=== PATIENT | male | born 1965 | race Caucasian/White ===

== ENCOUNTER 2018-06-02 05:18 | Emergency (ER) | payer OTHER, MEDICAID, SELFPAY ==
--- NOTE | 2018-06-02 05:22 | DI.RAD.S_ITS ---
PROCEDURE: XR ANKLE LT MIN 3V INDICATIONS: ankle pain after injury TECHNIQUE: 3 views of the ankle were acquired. COMPARISON: None. FINDINGS: Bones: Old fracture with internal fixation involving the medial malleolus. A surgical wire is fractured and migrated although the chronicity is uncertain. No definitive fractures or dislocations. Ankle mortise is normally aligned. No suspicious bony lesions. There is moderate secondary osteoarthritic changes at the tibiotalar joint. Soft tissues: No tibiotalar joint effusion. Achilles tendon appears normal. Soft tissue swelling. IMPRESSION: 1. No definitive acute fractures. If clinical symptoms persist or clinical suspicion for pathology is high, advanced imaging such as CT or MRI is suggested for further evaluation. 2. Old internally fixed medial malleolar fracture. There is fracture of a surgical wire which is migrated, uncertain chronicity. 3. Secondary osteoarthritis of the tibiotalar joint. Dictated by: Cherelle Madison M.D. on 06/02/2018 at 8:58 Approved by: Cherelle Madison M.D. on 06/02/2018 at 9:02
[2018-06-02 05:27] VITALS: BP 126/88; PULSE 105; RESP 18; TEMP 36.6; O2SAT 99; BMI 23.1
--- NOTE | 2018-06-02 05:39 | ED_ITS ---
HPI - Extremity Injury (Lower) General Chief Complaint: Extremity Injury, Lower Stated Complaint: Left ankle injury Time Seen by Provider: 06/02/18 05:22 Source: patient Mode of arrival: ambulatory Limitations: no limitations History of Present Illness HPI Narrative: 53-year-old male presents with a chief complaint of left ankle pain after hyperflexing his ankle while walking a long distance earlier today. He has pain on bilateral malleoli and does have a history of injuring this ankle with prior surgeries. He denies any numbness, tingling or weakness. He denies any foot or knee pain. MD complaint: ankle injury Onset (ago): hour(s) Type of Injury: hyperflexion Place: street/outdoors Severity: moderate Severity scale (1-10): 5 Relieving factors: rest Exacerbating factors: weight bearing and movement Context: walking Associated symptoms: snap/pop sensation, swelling and ambulatory Other symptoms: none Related Data Allergies Allergy/AdvReac Type Severity Reaction Status Date / Time No Known Drug Allergies Allergy Verified 06/02/18 05:27 Review of Systems Review of Systems All systems reviewed & are unremarkable except as noted in HPI and below Constitutional Denies chills, Denies fever(s), Denies lethargy and Denies weakness Eyes Denies change in vision, Denies eye discharge, Denies irritation and Denies loss of vision ENT Ears, Nose, Mouth, and Throat: Denies change in voice, Denies neck pain and Denies sore throat Cardiovascular Denies chest pain, Denies irregular heart rhythm, Denies lightheadedness, Denies palpitations, Denies dyspnea, Denies dyspnea on exertion and Denies orthopnea Respiratory Denies cough, Denies dyspnea, Denies dyspnea on exertion and Denies wheezing Gastrointestinal Gastrointestinal: Denies abdominal pain, Denies change in bowel habits, Denies diarrhea, Denies nausea and Denies vomiting Genitourinary Denies hematuria, Denies flank pain, Denies urinary incontinence and Denies urinary urgency Musculoskeletal Reports joint swelling, Reports limited range of motion and Denies neck pain Integumentary/Breasts Denies pruritus, Denies erythema, Denies rash and Denies wounds Neurologic Denies confusion, Denies loss of vision and Denies weakness Psychiatric Denies anxiety, Denies confusion, Denies depression, Denies homicidal ideation and Denies suicidal ideation Endocrine Denies palpitations Hematologic/Lymphatic Denies easy bruising Allergic/Immunologic Denies wheezing [facility], [facility] Social History Smoking Status: Current every day smoker Exam Narrative Exam Narrative: GEN: AOx3 and in mild distress EYES: Pupils are equal, round, and reactive to light and accommodation. Extraoccular muscles are intact bilaterally. There is no subconjunctival hemorrhage or exudate. CHEST: Lungs are clear to auscultation bilaterally and free of wheezes, rales, or rhonchi. Heart rate is regular rhythm, there are no murmurs, clicks, rubs, or gallops. There is no chest wall tenderness. ABD: Abdomen is soft and nontender. There is no guarding or rebound. Bowel sounds are normal in all 4 quadrants. There is no mass or organomegaly. EXT: Patient has full but painful range of motion of left ankle with minimal swelling over bilateral malleoli. SKIN: Warm, pink, and dry. No erythema or rash Initial Vital Signs Initial Vital Signs: Vital Signs Temperature 97.8 F 06/02/18 05:27 Pulse Rate 105 H 06/02/18 05:27 Respiratory Rate 18 06/02/18 05:27 Blood Pressure 126/88 H 06/02/18 05:27 Pulse Oximetry 99 06/02/18 05:27 Course Orders Ordered: ED Orders 06/02/18 05:22 XR ankle LT min 3V Stat Vital Signs - 8 hr 06/02/18 05:27 Temperature 97.8 F Pulse Rate 105 H Respiratory Rate 18 Blood Pressure 126/88 H Pulse Oximetry 99 MDM - Extremity Injury (Lower) Differential Diagnosis Likely ankle sprain and strain Medical Records Attestation: I reviewed the patient's medical records. Imaging Data Ankle XRAY: Attestation: I personally reviewed and interpreted this imaging study as follows: My impression: NAP Discharge Plan Departure Patient Disposition: Home Clinical Impression: Ankle sprain and strain Instructions: DI for Ankle Sprain Activity Restrictions/Additional Instructions: *You have been diagnosed with [ left ankle sprain ] *What to do: *Take medications as directed: Motrin and/or Tylenol for pain and swelling *Follow up with your primary care provider in 2-3 days, call for an appointment. Let them know you were seen in the Emergency Department and that we ask that you be seen in follow up *Return to ER if you should have any new, worsening or concerning symptoms , such as [increasing pain, numbness or tingling Radiographic study has been interpreted by an emergency physician. The official diagnosis by radiology will be performed within the next 24 hours and should there be any change in outcome we will notify you of how to proceed.
== END 2018-06-02 05:50 | disposition home or self-care (01) ==
PROVIDERS: Emergency Provider Emergency Medicine
DX: S93.402A Sprain of unspecified ligament of left ankle, initial encounter (principal); Y93.01 Activity, walking, marching and hiking
CPT/HCPCS: 73610; 99282; 99283

== ENCOUNTER 2018-12-30 12:34 | Emergency (ER) | payer OTHER, MEDICAID, SELFPAY ==
[2018-12-30 13:05] VITALS: PULSE 92; RESP 22; TEMP 37.8; O2SAT 93
[2018-12-30] MEDS: ACETAMINOPHEN 325 MG TABLET 650 MG PO (15:56)
[2018-12-30 16:21] VITALS: BP 123/78; PULSE 90; RESP 22; TEMP 39.2; O2SAT 93
--- NOTE | 2018-12-30 17:13 | ED_ITS ---
HPI - URI/Sore Throat <HAKAN Rivera - Last Filed: 12/30/18 22:40> General Chief Complaint: Upper Respiratory Symptoms Stated Complaint: FLU BUG Time Seen by Provider: 12/30/18 16:26 Source: patient Mode of arrival: ambulatory Limitations: no limitations History of Present Illness HPI Narrative: 53-year-old healthy male that is everyday smoker here for complaint of having cough nasal congestion generalized body aches and diarrhea for the past 2-3 days. He states the fever has started over the past day and half. He has been using Tylenol for his symptoms. He is tolerating p.o. intake well. No nausea or vomiting. He denies being around any contacts with similar symptoms. No stressors relievers of his symptoms. No other concerns or complaints at this timeframe. MD Complaint: fever and cough Related Data Home Medications Medication Instructions Recorded Confirmed aripiprazole 10 mg PO DAILY 12/30/18 12/30/18 guanfacine 1 mg PO BID 12/30/18 12/30/18 mirtazapine 7.5 mg PO DAILY 12/30/18 12/30/18 prazosin 1 mg PO DAILY 12/30/18 Allergies Allergy/AdvReac Type Severity Reaction Status Date / Time No Known Drug Allergies Allergy Verified 06/02/18 05:27 Review of Systems <HAKAN Rivera Last Filed: 12/30/18 22:40> Constitutional Reports chills, Reports fever(s) and Reports malaise Eyes Denies change in vision, Denies eye discharge, Denies irritation and Denies loss of vision ENT Ears, Nose, Mouth, and Throat: Denies change in voice, Denies neck pain and Denies sore throat Comments: Nasal congestion Cardiovascular Denies chest pain, Denies irregular heart rhythm, Denies lightheadedness, Denies palpitations and Denies orthopnea Respiratory Reports cough Gastrointestinal Gastrointestinal: Reports diarrhea Genitourinary Denies hematuria, Denies flank pain, Denies urinary incontinence and Denies u rinary urgency Musculoskeletal Denies neck pain Integumentary/Breasts Denies pruritus, Denies erythema, Denies rash and Denies wounds Neurologic Denies loss of vision Endocrine Denies palpitations PFS <HAKAN Rivera - Last Filed: 12/30/18 22:40> Social History Smoking Status: Current every day smoker Social History Smoking Status: Current every day smoker Exam <HAKAN Rivera - Last Filed: 12/30/18 22:40> Initial Vital Signs Initial Vital Signs: Vital Signs Temperature 100.1 F H 12/30/18 13:05 Pulse Rate 92 H 12/30/18 13:05 Respiratory Rate 22 12/30/18 13:05 Pulse Oximetry 93 12/30/18 13:05 Const General: cooperative and well developed Nutritional Appearance: well nourished Orientation: alert, awake, oriented x3 and not confused HENMT Mouth: oral mucosae normal and moist mucous membranes Throat: posterior oropharynx normal Eyes Conjunctivae: conjunctivae normal Sclera: sclerae normal Pupils: PERRL EOM: EOM intact bilaterally Resp Effort & Inspection: normal respiratory effort, able to speak in complete sentences, no respiratory distress and no use of accessory muscles Auscultation: clear to auscultation bilaterally, no rales, no rhonchi and no wheezes Cardio Rate: regular rate Rhythm: regular rhythm Heart Sounds: no click, no gallops, no murmurs and no rubs Pulses: normal peripheral pulses Skin General: no rashes or lesions noted, No jaundice and No petechiae Neuro General: alert, oriented x3, gait normal and no focal motor deficits Speech: speech normal <Cassandra Becker DO - Last Filed: 12/31/18 11:10> Initial Vital Signs Initial Vital Signs: Vital Signs Temperature 100.1 F H 12/30/18 13:05 Pulse Rate 92 H 12/30/18 13:05 Respiratory Rate 22 12/30/18 13:05 Pulse Oximetry 93 12/30/18 13:05 Course <HAKAN Rivera - Last Filed: 12/30/18 22:40> Orders Ordered: Discontinued Medications Acetaminophen (Tylenol) 650 mg PO NOW ONE Stop: 12/30/18 15:52 Last Admin: 12/30/18 15:56 Dose: 650 mg Ibuprofen (Advil) 800 mg PO NOW ONE Stop: 12/30/18 17:14 Last Admin: 12/30/18 17:31 Dose: 800 mg Vital Signs - 8 hr 12/30/18 16:21 12/30/18 17:31 12/30/18 17:35 Temperature 102.6 F H 100.6 F H Pulse Rate 90 87 Respiratory Rate 22 23 Blood Pressure 118/77 Blood Pressure [Right Arm] 123/78 Pulse Oximetry 93 93 12/30/18 17:39 Temperature 100.4 F H Pulse Rate Respiratory Rate Blood Pressure Blood Pressure [Right Arm] Pulse Oximetry <Cassandra Becker DO - Last Filed: 12/31/18 11:10> Orders Ordered: Discontinued Medications Acetaminophen (Tylenol) 650 mg PO NOW ONE Stop: 12/30/18 15:52 Last Admin: 12/30/18 15:56 Dose: 650 mg Ibuprofen (Advil) 800 mg PO NOW ONE Stop: 12/30/18 17:14 Last Admin: 12/30/18 17:31 Dose: 800 mg Vital Signs - 8 hr 12/30/18 16:21 12/30/18 17:31 12/30/18 17:35 Temperature 102.6 F H 100.6 F H Pulse Rate 90 87 Respiratory Rate 22 23 Blood Pressure 118/77 Blood Pressure [Right Arm] 123/78 Pulse Oximetry 93 93 12/30/18 17:39 Temperature 100.4 F H Pulse Rate Respiratory Rate Blood Pressure Blood Pressure [Right Arm] Pulse Oximetry MDM - URI/Sore Throat <HAKAN Rivera - Last Filed: 12/30/18 22:40> Lab Data Lab Results 12/30/18 Range/Units 16:25 Influenza A & B (PCR) Positive, type a A (Negative) MDM Narrative Medical decision making narrative: Influenza swab was obtained was positive for influenza A. [id number] Tylenol or Motrin as needed for any discomfort. Plenty of fluids and rest. Follow up with primary care provider. Return emergency room for any worsening symptoms. Saline irrigation and hot showers to help with any nasal congestion. <Cassandra Becker DO - Last Filed: 12/31/18 11:10> Lab Data Lab Results 12/30/18 Range/Units 16:25 Influenza A & B (PCR) Positive, type a A (Negative) Discharge Plan Departure Patient Disposition: Home Clinical Impression: Influenza Discharge Date/Time: 12/30/18 17:38 Interventions: ED Discharge Assessment Last Done: 12/30/18 17:35 Instructions: DI for Influenza -- Adult Activity Restrictions/Additional Instructions: Influenza swab was obtained was positive for influenza A. [id number] Tylenol or Motrin as needed for any discomfort. Plenty of fluids and rest. Follow up with primary care provider. Return emergency room for any worsening symptoms. Saline irrigation and hot showers to help with any nasal congestion. Prescriptions: No Action prazosin 1 mg capsule 1 mg PO DAILY RF: 0 guanfacine 1 mg tablet 1 mg PO BID RF: 0 mirtazapine 15 mg tablet 7.5 mg PO DAILY RF: 0 aripiprazole 10 mg tablet 10 mg PO DAILY RF: 0 Referrals: [facility] [Provider Group] <Cassandra Becker DO - Last Filed: 12/31/18 11:10> Cosign ED Attending Cosignature Attestation: I was immediately available in the department for consultation. Documentation has been reviewed. I agree with assessment and plan.
[2018-12-30 17:31] VITALS: TEMP 38.1
[2018-12-30] MEDS: IBUPROFEN 400 MG TABLET 800 MG PO (17:31)
[2018-12-30 17:35] VITALS: BP 118/77; PULSE 87; RESP 23; O2SAT 93
[2018-12-30 17:39] VITALS: TEMP 38
== END 2018-12-30 17:38 | disposition home or self-care (01) ==
PROVIDERS: Emergency Medicine; Emergency Provider Nurse Practitioner Family
DX: J10.1 Influenza due to other identified influenza virus with other respiratory manifestations (principal)
CPT/HCPCS: 87400; 99282

== ENCOUNTER 2019-01-03 07:00 | Emergency (ER) | payer OTHER, MEDICAID, SELFPAY ==
[2019-01-03 07:09] VITALS: BP 118/78; PULSE 98; RESP 10; TEMP 37.5; O2SAT 98; BMI 22.5
--- NOTE | 2019-01-03 08:22 | ED.URI ---
HPI - URI/Sore Throat General Chief Complaint: Upper Respiratory Symptoms Stated Complaint: Ear Pain Time Seen by Provider: 01/03/19 08:09 Source: patient, EMS, RN notes reviewed and old records reviewed Mode of arrival: EMS Limitations: no limitations History of Present Illness HPI Narrative: This is a 53-year-old male comes to the emergency department complaint of fevers, cough, chest pain with cough, patient states he feels achy all over. He was diagnosed with flu on the 20 . He states the symptoms started about the 29 of December. Patient states he also has been having some left ear pain he feels like it is swollen there and hard hear. Patient states he has been having diarrhea multiple times during the day. He denies any nausea or vomiting. patient states that he is taking all his regular medications. He takes air prep was all for his mental health. As well as the other medications for sleep. Patient states he also has a hernia on the left which she states has been bothering him more since he has been coughing but he is able to easily reduce it. States it has been there for about 15 years but has been slowly growing larger. Related Data Home Medications Medication Instructions Recorded Confirmed aripiprazole 10 mg PO DAILY 12/30/18 12/30/18 guanfacine 1 mg PO BID 12/30/18 12/30/18 mirtazapine 7.5 mg PO DAILY 12/30/18 12/30/18 prazosin 1 mg PO DAILY 12/30/18 Previous Rx's Medication Instructions Recorded levofloxacin [Levaquin] 750 mg PO DAILY #7 tab 01/03/19 ofloxacin 5 drop EAR-LEFT BID 10 Days #1 vial 01/03/19 Allergies Allergy/AdvReac Type Severity Reaction Status Date / Time No Known Drug Allergies Allergy Verified 06/02/18 05:27 Review of Systems Review of Systems ROS Unobtainable: All systems reviewed & are unremarkable except as noted in HPI and below Constitutional Reports body ache(s), Reports chills, Reports fever(s), Denies lethargy, Denies poor appetite and Denies weakness ENT Ears, Nose, Mouth, and Throat: Denies ear discharge, Reports otalgia ( left side) and Reports nasal discharge ( mild) Cardiovascular Reports chest pain ( With cough), Denies chest pain at rest, Denies chest pain with activity, Denies diaphoresis, Denies leg edema, Denies radiating jaw, neck or arm pain, Denies dyspnea and Denies dyspnea on exertion Respiratory Reports chest congestion, Reports cough, Denies excessive phlegm production, Denies pain on inspiration, Reports pain with cough, Denies dyspnea, Denies dyspnea on exertion and Denies wheezing Gastrointestinal Gastrointestinal: Denies abdominal pain, Denies melena, Denies hematochezia, Denies change in bowel habits, Reports diarrhea, Denies nausea, Denies vomiting and Reports other ( left inguinal hernia) Genitourinary Denies hematuria, Denies dysuria, Denies flank pain, Denies testicular pain and Denies urinary urgency Integumentary/Breasts Denies rash Neurologic Denies weakness Allergic/Immunologic Denies wheezing PFSH Social History Smoking Status: Current every day smoker Social History Smoking Status: Current every day smoker Exam Narrative Exam Narrative: GEN: well nourished, well appearing male, alert and oriented x 3, patient appears to be in mild distress. HEENT: Atraumatic, pupils are equal round reactive to light, extraocular movements are intact, nares are clear, Right TM is clear with no fluid left TM is clear there is no fluid but the left canal is erythematous and swollen, I am able to visualize the TM but the canal is about its normal diameter, there is no swelling of the pinna or outer ear. Throat is clear without any exudates, erythema, tonsillar enlargement or uvular deviation HEART: Regular rate and rhythm without murmur, clicks, rubs. LUNGS:Lung breath sounds equal bilaterally, no wheezes, rales, mild crackles at bases, chest moves symmetrically, no tachypnea or accessory muscle use. ABD:bowel sounds normal, soft, non-tender, no guarding, rebound, rigidity, no masses noted, no hepatosplenomegaly, patient has a left inguinal hernia that is easily reducible but immediately presents again. :No CVA tenderness MSCL: Non-tender, no edema bilateral lower extremities, no muscle atrophy, muscles strength 5/5 upper and lower extremities, full range of motion, normal gait NEURO:CN 2-12 intact, sensation normal PSYCH: normal mood, affect. Initial Vital Signs Initial Vital Signs: Vital Signs Temperature 99.5 F 01/03/19 07:09 Pulse Rate 98 H 01/03/19 07:09 Respiratory Rate 10 L 01/03/19 07:09 Blood Pressure 118/78 01/03/19 07:09 Pulse Oximetry 98 01/03/19 07:09 Course Orders Ordered: Discontinued Medications Sodium Chloride (Normal Saline 0.9%) 1,000 mls @ 1,000 mls/hr IV BOLUS ONE Stop: 01/03/19 09:20 Last Infusion: 01/03/19 09:32 Dose: 0 mls/hr Admin: 01/03/19 08:36 Dose: 1,000 mls/hr Ketorolac Tromethamine (Toradol) 15 mg IV NOW ONE Stop: 01/03/19 08:22 Last Admin: 01/03/19 08:36 Dose: 15 mg Vital Signs - 8 hr 01/03/19 07:09 Temperature 99.5 F Pulse Rate 98 H Respiratory Rate 10 L Blood Pressure 118/78 Pulse Oximetry 98 MDM - URI/Sore Throat Lab Data Attestation: I reviewed the patient's lab results. Result diagrams: 01/03/19 08:30 01/03/19 08:30 Lab Results 01/03/19 01/03/19 Range/Units 08:30 08:30 WBC 10.5 (4.5-11.0) X10^3/uL RBC 3.88 L (4.5-5.9) X10^6/uL Hgb 11.6 L (13.5-17.5) g/dL Hct 34.7 L (41-53) % MCV 89.5 (80-100) fL MCH 29.8 (26-34) PG MCHC 33.3 (30-36) % RDW 14.5 (11.6-14.8) % Plt Count 239 (150-400) X10^3/uL Neut % (Auto) 80.6 H (50-75) % Lymph % (Auto) 11.3 L (25-40) % Carbon % (Auto) 7.8 (3-14) % Eos % (Auto) 0.0 L (2-4) % Baso % (Auto) 0.3 (0-2) % Neut # (Auto) 8500 H (1272-2378) /uL Lymph # (Auto) 1200 (5378-0049) /uL Carbon # (Auto) 800 (0-900) /uL Eos # (Auto) 0 (0-450) /uL Baso # (Auto) 0 (0-100) /uL Sodium 136 L (137-145) mmol/L Potassium 3.8 (3.4-5.1) mmol/L Chloride 103 (98-107) mmol/L Carbon Dioxide 26 (22-32) mmol/L BUN 15 (9-20) mg/dL Creatinine 0.60 L (0.66-1.25) mg/dL Estimated GFR > 60.0 (>60) mL/min BUN/Creatinine Ratio 25.0 H (6-22) Glucose 133 H (70-100) mg/dL Calcium 8.6 (8.4-10.2) mg/dL Total Creatine Kinase 166 (55-170) U/L CK-MB (CK-2) 0.23 (<2.37) ng/mL CK-MB (CK-2) Rel Index 0.1 L (1.5-5.0) % Troponin I < 0.012 (0.01-0.034) ng/mL Imaging Data Chest x-ray: Radiologist's impression: [place] [address] XRay Report Signed Patient: Ranjan Conklin#: [id number] : 1965Acct:[id number] Age/Sex: 53 / MDate of Service: 01/03/19 Loc: ED Accession Number: [id number] Procedure: XR chest 1V Ordering Provider: Mireya Benito D.O. PROCEDURE: XR CHEST 1V INDICATIONS: flu symptoms, cough, fevers, chest pain TECHNIQUE: One view of the chest was acquired. COMPARISON: None. FINDINGS: Surgical changes and devices: None. Lungs and pleura: There are a few patchy bilateral airspace opacities with indistinct margins. No pleural effusions or pneumothorax. Mediastinum: Mediastinal contours appear normal. Heart size is normal. Bones and chest wall: No suspicious bony lesions. Overlying soft tissues appear unremarkable. IMPRESSION: 1. Patchy bilateral airspace opacities likely representing pneumonia given clinical history. Dictated by: Roverto Yan M.D. on 01/03/2019 at 9:05 Approved by: Roverto Yan M.D. on 01/03/2019 at 9:06 [facility] Narrative Medical decision making narrative: Patient is feeling better after Toradol and IV fluids. Chest x-ray shows some possible pneumonia like changes. Patient was recently diagnosed with influenza on the 29 of December. Discussed he could be developing pneumonia started antibiotics. He does have an otitis externa on exam and was started with ear drops. Patient is a referral to surgery for his inguinal hernia which is easily reducible but then recurs. Patient is comfortable with this plan and no signs and symptoms to watch for. Discharge Plan Departure Patient Disposition: Home Clinical Impression: Influenza, Otitis externa, Pneumonia Discharge Date/Time: 01/03/19 09:34 Interventions: ED Discharge Assessment Last Done: 01/03/19 09:33 Instructions: DI for Otitis Externa Activity Restrictions/Additional Instructions: Follow up with your primary care provider in the next 7-10 days if your symptoms have not completely resolved. Also for recheck of your ear infection. I recommend calling to set up follow up with general surgery to discuss possibly having your hernia repaired. Use antibiotic ear drops, use 5 drops into the left ear twice daily times 10 days. Take oral antibiotics until gone. Continue home medications as prescribed. You may use Tylenol and/or ibuprofen as needed for pain as well as fevers greater than 100.4 F he should expect influenza to last about 10 days from onset, if your continuing to have fevers, having worsening swelling or pain of her ear, bloody or purulent discharge from the, new or worsening chest, shortness of breath, persistent, black or bloody stools, passing out or other new or concerning symptoms return to the ER. Prescriptions: New ofloxacin 0.3 % drops 5 drop EAR-LEFT BID 10 Days Qty: 1 RF: 0 levofloxacin [Levaquin] 750 mg tablet 750 mg PO DAILY Qty: 7 RF: 0 No Action prazosin 1 mg capsule 1 mg PO DAILY RF: 0 guanfacine 1 mg tablet 1 mg PO BID RF: 0 mirtazapine 15 mg tablet 7.5 mg PO DAILY RF: 0 aripiprazole 10 mg tablet 10 mg PO DAILY RF: 0 Referrals: Ramses Pruitt MD [Physician] -
--- NOTE | 2019-01-03 08:26 | ED_ITS ---
HPI - URI/Sore Throat General Chief Complaint: Upper Respiratory Symptoms Stated Complaint: Ear Pain Time Seen by Provider: 01/03/19 08:09 Source: patient, EMS, RN notes reviewed and old records reviewed Mode of arrival: EMS Limitations: no limitations History of Present Illness HPI Narrative: This is a 53-year-old male comes to the emergency department complaint of fevers, cough, chest pain with cough, patient states he feels achy all over. He was diagnosed with flu on the . He states the symptoms sta rted about the 29 of December. Patient states he also has been having some left ear pain he feels like it is swollen there and hard hear. Patient states he has been having diarrhea multiple times during the day. He denies any nausea or vomiting. patient states that he is taking all his regular medications. He takes air prep was all for his mental health. As well as the other medications for sleep. Patient states he also has a hernia on the left which she states has been bothering him more since he has been coughing but he is able to easily reduce it. States it has been there for about 15 years but has been slowly growing larger. Related Data Home Medications Medication Instructions Recorded Confirmed aripiprazole 10 mg PO DAILY 12/30/18 12/30/18 guanfacine 1 mg PO BID 12/30/18 12/30/18 mirtazapine 7.5 mg PO DAILY 12/30/18 12/30/18 prazosin 1 mg PO DAILY 12/30/18 Previous Rx's Medication Instructions Recorded levofloxacin [Levaquin] 750 mg PO DAILY #7 tab 01/03/19 ofloxacin 5 drop EAR-LEFT BID 10 Days #1 vial 01/03/19 Allergies Allergy/AdvReac Type Severity Reaction Status Date / Time No Known Drug Allergies Allergy Verified 06/02/18 05:27 Review of Systems Review of Systems ROS Unobtainable: All systems reviewed & are unremarkable except as noted in HPI and below Constitutional Reports body ache(s), Reports chills, Reports fever(s), Denies lethargy, Denies poor appetite and Denies weakness ENT Ears, Nose, Mouth, and Throat: Denies ear discharge, Reports otalgia ( left side) and Reports nasal discharge ( mild) Cardiovascular Reports chest pain ( With cough), Denies chest pain at rest, Denies chest pain with activity, Denies diaphoresis, Denies leg edema, Denies radiating jaw, neck or arm pain, Denies dyspnea and Denies dyspnea on exertion Respiratory Reports chest congestion, Reports cough, Denies excessive phlegm production, Denies pain on inspiration, Reports pain with cough, Denies dyspnea, Denies dyspnea on exertion and Denies wheezing Gastrointestinal Gastrointestinal: Denies abdominal pain, Denies melena, Denies hematochezia, Denies change in bowel habits, Reports diarrhea, Denies nausea, Denies vomiting and Reports other ( left inguinal hernia) Genitourinary Denies hematuria, Denies dysuria, Denies flank pain, Denies testicular pain and Denies urinary urgency Integumentary/Breasts Denies rash Neurologic Denies weakness Allergic/Immunologic Denies wheezing PFSH Social History Smoking Status: Current every day smoker Social History Smoking Status: Current every day smoker Exam Narrative Exam Narrative: GEN: well nourished, well appearing male, alert and oriented x 3, patient appears to be in mild distress. HEENT: Atraumatic, pupils are equal round reactive to light, extraocular movements are intact, nares are clear, Right TM is clear with no fluid left TM is clear there is no fluid but the left canal is erythematous and swollen, I am able to visualize the TM but the canal is about its normal diameter, there is no swelling of the pinna or outer ear. Throat is clear without any exudates, erythema, tonsillar enlargement or uvular deviation HEART: Regular rate and rhythm without murmur, clicks, rubs. LUNGS:Lung breath sounds equal bilaterally, no wheezes, rales, mild crackles at bases, chest moves symmetrically, no tachypnea or accessory muscle use. ABD:bowel sounds normal, soft, non-tender, no guarding, rebound, rigidity, no masses noted, no hepatosplenomegaly, patient has a left inguinal hernia that is easily reducible but immediately presents again. :No CVA tenderness MSCL: Non-tender, no edema bilateral lower extremities, no muscle atrophy, muscles strength 5/5 upper and lower extremities, full range of motion, normal gait NEURO:CN 2-12 intact, sensation normal PSYCH: normal mood, affect. Initial Vital Signs Initial Vital Signs: Vital Signs Temperature 99.5 F 01/03/19 07:09 Pulse Rate 98 H 01/03/19 07:09 Respiratory Rate 10 L 01/03/19 07:09 Blood Pressure 118/78 01/03/19 07:09 Pulse Oximetry 98 01/03/19 07:09 Course Orders Ordered: Discontinued Medications Sodium Chloride (Normal Saline 0.9%) 1,000 mls @ 1,000 mls/hr IV BOLUS ONE Stop: 01/03/19 09:20 Last Infusion: 01/03/19 09:32 Dose: 0 mls/hr Admin: 01/03/19 08:36 Dose: 1,000 mls/hr Ketorolac Tromethamine (Toradol) 15 mg IV NOW ONE Stop: 01/03/19 08:22 Last Admin: 01/03/19 08:36 Dose: 15 mg Vital Signs - 8 hr 01/03/19 07:09 Temperature 99.5 F Pulse Rate 98 H Respiratory Rate 10 L Blood Pressure 118/78 Pulse Oximetry 98 MDM - URI/Sore Throat Lab Data Attestation: I reviewed the patient's lab results. Result diagrams: 01/03/19 08:30 01/03/19 08:30 Lab Results 01/03/19 01/03/19 Range/Units 08:30 08:30 WBC 10.5 (4.5-11.0) X10^3/uL RBC 3.88 L (4.5-5.9) X10^6/uL Hgb 11.6 L (13.5-17.5) g/dL Hct 34.7 L (41-53) % MCV 89.5 (80-100) fL MCH 29.8 (26-34) PG MCHC 33.3 (30-36) % RDW 14.5 (11.6-14.8) % Plt Count 239 (150-400) X10^3/uL Neut % (Auto) 80.6 H (50-75) % Lymph % (Auto) 11.3 L (25-40) % [place] % (Auto) 7.8 (3-14) % Eos % (Auto) 0.0 L (2-4) % Baso % (Auto) 0.3 (0-2) % Neut # (Auto) 8500 H (5492-5283) /uL Lymph # (Auto) 1200 (7642-8640) /uL [place] # (Auto) 800 (0-900) /uL Eos # (Auto) 0 (0-450) /uL Baso # (Auto) 0 (0-100) /uL Sodium 136 L (137-145) mmol/L Potassium 3.8 (3.4-5.1) mmol/L Chloride 103 (98-107) mmol/L Carbon Dioxide 26 (22-32) mmol/L BUN 15 (9-20) mg/dL Creatinine 0.60 L (0.66-1.25) mg/dL Estimated GFR > 60.0 (>60) mL/min BUN/Creatinine Ratio 25.0 H (6-22) Glucose 133 H (70-100) mg/dL Calcium 8.6 (8.4-10.2) mg/dL Total Creatine Kinase 166 (55-170) U/L CK-MB (CK-2) 0.23 (<2.37) ng/mL CK-MB (CK-2) Rel Index 0.1 L (1.5-5.0) % Troponin I < 0.012 (0.01-0.034) ng/mL Imaging Data Chest x-ray: Radiologist's impression: [address] [address] XRay Report Signed Patient: Ranjan Conklin#: [id number] : 1965Acct:[id number] Age/Sex: 53 / MDate of Service: 01/03/19 Loc: ED Accession Number: [id number] Procedure: XR chest 1V Ordering Provider: Mireya Benito D.O. PROCEDURE: XR CHEST 1V INDICATIONS: flu symptoms, cough, fevers, chest pain TECHNIQUE: One view of the chest was acquired. COMPARISON: None. FINDINGS: Surgical changes and devices: None. Lungs and pleura: There are a few patchy bilateral airspace opacities with indistinct margins. No pleural effusions or pneumothorax. Mediastinum: Mediastinal contours appear normal. Heart size is normal. Bones and chest wall: No suspicious bony lesions. Overlying soft tissues appear unremarkable. IMPRESSION: 1. Patchy bilateral airspace opacities likely representing pneumonia given clinical history. Dictated by: Roverto Yan M.D. on 01/03/2019 at 9:05 Approved by: Roverto Yan M.D. on 01/03/2019 at 9:06 [facility] Narrative Medical decision making narrative: Patient is feeling better after Toradol and IV fluids. Chest x-ray shows some possible pneumonia like changes. Patient was recently diagnosed with influenza on the 29 of December. Discussed he could be developing pneumonia started antibiotics. He does have an otitis externa on exam and was started with ear drops. Patient is a referral to surgery for his inguinal hernia which is easily reducible but then recurs. Patient is comfortable with this plan and no signs and symptoms to watch for. Discharge Plan Departure Patient Disposition: Home Clinical Impression: Influenza, Otitis externa, Pneumonia Discharge Date/Time: 01/03/19 09:34 Interventions: ED Discharge Assessment Last Done: 01/03/19 09:33 Instructions: DI for Otitis Externa Activity Restrictions/Additional Instructions: Follow up with your primary care provider in the next 7-10 days if your symptoms have not completely resolved. Also for recheck of your ear infection. I recommend calling to set up follow up with general surgery to discuss possibly having your hernia repaired. Use antibiotic ear drops, use 5 drops into the left ear twice daily times 10 days. Take oral antibiotics until gone. Continue home medications as prescribed. You may use Tylenol and/or ibuprofen as needed for pain as well as fevers greater than 100.4 F he should expect influenza to last about 10 days from onset, if your continuing to have fevers, having worsening swelling or pain of her ear, bloody or purulent discharge from the, new or worsening chest, shortness of breath, persistent, black or bloody stools, passing out or other new or concerning symptoms return to the ER. Prescriptions: New ofloxacin 0.3 % drops 5 drop EAR-LEFT BID 10 Days Qty: 1 RF: 0 levofloxacin [Levaquin] 750 mg tablet 750 mg PO DAILY Qty: 7 RF: 0 No Action prazosin 1 mg capsule 1 mg PO DAILY RF: 0 guanfacine 1 mg tablet 1 mg PO BID RF: 0 mirtazapine 15 mg tablet 7.5 mg PO DAILY RF: 0 aripiprazole 10 mg tablet 10 mg PO DAILY RF: 0 Referrals: Ramses Pruitt MD [Physician] -
[2019-01-03] MEDS: KETOROLAC 60 MG/2 ML VIAL 15 MG IV (08:36)
[2019-01-03] MEDS: SODIUM CHLORIDE 0.9% 1,000 ML 1000 ML IV (08:36)
[2019-01-03 08:39] LABS: Add Manual Diff / Slide Review NO; Basophils Absolute Auto 0 /uL (0-100); Basophils Percent Auto 0.3 % (0-2); Eosinophils Absolute Auto 0 /uL (0-450); Hematocrit 34.7 % (41-53); Hemoglobin 11.6 g/dL (13.5-17.5); Lymphocytes Absolute Auto 1200 /uL (1100-4500); Lymphocytes Percent Auto 11.3 % (25-40); Mean Corpuscular HGB Conc 33.3 % (30-36); Mean Corpuscular Hemoglobin 29.8 PG (26-34); Mean Corpuscular Volume 89.5 fL (80-100); Monocytes Absolute Auto 800 /uL (0-900); Monocytes Percent Auto 7.8 % (3-14); Neutrophils Absolute Auto 8500 /uL (1500-7000); Neutrophils Percent Auto 80.6 % (50-75); Platelet Count 239 X10^3/uL (150-400); Red Blood Cell Count 3.88 X10^6/uL (4.5-5.9); Red Cell Distribution Width 14.5 % (11.6-14.8); White Blood Cell Count 10.5 X10^3/uL (4.5-11.0)
[2019-01-03 08:53] LABS: Blood Urea Nitrogen 15 mg/dL (9-20); Calcium 8.6 mg/dL (8.4-10.2); Carbon Dioxide 26 mmol/L (22-32); Chloride 103 mmol/L (98-107); Creatine Kinase 166 U/L (55-170); Estimated Glomerular Filt Rate > 60.0 mL/min (>60); Glucose 133 mg/dL (70-100); HEMOLYSIS < 15 (0-50); Potassium 3.8 mmol/L (3.4-5.1); Sodium 136 mmol/L (137-145)
[2019-01-03 09:04] LABS: Troponin I < 0.012 ng/mL (0.01-0.034)
[2019-01-03 09:08] LABS: CKMB % Relative Index 0.1 % (1.5-5.0); Creatine Kinase MB 0.23 ng/mL (<2.37)
== END 2019-01-03 09:34 | disposition home or self-care (01) ==
PROVIDERS: Emergency Provider Emergency Medicine
DX: J11.1 Influenza due to unidentified influenza virus with other respiratory manifestations (principal); H60.90 Unspecified otitis externa, unspecified ear
CPT/HCPCS: 36591; 71045; 80048; 82550; 82553; 84484; 85025; 96361; 96374; 99283; 99284; J1885

== ENCOUNTER 2019-01-07 10:15 | Emergency (ER) | payer OTHER, MEDICAID, SELFPAY ==
[2019-01-07 10:20] VITALS: BP 133/80; PULSE 90; RESP 14; TEMP 36.8; O2SAT 98
--- NOTE | 2019-01-07 11:04 | ED.EAR ---
HPI - Ear Problem General Chief complaint: Ear Stated complaint: LEFT EAR PAIN Time Seen by Provider: 01/07/19 10:28 Source: patient Mode of arrival: ambulatory Limitations: no limitations History of Present Illness HPI Narrative: The patient is a 53-year-old male who presents with left ear pain. He was seen and evaluated here on 01/03/2019 he was positive for influenza on December 29 diagnosed with pneumonia on the he also was diagnosed with left otitis externa he was placed on drops and given oral Levaquin 7 days. He is still taking the Levaquin. MD Complaint: ear pain and decreased hearing Related Data Home Medications Medication Instructions Recorded Confirmed aripiprazole 10 mg PO DAILY 12/30/18 12/30/18 guanfacine 1 mg PO BID 12/30/18 12/30/18 mirtazapine 7.5 mg PO DAILY 12/30/18 12/30/18 prazosin 1 mg PO DAILY 12/30/18 Previous Rx's Medication Instructions Recorded levofloxacin [Levaquin] 750 mg PO DAILY #7 tab 01/03/19 ofloxacin 5 drop EAR-LEFT BID 10 Days #1 vial 01/03/19 amoxicillin 500 mg PO BID 7 Days #14 cap 01/07/19 Allergies Allergy/AdvReac Type Severity Reaction Status Date / Time No Known Drug Allergies Allergy Verified 06/02/18 05:27 Review of Systems Review of Systems ROS Unobtainable: All systems reviewed & are unremarkable except as noted in HPI and below Constitutional Denies chills, Denies fever(s), Denies lethargy and Denies weakness Eyes Denies change in vision, Denies eye discharge, Denies irritation and Denies loss of vision ENT Ears, Nose, Mouth, and Throat: Reports as per HPI Cardiovascular Denies chest pain, Denies irregular heart rhythm, Denies lightheadedness, Denies palpitations and Denies orthopnea Respiratory Reports as per HPI Gastrointestinal Gastrointestinal: Denies abdominal pain, Denies change in bowel habits, Denies diarrhea, Denies nausea and Denies vomiting Genitourinary Denies hematuria, Denies flank pain, Denies urinary incontinence and Denies urinary urgency Musculoskeletal Denies back pain, Denies muscle weakness, Denies numbness and Denies tingling Integumentary/Breasts Denies pruritus, Denies erythema, Denies rash and Denies wounds Neurologic Denies confusion, Denies loss of vision, Denies numbness, Denies tingling and Denies weakness Psychiatric Denies anxiety, Denies confusion, Denies depression, Denies homicidal ideation and Denies suicidal ideation Endocrine Denies palpitations [facility] Medical History 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 HEENT: Head atraumatic,EOMI, pupils reactive, face symmetric, moist mucous membranes EARS: Right ear is within normal limits, left ear canal is erythematous tympanic membrane is visualized there is 1 spot of possible blood in the canal there is no gross discharge mastoid is nontender able to move that external part of the ear without any difficulty. CARDIOVASCULAR: Regular rate and rhythm without murmurs, rubs or gallops. RESPIRATORY: Breath sounds equal bilaterally, no wheezes rales or rhonchi. ABDOMEN: Soft, nontender. Normoactive bowel sounds all 4 quadrants. No guarding or rebound. EXTREMITIES: Normal range of motion, no clubbing or edema. Neurovascularly intact NEUROLOGICAL: Alert and oriented x4.Normal gait and speech. SKIN: Warm, dry, no laceration, no petechiae, no rashes or lesions. Course Vital Signs - 8 hr 01/07/19 10:20 01/07/19 11:39 Temperature 98.2 F Pulse Rate 90 86 Respiratory Rate 14 18 Blood Pressure 133/80 121/83 Pulse Oximetry 98 96 Medical Decision Making MDM Narrative Medical decision making narrative: Patient is convinced that the drops are not getting into was here however he does have any gross discharge from his ears. It is still erythematous, patient is still taking Levaquin for pneumonia it should cover strep however may not be as effective in the ears. Recommend he start amoxicillin office initially ear drops.. Discharge Plan Departure Patient Disposition: Home Clinical Impression: Otitis externa Qualifiers: Otitis externa type: unspecified type Chronicity: acute Laterality: left Qualified Code(s): H60.502 - Unspecified acute noninfective otitis externa, left ear Discharge Date/Time: 01/07/19 11:40 Interventions: ED Discharge Assessment Last Done: 01/07/19 11:39 Activity Restrictions/Additional Instructions: *You have been diagnosed with otitis media *What to do: Continue with drops, think about ear wick ask the pharmacy it may help with drops *Continue to take medications as directed Levaquin 750 mg for 5 days total instead of 7 days amoxicillin 500 mg 3 times a day for 7 days for ear *Follow up with your primary care provider in 2-3 days *Return to ER if you should have [or] any new, worsening or concerning symptoms Prescriptions: New amoxicillin 500 mg capsule 500 mg PO BID 7 Days Qty: 14 RF: 0 No Action ofloxacin 0.3 % drops 5 drop EAR-LEFT BID 10 Days Qty: 1 RF: 0 levofloxacin [Levaquin] 750 mg tablet 750 mg PO DAILY Qty: 7 RF: 0 prazosin 1 mg capsule 1 mg PO DAILY RF: 0 guanfacine 1 mg tablet 1 mg PO BID RF: 0 mirtazapine 15 mg tablet 7.5 mg PO DAILY RF: 0 aripiprazole 10 mg tablet 10 mg PO DAILY RF: 0 Referrals: [facility] [Provider Group]
[2019-01-07 11:39] VITALS: BP 121/83; PULSE 86; RESP 18; O2SAT 96
== END 2019-01-07 11:40 | disposition home or self-care (01) ==
PROVIDERS: Emergency Provider Emergency Medicine
DX: H60.502 Unspecified acute noninfective otitis externa, left ear (principal)
CPT/HCPCS: 99282; 99283

== ENCOUNTER 2019-04-27 09:05 | Day surgery (SDC) | payer OTHER, MEDICAID, SELFPAY ==
[2019-04-26 12:21] VITALS: BMI 22.2
[2019-04-27] VITALS (12 sets, daily range): BP systolic 95–123; BP diastolic 64–88; PULSE 65–77; RESP 9–17; TEMP 36.6–37.2; O2SAT 93–99; BMI 22.2
[2019-04-27] MEDS: LACTATED RINGERS 1,000 ML 100 ML IV (09:30)
--- NOTE | 2019-04-27 13:11 | PM.PREOP ---
Pre-operative Note Interval Note History & Physical reviewed/Exam performed by Physician: Yes Changes to H&P: No
[2019-04-27] MEDS: CEFAZOLIN 2 GM/100 ML FROZ.PIGGY IV (13:28)
--- NOTE | 2019-04-27 13:51 | SUR.OPER ---
Supine on padded OR bed, head on pillow, arms secured on padded arm boards at <90 degrees abduction, legs uncrossed, safety belt at thigh, tape over blanket over lower legs.
[2019-04-27] MEDS: BUPIVACAINE 0.5% (PF) VIAL 30 ML INJ (13:59)
--- NOTE | 2019-04-27 15:11 | PM.OP.1 ---
Operative Date/Time/Diagnoses Date of procedure: 04/27/19 Time of procedure: 15:11 Pre-op diagnosis: Left inguinal hernia Post-op diagnosis: same (Left inguinal hernia. Incarcerated in the office but reducible once the patient was asleep.) Procedure & Clinicians Procedure: Repair with onlay of mesh (Ever) Same procedure as scheduled: Yes Indications: Symptomatic left inguinal hernia Surgeon: Xavier Bro Click Yes if Unassisted: Yes Anesthesia Type: General Operative Notes Findings: Jose defect in the floor. Had the appearance of an indirect hernia. Closure Type: primary Specimen(s): none sent Prosthetic devices, grafts, tissues, transplants, or devices: Mesh Estimated Blood Loss (mL): 15 Procedure in detail: The patient was placed supine on the operating room table and underwent general LMA anesthesia. He was prepped and draped in the usual fashion. A transverse incision was made overlying the internal ring and carried down to the level of the external oblique. The external oblique was opened parallel with its fibers through the external ring. The cord structures were elevated. The cremaster was opened proximally and search made for an indirect sac. None was found. The floor was examined and was found to be essentially obliterated with a huge defect through the floor. This was from surrounding structures including the cord. It was opened and the preperitoneal fat reduced. The redundant portion was removed and a pursestring of 2 0 silk was used to close the defect along with a silk tie and running layers of 2 0 silk. The floor was still quite attenuated so I chose to suture transversalis medially to ileopubic tract and ileo inguinal ligament. I used 0 0 Tycron to do this. A small relaxing incision was made in the posterior lamella the anterior rectus sheath.. A patch was placed across the floor and tacked at the pubic tubercle, the posterior lamella of the anterior rectus sheath, the ilioinguinal ligament, and superior lateral to the cord. The opening was modified as necessary to prevent tight constriction of the cord. Sutures of 0 Tycron were used to secure the mesh. The external oblique was closed with a running 3 0 Polysorb. The subcu was closed with interrupted 3 0 Polysorb. The skin was closed with a running 4 0 Polysorb subcuticular stitch and Steri-Strips. Dressing was applied, the patient was awakened, and the patient was taken to the recovery area in good condition. Testicle was pulled down after closure. It wrote a little high preop in continue to do so postop. Complications: none Condition: stable Disposition: PACU Plan for aftercare: Follow-up the office
[2019-04-27] MEDS: fentaNYL 100 MCG/2 ML INJ 50 MCG IV ×2 (15:31→15:37)
[2019-04-27] MEDS: HYDROMORPHONE 2 MG INJ 0.5 MG IV ×2 (15:45→15:56)
[2019-04-27] MEDS: OXYCODONE/ACETAMINOPHEN 5/325 TABLET 1 TAB PO ×2 (15:50→16:11)
--- NOTE | 2019-04-27 16:05 | SUR.PHASEI ---
bedside report given to JACEY Mansfield at this time. Pt in stable condition, VSS. pt sitting up and talking to RN. Transferred care of pt to JACEY Chamberlain at this time.
--- NOTE | 2019-04-27 16:53 | SUR.PHASEII ---
friend brought in after returned from pharmacy, d/c instructions discussed both voiced an understanding. pt left when ready and left in stable condition.
== END 2019-04-27 16:55 | disposition home or self-care (01) ==
PROVIDERS: Visit Provider Specialist
PROC: (CPT 49505; principal; 2019-04-27 12:45)
DX: K40.90 Unilateral inguinal hernia, without obstruction or gangrene, not specified as recurrent (principal)
CPT/HCPCS: 49505; C1781; J0690; J1100; J1170; J2405; J2704; J3010

== ENCOUNTER 2020-10-08 09:28 | Observation (INO) | payer OTHER, MEDICAID, SELFPAY ==
[2020-10-08] VITALS (22 sets, daily range): BP systolic 107–133; BP diastolic 62–87; PULSE 67–92; RESP 12–18; TEMP 36.3–37.2; O2SAT 95–100; BMI 23.1
--- NOTE | 2020-10-08 11:06 | ED_ITS ---
HPI - Skin/Abscess/Foreign Bdy <Herberth DumontGERARDO montezP - Last Filed: 10/08/20 16:50> General Chief complaint: Skin/Abscess/Foreign Body Stated complaint: Cyst inside left knee Time Seen by Provider: 10/08/20 10:36 Source: patient Mode of arrival: Ambulatory Limitations: no limitations History of Present Illness HPI narrative: This is a 55 year male, smoker, who has past medical history sig nificant for substance abuse by smoking meth and ankle surgery presents to ED with chief complain of left knee skin infection and a lump. Patient reports currently is not using methamphetamine for last couple of years. Patient noticed a small pimple like lesions was on left medial knee about a week ago and scratched it since it was itchy. This became very swollen, red, warmth and painful. He noticed copious amount drainage from affected site 2 days ago by using hot compresses. Patient reports chills but no fever. Patient denies nausea, vomiting, altered sensation. He is ambulatory but this increases pain in left groin. Patient reports pain as 5 to 6/10. Patient denies chest pain, dyspnea, dizziness. Patient is homeless. Has a history of IV drug use 20 years ago for 6 month using cocaine. Related Data Previous Rx's Medication Instructions Recorded ibuprofen 600 mg PO QID PRN #20 tab 04/27/19 Allergies Allergy/AdvReac Type Severity Reaction Status Date / Time No Known Drug Allergies Allergy Verified 10/08/20 09:56 Review of Systems <Herberth DumontGERARDO montezP - Last Filed: 10/08/20 16:50> Review of Systems Narrative: General: Denies fever, (+) chills, fatigue, malaise, sweats. HEENT: Denies sinus pain, ear pain, sore throat, difficulty swallowing, di zziness. Respiratory: Denies dyspnea, cough, wheezing, hemoptysis, sputum. Cardiovascular: Denies chest pain, palpitations, orthopnea, edema. Gastrointestinal: Denies nausea, vomiting, abdominal pain, diarrhea, constipation, melena. : Denies dysuria, frequency, incontinence, hematuria, urinary retention. Musculoskeletal: See HPI Skin: See HPI Neurologic: Denies weakness, headache, numbness, change in speech, confusion, seizures, incoordination. Psychiatric: No concerning psychosocial issues. 12-point review of systems is negative except for those stated above. 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 Surgical History History of ankle surgery Social History marital status: unmarried,single household members: friend(s) occupational status: employed Smoking Status: Current every day smoker alcohol intake: former substance use type: does not use and former substance user Smoking Status: Current every day smoker alcohol intake frequency: holidays/special occasions only Substance Use Type: does not use and former substance user Exam <Herberth BeltreHAKAN Medel - Last Filed: 10/08/20 16:50> Narrative Exam Narrative: GEN: Alert, oriented x 3, well appearing and nourished, and in no acute distress. Head: Normal cephalic, atraumatic. No scalp or temporal tenderness, palpable mass or rash. EYES: Pupils are equal, round, and reactive to light and accommodation. Extraocular muscles are intact bilaterally. There is no subconjunctival hemorrhage, exudate and sclera non-icteric. ENT: Hearing grossly intact. Nose without bleeding, purulent discharge or deviation. Mucous membrane moist, no mucosal lesion. Throat without erythema, tonsillar hypertrophy or exudate. Uvula in midline, airway patent. Neck: Trachea in midline. No JVD, non-tender without lymphadenopathy. No masses or thyroid megaly. Supple, non-tender and no meningeal signs. CARDIAC: Normal regular rate and rhythm without murmurs, gallops, or rubs. No chest wall tenderness. No peripheral edema, cyanosis or pallor. Capillary refill is less than 2 seconds. RESPIRATORY: Lungs are clear to auscultate bilaterally. No cough, wheezes, rales, or rhonchi. No stridor, respiratory distress, increase work of breathing, or accessary muscle used. ABD: Abdomen soft, nontender and non-distended. No guarding or rebound tenderness to palpate. Bowel sounds are normal in all 4 quadrants. There is no palpable masses or organomegaly. EXT: Intact sensation and pedal pulses bilaterally. Left inguinal lymphadenopathy. SKIN: Ulcerated lesion measuring 1.5 cm with white/purulent discharge and discoloration which is surrounded with erythematous, edematous, warmth skin measuring 9 x 8 cm and marine steward erythematous and warmth extending up to mid thigh which is traced by skin pen. Warm, dry, normal color for patient. BACK: Nontender without deformity or crepitance. No flank tenderness. NEUROLOGICAL: Alert and oriented to place, time and person. Sensation and motor function intact bilaterally. No facial droops, dysphasia. PSYCHIATRIC: Good judgement and reason, without hallucinations, abnormal affect or abnormal behaviors during the examination. Patient is not suicidal. Initial Vital Signs Initial Vital Signs: Vital Signs Temperature 98.4 F 10/08/20 09:56 Pulse Rate 92 H 10/08/20 09:56 Respiratory Rate 14 10/08/20 09:56 Blood Pressure 120/80 10/08/20 09:56 Pulse Oximetry 99 10/08/20 09:56 <Cassandra Becker DO - Last Filed: 10/08/20 18:51> Initial Vital Signs Initial Vital Signs: Vital Signs Temperature 98.4 F 10/08/20 09:56 Pulse Rate 92 H 10/08/20 09:56 Respiratory Rate 14 10/08/20 09:56 Blood Pressure 120/80 10/08/20 09:56 Pulse Oximetry 99 10/08/20 09:56 Scores <HAKAN Segura - Last Filed: 10/08/20 16:50> GCS [place] coma scale eye opening: Spontaneous [place] coma scale verbal response: Orientated [place] coma scale motor response: Obey commands Ju[place] coma scale total score: 15 qSOFA Altered Mental Status (GCS <15): No Respiratory rate greater than/equal to 22: No Systolic blood pressure less than or equal to 100: No qSOFA Total: 0 0-1 Not High Risk 1-3 High risk Course <HAKAN Segura - Last Filed: 10/08/20 16:50> Orders Ordered: ED Orders 10/08/20 11:06 XR knee LT 3V Stat 10/08/20 11:50 Complete Blood Count AUTO DIFF Stat Comprehensive Metabolic Panel Stat Lactate (Lactic Acid) Stat Procalcitonin Stat 10/08/20 12:30 Wound Culture and Gram Stain Stat 10/08/20 13:22 Blood Culture Stat 10/08/20 14:16 COVID19 Stat 10/08/20 14:40 CT LE LT w con Stat Acetaminophen (Acetaminophen 325 Mg Tablet) 650 mg PO Q6HR PRN PRN Reason: Fever/Mild Pain (1-3) Enoxaparin Sodium (Enoxaparin 40 Mg/0.4 Ml Syringe) 40 mg SUBCUT DAILY SAMEERA Cefepime HCl 2 gm/ Sodium (Chloride) 100 mls @ 200 mls/hr IV Q12H SAMEERA Last Admin: 10/08/20 18:30 Dose: 200 mls/hr Documented by: JUVE Vancomycin HCl (Vancomycin) 1,250 mg in 250 mls @ 250 mls/hr IV Q8H SAMEERA Sodium Chloride (Normal Saline 0.9%) 250 mls @ 21 mls/hr IV Q24H PRN PRN Reason: Flush Last Admin: 10/08/20 18:31 Dose: 21 mls/hr Documented by: JUVE Influenza Virus Vaccine (Influenza Vaccine 0.5 Ml Syringe) 0.5 ml IM .ONCE ONE Stop: 10/09/20 09:01 Ondansetron HCl (Ondansetron 4 Mg/2 Ml Inj) 4 mg IV Q8HR PRN PRN Reason: Nausea And Vomiting Sodium Chloride (Sodium Chloride 0.9% Flush) 10 ml IV BID SAMEERA Sodium Chloride (Sodium Chloride 0.9% Flush) 10 ml IV PRN PRN PRN Reason: Flush Last Admin: 10/08/20 18:30 Dose: 10 ml Documented by: JUVE Vancomycin HCl (Vancomycin Trough) 1 request MISC NOW ONE Stop: 10/09/20 11:31 Discontinued Medications Bupivacaine HCl/Epinephrine Bitart (Bupivacaine 0.25% W/ Epi (Pf) 10 Ml Vial) 20 ml INJ NOW ONE Stop: 10/08/20 16:13 Last Admin: 10/08/20 16:13 Dose: 5 ml Documented by: ESTEPHANIE Diphtheria/Tetanus/Acell Pertussis (Tet,Diph,Pertuss(Acell),Vac/Pf 0.5 Ml Syringe) 0.5 ml IM .ONCE ONE Stop: 10/08/20 11:47 Last Admin: 10/08/20 11:57 Dose: 0.5 ml Documented by: BTONER Fentanyl (Fentanyl 100 Mcg/2 Ml Inj) 0 mcg IV Q5M PRN PRN Reason: Pain, Moderate (4-6) Hydromorphone HCl (Hydromorphone 2 Mg Inj) 0 mg IV Q5M PRN PRN Reason: Pain, Severe (7-10) Vancomycin HCl/Dextrose (Vancomycin) 1,500 mg in 300 mls @ 200 mls/hr IV NOW ONE Stop: 10/08/20 12:47 Last Infusion: 10/08/20 13:52 Dose: 0 mls/hr Documented by: Admin: 10/08/20 11:56 Dose: 200 mls/hr Documented by: BTONER Sodium Chloride (Normal Saline 0.9%) 1,000 mls @ 125 mls/hr IV CONT SAMEERA Last Infusion: 10/08/20 15:22 Dose: 0 mls/hr Documented by: Admin: 10/08/20 11:57 Dose: 125 mls/hr Documented by: BTONER Lactated Ringer's (Lactated Ringers) 1,000 mls @ 42 mls/hr IV NOW ONE Stop: 10/09/20 15:24 Last Infusion: 10/08/20 16:59 Dose: 0 mls/hr Documented by: CTR.[email or web address] Admin: 10/08/20 15:36 Dose: 42 mls/hr Documented by: LANDEN Ondansetron HCl (Ondansetron 4 Mg/2 Ml Inj) 4 mg IV NOW PRN PRN Reason: Nausea And Vomiting Oxycodone/Acetaminophen (Oxycodone/Acetaminophen 5/325 Tablet) 1 tab PO PACUNOW PRN PRN Reason: Mild or Moderate Pain Last Admin: 10/08/20 16:56 Dose: 1 tab Documented by: [email or web address] Vancomycin HCl (Vancomycin Per Pharmacy) 1 request [facility] [place] NOW ONE Stop: 10/08/20 18:06 Reevaluation(s) Reevaluation #1: With shared decision making, patient agrees to be hospitalized and received treatments for cellulitis and possible debridement on left leg Time: 13:55 Consultations Consultation #1: Dr. Zaragoza consulted for admission. Dr. Allan will come down to the ER to assess patient. Time: 13:38 Consultation #2: Dr. Allan assessed patient at bedside in ED and recommend general surgery/orthopedist consult for possible debridement of the wound. He kindly accepted the patient's care but after the GS evaluation. Time: 13:47 Consultation #3: Dr. Figueroa consulted for ulcerative wound and cellulitis possible debridement. Dr. Gacria recommended Covid test and she will come into ED for an evaluation. Time: 13:55 Additional Consultation(s): [id number]-Dr. Figueroa assessed the patient at bedside. She recommended CT of lower extremity with contrast before taking the pateint to OR. NPO at this time. Vital Signs Vital signs: Vital Signs - 8 hr 10/08/20 11:35 10/08/20 14:53 10/08/20 14:54 Pulse Rate 87 70 70 Respiratory Rate Blood Pressure 116/71 Pulse Oximetry 98 97 97 10/08/20 14:56 10/08/20 15:00 Pulse Rate 67 Respiratory Rate 16 Blood Pressure 122/72 Pulse Oximetry 97 <Cassandra Becker DO - Last Filed: 10/08/20 18:51> Orders Ordered: ED Orders 10/08/20 11:06 XR knee LT 3V Stat 10/08/20 11:50 Complete Blood Count AUTO DIFF Stat Comprehensive Metabolic Panel Stat Lactate (Lactic Acid) Stat Procalcitonin Stat 10/08/20 12:30 Wound Culture and Gram Stain Stat 10/08/20 13:22 Blood Culture Stat 10/08/20 14:16 COVID19 Stat 10/08/20 14:40 CT LE LT w con Stat Acetaminophen (Acetaminophen 325 Mg Tablet) 650 mg PO Q6HR PRN PRN Reason: Fever/Mild Pain (1-3) Enoxaparin Sodium (Enoxaparin 40 Mg/0.4 Ml Syringe) 40 mg SUBCUT DAILY SAMEERA Cefepime HCl 2 gm/ Sodium (Chloride) 100 mls @ 200 mls/hr IV Q12H SAMEERA Last Admin: 10/08/20 18:30 Dose: 200 mls/hr Documented by: JUVE Vancomycin HCl (Vancomycin) 1,250 mg in 250 mls @ 250 mls/hr IV Q8H SAMEERA Sodium Chloride (Normal Saline 0.9%) 250 mls @ 21 mls/hr IV Q24H PRN PRN Reason: Flush Last Admin: 10/08/20 18:31 Dose: 21 mls/hr Documented by: JUVE Influenza Virus Vaccine (Influenza Vaccine 0.5 Ml Syringe) 0.5 ml IM .ONCE ONE Stop: 10/09/20 09:01 Ondansetron HCl (Ondansetron 4 Mg/2 Ml Inj) 4 mg IV Q8HR PRN PRN Reason: Nausea And Vomiting Sodium Chloride (Sodium Chloride 0.9% Flush) 10 ml IV BID SAMEERA Sodium Chloride (Sodium Chloride 0.9% Flush) 10 ml IV PRN PRN PRN Reason: Flush Last Admin: 10/08/20 18:30 Dose: 10 ml Documented by: JUVE Vancomycin HCl (Vancomycin Trough) 1 request MISC NOW ONE Stop: 10/09/20 11:31 Discontinued Medications Bupivacaine HCl/Epinephrine Bitart (Bupivacaine 0.25% W/ Epi (Pf) 10 Ml Vial) 20 ml INJ NOW ONE Stop: 10/08/20 16:13 Last Admin: 10/08/20 16:13 Dose: 5 ml Documented by: ESTEPHANIE Diphtheria/Tetanus/Acell Pertussis (Tet,Diph,Pertuss(Acell),Vac/Pf 0.5 Ml Syring e) 0.5 ml IM .ONCE ONE Stop: 10/08/20 11:47 Last Admin: 10/08/20 11:57 Dose: 0.5 ml Documented by: TYSONONESanket Fentanyl (Fentanyl 100 Mcg/2 Ml Inj) 0 mcg IV Q5M PRN PRN Reason: Pain, Moderate (4-6) Hydromorphone HCl (Hydromorphone 2 Mg Inj) 0 mg IV Q5M PRN PRN Reason: Pain, Severe (7-10) Vancomycin HCl/Dextrose (Vancomycin) 1,500 mg in 300 mls @ 200 mls/hr IV NOW ONE Stop: 10/08/20 12:47 Last Infusion: 10/08/20 13:52 Dose: 0 mls/hr Documented by: Admin: 10/08/20 11:56 Dose: 200 mls/hr Documented by: BTONER Sodium Chloride (Normal Saline 0.9%) 1,000 mls @ 125 mls/hr IV CONT SAMEERA Last Infusion: 10/08/20 15:22 Dose: 0 mls/hr Documented by: Admin: 10/08/20 11:57 Dose: 125 mls/hr Documented by: BTONER Lactated Ringer's (Lactated Ringers) 1,000 mls @ 42 mls/hr IV NOW ONE Stop: 10/09/20 15:24 Last Infusion: 10/08/20 16:59 Dose: 0 mls/hr Documented by: Admin: 10/08/20 15:36 Dose: 42 mls/hr Documented by: LANDEN Ondansetron HCl (Ondansetron 4 Mg/2 Ml Inj) 4 mg IV NOW PRN PRN Reason: Nausea And Vomiting Oxycodone/Acetaminophen (Oxycodone/Acetaminophen 5/325 Tablet) 1 tab PO PACUNOW PRN PRN Reason: Mild or Moderate Pain Last Admin: 10/08/20 16:56 Dose: 1 tab Documented by: CTRALONZO Vancomycin HCl (Vancomycin Per Pharmacy) 1 request MISC NOW ONE Stop: 10/08/20 18:06 Vital Signs Vital signs: Vital Signs - 8 hr 10/08/20 11:35 10/08/20 14:53 10/08/20 14:54 Pulse Rate 87 70 70 Respiratory Rate Blood Pressure 116/71 Pulse Oximetry 98 97 97 10/08/20 14:56 10/08/20 15:00 Pulse Rate 67 Respiratory Rate 16 Blood Pressure 122/72 Pulse Oximetry 97 MDM - Skin/Abscess/Foreign Bdy <HAKAN Segura - Last Filed: 10/08/20 16:50> Differential Diagnosis Differential diagnosis: Likely abscess of skin or subcutaneous tissue, cellulitis and other (Sepsis, necrotizing fasciitis) Medical Records Attestation: I reviewed the patient's medical records. Lab Data Attestation: I reviewed the patient's lab results. Result diagrams: 10/08/20 11:50 10/08/20 11:50 Labs: Lab Results 10/08/20 10/08/20 10/08/20 Range/Units 11:50 11:50 11:50 WBC 7.3 (4.5-11.0) X10^3/uL RBC 4.22 L (4.5-5.9) X10^6/uL Hgb 12.3 L (13.5-17.5) g/dL Hct 38.0 L (41-53) % MCV 90.1 (80-100) fL MCH 29.2 (26-34) PG MCHC 32.4 (30-36) % RDW 12.9 (11.6-14.8) % Plt Count 387 (150-400) X10^3/uL Neut % (Auto) 56.3 (50-75) % Lymph % (Auto) 25.8 (25-40) % Finney % (Auto) 13.5 (3-14) % Eos % (Auto) 3.8 (2-4) % Baso % (Auto) 0.6 (0-2) % Neut # (Auto) 4100 (7657-2770) /uL Lymph # (Auto) 1900 (4714-8864) /uL Finney # (Auto) 1000 H (0-900) /uL Eos # (Auto) 300 (0-450) /uL Baso # (Auto) 0 (0-100) /uL Sodium 139 (137-145) mmol/L Potassium 4.3 (3.4-5.1) mmol/L Chloride 105 (98-107) mmol/L Carbon Dioxide 30 (22-32) mmol/L BUN 28 H (9-20) mg/dL Creatinine 0.75 (0.66-1.25) mg/dL Estimated GFR > 60.0 (>60) mL/min BUN/Creatinine Ratio 37.3 H (6-22) Glucose 101 H (70-100) mg/dL Lactate (0.7-2.1) mmol/L Calcium 9.1 (8.4-10.2) mg/dL Total Bilirubin 0.2 (0.2-1.3) mg/dL AST 56 (17-59) IU/L ALT 73 H (<50) IU/L Alkaline Phosphatase 100 (38-126) U/L Total Protein 7.3 (6.3-8.2) g/dL Albumin 3.6 (3.5-5.0) g/dL Globulin 3.7 (1.7-4.1) g/dL Albumin/Globulin Ratio 1.0 (1.0-2.8) Procalcitonin < 0.05 (<0.5) ng/mL COVID-19 PCR (Negative) 10/08/20 10/08/20 Range/Units 11:50 14:16 WBC (4.5-11.0) X10^3/uL RBC (4.5-5.9) X10^6/uL Hgb (13.5-17.5) g/dL Hct (41-53) % MCV (80-100) fL MCH (26-34) PG MCHC (30-36) % RDW (11.6-14.8) % Plt Count (150-400) X10^3/uL Neut % (Auto) (50-75) % Lymph % (Auto) (25-40) % Finney % (Auto) (3-14) % Eos % (Auto) (2-4) % Baso % (Auto) (0-2) % Neut # (Auto) (7625-9872) /uL Lymph # (Auto) (3162-9920) /uL Finney # (Auto) (0-900) /uL Eos # (Auto) (0-450) /uL Baso # (Auto) (0-100) /uL Sodium (137-145) mmol/L Potassium (3.4-5.1) mmol/L Chloride (98-107) mmol/L Carbon Dioxide (22-32) mmol/L BUN (9-20) mg/dL Creatinine (0.66-1.25) mg/dL Estimated GFR (>60) mL/min BUN/Creatinine Ratio (6-22) Glucose (70-100) mg/dL Lactate 0.7 (0.7-2.1) mmol/L Calcium (8.4-10.2) mg/dL Total Bilirubin (0.2-1.3) mg/dL AST (17-59) IU/L ALT (<50) IU/L Alkaline Phosphatase (38-126) U/L Total Protein (6.3-8.2) g/dL Albumin (3.5-5.0) g/dL Globulin (1.7-4.1) g/dL Albumin/Globulin Ratio (1.0-2.8) Procalcitonin (<0.5) ng/mL COVID-19 PCR Negative (Negative) Imaging Data XR-Knee LT: Radiologist's Impression: [address] [id number] ReportSigned Patient: Kaleb ConklinMR#: [id number]: 1965Acct:[id number]/Sex: 55 / MDate of Service: 10/08/20Loc: EDAccession Number: [id number] Procedure: XR knee LT 3V Ordering Provider: Herberth ChanP PROCEDURE: XR KNEE LT 3V INDICATIONS: medial knee infection TECHNIQUE: 3 views of the knee were acquired. COMPARISON: None. FINDINGS: Bones: No fractures or dislocations. No suspicious bony lesions. Scattered degenerative subchondral sclerosis and spurring. Soft tissues: No joint effusion. Scattered vascular calcifications. Mild narrowing of the medial joint space. Medial soft tissue swelling. IMPRESSION: Mild degenerative changes. No focal osseous destruction to suggest advanced osteomyelitis. Medial soft tissue swelling. No joint effusion. Dictated by: Mitesh Beckett M.D. on 10/08/2020 at 11:41 Approved by: Mitesh Beckett M.D. on 10/08/2020 at 11:44 CT-LT LE: Radiologist's Impression: [address] [id number] Scan ReportSigned Patient: Kaleb ConklinMR#: [id number]: 1965Acct:[id number]/Sex: 55 / MDate of Service: 10/08/20Loc: [id number] Number: [id number] Procedure: CT LE LT w con Ordering Provider: Hebrerth Chan [facility] PROCEDURE: CT LE LT W CON INDICATIONS: medial L knee infection in soft tissue, plan for debriement TECHNIQUE: After the administration of intravenous contrast, 3 mm axial sections acquired of the left knee and ankle, with coronal and sagittal reformats. COMPARISON: None. FINDINGS: Image quality: Excellent. Bones: No fracture. No focal osseous destruction is seen. Soft tissues: No soft tissue gas identified. No knee joint effusion is seen. There is severe medial and partial circumferential skin thickening, underlying cellulitis and inflammatory stranding and possibly superficial fascial fluid. No definite rim enhancing loculated appearing abscess is identified however there is suboptimal contrast opacification. Scattered vascular calcifications and postsurgical changes in the ankle. The vessels appear grossly patent IMPRESSION: Severe medial knee and right lower extremity cellulitis. Dictated by: Mitesh Beckett M.D. on 10/08/2020 at 15:34 Approved by: Mitesh Beckett M.D. on 10/08/2020 at 15:40 [facility] Narrative Medical decision making narrative: This is a 55 year male who presents to ED with cellulitis with ulcerative lesion in left medial knee which started from small pimple like lesion about a week ago. Patient reports has been draining for last 2 days with purulent discharge. Patient has chills but no fever. Patient is afebrile in ED and nontoxic appearing. Labs are assuring despite the appearance of soft tissue/cellulitis infection. Physical exam appreciated ulcerated 1.5 cm lesion with nonviable appearing tissue surrounded by cellulitis measuring 9 x 8 cm and with additionally warmth and edema extending to mid thigh with left inguinal lymph node adenopathy. No leukocytosis. Normal lactate and procalcitonin. Slightly elevated BUN of 28 and BUN creatinine ratio of 37.3 indicating mild dehydration. Patient was hydrated gently with IV fluid. Patient was treated with vancomycin 1.5 g after wound and blood culture which are pending. Concerns for osteomyelitis, x-ray of knee obtained which indicates no obvious signs for osteomyelitis and no bony lesion. Patient was consulted with Dr. Allan and Dr. Garcia for admission. Dr. Allan [facility] Dr. Garcia/general surgery consult for wound debridement. COVID test is negative. Additional left low extremity CT with contrast obtained with Dr. Garcia is recommendation to rule out joint involvement. CT results with severe medial knee and lower extremity cellulitis without soft tissue gas identified. No knee joint effusion seen. Patient taken to OR for debridement before taken to inpatient room for resuming IV antibiotic medication therapy. <Cassandra Becker, DO - Last Filed: 10/08/20 18:51> Lab Data Labs: Lab Results 10/08/20 10/08/20 10/08/20 Range/Units 11:50 11:50 11:50 WBC 7.3 (4.5-11.0) X10^3/uL RBC 4.22 L (4.5-5.9) X10^6/uL Hgb 12.3 L (13.5-17.5) g/dL Hct 38.0 L (41-53) % MCV 90.1 (80-100) fL MCH 29.2 (26-34) PG MCHC 32.4 (30-36) % RDW 12.9 (11.6-14.8) % Plt Count 387 (150-400) X10^3/uL Neut % (Auto) 56.3 (50-75) % Lymph % (Auto) 25.8 (25-40) % Finney % (Auto) 13.5 (3-14) % Eos % (Auto) 3.8 (2-4) % Baso % (Auto) 0.6 (0-2) % Neut # (Auto) 4100 (2299-1519) /uL Lymph # (Auto) 1900 (7202-5655) /uL Finney # (Auto) 1000 H (0-900) /uL Eos # (Auto) 300 (0-450) /uL Baso # (Auto) 0 (0-100) /uL Sodium 139 (137-145) mmol/L Potassium 4.3 (3.4-5.1) mmol/L Chloride 105 (98-107) mmol/L Carbon Dioxide 30 (22-32) mmol/L BUN 28 H (9-20) mg/dL Creatinine 0.75 (0.66-1.25) mg/dL Estimated GFR > 60.0 (>60) mL/min BUN/Creatinine Ratio 37.3 H (6-22) Glucose 101 H (70-100) mg/dL Lactate (0.7-2.1) mmol/L Calcium 9.1 (8.4-10.2) mg/dL Total Bilirubin 0.2 (0.2-1.3) mg/dL AST 56 (17-59) IU/L ALT 73 H (<50) IU/L Alkaline Phosphatase 100 (38-126) U/L Total Protein 7.3 (6.3-8.2) g/dL Albumin 3.6 (3.5-5.0) g/dL Globulin 3.7 (1.7-4.1) g/dL Albumin/Globulin Ratio 1.0 (1.0-2.8) Procalcitonin < 0.05 (<0.5) ng/mL COVID-19 PCR (Negative) 10/08/20 10/08/20 Range/Units 11:50 14:16 WBC (4.5-11.0) X10^3/uL RBC (4.5-5.9) X10^6/uL Hgb (13.5-17.5) g/dL Hct (41-53) % MCV (80-100) fL MCH (26-34) PG MCHC (30-36) % RDW (11.6-14.8) % Plt Count (150-400) X10^3/uL Neut % (Auto) (50-75) % Lymph % (Auto) (25-40) % Finney % (Auto) (3-14) % Eos % (Auto) (2-4) % Baso % (Auto) (0-2) % Neut # (Auto) (3496-4854) /uL Lymph # (Auto) (6195-6829) /uL Finney # (Auto) (0-900) /uL Eos # (Auto) (0-450) /uL Baso # (Auto) (0-100) /uL Sodium (137-145) mmol/L Potassium (3.4-5.1) mmol/L Chloride (98-107) mmol/L Carbon Dioxide (22-32) mmol/L BUN (9-20) mg/dL Creatinine (0.66-1.25) mg/dL Estimated GFR (>60) mL/min BUN/Creatinine Ratio (6-22) Glucose (70-100) mg/dL Lactate 0.7 (0.7-2.1) mmol/L Calcium (8.4-10.2) mg/dL Total Bilirubin (0.2-1.3) mg/dL AST (17-59) IU/L ALT (<50) IU/L Alkaline Phosphatase (38-126) U/L Total Protein (6.3-8.2) g/dL Albumin (3.5-5.0) g/dL Globulin (1.7-4.1) g/dL Albumin/Globulin Ratio (1.0-2.8) Procalcitonin (<0.5) ng/mL COVID-19 PCR Negative (Negative) Discharge Plan Departure Patient Disposition: Admitted As Inpatient Clinical Impression: Soft tissue infection Admit Date/Time: 10/08/20 15:01 Admit Provider: Jhonny Zaragoza <Cassandra Becker, - Last Filed: 10/08/20 18:51> Cosign ED Attending Cosfosterature Attestation: I was immediately available in the department for consultation. Documentation has been reviewed. I agree with assessment and plan.
[2020-10-08] MEDS: VANCOMYCIN 1,500 MG/300 ML PIGGYBACK 200 MG IV (11:56)
[2020-10-08] MEDS: TET,DIPH,PERTUSS(ACELL),VAC/PF 0.5 ML SYRINGE IM (11:57)
[2020-10-08] MEDS: SODIUM CHLORIDE 0.9% 1,000 ML 125 ML IV (11:57)
[2020-10-08 12:27] LABS: Add Manual Diff / Slide Review NO; Basophils Absolute Auto 0 /uL (0-100); Basophils Percent Auto 0.6 % (0-2); Eosinophils Absolute Auto 300 /uL (0-450); Eosinophils Percent Auto 3.8 % (2-4); Hemoglobin 12.3 g/dL (13.5-17.5); Lymphocytes Absolute Auto 1900 /uL (1100-4500); Lymphocytes Percent Auto 25.8 % (25-40); Mean Corpuscular HGB Conc 32.4 % (30-36); Mean Corpuscular Hemoglobin 29.2 PG (26-34); Mean Corpuscular Volume 90.1 fL (80-100); Monocytes Absolute Auto 1000 /uL (0-900); Monocytes Percent Auto 13.5 % (3-14); Neutrophils Absolute Auto 4100 /uL (1500-7000); Neutrophils Percent Auto 56.3 % (50-75); Platelet Count 387 X10^3/uL (150-400); Red Blood Cell Count 4.22 X10^6/uL (4.5-5.9); Red Cell Distribution Width 12.9 % (11.6-14.8); White Blood Cell Count 7.3 X10^3/uL (4.5-11.0)
[2020-10-08 12:42] LABS: Lactate (Lactic Acid) 0.7 mmol/L (0.7-2.1)
[2020-10-08 12:43] LABS: Alanine Aminotransferase 73 IU/L (<50); Albumin 3.6 g/dL (3.5-5.0); Alkaline Phosphatase 100 U/L (38-126); Aspartate Aminotransferase 56 IU/L (17-59); BUN Creatinine Ratio 37.3 (6-22); Bilirubin Total 0.2 mg/dL (0.2-1.3); Blood Urea Nitrogen 28 mg/dL (9-20); Calcium 9.1 mg/dL (8.4-10.2); Carbon Dioxide 30 mmol/L (22-32); Chloride 105 mmol/L (98-107); Estimated Glomerular Filt Rate > 60.0 mL/min (>60); Globulin 3.7 g/dL (1.7-4.1); Glucose 101 mg/dL (70-100); HEMOLYSIS < 15 (0-50); Potassium 4.3 mmol/L (3.4-5.1); Sodium 139 mmol/L (137-145); Total Protein 7.3 g/dL (6.3-8.2)
--- NOTE | 2020-10-08 12:47 | PC.NURSE ---
the abscess is about 4x4 cm, but the measurement including surrounding tissue is about 7x7 cm of redness.
[2020-10-08 13:00] LABS: Procalcitonin < 0.05 ng/mL (<0.5)
[2020-10-08 14:30] LABS: COVID19 -Nasal RAPID Negative (Negative)
--- NOTE | 2020-10-08 14:35 | PM.CN ---
History of Present Illness Consult details Date Patient Seen: 10/08/20 Time Patient Seen: 14:35 Chief complaint: Cyst inside left knee Reason for consult: left leg abscess Narrative: This is a 55-year-old man who 1 week ago noticed a pimple sized lesion on his medial left leg, just below and medial to the knee. He says that he picked at it and it broke open, and drained purulent fluid. He says that it has progressed since then and it became very large. He noticed red streaks coming up his thigh, and some swelling and redness in his lower leg. He says his leg feels very stiff, and it was difficult to bend his knee. He felt some pain and swelling in his left groin. He is an active smoker, smokes half a pack a day for many years, and denies alcohol use or illicit drug use at this time. He used methamphetamine and cocaine in the remote past. He has had surgery on his left ankle, and has hardware in place there. He has had inguinal hernia repair in his left groin, has mesh in place there. ROS: Constitutional: Denies fevers/chills, denies sweating, denies headaches, denies malaise Eyes: Denies eye symptoms ENT: Denies upper respiratory or cold symptoms Cardiovascular: Denies chest pain, other cardiac symptoms Respiratory: Denies shortness of breath or cough Gastrointestinal: Denies abdominal pain, constipation, diarrhea Genitourinary: Denies dysuria Musculoskeletal: Left lower extremity as per HPI Integumentary/Breasts: Left lower extremity as per HPI Neurologic: Denies unsteady gait, behavioral changes, mental status changes, syncope Hematologic/Lymphatic: Denies excessive bleeding or easy bruising, reports left groin tenderness Allergic/Immunologic: Denies allergic or immunologic symptoms PE: GENERAL: Well groomed and cooperative. Appears stated age. Answers questions promptly and appropriately. Vital signs noted. HENT: Normocephalic, atraumatic. Hearing intact. EYES: Conjunctiva pink, sclera white, no periorbital swelling. CARDIOVASCULAR: Regular rate. Trace left lower extremity edema RESPIRATORY: Non-tachypneic, breathing comfortably on room air. GASTROINTESTINAL: Abdomen soft and non-distended GENITALURINARY: No flank tenderness. Left groin hernia repair is intact. MUSCULOSKELETAL: Equal tone and mass bilaterally. SKIN: Large 9 x 9 cm encrusted abscess on the medial left knee area, surrounded with diffuse erythema. Erythematous streaks on the thigh, consistent with lymphatic involvement, possible strep. Slight edema and gross erythema of the lower left leg. Mild tenderness throughout the whole leg Otherwise skin is warm, dry, soft, appropriate color for ethnicity. No other lesions, rashes, or wounds. Lymph nodes: [place] palpable lymph nodes in the left groin NEURO: Alert and Oriented X 3. No gross sensory deficits, or cognitive issues. PSYCH: Appropriate affect and mood. Meds Home Medications and Allergies Home Medications Medication Instructions Recorded Confirmed Type ibuprofen 600 mg PO QID PRN #20 tab 04/27/19 10/08/20 Rx Allergies Allergy/AdvReac Type Severity Reaction Status Date / Time No Known Drug Allergies Allergy Verified 10/08/20 09:56 Exam Vital Signs (past 8 hours): - 10/08/20 09:56 10/08/20 11:35 Temperature 98.4 F Pulse Rate 92 H 87 Respiratory Rate 14 Blood Pressure 120/80 Pulse Oximetry 99 98 Oxygen Delivery Method Room Air Objective Imaging CT scan leg: My impression: Looks like superficial soft tissue edema Radiologist's impression: Official read pending, in person discussion confirms soft tissue infection without bony or joint involved Labs Result Diagrams: 10/08/20 11:50 10/08/20 11:50 Labs: Laboratory Results - last 24 hr 10/08/20 10/08/20 10/08/20 11:50 11:50 11:50 WBC 7.3 RBC 4.22 L Hgb 12.3 L Hct 38.0 L MCV 90.1 MCH 29.2 MCHC 32.4 RDW 12.9 Plt Count 387 Neut % (Auto) 56.3 Lymph % (Auto) 25.8 [place] % (Auto) 13.5 Eos % (Auto) 3.8 Baso % (Auto) 0.6 Neut # (Auto) 4100 Lymph # (Auto) 1900 [place] # (Auto) 1000 H Eos # (Auto) 300 Baso # (Auto) 0 Sodium 139 Potassium 4.3 Chloride 105 Carbon Dioxide 30 BUN 28 H Creatinine 0.75 Estimated GFR > 60.0 BUN/Creatinine Ratio 37.3 H Glucose 101 H Lactate Calcium 9.1 Total Bilirubin 0.2 AST 56 ALT 73 H Alkaline Phosphatase 100 Total Protein 7.3 Albumin 3.6 Globulin 3.7 Albumin/Globulin Ratio 1.0 Procalcitonin < 0.05 COVID-19 PCR 10/08/20 10/08/20 11:50 14:16 WBC RBC Hgb Hct MCV MCH MCHC RDW Plt Count Neut % (Auto) Lymph % (Auto) [place] % (Auto) Eos % (Auto) Baso % (Auto) Neut # (Auto) Lymph # (Auto) [place] # (Auto) Eos # (Auto) Baso # (Auto) Sodium Potassium Chloride Carbon Dioxide BUN Creatinine Estimated GFR BUN/Creatinine Ratio Glucose Lactate 0.7 Calcium Total Bilirubin AST ALT Alkaline Phosphatase Total Protein Albumin Globulin Albumin/Globulin Ratio Procalcitonin COVID-19 PCR Negative Assessment & Plan Assessment and plan (1) Soft tissue infection: Status: Acute (2) Leg abscess: Problem details: This is a 55-year-old man with a large abscess involving the soft tissue of the medial left leg around the knee. Given that he has difficulty moving the leg and bending the knee, I would like to rule out bone or joint involvement by getting a CT scan before we take him to the OR. Risks and benefits of debridement of this abscess were discussed including risk of bleeding, infection, damage to nearby structures, need for additional procedures, scarring, poor healing, dysfunction of the extremity, need for prolonged hospitalization, need for orthopedic surgery involvement. The patient desires to proceed to the OR to debride his abscess. Plan: Agree with admit to hospitalist for management of cellulitis NPO, IV fluids, IV antibiotic COVID test Stat left lower extremity CT with IV contrast Pending CT results, proceed to OR for debridement of left leg abscess Status: Acute (3) Cigarette smoker: Status: Acute
--- NOTE | 2020-10-08 14:40 | DI.CT.S_ITS ---
PROCEDURE: CT LE LT W CON INDICATIONS: medial L knee infection in soft tissue, plan for debriement TECHNIQUE: After the administration of intravenous contrast, 3 mm axial sections acquired of the left knee and ankle, with coronal and sagittal reformats. COMPARISON: None. FINDINGS: Image quality: Excellent. Bones: No fracture. No focal osseous destruction is seen. Soft tissues: No soft tissue gas identified. No knee joint effusion is seen. There is severe medial and partial circumferential skin thickening, underlying cellulitis and inflammatory stranding and possibly superficial fascial fluid. No definite rim enhancing loculated appearing abscess is identified however there is suboptimal contrast opacification. Scattered vascular calcifications and postsurgical changes in the ankle. The vessels appear grossly patent IMPRESSION: Severe medial knee and right lower extremity cellulitis. Dictated by: Mitesh Beckett M.D. on 10/08/2020 at 15:34 Approved by: Mitesh Beckett M.D. on 10/08/2020 at 15:40
[2020-10-08] MEDS: LACTATED RINGERS 1,000 ML 42 ML IV (15:36)
--- NOTE | 2020-10-08 16:07 | SUR.OPER ---
Supine on padded OR bed, head on pillow, arms secured on padded arm boards at <90 degrees abduction, legs uncrossed, safety belt at thigh, tape over blanket over lower right leg, left leg controlled by surgeon.
[2020-10-08] MEDS: BUPIVACAINE 0.25% W/ EPI (PF) 10 ML VIAL 20 ML INJ (16:13)
--- NOTE | 2020-10-08 16:31 | PM.OP.1 ---
Operative Date/Time/Diagnoses Date of procedure: 10/08/20 Time of procedure: 16:31 Pre-op diagnosis: left leg abscess Post-op diagnosis: other (left knee abscess involving all layers of soft tissue; not penetrating joint capsule) Procedure & Clinicians Procedure: left knee abscess debridement Same procedure as scheduled: Yes Indications: Left knee abscess x 1 week with cellulitis and leg edema Surgeon: Gina Figueroa Anesthesia Type: General Operative Notes Findings: 9cm x 9cm abscess with 9cm x 9cm cavity under the skin and 2cm x 2cm opening in the skin; fascia of joint capsule intact Specimen(s): other (deep culture of wound) Estimated Blood Loss (mL): 5 Procedure in detail: The patient was brought into the OR, placed supine on the OR table, and appropriate preoperative antibiotics were given. Sequential compression devices were placed on the right leg and turned on. General anesthesia was induced and the patient was intubated with an LMA by the anesthesiologist. The left leg was prepped and draped in sterile fashion for I and D of the knee. A surgical time out was conducted. Wound culture swabs were introduced into the wound and deep cultures were taken. With my index finger I probed the wound. It was about 9cm x 9cm beneath the skin opening which was about 2cm. I used suction to suck out copious purulent fluid from the wound. I then opened the skin longitudinally using a 15 blade for an additional cm proximal and distal. I was then able to get a 4x4 into the wound and roughly debride the sloughing purulent tissue which lined the wound cavity. At the base of the wound was fascia. Once debrided, the entire wound capsule was bleeding. I sharply excised skin from the edges of the wound opening for 3cm in each direction. The skin opening was then 3cm x 3cm and the wound cavity was 9cm x 9cm. Cautery was used to control the skin bleeding. I irrigated the entire wound with saline, and then packed the wound cavity with 1 inch iodoform strip gauze. Local anesthetic was given in the skin and soft tissue. I then washed off the betadine paint, and covered the packed wound with 4x4's and ABD's and then secured them in place with kerlix wrap and tape to hold the kerlix in place. The patient was awakened from anesthesia and extubated. He tolerated the procedure well. Needle, sponge and instrument counts were correct x 2. The patient was transferred to PACU in stable condition. Complications: none Post-operative Condition: stable Disposition: PACU Plan for aftercare: Advance diet as tolerated, daily wound care with removal and replacement of packing, ambulation as tolerated, antibiotics per hospitalist.
--- NOTE | 2020-10-08 16:43 | SUR.PHASEI ---
Report to La[facility] MARI
[2020-10-08] MEDS: OXYCODONE/ACETAMINOPHEN 5/325 TABLET 1 TAB PO (16:56)
--- NOTE | 2020-10-08 17:43 | P.HP_ITS ---
History of Present Illness History of Present Illness Date Patient Seen: 10/08/20 Time Patient Seen: 17:43 Chief complaint: Cyst inside left knee Narrative: Kaleb Conklin is a 55 year old male with PMH of multisubstance (meth, cocaine, etoh) abuse now in remission who presented with one week of a worsening infection over his medial left knee. She states it started as a pimple sized lesion but he kept draining it and scratching at the lesion and it broke open with purulent drainage. He was in intermediate for a few days when this all started and was released approximately 4 days ago. Two days ago this progressed to red streaks up his thigh and swelling in his lower leg. He has mild pain and stiffness near his left knee. He reports his swelling is better now than a few days ago, when he also noted some chills but no fever. He denies any abdominal pain, testicular pain, nausea, vomiting, diarrhea. In the emergency room, his vital signs were unremarkable, initial laboratory evaluation did not show any leukocytosis, and chemistries were fairly unremarkable. There is a mild elevation in his ALT at 73. He had a negative procalcitonin. COVID-19 testing was negative. X-ray of his left knee showed soft tissue swelling but no erosion into bone or the joint and no knee effusion. I asked that surgery be consulted and he was taken to the operating room for drainage after CT scan did not show involvement of his joint. He was admitted to the medicine service with surgery, Dr. Figueroa, consulting. 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 Surgical History History of ankle surgery Family & Social History Social History: household members friend(s) Safety & Behavioral: Feels Safe in Current Yes Environment Been Physically Hurt or No Threatened By a Person Tobacco & Substance use: Smoking Status Current every day smoker alcohol intake former alcohol intake frequency holiday/special occasion Substance Use Type does not use,former substance user Meds Home Medications and Allergies Home Medications Medication Instructions Recorded Confirmed Type ibuprofen 600 mg PO QID PRN #20 tab 04/27/19 10/08/20 Rx Allergies Allergy/AdvReac Type Severity Reaction Status Date / Time No Known Drug Allergies Allergy Verified 10/08/20 09:56 Review of Systems Review of Systems Narrative: All other systems reviewed with the patient and are negative unless otherwise stated. Exam Vital Signs (past 8 hours): - 10/08/20 09:56 10/08/20 11:35 10/08/20 14:53 Temperature 98.4 F Pulse Rate 92 H 87 70 Respiratory Rate 14 Blood Pressure 120/80 Pulse Oximetry 99 98 97 10/08/20 14:54 10/08/20 14:56 10/08/20 15:00 Temperature Pulse Rate 70 67 Respiratory Rate 16 Blood Pressure 116/71 122/72 Pulse Oximetry 97 97 10/08/20 15:26 10/08/20 16:26 10/08/20 16:31 Temperature 98.9 F 98.0 F Pulse Rate 74 78 77 Respiratory Rate 14 12 12 Blood Pressure 124/84 110/67 107/71 Pulse Oximetry 96 96 96 10/08/20 16:36 10/08/20 16:41 10/08/20 16:46 Temperature Pulse Rate 72 71 71 Respiratory Rate 12 12 14 Blood Pressure 116/73 128/85 127/79 Pulse Oximetry 97 98 98 10/08/20 16:51 10/08/20 16:56 Temperature 97.9 F Pulse Rate 85 81 Respiratory Rate 16 18 Blood Pressure 118/77 125/87 Pulse Oximetry 98 98 Oxygen Delivery Method Room Air Oxygen Flow Rate 0 Narrative Exam Narrative: GENERAL APPEARANCE: Well developed, well nourished, in no acute distress. SKIN: Inspection of the skin left lower extremity showing mild erythema extending from mid thigh to mid calf, more medially with a large circumferential purulent lesion with probable central abscess over the left medial knee. Area of erythema is demarcated. HEENT: Normocephalic atraumatic, extraocular muscles are intact, oropharynx is clear and mucous membranes are moist, neck is supple without adenopathy NECK: Supple and symmetric. There was no thyroid enlargement, and no tenderness, or masses were felt. CHEST: Normal AP diameter and normal contour without any kyphoscoliosis. LUNGS: Auscultation of the lungs revealed no wheezes, rhonchi, or rales. CARDIOVASCULAR: There was a regular rate and rhythm without any murmurs, gallops, rubs. Peripheral pulses were 2+ and symmetric. ABDOMEN: Soft and nontender with normal bowel sounds. No ascites was noted. MUSCULOSKELETAL: There was no tenderness or effusions noted, however limited range of motion at left knee due to infection. Muscle strength and tone were normal. EXTREMITIES: No cyanosis, clubbing or edema. Swelling as noted above. NEUROLOGIC: Alert and oriented x 3. Normal affect. Strength is +5/5 in the Upper Extremities and Lower Extremities Bilaterally. Sensation to touch was normal. Objective Labs Result Diagrams: 10/08/20 11:50 10/08/20 11:50 Labs: Laboratory Results - last 24 hr 10/08/20 10/08/20 10/08/20 11:50 11:50 11:50 WBC 7.3 RBC 4.22 L Hgb 12.3 L Hct 38.0 L MCV 90.1 MCH 29.2 MCHC 32.4 RDW 12.9 Plt Count 387 Neut % (Auto) 56.3 Lymph % (Auto) 25.8 [place] % (Auto) 13.5 Eos % (Auto) 3.8 Baso % (Auto) 0.6 Neut # (Auto) 4100 Lymph # (Auto) 1900 [place] # (Auto) 1000 H Eos # (Auto) 300 Baso # (Auto) 0 Sodium 139 Potassium 4.3 Chloride 105 Carbon Dioxide 30 BUN 28 H Creatinine 0.75 Estimated GFR > 60.0 BUN/Creatinine Ratio 37.3 H Glucose 101 H Lactate Calcium 9.1 Total Bilirubin 0.2 AST 56 ALT 73 H Alkaline Phosphatase 100 Total Protein 7.3 Albumin 3.6 Globulin 3.7 Albumin/Globulin Ratio 1.0 Procalcitonin < 0.05 COVID-19 PCR 10/08/20 10/08/20 11:50 14:16 WBC RBC Hgb Hct MCV MCH MCHC RDW Plt Count Neut % (Auto) Lymph % (Auto) [place] % (Auto) Eos % (Auto) Baso % (Auto) Neut # (Auto) Lymph # (Auto) [place] # (Auto) Eos # (Auto) Baso # (Auto) Sodium Potassium Chloride Carbon Dioxide BUN Creatinine Estimated GFR BUN/Creatinine Ratio Glucose Lactate 0.7 Calcium Total Bilirubin AST ALT Alkaline Phosphatase Total Protein Albumin Globulin Albumin/Globulin Ratio Procalcitonin COVID-19 PCR Negative Assessment & Plan Assessment & Plan narrative: Kaleb Conklin is a 55 year old male with PMH of multisubstance (meth, cocaine, etoh) abuse now in remission who presented with one week of a worsening infection over his medial left knee, admitted to medicine for a skin and soft tissue infection, drained in the OR by Dr. Figueroa directly from the ER. 1. Skin and soft tissue infection of the medial left knee area, acute, present on admission - started as a small pimple and grew in size with continued scrathching per patient. Started while in intermediate. Given this, have started on cefepime and vancomycin per pharmacy pending cutures to broaden coverage for pseudomonas although this is less likely given appearance. - underwent incision and drainage with surgery, Dr. Figueroa on 10/08/20. - continue cefepime 2g q12 hours, and vancomycin per pharmacy - follow up operative cultures and blood cutlures. - XR showed soft tissue swelling, no effusions or evidence of bone involvement. CT did not show evidence of joint involvement, only extensive cellulitis. - area of cellulitis was demarcated in ER, continue to follow. - wound care orders placed by surgery. 2. history of polysubstance use and active tobacco use. - patient denies recent drug use, only smokes cigarettes. He refuses nicotine patch at this time. Dispo: Admitted as inpatient Code: Full, surrogate decision maker is the patient's brother DVT: Lovenox daily COVID-19 COVID-19 status: Negative
[2020-10-08] MEDS: CEFEPIME 2 GM in SODIUM CHLORIDE 0.9% 100 ML 200 ML IV (18:30)
[2020-10-08] MEDS: SODIUM CHLORIDE 0.9% FLUSH 10 ML IV ×2 (18:30→21:21)
[2020-10-08] MEDS: SODIUM CHLORIDE 0.9% 250 ML 21 ML IV (18:31)
[2020-10-08] MEDS: VANCOMYCIN 1,250 MG/250 ML PIGGYBACK 250 MG IV (21:21)
--- NOTE | 2020-10-08 21:52 | PC.NURSE ---
admit/evening Shift Note- Patient arrived to room via stretcher from PACU at 1715. Patient alert and oriented and able to make needs known to staff. Admission questions done, medications reviewed, physical assessment, and skin check completed. Patient oriented to bed and bed controls, room, lights, phone, ,menu, bathroom, and call malave/tv remote. left knee wrapped with gauze c/d/i. No complaints of N/V. No complaints of pain or discomfort at this time. Safety measures in place. patient agrees to call for assistance. call malave and phone within reach. will [id number] to monitor.
[2020-10-08] MEDS: ACETAMINOPHEN 325 MG TABLET 650 MG PO (23:33)
[2020-10-09] VITALS (11 sets, daily range): BP systolic 112–139; BP diastolic 67–82; PULSE 67–77; RESP 16–18; TEMP 36.2–36.9; O2SAT 93–98
[2020-10-09] MEDS: VANCOMYCIN 1,250 MG/250 ML PIGGYBACK 250 MG IV ×3 (04:22→20:04)
[2020-10-09 05:22] LABS: Add Manual Diff / Slide Review NO; Basophils Absolute Auto 100 /uL (0-100); Basophils Percent Auto 1.1 % (0-2); Eosinophils Absolute Auto 300 /uL (0-450); Hematocrit 36.9 % (41-53); Hemoglobin 11.7 g/dL (13.5-17.5); Lymphocytes Absolute Auto 2100 /uL (1100-4500); Lymphocytes Percent Auto 30.1 % (25-40); Mean Corpuscular HGB Conc 31.7 % (30-36); Mean Corpuscular Hemoglobin 28.6 PG (26-34); Mean Corpuscular Volume 90.3 fL (80-100); Monocytes Absolute Auto 1100 /uL (0-900); Monocytes Percent Auto 14.7 % (3-14); Neutrophils Absolute Auto 3600 /uL (1500-7000); Neutrophils Percent Auto 50.1 % (50-75); Platelet Count 373 X10^3/uL (150-400); Red Blood Cell Count 4.09 X10^6/uL (4.5-5.9); Red Cell Distribution Width 12.9 % (11.6-14.8); White Blood Cell Count 7.1 X10^3/uL (4.5-11.0)
[2020-10-09] MEDS: ACETAMINOPHEN 325 MG TABLET 650 MG PO ×2 (05:25→12:01)
[2020-10-09 05:35] LABS: Blood Urea Nitrogen 20 mg/dL (9-20); Calcium 8.8 mg/dL (8.4-10.2); Carbon Dioxide 33 mmol/L (22-32); Chloride 104 mmol/L (98-107); Estimated Glomerular Filt Rate > 60.0 mL/min (>60); Glucose 95 mg/dL (70-100); HEMOLYSIS < 15 (0-50); Magnesium 2.1 mg/dL (1.6-2.3); Potassium 4.6 mmol/L (3.4-5.1); Sodium 137 mmol/L (137-145)
[2020-10-09 05:41] LABS: Hemoglobin A1C% w Est Avg Glu 5.8 % (4.0-6.0)
[2020-10-09] MEDS: CEFEPIME 2 GM in SODIUM CHLORIDE 0.9% 100 ML IV ×2 (06:06→18:18)
[2020-10-09 10:19] LABS: Procalcitonin < 0.05 ng/mL (<0.5)
--- NOTE | 2020-10-09 11:41 | PC.NURSE ---
pt alert/oriented and does c/o tenderness rather than outright pain to medial left knee wound- pt showered after outerwrap removed from wound- then this RN removed wet 4x4's and packing. Pt was shaking visibly during dressing change there's no way I can do it - redressed/packed per MD orders.- and erythema well within previously marked margins. Pt able to ambulate about in room and has good appetite
[2020-10-09] MEDS: INFLUENZA VACCINE 0.5 ML SYRINGE IM (11:59)
[2020-10-09] MEDS: ENOXAPARIN 40 MG/0.4 ML SYRINGE SUBCUT (11:59)
[2020-10-09] MEDS: SODIUM CHLORIDE 0.9% FLUSH 10 ML IV ×2 (12:04→20:04)
[2020-10-09] MEDS: VANCOMYCIN TROUGH 1 REQUEST MISC (12:35)
--- NOTE | 2020-10-09 14:34 | P.PN_ITS ---
Subjective Subjective Date Patient Seen: 10/09/20 Time Patient Seen: 15:31 Interval history: No acute events overnight. Pt had large wound I and D yesterday and is on IV antibiotics awaiting culture results. Dressing change was done by nurse today. Per the nurse, patient refused to participate. Exam Vital Signs (past 8 hours): - 10/09/20 09:30 10/09/20 10:00 10/09/20 13:00 Temperature 97.1 F L 97.8 F Pulse Rate 77 75 Respiratory Rate 16 16 Blood Pressure 112/74 119/67 Pulse Oximetry 96 95 97 Oxygen Delivery Method Room Air Oxygen Flow Rate 0 Narrative Exam Narrative: GENERAL: Alert, oriented, comfortable. Appears stated age. Answers questions promptly and appropriately. Vital signs noted. HENT: Normocephalic, atraumatic. Hearing intact. EYES: Conjunctiva pink, sclera white, no periorbital swelling. CARDIOVASCULAR: Regular rate. RESPIRATORY: Non-tachypneic, breathing comfortably on room air. Left leg: Decreased erythema, decreased edema, dressing clean dry and intact Objective Labs Result Diagrams: 10/09/20 05:03 10/09/20 05:03 Labs: Laboratory Results - last 24 hr 10/09/20 10/09/20 10/09/20 05:03 05:03 05:03 WBC 7.1 RBC 4.09 L Hgb 11.7 L Hct 36.9 L MCV 90.3 MCH 28.6 MCHC 31.7 RDW 12.9 Plt Count 373 Neut % (Auto) 50.1 Lymph % (Auto) 30.1 [place] % (Auto) 14.7 H Eos % (Auto) 4.0 Baso % (Auto) 1.1 Neut # (Auto) 3600 Lymph # (Auto) 2100 [place] # (Auto) 1100 H Eos # (Auto) 300 Baso # (Auto) 100 Sodium 137 Potassium 4.6 Chloride 104 Carbon Dioxide 33 H BUN 20 Creatinine 0.69 Estimated GFR > 60.0 BUN/Creatinine Ratio 29.0 H Glucose 95 Hemoglobin A1c 5.8 Calcium 8.8 Magnesium 2.1 Procalcitonin Vancomycin Trough 10/09/20 10/09/20 05:03 12:15 WBC RBC Hgb Hct MCV MCH MCHC RDW Plt Count Neut % (Auto) Lymph % (Auto) [place] % (Auto) Eos % (Auto) Baso % (Auto) Neut # (Auto) Lymph # (Auto) [place] # (Auto) Eos # (Auto) Baso # (Auto) Sodium Potassium Chloride Carbon Dioxide BUN Creatinine Estimated GFR BUN/Creatinine Ratio Glucose Hemoglobin A1c Calcium Magnesium Procalcitonin < 0.05 Vancomycin Trough 10.0 PFSH Medical History History of cocaine abuse 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 Given that he has difficulty moving the leg and bending the knee, I would like to rule out bone or joint involvement by getting a CT scan before we take him to the OR. Risks and benefits of debridement of this abscess were discussed including risk of bleeding, infection, damage to nearby structures, need for additional procedures, scarring, poor healing, dysfunction of the extremity, need for prolonged hospitalization, need for orthopedic surgery involvement. The patient desires to proceed to the OR to debride his abscess. Plan: Agree with admit to hospitalist for management of cellulitis NPO, IV fluids, IV antibiotic COVID test Stat left lower extremity CT with IV contrast Pending CT results, proceed to OR for debridement of left leg abscess Status: Acute (3) Cigarette smoker: Status: Acute Assessment & Plan narrative: 55-year-old man postop day 1 from I and D of large left lower extremity wound. The care coordinators her working on weight for the patient to have outpatient wound care, however the patient has unstable living situation, and it is a holiday weekend. We have increased his packing changes to twice daily so that he can learn to change the packing himself. Plan: Ambulate as tolerated Okay for DVT prophylaxis IV antibiotics per hospitalist Wound as per orders Dispo pending outpatient wound care can be done daily, or at the very least, every other day COVID-19 COVID-19 status: Negative Result date/Date tested (Pos, Neg/Pending): 10/08/20 Time Spent With Patient Time with patient: 15-24 minutes Quality VTE Deep Vein Thrombosis/Pulmonary Embolism Present on Admission: No
[2020-10-09 16:20] LABS: HIV 1 & 2 Ab/Ag 4th Gen Combo NEGATIVE (NEGATIVE)
--- NOTE | 2020-10-09 16:28 | P.PN_ITS ---
Subjective Subjective Date Patient Seen: 10/09/20 Interval history: Kaleb Conklin is a 55-year-old male with a past medical history significant for previous polysubstance (meth, cocaine, alcohol) abuse now in remission who presented to the ED with one week of a worsening infection over his left lower extremity. The patient is resting in bed comfortably. His only complaint is mild discomfort at left lower extremity surgical site. He reports he does not believe he will be able to manage/perform packing changes as hole is quiet large. He has no other complaints and denies headache, cough, shortness of breath, chest pain, abdominal pain, nausea, vomiting, fever, chills, dysuria, diarrhea or constipation. He is voiding and eliminating without difficulty. He is up ambulating without assistance. Exam Vital Signs (past 8 hours): - 10/09/20 09:30 10/09/20 10:00 10/09/20 13:00 Temperature 97.1 F L 97.8 F Pulse Rate 77 75 Respiratory Rate 16 16 Blood Pressure 112/74 119/67 Pulse Oximetry 96 95 97 10/09/20 15:20 Temperature 97.4 F L Pulse Rate 72 Respiratory Rate 16 Blood Pressure 127/74 Pulse Oximetry 97 Oxygen Delivery Method Room Air Oxygen Flow Rate 0 Narrative Exam Narrative: General:Middle aged male in no acute distress, well-developed, well-nourished, appropriately interactive HEENT: Normocephalic, atraumatic. External ears without defect. Pupils equal, round, and reactive to light. Anicteric sclerae, moist conjunctivae, and no lid lag. Oropharynx free of erythema and cobble stoning with moist mucosa. Poor dentition. Neck: Supple with full range of motion. No lymphadenopathy or thyromegaly. Cardiovascular: Regular rate and rhythm without murmurs, rubs, or gallops appreciated. Pulmonary: Clear to auscultation bilaterally without crackles, wheezes, or rhonchi. Normal respiratory effort with no use of accessory muscles. Abdomen: Soft, bowel tones present. nontender, nondistended. No hepatosplenomegaly or masses appreciated. Extremities: No clubbing, cyanosis, or edema. Left lower extremity with dressing in place C/D/I without surrounding erythema or edema. Skin: Normal temperature, turgor, and texture; no rash, ulcers, or subcutaneous nodules appreciated. Neurological: Cranial nerves grossly intact. Psychiatric: Normal mood and affect. Alert and oriented to person, place, and time. Objective Labs Result Diagrams: 10/09/20 05:03 10/10/20 05:04 Labs: Laboratory Results - last 24 hr 10/09/20 10/09/20 10/09/20 05:03 05:03 05:03 WBC 7.1 RBC 4.09 L Hgb 11.7 L Hct 36.9 L MCV 90.3 MCH 28.6 MCHC 31.7 RDW 12.9 Plt Count 373 Neut % (Auto) 50.1 Lymph % (Auto) 30.1 [place] % (Auto) 14.7 H Eos % (Auto) 4.0 Baso % (Auto) 1.1 Neut # (Auto) 3600 Lymph # (Auto) 2100 [place] # (Auto) 1100 H Eos # (Auto) 300 Baso # (Auto) 100 Sodium 137 Potassium 4.6 Chloride 104 Carbon Dioxide 33 H BUN 20 Creatinine 0.69 Estimated GFR > 60.0 BUN/Creatinine Ratio 29.0 H Glucose 95 Hemoglobin A1c Calcium 8.8 Magnesium 2.1 Procalcitonin Vancomycin Trough HIV 1&2 Ab/P24 Ag 4thGn Negative 10/09/20 10/09/20 10/09/20 05:03 05:03 12:15 WBC RBC Hgb Hct MCV MCH MCHC RDW Plt Count Neut % (Auto) Lymph % (Auto) [place] % (Auto) Eos % (Auto) Baso % (Auto) Neut # (Auto) Lymph # (Auto) [place] # (Auto) Eos # (Auto) Baso # (Auto) Sodium Potassium Chloride Carbon Dioxide BUN Creatinine Estimated GFR BUN/Creatinine Ratio Glucose Hemoglobin A1c 5.8 Calcium Magnesium Procalcitonin < 0.05 Vancomycin Trough 10.0 HIV 1&2 Ab/P24 Ag 4thGn [facility] Medical History History of cocaine abuse 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 1. Acute abscess of left lower extremity, status post I&D, present on admission. Improving. -Patient reports it started as a small pimple and grew in size with continued scrathching per patient. Patient reports it started while in [place] and given history started and continued patient on cefepime 2 g every 12 hours and vancomycin with dosing per pharmacy pending cutures to broaden coverage for pseudomonas although this is less likely given appearance. -X-ray left knee demonstrated medial knee soft tissue swelling with no effusions or evidence of bone involvement. -CT left lower extremity with contrast did not show evidence of joint involvement and only extensive cellulitis. -Consulted general surgery, Dr. Figueroa who performed incision and drainage on 10/08/20. -Blood cultures have no growth to date. Wound cultures preliminarily growing staphylococcus. -HIV negative. -Continue wound care orders placed by surgery. 2. Tobacco dependence, chronic, present on admission. Stable. -Patient smokes 1 ppd. -Counseled the patient extensively on smoking cessation and risks of delayed wound healing, continued infection among other significant risks. Patient is not sure he will be able to or wants to quit. -Patient refused nicotine patch. 3. History of polysubstance use in remission. -Patient denies recent drug use and reports he only smokes cigarettes. Code: Full, surrogate decision maker is the patient's brother DVT: Lovenox Disposition: Patient will likely discharge home tomorrow pending wound cultures and arrangements for wound care. Quality VTE Deep Vein Thrombosis/Pulmonary Embolism Present on Admission: No
--- NOTE | 2020-10-09 16:42 | CM.DANOTE ---
DCP/Assessment: Reviewed chart. Patient is a 55yr male admitted to [facility] with left knee abscess. Patient currently without PCP. Primary payor is 1)[employer] 2)Medicaid. Attending surgeon is Dr. Figueroa. Spoke with Dr. Cantrell and Dr. Figueroa re: d/c planning. Per surgeon patient will need daily or every other day dressing changes to his left knee. Per nursing staff and providers patient has difficulty getting through dressing change today? Patient reports to staff that he is unable to be self taught? Met with patient explained role. Patient reports that he is currently homeless but has hotel room at [facility]. Patient hopes to return there upon d/c. Patient reports that he has no desire to go to SNF for daily dressing changes. Patient also reports that he is not comfortable learning to do on his own. MEDICAL GENETICIST provided patient with outpatient options (which are minimal). Patient agreeable to follow up at [facility] wound care clinic for dressing changes. MEDICAL GENETICIST placed call to [facility], spoke with Rasheed. General clinical faxed for review. Per Rasheed, they can put patient on schedule for Wednesday10-15-20 at 8:30AM. Notified Dr. Cantrell of above and also Dr. Figueroa notified. Alternative arrangements for dressing changes will need to be determined. MEDICAL GENETICIST hopeful that patient will get more comfortable with teaching, once dressing changes done more regularly. First change took place today. Updated CM job analysis manager Azalia Norwood of above issues related to discharge. P: Patient requesting to return to [facility] when medically stable. First outpatient wound care appointment made for next week. CM team to coordinate additional planning with patient and provider. Doubtful that patient will need to remain hospitalized for dressing changes. Patient made aware but will need to be provided with appointment information prior to d/c. HEENA Gonzalez Discharge Planning/Care Management CM Discharge Assessment Start: 10/09/20 16:35 Freq: Status: Active Protocol: Document 10/09/20 16:35 KJS (Rec: 10/09/20 16:42 KJS [id number]) Discharge Planning Assessment Assigned [employer] HEENA Gonzalez Contact Information Suresh Conklin (brother) [phone] Advance Directives? No History Provided By Patient,Medical Record Prior Living Arrangements Homeless Household Members friend(s) Type of transporation used prior to Relies on Others admit Independent with ADL's Yes Is patient alert and oriented? Yes Caregiver for Another No Barriers to Discharge Yes Comment [facility] [phone] on 10-15-2020 at 8:30AM. Per provider, patient will need every other day dressing changes. Sooniest he can be seen at [facility] wound care center is the date above. Transportation Arrangement Medicaid Referrals Initiated Other Review Status In Process Next Review Type Continued Stay Review
--- NOTE | 2020-10-09 17:10 | PC.NURSE ---
Per Dr Figueroa, educated patient that he would need to participate with dressing changes to be able to do them outside of the hospital before his wound care appointment. Patient adamantly refuses stating won't happen in a gloria age regarding being able to do it himself. Notified Dr Figueroa that patient is unwilling and she wants nursing to do dressing changes BID until he discharges.
[2020-10-10 01:00] VITALS: O2SAT 93
[2020-10-10] MEDS: VANCOMYCIN 1,250 MG/250 ML PIGGYBACK 250 MG IV (04:17)
[2020-10-10 04:29] VITALS: BP 136/74; PULSE 78; RESP 16; TEMP 36.3; O2SAT 95
[2020-10-10 05:00] VITALS: O2SAT 95
[2020-10-10 05:30] LABS: Alanine Aminotransferase 56 IU/L (<50); Albumin 3.5 g/dL (3.5-5.0); Albumin Globulin Ratio 0.9 (1.0-2.8); Alkaline Phosphatase 87 U/L (38-126); Aspartate Aminotransferase 36 IU/L (17-59); BUN Creatinine Ratio 27.9 (6-22); Bilirubin Total 0.1 mg/dL (0.2-1.3); Blood Urea Nitrogen 19 mg/dL (9-20); Calcium 9.1 mg/dL (8.4-10.2); Carbon Dioxide 31 mmol/L (22-32); Chloride 101 mmol/L (98-107); Estimated Glomerular Filt Rate > 60.0 mL/min (>60); Globulin 3.7 g/dL (1.7-4.1); Glucose 101 mg/dL (70-100); HEMOLYSIS < 15 (0-50); Potassium 4.3 mmol/L (3.4-5.1); Sodium 136 mmol/L (137-145); Total Protein 7.2 g/dL (6.3-8.2)
[2020-10-10] MEDS: CEFEPIME 2 GM in SODIUM CHLORIDE 0.9% 100 ML 200 ML IV (05:39)
--- NOTE | 2020-10-10 05:48 | PC.NURSE ---
Pt states that he is becoming, really restless. I'm tired of people poking and prodding me and I want to get out of here. Pt told MAISHA Sanchez that he wanted to leave, she told him he wasn't being kept here against his will. He then told her that he was thinking about, just leaving.
[2020-10-10 08:00] VITALS: BP 129/76; PULSE 76; RESP 18; TEMP 36.6; O2SAT 96; O2SAT 98
[2020-10-10] MEDS: IBUPROFEN 600 MG TABLET PO (10:26)
[2020-10-10] MEDS: SODIUM CHLORIDE 0.9% FLUSH 10 ML IV (10:27)
--- NOTE | 2020-10-10 10:44 | PM.PN.1 ---
Subjective Subjective Date Patient Seen: 10/10/20 Time Patient Seen: 08:30 Interval history: No acute events overnight. Nurse attempted to teach wound care but pt was not able to participate. Pt denies significant pain. Able to ambulate. Exam Vital Signs (past 8 hours): - 10/10/20 04:29 10/10/20 05:00 10/10/20 08:00 Temperature 97.4 F L 97.9 F Pulse Rate 78 76 Respiratory Rate 16 18 Blood Pressure 136/74 129/76 Pulse Oximetry 95 95 96 Oxygen Delivery Method Room Air Oxygen Flow Rate 0 Narrative Exam Narrative: GENERAL: Alert, oriented, comfortable. Appears stated age. Answers questions promptly and appropriately. Vital signs noted. HENT: Normocephalic, atraumatic. Hearing intact. EYES: Conjunctiva pink, sclera white, no periorbital swelling. CARDIOVASCULAR: Regular rate. RESPIRATORY: Non-tachypneic, breathing comfortably on room air. Left leg: Decreased erythema, dressing with heme stain on the kerlix; no foul odor Objective Labs Result Diagrams: 10/09/20 05:03 10/10/20 05:04 Labs: Laboratory Results - last 24 hr 10/09/20 10/09/20 10/10/20 05:03 12:15 05:04 Sodium 136 L Potassium 4.3 Chloride 101 Carbon Dioxide 31 BUN 19 Creatinine 0.68 Estimated GFR > 60.0 BUN/Creatinine Ratio 27.9 H Glucose 101 H Calcium 9.1 Total Bilirubin 0.1 L AST 36 ALT 56 H Alkaline Phosphatase 87 Total Protein 7.2 Albumin 3.5 Globulin 3.7 Albumin/Globulin Ratio 0.9 L Vancomycin Trough 10.0 HIV 1&2 Ab/P24 Ag 4thGn Negative [facility] Medical History History of cocaine abuse 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 Given that he has difficulty moving the leg and bending the knee, I would like to rule out bone or joint involvement by getting a CT scan before we take him to the OR. Risks and benefits of debridement of this abscess were discussed including risk of bleeding, infection, damage to nearby structures, need for additional procedures, scarring, poor healing, dysfunction of the extremity, need for prolonged hospitalization, need for orthopedic surgery involvement. The patient desires to proceed to the OR to debride his abscess. Plan: Agree with admit to hospitalist for management of cellulitis NPO, IV fluids, IV antibiotic COVID test Stat left lower extremity CT with IV contrast Pending CT results, proceed to OR for debridement of left leg abscess Status: Acute (3) Cigarette smoker: Status: Acute Assessment & Plan narrative: 55-year-old man postop day 2 from I and D of large left lower extremity wound. Doing well. Needs outpatient wound care. Dispo pending that can be set up. Plan: Ambulate as tolerated Okay for DVT prophylaxis Antibiotic per hospitalist Wound care as per orders Dispo pending outpatient wound care can be done daily, or at the very least, every other day COVID-19 COVID-19 status: Negative Result date/Date tested (Pos, Neg/Pending): 10/08/20 Time Spent With Patient Time with patient: 15-24 minutes Quality VTE Deep Vein Thrombosis/Pulmonary Embolism Present on Admission: No
--- NOTE | 2020-10-10 11:02 | P.DS_ITS ---
History of Present Illness History of Present Illness Date Patient Seen: 10/08/20 Chief complaint: Cyst inside left knee Narrative: Written by Dr. Zaragoza: Kaleb Conklin is a 55 year old male with PMH of multisubstance (meth, cocaine, etoh) abuse now in remission who presented with one week of a worsening infection over his medial left knee. She states it started as a pimple sized lesion but he kept draining it and scratching at the lesion and it broke open with purulent drainage. He was in care home for a few days when this all started and was released approximately 4 days ago. Two days ago this progressed to red streaks up his thigh and swelling in his lower leg. He has mild pain and stiffness near his left knee. He reports his swelling is better now than a few days ago, when he also noted some chills but no fever. He denies any abdominal pain, testicular pain, nausea, vomiting, diarrhea. In the emergency room, his vital signs were unremarkable, initial laboratory evaluation did not show any leukocytosis, and chemistries were fairly unremarkable. There is a mild elevation in his ALT at 73. He had a negative procalcitonin. COVID-19 testing was negative. X-ray of his left knee showed soft tissue swelling but no erosion into bone or the joint and no knee effusion. I asked that surgery be consulted and he was taken to the operating room for drainage after CT scan did not show involvement of his joint. He was admitted to the medicine service with surgery, Dr. Figueroa, consulting. Discharge Providers Provider Date of admission: 10/08/20 15:01 Discharge Date: 10/10/20 Consults: 10/08/20 15:35 Consult to Respiratory Therapy Evaluate & Treat Comment: Physician Instructions: Evaluate and treat 10/08/20 15:48 Consult to CABLE INSTALLATION MANAGER - [employer] Routine Comment: homeless, prior substance abuse 10/09/20 13:31 Consult to Wound Care Routine Comment: left knee I&D Consulting Provider: [facility] Discharge provider: Macie Cantrell DO Summary Hospital Course Discharge Diagnosis: 1. Acute abscess of left lower extremity, status post I&D, present on admission. Resolving. 2. Tobacco dependence, chronic, present on admission. Stable. 3. History of polysubstance use in remission. Hospital Course: Kaleb Conklin is a 55-year-old male with a past medical history significant for previous polysubstance (meth, cocaine, alcohol) abuse now in remission who presented to the ED with one week of a worsening infection over his left lower extremity. 1. Acute abscess of left lower extremity, status post I&D, present on admission. Resolving. -Patient reports it started as a small pimple and grew in size with continued scrathching per patient. Patient reports it started while in care home and given history started and continued patient on cefepime 2 g every 12 hours and vancomycin with dosing per pharmacy pending cutures to broaden coverage for pseudomonas although this is less likely given appearance. Discharged on Keflex 500 mg four times daily 5 days to complete 7 days of antibiotic treatment and further antibiotic treatment to be determined by wound care physician. -X-ray left knee demonstrated medial knee soft tissue swelling with no effusions or evidence of bone involvement. -CT left lower extremity with contrast did not show evidence of joint involvement and only extensive cellulitis. -Consulted general surgery, Dr. Figueroa who performed incision and drainage on 10/08/20. -Blood cultures have no growth to date. Wound cultures grew MSSA. -HIV negative. -Continued wound care orders placed by surgery. Patient discharged with planned wound care packing changes in ED on 10/11 and 10/13 with wound care clinic follow-up on 10/15. 2. Tobacco dependence, chronic, present on admission. Stable. -Patient smokes 1 ppd. -Counseled the patient extensively on smoking cessation and risks of delayed wound healing, continued infection among other significant risks. Patient is not sure he will be able to or wants to quit. -Patient refused nicotine patch. 3. History of polysubstance use in remission. -Patient denies recent drug use and reports he only smokes cigarettes. Exam Vital Signs (past 8 hours): - 10/10/20 04:29 10/10/20 05:00 10/10/20 08:00 Temperature 97.4 F L 97.9 F Pulse Rate 78 76 Respiratory Rate 16 18 Blood Pressure 136/74 129/76 Pulse Oximetry 95 95 96 Oxygen Delivery Method Room Air Oxygen Flow Rate 0 Narrative Exam Narrative: General:Middle aged male in no acute distress, well-developed, well-nourished, a ppropriately interactive HEENT: Normocephalic, atraumatic. External ears without defect. Pupils equal, round, and reactive to light. Anicteric sclerae, moist conjunctivae, and no lid lag. Oropharynx free of erythema and cobble stoning with moist mucosa. Poor dentition. Neck: Supple with full range of motion. No lymphadenopathy or thyromegaly. Cardiovascular: Regular rate and rhythm without murmurs, rubs, or gallops appreciated. Pulmonary: Clear to auscultation bilaterally without crackles, wheezes, or rhonchi. Normal respiratory effort with no use of accessory muscles. Abdomen: Soft, bowel tones present. nontender, nondistended. No hepatosplenomegaly or masses appreciated. Extremities: No clubbing, cyanosis, or edema. Left lower extremity with dressing in place C/D/I without surrounding erythema or edema. Skin: Normal temperature, turgor, and texture; no rash, ulcers, or subcutaneous nodules appreciated. Neurological: Cranial nerves grossly intact. Psychiatric: Normal mood and affect. Alert and oriented to person, place, and time. 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 You had a an abscess of your leg that was surgically drained. You have been prescribed Keflex 500 mg 4 times daily for 5 additional days to finish treating the staph infection. You may take ibuprofen and Tylenol as directed on bottle and as needed for pain or discomfort. Please come to the ER before noon on Wednesday10/11/2020 and Wednesday10/13/2020 for packing change. You have been scheduled for wound care follow-up at [facility] on Wednesday10/15/2020. Recommend indefinite smoking cessation for overall health and well-being, as well, as to promote wound healing. Discharge orders & Medications Prescriptions: New acetaminophen 325 mg Tablet 650 mg PO Q6HR PRN (Reason: Fever/Mild Pain (1-3)) Qty: 30 RF: 0 cephalexin [Keflex] 500 mg capsule 500 mg PO QID Qty: 20 RF: 0 Continued ibuprofen 600 mg tablet 600 mg PO QID PRN (Reason: pain) Qty: 20 RF: 1 Follow up/Referrals: Shmuel Moore MD [Physician] - 10/15/20 8:30 am (Arrive 15 minutes early for check-in) Diet/Activity/Treatments Diet: Carb-consistent/Diabetic, Low-fat, Low-sodium and Low-cholesterol Activity: Activity as tolerated Visit Report/Discharge Packet Instructions: DI for Cellulitis -- Adult, How To Perform RICE (Rest, Ice, Compress, Elevate), Incision and Drainage of a Skin Abscess, Smoking Delays Healing, How to Quit Smoking, DI for Skin Abscess, Smoking Cessation Associated with Fewer Problems After Surgery Discharge Data Attending Provider: Jhonny Zaragoza VTE Deep Vein Thrombosis/Pulmonary Embolism Present on Admission: No
[2020-10-10 12:00] VITALS: BP 124/82; PULSE 69; RESP 17; TEMP 36.7; O2SAT 96
--- NOTE | 2020-10-10 13:03 | PC.NURSE ---
Provided d/c packet and educational materials to pt. Reviewed dx, wound care f/u appts, instructions regarding when to seek emergency medical tx, abx/rx, wound care instructions, smoking cessation. Pt verbalizes understanding. He states he plans to walk to bus and has some errands to run. Instructed him that rx's were sent electronically to [facility]. He verbalizes understanding. Pt dressed himself and was escorted to exit by PARAMEDIC INSTRUCTOR with all belongings in no distress.
--- NOTE | 2020-10-10 14:36 | CM.DPNOTE ---
DC Note Reviewed chart. Patient is medically ready for DC today. Working w/Dr Cantrell, CM Sup Fernanda Watts and JACEY Woody as they coordinated the following plan; Plan: DC home today, back to [facility], ED staff to assist patient w/wound care Wednesday and Wednesday until patient has his outpatient appt Wednesday (wound care clinic) at 0830. Patient states he will walk to bus. Rx available at [facility]. JOSEPH
== END 2020-10-10 13:06 | disposition home or self-care (01) | DRG 364 ==
LOC: ED 14:35 → AC 17:43
PROVIDERS: Internal Medicine; Surgery; Admitting Provider Internal Medicine; Emergency Provider Nurse Practitioner Family; Referring Provider Nurse Practitioner Family; Visit Provider Internal Medicine
PROC: (CPT 11042; principal; 2020-10-08 15:00)
DX: L02.416 Cutaneous abscess of left lower limb (principal); A49.01 Methicillin susceptible Staphylococcus aureus infection, unspecified site; F19.11 Other psychoactive substance abuse, in remission; F17.210 Nicotine dependence, cigarettes, uncomplicated; F10.21 Alcohol dependence, in remission; Z59.0 Homelessness; Z23 Encounter for immunization; Z20.828 Contact with and (suspected) exposure to other viral communicable diseases
CPT/HCPCS: 11042; 11403; 36415; 73562; 73701; 80048; 80053; 80202; 82962; 83036; 83605; 83735; 84145; 85025; 87040; 87070; 87075; 87077; 87147; 87186; 87205; 87389; 87635; 90471; 90656; 94760; 96361; 96365; 96366; 99221; 99284; G0378; 90715; J0692; J1650; J2250; J2405; J2704; J3010; Q2038

== ENCOUNTER 2020-10-11 09:22 | Emergency (ER) | payer OTHER, MEDICAID, SELFPAY ==
[2020-10-08 17:58] VITALS: BMI 23.1
[2020-10-11 09:30] VITALS: BP 135/84; PULSE 96; RESP 18; TEMP 36.7; O2SAT 97; BMI 23.1
--- NOTE | 2020-10-11 09:37 | ED.RECABL ---
HPI - Recheck/Abnormal Lab/Rx General Chief Complaint: Recheck/Abnormal Lab/Rx Stated Complaint: dressing change Time Seen by Provider: 10/11/20 09:25 Source: patient Mode of arrival: Ambulatory Limitations: no limitations History of Present Illness HPI narrative: 55-year-old smoker presents with chief complaint of needing dressing change on a wound on his left knee. He was seen and evaluated here few days ago, had incision and drainage and was admitted to the hospital. He was just discharged yesterday and has a scheduled dressing change for Wednesday and subsequent follow-up with wound care on Wednesday. He has had no increasing pain, redness or drainage. He has had no systemic findings such as fever or chills. Denies any nausea or vomiting. He is otherwise well and free of complaint MD complaint: wound re-check Initial visit (ago): day(s) Initial visit for: abscess Returns today for: wound recheck Symptoms since prior visit: no new symptoms Context: planned re-check Associated symptoms: none Related Data Previous Rx's Medication Instructions Recorded ibuprofen 600 mg PO QID PRN #20 tab 04/27/19 acetaminophen 650 mg PO Q6HR PRN #30 tab 10/10/20 cephalexin [Keflex] 500 mg PO QID #20 cap 10/10/20 Allergies Allergy/AdvReac Type Severity Reaction Status Date / Time No Known Drug Allergies Allergy Verified 10/11/20 09:30 Review of Systems Constitutional Constitutional: Denies chills, Denies fatigue, Denies fever(s), Denies frequent falls, Denies lethargy and Denies weakness Eyes Eyes: Denies change in vision, Denies eye discharge, Denies irritation and Denies loss of vision ENT Ears, Nose, Mouth, and Throat: Denies change in voice, Denies dizziness, Denies neck pain, Denies sore throat and Denies throat swelling Cardiovascular Cardiovascular: Denies chest pain, Denies irregular heart rhythm, Denies lightheadedness, Denies palpitations, Denies dyspnea, Denies dyspnea on exertion and Denies orthopnea Respiratory Respiratory: Denies cough, Denies dyspnea, Denies dyspnea on exertion and Denies wheezing Gastrointestinal Gastrointestinal: Denies abdominal pain, Denies change in bowel habits, Denies diarrhea, Denies nausea and Denies vomiting Musculoskeletal Musculoskeletal: Denies neck pain and Denies numbness Integumentary/Breasts Skin/Breast: Denies pruritus, Reports erythema, Denies rash, Reports skin pain, Reports skin swelling, Reports sores and Reports wounds Neurologic Neurologic: Denies behavioral changes, Denies confusion, Denies dizziness, Denies frequent falls, Denies loss of vision, Denies numbness and Denies weakness Psychiatric Psychiatric: Denies anxiety, Denies behavioral changes, Denies confusion, Denies depression, Denies homicidal ideation and Denies suicidal ideation Endocrine Endocrine: Denies fatigue, Denies flushing and Denies palpitations Hematologic/Lymphatic Hematologic/Lymphatic: Denies easy bruising Allergic/Immunologic Allergic/Immunologic: Denies urticaria, Denies throat swelling and Denies wheezing 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 Extraoccular muscles are intact bilaterally. There is no subconjunctival hemorrhage or exudate. CHEST: Lungs are clear to auscultation bilaterally and free of wheezes, rales, or rhonchi. Heart rate is regular rhythm, there are no murmurs, clicks, rubs, or gallops. There is no chest wall tenderness. ABD: Abdomen is soft and nontender. There is no guarding or rebound. Bowel sounds are normal in all 4 quadrants. There is no mass or organomegaly. EXT: Large open, appropriately healing wound left medial knee with minimal surrounding erythema. Packing removed and fresh dressing replaced. Full painless ROM of all extremities with no loss of sensation or strength. SKIN: Warm, pink, and dry. No erythema or rash Initial Vital Signs Initial Vital Signs: Vital Signs Temperature 98.1 F 10/11/20 09:30 Pulse Rate 96 H 10/11/20 09:30 Respiratory Rate 18 10/11/20 09:30 Blood Pressure 135/84 10/11/20 09:30 Pulse Oximetry 97 10/11/20 09:30 Course Vital Signs Vital signs: Vital Signs - 8 hr 10/11/20 09:30 Temperature 98.1 F Pulse Rate 96 H Respiratory Rate 18 Blood Pressure 135/84 Pulse Oximetry 97 Discharge Plan Departure Patient Disposition: Home Clinical Impression: Soft tissue infection, Leg abscess Instructions: DI for Skin Abscess Activity Restrictions/Additional Instructions: *You have been diagnosed with [abscess with cellulitis of left lower extremity, dressing change] *What to do: * continue to take medications as directed *Follow up as planned on Wednesday for dressing change *Return to ER if you should have any new, worsening or concerning symptoms, such as [ fever, chills, vomiting, or other bothersome symptoms] Prescriptions: No Action ibuprofen 600 mg tablet 600 mg PO QID PRN (Reason: pain) Qty: 20 RF: 1 acetaminophen 325 mg Tablet 650 mg PO Q6HR PRN (Reason: Fever/Mild Pain (1-3)) Qty: 30 RF: 0 cephalexin [Keflex] 500 mg capsule 500 mg PO QID Qty: 20 RF: 0 Referrals: Jhonny Zaragoza DO [Primary Care Provider] -
== END 2020-10-11 10:01 | disposition home or self-care (01) ==
PROVIDERS: Emergency Provider Emergency Medicine; Family Provider Internal Medicine; PCP Internal Medicine
DX: L03.116 Cellulitis of left lower limb (principal); L02.416 Cutaneous abscess of left lower limb
CPT/HCPCS: 99281

== ENCOUNTER 2020-10-13 08:21 | Emergency (ER) | payer OTHER, MEDICAID, SELFPAY ==
[2020-10-08 17:58] VITALS: BMI 23.1
[2020-10-13 08:28] VITALS: BP 143/82; PULSE 92; RESP 15; TEMP 36.7; O2SAT 99; BMI 23.1
--- NOTE | 2020-10-13 08:33 | ED_ITS ---
HPI - Recheck/Abnormal Lab/Rx General Chief Complaint: Recheck/Abnormal Lab/Rx Stated Complaint: dressing change of left knee Time Seen by Provider: 10/13/20 08:21 Source: patient Mode of arrival: Ambulatory Limitations: no limitations History of Present Illness HPI narrative: 55-year-old male daily smoker returns for a scheduled dressing change. He recently developed an abscess on his left medial knee with surro unding cellulitis that required incision and drainage as well as hospitalization. He has been doing well and progressing appropriately as an outpatient. He has a scheduled appointment with wound care on Wednesday. He denies any fever, chills nor nausea or vomiting. His pain is very tolerable he has no complaints otherwise. MD complaint: wound re-check Initial visit (ago): day(s) Initial visit for: cellulitis and abscess Returns today for: wound recheck Symptoms since prior visit: no new symptoms Context: planned re-check Associated symptoms: none Treatments prior to arrival: dressings Related Data Previous Rx's Medication Instructions Recorded ibuprofen 600 mg PO QID PRN #20 tab 04/27/19 acetaminophen 650 mg PO Q6HR PRN #30 tab 10/10/20 cephalexin [Keflex] 500 mg PO QID #20 cap 10/10/20 Allergies Allergy/AdvReac Type Severity Reaction Status Date / Time No Known Drug Allergies Allergy Verified 10/13/20 08:30 Review of Systems Constitutional Constitutional: Denies chills, Denies fatigue, Denies fever(s), Denies frequent falls, Denies lethargy and Denies weakness Eyes Eyes: Denies change in vision, Denies eye discharge, Denies irritation and Denies loss of vision ENT Ears, Nose, Mouth, and Throat: Denies change in voice, Denies dizziness, Denies neck pain, Denies sore throat and Denies throat swelling Cardiovascular Cardiovascular: Denies chest pain, Denies irregular heart rhythm, Denies lightheadedness, Denies palpitations, Denies dyspnea, Denies dyspnea on exertion and Denies orthopnea Respiratory Respiratory: Denies cough, Denies dyspnea, Denies dyspnea on exertion and Denies wheezing Gastrointestinal Gastrointestinal: Denies abdominal pain, Denies change in bowel habits, Denies diarrhea, Denies nausea and Denies vomiting Musculoskeletal Musculoskeletal: Denies neck pain and Denies numbness Integumentary/Breasts Skin/Breast: Denies pruritus, Denies erythema, Denies rash and Reports wounds Neurologic Neurologic: Denies behavioral changes, Denies confusion, Denies dizziness, Denies frequent falls, Denies loss of vision, Denies numbness and Denies weakness Psychiatric Psychiatric: Denies anxiety, Denies behavioral changes, Denies confusion, Denies depression, Denies homicidal ideation and Denies suicidal ideation Endocrine Endocrine: Denies fatigue, Denies flushing and Denies palpitations Hematologic/Lymphatic Hematologic/Lymphatic: Denies easy bruising Allergic/Immunologic Allergic/Immunologic: Denies urticaria, Denies throat swelling and Denies wheezing 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 Extraoccular muscles are intact bilaterally. There is no subconjunctival hemo rrhage or exudate. CHEST: Lungs are clear to auscultation bilaterally and free of wheezes, rales, or rhonchi. Heart rate is regular rhythm, there are no murmurs, clicks, rubs, or gallops. There is no chest wall tenderness. ABD: Abdomen is soft and nontender. There is no guarding or rebound. Bowel sounds are normal in all 4 quadrants. There is no mass or organomegaly. EXT: Full painless ROM of all extremities with no loss of sensation or strength. SKIN: Expected interval improvements on left knee abscess. Very minimal surrounding cellulitis. Small amount of yellowish drainage at the bed of wound. Minimal pain. Otherwise, Warm, pink, and dry. No erythema or rash Initial Vital Signs Initial Vital Signs: Vital Signs Temperature 98.0 F 10/13/20 08:28 Pulse Rate 92 H 10/13/20 08:28 Respiratory Rate 15 10/13/20 08:28 Blood Pressure 143/82 H 10/13/20 08:28 Pulse Oximetry 99 10/13/20 08:28 Course Course Course Narrative: Wound inspected and redressed by myself. It continues to improve. Patient instructed to leave this dressing in place until his planned follow-up in 2 days. He has been given return precautions and has had questions answered to his apparent satisfaction Vital Signs Vital signs: Vital Signs - 8 hr 10/13/20 08:28 Temperature 98.0 F Pulse Rate 92 H Respiratory Rate 15 Blood Pressure 143/82 H Pulse Oximetry 99 Discharge Plan Departure Patient Disposition: Home Clinical Impression: Leg abscess Instructions: DI for Skin Abscess Activity Restrictions/Additional Instructions: *You have been diagnosed with [scheduled dressing change for abscess and cellulitis] *What to do: * continue to take medications as directed *Follow up with wound care as planned *Return to ER if you should have any new, worsening or concerning symptoms, such as [ ] Prescriptions: No Action ibuprofen 600 mg tablet 600 mg PO QID PRN (Reason: pain) Qty: 20 RF: 1 acetaminophen 325 mg Tablet 650 mg PO Q6HR PRN (Reason: Fever/Mild Pain (1-3)) Qty: 30 RF: 0 cephalexin [Keflex] 500 mg capsule 500 mg PO QID Qty: 20 RF: 0
== END 2020-10-13 09:00 | disposition home or self-care (01) ==
PROVIDERS: Emergency Provider Emergency Medicine; Family Provider Internal Medicine
DX: Z48.00 Encounter for change or removal of nonsurgical wound dressing (principal); L02.416 Cutaneous abscess of left lower limb
CPT/HCPCS: 99281

== ENCOUNTER → 2020-10-15 09:37 | Outpatient (CLI) | payer OTHER, MEDICAID, SELFPAY ==
[2020-10-08 17:58] VITALS: BMI 23.1
== END ==
PROVIDERS: Family Provider Internal Medicine; Referring Provider Surgery; Visit Provider Family Medicine
DX: S81.002A Unspecified open wound, left knee, initial encounter (principal); L60.0 Ingrowing nail; L08.9 Local infection of the skin and subcutaneous tissue, unspecified; F17.210 Nicotine dependence, cigarettes, uncomplicated; Z65.8 Other specified problems related to psychosocial circumstances
CPT/HCPCS: 11042; 99204; 99214

== ENCOUNTER → 2020-10-22 09:08 | Outpatient (CLI) | payer OTHER, MEDICAID, SELFPAY ==
[2020-10-08 17:58] VITALS: BMI 23.1
== END ==
PROVIDERS: Family Provider Internal Medicine; Referring Provider Surgery; Visit Provider Family Medicine
DX: S81.002A Unspecified open wound, left knee, initial encounter (principal); Z65.8 Other specified problems related to psychosocial circumstances
CPT/HCPCS: 11042; 97605

== ENCOUNTER → 2020-10-25 14:35 | Outpatient (CLI) | payer OTHER, MEDICAID, SELFPAY ==
[2020-10-08 17:58] VITALS: BMI 23.1
== END ==
PROVIDERS: Family Provider Internal Medicine; PCP Surgery; Referring Provider Surgery; Visit Provider Family Medicine
DX: S81.002A Unspecified open wound, left knee, initial encounter (principal); R60.0 Localized edema
CPT/HCPCS: 97605

== ENCOUNTER → 2020-10-30 08:54 | Outpatient (CLI) | payer OTHER, MEDICAID, SELFPAY ==
[2020-10-08 17:58] VITALS: BMI 23.1
== END ==
PROVIDERS: Family Provider Internal Medicine; PCP Surgery; Referring Provider Surgery; Visit Provider Family Medicine
DX: S81.002A Unspecified open wound, left knee, initial encounter (principal); Z65.8 Other specified problems related to psychosocial circumstances
CPT/HCPCS: 11042; 97605

== ENCOUNTER → 2020-11-04 11:41 | Outpatient (CLI) | payer OTHER, MEDICAID, SELFPAY ==
[2020-10-08 17:58] VITALS: BMI 23.1
== END ==
PROVIDERS: Family Provider Internal Medicine; PCP Surgery; Referring Provider Surgery; Visit Provider Family Medicine
DX: S81.002A Unspecified open wound, left knee, initial encounter (principal); S81.802A Unspecified open wound, left lower leg, initial encounter; Z65.8 Other specified problems related to psychosocial circumstances; L24.5 Irritant contact dermatitis due to other chemical products
CPT/HCPCS: 11042; 99214

== ENCOUNTER 2021-02-02 08:40 | Emergency (ER) | payer OTHER, MEDICAID, SELFPAY ==
[2020-10-08 17:58] VITALS: BMI 23.1
[2021-02-02 08:45] VITALS: BP 127/88; PULSE 92; O2SAT 97
[2021-02-02 08:47] VITALS: BP 127/88; PULSE 91; RESP 15; TEMP 36.4; O2SAT 96; BMI 23.7
[2021-02-02] MEDS: BACITRACIN OINT 0.9 GM PCKT 1 APPLIC TOP (08:58)
--- NOTE | 2021-02-02 08:58 | ED.SKABFB ---
HPI - Skin/Abscess/Foreign Bdy General Chief complaint: Skin/Abscess/Foreign Body Stated complaint: fell against toilet tank,, gouged right arm Time Seen by Provider: 02/02/21 08:51 Source: patient Mode of arrival: Ambulatory Limitations: no limitations History of Present Illness HPI narrative: Patient is a 55-year-old male here for evaluation of injuries that he sustained to his right arm. He states that he was getting up off the toilet this morning and had cramps in his legs. He states that he started to fall because of the cramps and reached out to stop himself and landed on the tank of the toilet which he broke. He sustained a cut to his right forearm. He did not hit his head. The cramps have now resolved. He has no other injury from the event. He does not know when his last tetanus shot was. Related Data Previous Rx's Medication Instructions Recorded ibuprofen 600 mg PO QID PRN #20 tab 04/27/19 acetaminophen 650 mg PO Q6HR PRN #30 tab 10/10/20 cephalexin [Keflex] 500 mg PO QID #20 cap 10/10/20 Allergies Allergy/AdvReac Type Severity Reaction Status Date / Time No Known Drug Allergies Allergy Verified 02/02/21 08:50 Review of Systems Constitutional Constitutional: Denies fever(s) and Denies headache(s) ENT Ears, Nose, Mouth, and Throat: Denies headache(s) Cardiovascular Cardiovascular: Denies chest pain, Denies syncope, Denies rapid heart rate and Denies dyspnea Respiratory Respiratory: Denies cough and Denies dyspnea Gastrointestinal Gastrointestinal: Denies abdominal pain, Denies nausea and Denies vomiting Genitourinary Genitourinary: Denies dysuria Genitourinary: Denies dysuria Musculoskeletal Musculoskeletal: Denies arthralgias and Denies myalgias Comments: Leg cramps Integumentary/Breasts Comments: Cut to right forearm Neurologic Neurologic: Denies behavioral changes, Denies syncope and Denies headache(s) Psychiatric Psychiatric: Denies behavioral changes Hematologic/Lymphatic On Anticoagulants: No Allergic/Immunologic Allergic/Immunologic: Denies urticaria 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 Surgical History History of ankle surgery Social History marital status: unmarried,single household members: friend(s) occupational status: employed Smoking Status: Current every day smoker alcohol intake: former substance use type: does not use and former substance user Smoking Status: Current every day smoker alcohol intake frequency: holidays/special occasions only Substance Use Type: does not use and former substance user Exam Initial Vital Signs Initial Vital Signs: Vital Signs Temperature 97.5 F L 02/02/21 08:47 Pulse Rate 91 H 02/02/21 08:47 Respiratory Rate 15 02/02/21 08:47 Blood Pressure 127/88 02/02/21 08:47 Pulse Oximetry 96 02/02/21 08:47 Const General: cooperative and comfortable Limitations: mental status not altered HENMT Head: normal to inspection and normocephalic Resp Effort & Inspection: normal respiratory effort Cardio Pulses: radial pulses present on the right GI Inspection: non-distended Skin Other: Patient has a irregular skin tear on the dorsum of the right forearm on the proximal 1/3. No active bleeding. Neuro General: patient alert and patient awake Gait: normal gait Sensory Exam: no sensory deficits noted Extrem Other: Right shoulder right elbow right wrist unremarkable Psych Appearance: grossly normal and well kempt Procedures Laceration Repair Laceration 1: Site: upper extremity Side (If applicable): right Size (cm): 5 Description: irregular (Skin tear) Depth: simple, single layer Skin layer closed with: steri-strips Course Orders Ordered: Discontinued Medications Bacitracin (Bacitracin Oint 0.9 Gm Pckt) 1 applic TOP NOW ONE Stop: 02/02/21 08:52 Last Admin: 02/02/21 08:58 Dose: 1 applic Documented by: OANH Diphtheria/Tetanus/Acell Pertussis (Tet,Diph,Pertuss(Acell),Vac/Pf 0.5 Ml Syringe) 0.5 ml IM .ONCE ONE Stop: 02/02/21 08:52 Last Admin: 02/02/21 08:59 Dose: 0.5 ml Documented by: OANH Vital Signs Vital signs: Vital Signs - 8 hr 02/02/21 08:47 Temperature 97.5 F L Pulse Rate 91 H Respiratory Rate 15 Blood Pressure 127/88 Pulse Oximetry 96 MDM - Skin/Abscess/Foreign Bdy MDM Narrative Medical decision making narrative: Patient's tetanus was updated. The irregular edges of the skin tear of his right forearm was approximated specimen possible and held with Steri-Strips. There were no other injuries reported by the patient or found on the exam. This was a mechanical fall because of leg cramps. He did not hit his head. No further workup needed emergency department. He was given care instructions and return precautions. He expressed understanding agreement. Discharge Plan Departure Patient Disposition: Home Clinical Impression: Skin tear Instructions: DI for Laceration Repair-Skin Closure Strips Activity Restrictions/Additional Instructions: You can shower like normal. You can use soap and water like normal. Cover the area with a bandage in you can use topical antibiotic ointment. Return to the emergency department for any new or worsening symptoms Prescriptions: No Action ibuprofen 600 mg tablet 600 mg PO QID PRN (Reason: pain) Qty: 20 RF: 1 acetaminophen 325 mg Tablet 650 mg PO Q6HR PRN (Reason: Fever/Mild Pain (1-3)) Qty: 30 RF: 0 cephalexin [Keflex] 500 mg capsule 500 mg PO QID Qty: 20 RF: 0
[2021-02-02] MEDS: TET,DIPH,PERTUSS(ACELL),VAC/PF 0.5 ML SYRINGE IM (08:59)
[2021-02-02 09:37] VITALS: PULSE 85; O2SAT 98
[2021-02-02 09:38] VITALS: BP 126/83; PULSE 78; O2SAT 98
== END 2021-02-02 09:47 | disposition home or self-care (01) ==
PROVIDERS: Emergency Provider Emergency Medicine; Family Provider Internal Medicine
DX: S41.111A Laceration without foreign body of right upper arm, initial encounter (principal); W19.XXXA Unspecified fall, initial encounter; Z23 Encounter for immunization
CPT/HCPCS: 90471; 99283; 90715

== ENCOUNTER 2021-09-09 06:58 | Emergency (ER) | payer OTHER, MEDICAID, SELFPAY ==
[2020-10-08 17:58] VITALS: BMI 23.1
[2021-09-09 07:06] VITALS: BP 135/82; PULSE 99; RESP 18; TEMP 36.6; O2SAT 96; BMI 22.5
--- NOTE | 2021-09-09 07:29 | ED_ITS ---
HPI - Skin/Abscess/Foreign Bdy General Chief complaint: Skin/Abscess/Foreign Body Stated complaint: rt hand swollen/painful x3 days Time Seen by Provider: 09/09/21 07:12 Source: patient Mode of arrival: Ambulatory Limitations: no limitations History of Present Illness HPI narrative: Patient complains of pain and swelling to the right hand. The dorsal surface. Denies any injuries. Former IV drug use when he was in his 20s. No longer does IV drug use. History skin staph infections in the past. Denies any injuries to the hand. Patient is right handed. 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 Skin is intact but erythematous and edematous hand. No fever chills. Ongoing for the past 3 days. Related Data Previous Rx's Medication Instructions Recorded ibuprofen 600 mg tablet 600 mg PO QID PRN #20 tab 04/27/19 acetaminophen 325 mg tablet 650 mg PO Q6HR PRN #30 tab 10/10/20 cephalexin 500 mg capsule (Keflex) 500 mg PO QID #20 cap 10/10/20 cephalexin 500 mg capsule 500 mg PO QID #28 cap 09/09/21 ibuprofen 600 mg tablet 600 mg PO Q6H PRN #24 tab 09/09/21 Allergies Allergy/AdvReac Type Severity Reaction Status Date / Time No Known Drug Allergies Allergy Verified 02/02/21 08:50 Review of Systems Review of Systems Narrative: GENERAL: Denies chills, fatigue, malaise, fever, sweats. 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 EXTREMITIES: No gross deformities. Examination right hand. Elbow to the fingers exposed. There is dorsal surface erythema without induration or palpable abscess on the lateral 3rd of the right hand. Extends from the 5th metacarpal space to the 3rd metacarpal space. It does extend proximal to the wrist 4 cm. Nontender fingers. Nontender wrist. Able to flex extend wrist without any difficulty. 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 Light touch intact to fingers and thumb. Strong radial pulse. No necrotic tissue. No crepitus. No pain out of proportion to exam. Forearm is nontender. Elbow nontender. NEURO: AOx4. SKIN: Warm and dry PSYCH: Not anxious, is cooperative Initial Vital Signs Initial Vital Signs: Vital Signs Temperature 97.8 F 09/09/21 07:06 Pulse Rate 99 H 09/09/21 07:06 Respiratory Rate 18 09/09/21 07:06 Blood Pressure 135/82 09/09/21 07:06 Pulse Oximetry 96 09/09/21 07:06 Course Course Course Narrative: No new issues during course of stay Orders Ordered: ED Orders 09/09/21 07:30 XR hand RT min 3V Stat XR wrist RT min 3V Stat CMP [Comprehensive Metabolic Panel] Stat Complete Blood Count AUTO DIFF Stat Lactate (Lactic Acid) Stat Discontinued Medications Ceftriaxone Sodium 2,000 mg/ (Sodium Chloride) 100 mls @ 200 mls/hr IV NOW ONE Stop: 09/09/21 07:29 Last Infusion: 09/09/21 08:53 Dose: 0 mls/hr Documented by: Admin: 09/09/21 07:49 Dose: 200 mls/hr Documented by: ELLIOTT Reevaluation(s) Reevaluation #1: Reviewed results with patient. He denies any injury to his hand. Follow-up provided the patient for orthopedics. As well as primary care. Agrees with treatment plan discharge Vital Signs Vital signs: Vital Signs - 8 hr 09/09/21 08:50 09/09/21 08:51 09/09/21 09:00 Pulse Rate 81 82 77 Respiratory Rate Blood Pressure 116/79 Pulse Oximetry 96 97 96 09/09/21 09:26 Pulse Rate 83 Respiratory Rate 18 Blood Pressure 116/79 Pulse Oximetry 97 MDM - Skin/Abscess/Foreign Bdy Differential Diagnosis Differential diagnosis: Likely abscess of skin or subcutaneous tissue, urticaria, cellulitis, eczema and contact dermatitis Lab Data Result diagrams: 09/09/21 07:30 09/09/21 07:30 Labs: Lab Results 09/09/21 09/09/21 09/09/21 Range/Units 07:30 07:30 07:30 WBC 8.3 (4.5-11.0) X10^3/uL RBC 4.23 L (4.5-5.9) X10^6/uL Hgb 12.6 L (13.5-17.5) g/dL Hct 37.9 L (41-53) % MCV 89.6 (80-100) fL MCH 29.8 (26-34) PG MCHC 33.3 (30-36) % RDW 13.0 (11.6-14.8) % Plt Count 304 (150-400) X10^3/uL Neut % (Auto) 69.9 (50-75) % Lymph % (Auto) 15.8 L (25-40) % [place] % (Auto) 11.7 (3-14) % Eos % (Auto) 1.4 L (2-4) % Baso % (Auto) 1.2 (0-2) % Neut # (Auto) 5800 (6759-5460) /uL Lymph # (Auto) 1300 (9941-5468) /uL [place] # (Auto) 1000 H (0-900) /uL Eos # (Auto) 100 (0-450) /uL Baso # (Auto) 100 (0-100) /uL Sodium 140 (137-145) mmol/L Potassium 3.7 (3.4-5.1) mmol/L Chloride 102 (98-107) mmol/L Carbon Dioxide 30 (22-32) mmol/L BUN 29 H (9-20) mg/dL Creatinine 0.78 (0.66-1.25) mg/dL Estimated GFR > 60.0 (>60) mL/min BUN/Creatinine Ratio 37.2 H (6-22) Glucose 105 H (70-100) mg/dL Lactate 1.2 (0.7-2.1) mmol/L Calcium 9.0 (8.4-10.2) mg/dL Total Bilirubin 0.6 (0.2-1.3) mg/dL AST 26 (17-59) IU/L ALT 22 (<50) IU/L Alkaline Phosphatase 72 (38-126) U/L Total Protein 7.3 (6.3-8.2) g/dL Albumin 4.1 (3.5-5.0) g/dL Globulin 3.2 (1.7-4.1) g/dL Albumin/Globulin Ratio 1.3 (1.0-2.8) Imaging Data Extremity x-ray #1: Radiologist's Impression: [address] [address] XRay Report Signed Patient: Kaleb Conklin MR#: [id number] : 1965 Acct:[id number] Age/Sex: 56 / M Date of Service: 09/09/21 Loc: ED Accession Number: [id number] ?? Procedure: XR wrist RT min 3V Ordering Provider: Ger Leigh MD PROCEDURE:? XR WRIST RT MIN 3V ? INDICATIONS: Pain/swelling ? TECHNIQUE:? 3 views of the wrist were acquired.? ? COMPARISON:? None. ? FINDINGS:? ? Bones:? No fractures or dislocations.? No suspicious bony lesions.? Osteoarthritic degenerative changes.? Sclerosis and flattening of the lunate bone compatible with osteonecrosis. ? Scaphoid view:? Scaphoid is intact. ? Soft tissues:? No suspicious soft tissue calcifications.? ? IMPRESSION:? ? 1. No fracture. No acute osseous lesion. If symptoms and/or clinical suspicion for pathology persists, further assessment with repeat radiographs (7-10 days) or advanced imaging (e.g. CT, MRI or bone scan) should be considered. ? 2. Lunate osteonecrosis (Kienbock disease). ? ? Dictated by: Thelma Murray MD, PhD on 09/09/2021 at 8:15 ? ? Approved by: Thelma Murray MD, PhD on 09/09/2021 at 8:18 ? Extremity x-ray #2: Radiologist's Impression: [address] [address] XRay Report Signed Patient: Kaleb Conklin MR#: [id number] : 1965 Acct:[id number] Age/Sex: 56 / M Date of Service: 09/09/21 Loc: ED Accession Number: [id number] ?? Procedure: XR hand RT min 3V Ordering Provider: Ger Leihg MD PROCEDURE:? XR HAND RT MIN 3V ? INDICATIONS:? Pain/swelling ? TECHNIQUE:? 3 views of the hand(s) acquired.? ? COMPARISON:? None. ? FINDINGS:? ? Bones:? Small 1 x 2 millimeter bone fragment noted adjacent to the lateral margin of the base of the 5th proximal phalange which may represent small avulsion fracture.? Carpal bones are normally aligned.? No suspicious bony lesions.? ? Soft tissues:? No suspicious soft tissue calcifications.? ? ? IMPRESSION:? Possible small avulsion fracture involving the base of the 5th proximal phalange.? ? ? Dictated by: Thelma Murray MD, PhD on 09/09/2021 at 8:13 ? ? Approved by: Thelma Murray MD, PhD on 09/09/2021 at 8:15 ? MDM Narrative Medical decision making narrative: Appropriate for discharge home. Laboratory studies exam and imaging reassuring. Return precautions reviewed with patient. Referrals given for primary care and Orthopedics. Not toxic at discharge. Discharge Plan Departure Patient Disposition: Home Clinical Impression: Cellulitis Instructions: DI for Cellulitis -- Adult Activity Restrictions/Additional Instructions: Continue printed prescriptions provided to you. Call provided orthopedic office for re-evaluation of your hand. Call provided primary care referral phone num [email or web address] to establish family doctor. Call [phone]. Return if worse if any questions or concerns Prescriptions: New cephalexin 500 mg capsule 500 mg PO QID Qty: 28 0RF ibuprofen 600 mg tablet 600 mg PO Q6H PRN (Reason: fever or pain) Qty: 24 0RF No Action ibuprofen 600 mg tablet 600 mg PO QID PRN (Reason: pain) Qty: 20 1RF acetaminophen 325 mg Tablet 650 mg PO Q6HR PRN (Reason: Fever/Mild Pain (1-3)) Qty: 30 0RF cephalexin [Keflex] 500 mg capsule 500 mg PO QID Qty: 20 0RF Referrals: Jazlyn Gaines MD [Physician] - Stand Alone Forms: Work Release Note
--- NOTE | 2021-09-09 07:30 | DI.RAD.S_ITS ---
PROCEDURE: XR WRIST RT MIN 3V INDICATIONS: Pain/swelling TECHNIQUE: 3 views of the wrist were acquired. COMPARISON: None. FINDINGS: Bones: No fractures or dislocations. No suspicious bony lesions. Osteoarthritic degenerative changes. Sclerosis and flattening of the lunate bone compatible with osteonecrosis. Scaphoid view: Scaphoid is intact. Soft tissues: No suspicious soft tissue calcifications. IMPRESSION: 1. No fracture. No acute osseous lesion. If symptoms and/or clinical suspicion for pathology persists, further assessment with repeat radiographs (7-10 days) or advanced imaging (e.g. CT, MRI or bone scan) should be considered. 2. Lunate osteonecrosis (Kienbock disease). Dictated by: Thelma Murray MD, PhD on 09/09/2021 at 8:15 Approved by: Thelma Murray MD, PhD on 09/09/2021 at 8:18
--- NOTE | 2021-09-09 07:30 | DI.RAD.S_ITS ---
PROCEDURE: XR HAND RT MIN 3V INDICATIONS: Pain/swelling TECHNIQUE: 3 views of the hand(s) acquired. COMPARISON: None. FINDINGS: Bones: Small 1 x 2 millimeter bone fragment noted adjacent to the lateral margin of the base of the 5th proximal phalange which may represent small avulsion fracture. Carpal bones are normally aligned. No suspicious bony lesions. Soft tissues: No suspicious soft tissue calcifications. IMPRESSION: Possible small avulsion fracture involving the base of the 5th proximal phalange. Dictated by: Thelma Murray MD, PhD on 09/09/2021 at 8:13 Approved by: Thelma Murray MD, PhD on 09/09/2021 at 8:15
[2021-09-09 07:39] LABS: Add Manual Diff / Slide Review NO; Basophils Absolute Auto 100 /uL (0-100); Basophils Percent Auto 1.2 % (0-2); Eosinophils Absolute Auto 100 /uL (0-450); Eosinophils Percent Auto 1.4 % (2-4); Hematocrit 37.9 % (41-53); Hemoglobin 12.6 g/dL (13.5-17.5); Lymphocytes Absolute Auto 1300 /uL (1100-4500); Lymphocytes Percent Auto 15.8 % (25-40); Mean Corpuscular HGB Conc 33.3 % (30-36); Mean Corpuscular Hemoglobin 29.8 PG (26-34); Mean Corpuscular Volume 89.6 fL (80-100); Monocytes Absolute Auto 1000 /uL (0-900); Monocytes Percent Auto 11.7 % (3-14); Neutrophils Absolute Auto 5800 /uL (1500-7000); Neutrophils Percent Auto 69.9 % (50-75); Platelet Count 304 X10^3/uL (150-400); Red Blood Cell Count 4.23 X10^6/uL (4.5-5.9); White Blood Cell Count 8.3 X10^3/uL (4.5-11.0)
[2021-09-09 07:48] LABS: Alanine Aminotransferase 22 IU/L (<50); Albumin 4.1 g/dL (3.5-5.0); Albumin Globulin Ratio 1.3 (1.0-2.8); Alkaline Phosphatase 72 U/L (38-126); Aspartate Aminotransferase 26 IU/L (17-59); BUN Creatinine Ratio 37.2 (6-22); Bilirubin Total 0.6 mg/dL (0.2-1.3); Blood Urea Nitrogen 29 mg/dL (9-20); Carbon Dioxide 30 mmol/L (22-32); Chloride 102 mmol/L (98-107); Estimated Glomerular Filt Rate > 60.0 mL/min (>60); Globulin 3.2 g/dL (1.7-4.1); Glucose 105 mg/dL (70-100); HEMOLYSIS < 15 (0-50); Potassium 3.7 mmol/L (3.4-5.1); Sodium 140 mmol/L (137-145); Total Protein 7.3 g/dL (6.3-8.2)
[2021-09-09 07:49] LABS: Lactate (Lactic Acid) 1.2 mmol/L (0.7-2.1)
[2021-09-09] MEDS: cefTRIAXone 2,000 MG in SODIUM CHLORIDE 0.9% 100 ML 200 ML IV (07:49)
[2021-09-09 08:50] VITALS: PULSE 81; O2SAT 96
[2021-09-09 08:51] VITALS: BP 116/79; PULSE 82; O2SAT 97
[2021-09-09 09:00] VITALS: PULSE 77; O2SAT 96
[2021-09-09 09:26] VITALS: BP 116/79; PULSE 83; RESP 18; O2SAT 97
== END 2021-09-09 09:26 | disposition home or self-care (01) ==
PROVIDERS: Emergency Provider Emergency Medicine; Family Provider Internal Medicine
DX: L03.113 Cellulitis of right upper limb (principal)
CPT/HCPCS: 36415; 73110; 73130; 80053; 83605; 85025; 96365; 99284; J0696

== ENCOUNTER 2023-03-09 16:24 | Emergency (ER) | payer OTHER, MEDICAID, SELFPAY ==
[2020-10-08 17:58] VITALS: BMI 23.1
[2023-03-09 16:33] VITALS: BP 118/71; PULSE 85; RESP 16; TEMP 36.7; O2SAT 98; BMI 23.7
--- NOTE | 2023-03-09 16:36 | DI.RAD.S_ITS ---
PROCEDURE: XR FOOT LT MIN 3V INDICATIONS: foot pain TECHNIQUE: Three views of the foot were acquired. COMPARISON: None. FINDINGS: Bones: Partially imaged medial malleolar fixation hardware. No acute fractures. Normal bone alignment. Tiny plantar and dorsal calcaneal spurs and minor dorsal spurring along the hindfoot. Soft tissues: No tibiotalar joint effusion. Achilles tendon appears normal. IMPRESSION: Intact left foot. Dictated by: Hue Hutson M.D. on 03/09/2023 at 16:14 Approved by: Hue Hutson M.D. on 03/09/2023 at 16:15
--- NOTE | 2023-03-09 18:36 | ED_ITS ---
HPI - Extremity Injury (Lower) <Marietta Chacon PA-C - Last Filed: 03/09/23 18:39> General Chief Complaint: Extremity Injury, Lower Stated Complaint: left ankle injury Time Seen by Provider: 03/09/23 17:09 Source: patient Mode of arrival: Wheelchair History of Present Illness HPI Narrative: 57-year-old male presents to the ED status post a foot injury sustained just prior to arrival. Patient states that he misstepped on a clump of grass, causing intense left foot pain. Patient denies that he rolled his ankle. Patient states that he is unable to bear weight and walk on that foot. Patient denies numbness, tingling, weakness. Related Data Previous Rx's Medication Instructions Recorded ibuprofen 600 mg tablet 600 mg PO QID PRN pain #20 tabs 04/27/19 acetaminophen 325 mg tablet 650 mg PO Q6HR PRN Fever/Mild Pain 10/10/20 (1-3) #30 tabs cephalexin 500 mg capsule (Keflex) 500 mg PO QID #20 caps 10/10/20 cephalexin 500 mg capsule 500 mg PO QID #28 caps 09/09/21 ibuprofen 600 mg tablet 600 mg PO Q6H PRN fever or pain 09/09/21 #24 tabs ibuprofen 800 mg tablet 800 mg PO TID PRN pain 30 days #90 03/09/23 tabs Allergies Allergy/AdvReac Type Severity Reaction Status Date / Time No Known Drug Allergies Allergy Verified 03/09/23 16:33 Review of Systems <Marietta Chacon PA-C - Last Filed: 03/09/23 18:39> Review of Systems ROS Unobtainable: All systems reviewed & are unremarkable except as noted in HPI and below Constitutional Constitutional: Denies chills, Denies fatigue, Denies fever(s), Denies frequent falls, Denies lethargy and Denies weakness Eyes Eyes: Denies change in vision, Denies eye discharge, Denies irritation and Denies loss of vision ENT Ears, Nose, Mouth, and Throat: Denies change in voice, Denies dizziness, Denies neck pain, Denies sore throat and Denies throat swelling Cardiovascular Cardiovascular: Denies chest pain, Denies irregular heart rhythm, Denies lightheadedness, Denies palpitations, Denies dyspnea, Denies dyspnea on exertion and Denies orthopnea Respiratory Respiratory: Denies cough, Denies dyspnea, Denies dyspnea on exertion and Denies wheezing Gastrointestinal Gastrointestinal: Denies abdominal pain, Denies change in bowel habits, Denies diarrhea, Denies nausea and Denies vomiting Genitourinary Genitourinary: Denies hematuria, Denies flank pain, Denies urinary incontinence and Denies urinary urgency Musculoskeletal Musculoskeletal: Denies back pain, Denies muscle weakness, Denies neck pain, Denies numbness and Denies tingling Comments: Left foot pain Integumentary/Breasts Skin/Breast: Denies pruritus, Denies erythema, Denies rash and Denies wounds Neurologic Neurologic: Denies behavioral changes, Denies confusion, Denies dizziness, Denies frequent falls, Denies loss of vision, Denies numbness, Denies tingling and Denies weakness Psychiatric Psychiatric: Denies anxiety, Denies behavioral changes, Denies confusion, Denies depression, Denies homicidal ideation and Denies suicidal ideation Endocrine Endocrine: Denies fatigue, Denies flushing and Denies palpitations Hematologic/Lymphatic Hematologic/Lymphatic: Denies easy bruising Allergic/Immunologic Allergic/Immunologic: Denies urticaria, Denies throat swelling and Denies wheezing Patient History <Marietta Chacon PA-C - Last Filed: 03/09/23 18:39> Medical History History of cocaine abuse 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 Surgical History History of ankle surgery Social History marital status: unmarried,single household members: friend(s) occupational status: employed Smoking Status: Current every day smoker alcohol intake: former substance use type: does not use and former substance user Smoking Status: Current every day smoker alcohol intake frequency: holidays/special occasions only Substance Use Type: does not use and former substance user Exam <Marietta Chacon PA-C - Last Filed: 03/09/23 18:39> Narrative Exam Narrative: Const General:?cooperative, healthy appearing and comfortable [facility] Head:?normal to inspection Ears:?hearing grossly normal bilaterally Nose:?external nose normal Face and sinus:?normal facial exam and sinuses nontender Mouth:?oral mucosae normal Throat:?posterior oropharynx normal Eyes General:?appearance normal, both eyes and all related structures Neck Neck:?normal visual inspection and no lymphadenopathy noted Resp Effort & Inspection:?normal respiratory effort Auscultation:?clear to auscultation bilaterally Cardio Rate:?regular rate Rhythm:?regular rhythm Musculoskeletal No tenderness to palpation of left foot or ankle. No swelling, no erythema, no bruising, no deformities. Cap refill less than 2 seconds. Strength and sensation intact, full range of motion. Neuro General:?patient alert, patient awake and patient oriented x3 Initial Vital Signs Initial Vital Signs: Vital Signs Temperature 98.1 F 03/09/23 16:33 Pulse Rate 85 03/09/23 16:33 Respiratory Rate 16 03/09/23 16:33 Blood Pressure 118/71 03/09/23 16:33 Pulse Oximetry 98 03/09/23 16:33 Oxygen Delivery Method Room Air 03/09/23 16:33 <Ger Leigh MD - Last Filed: 03/15/23 14:40> Initial Vital Signs Initial Vital Signs: Vital Signs Temperature 98.1 F 03/09/23 16:33 Pulse Rate 85 03/09/23 16:33 Respiratory Rate 16 03/09/23 16:33 Blood Pressure 118/71 03/09/23 16:33 Pulse Oximetry 98 03/09/23 16:33 Oxygen Delivery Method Room Air 03/09/23 16:33 Course <Marietta Chacon PA-C - Last Filed: 03/09/23 18:39> Orders Ordered: ED Orders 03/09/23 16:36 XR foot LT min 3V Stat Vital Signs Vital signs: Vital Signs - 8 hr 03/09/23 16:33 Temperature 98.1 F Pulse Rate 85 Respiratory Rate 16 Blood Pressure 118/71 Pulse Oximetry 98 Oxygen Delivery Method Room Air <Ger Leigh MD - Last Filed: 03/15/23 14:40> Orders Ordered: ED Orders 03/09/23 16:36 XR foot LT min 3V Stat Vital Signs Vital signs: Vital Signs - 8 hr 03/09/23 16:33 Temperature 98.1 F Pulse Rate 85 Respiratory Rate 16 Blood Pressure 118/71 Pulse Oximetry 98 Oxygen Delivery Method Room Air MDM - Extremity Injury (Lower) <Marietta Chacon PA-C - Last Filed: 03/09/23 18:39> MDM Narrative Medical decision making narrative: 57-year-old male presents to the ED status post a foot injury sustained just prior to arrival. Concern for fracture/dislocation versus musculoskeletal sprain/strain. Obtained foot x-ray without acute findings. Patient's symptoms likely due to a musculoskeletal strain/strain. Prescribed ibuprofen 800 mg twice daily. Provided crutches. Recommend follow-up with PCP as soon as possible. ED return precautions discussed with patient. Patient verbalized understanding. Medical records reviewed: Yes Discharge Plan Departure Patient Disposition: Home Clinical Impression: Foot pain Instructions: DI for Foot Pain Activity Restrictions/Additional Instructions: You were evaluated in the ED today for foot pain. Your x-ray did not show any fractures or dislocations. Your symptoms are likely due to a musculoskeletal sprain/strain. You are being provided crutches to use until you are able to put her foot down and walk. You may take ibuprofen for which you are being given a prescription. Please take the ibuprofen with food. Please follow-up with your primary care doctor for further evaluation. Return to the ED if you experience any numbness, tingling, weakness. Prescriptions: New ibuprofen 800 mg tablet 800 mg PO TID PRN (Reason: pain) 30 Days Qty: 90 0RF Rx Instructions: Take with food No Action ibuprofen 600 mg tablet 600 mg PO QID PRN (Reason: pain) Qty: 20 1RF acetaminophen 325 mg Tablet 650 mg PO Q6HR PRN (Reason: Fever/Mild Pain (1-3)) Qty: 30 0RF cephalexin [Keflex] 500 mg capsule 500 mg PO QID Qty: 20 0RF cephalexin 500 mg capsule 500 mg PO QID Qty: 28 0RF ibuprofen 600 mg tablet 600 mg PO Q6H PRN (Reason: fever or pain) Qty: 24 0RF Stand Alone Forms: Patient Portal/API <Ger Leigh MD - Last Filed: 03/15/23 14:40> Cosign ED Attending Cosignature Attestation: I was immediately available in the department for consultation. ?This documentation has been reviewed and I agree with assessment and plan. Supervised by Ger Leigh MD
== END 2023-03-09 17:45 | disposition home or self-care (01) ==
PROVIDERS: Emergency Provider Student in an Organized Health Care Education/Training Program; Family Provider Internal Medicine
DX: M79.672 Pain in left foot (principal)
CPT/HCPCS: 73630; 99282

== ENCOUNTER 2024-02-24 15:02 | Inpatient (IN) | payer OTHER, MEDICAID, SELFPAY ==
[2020-10-08 17:58] VITALS: BMI 23.1
[2024-02-24] VITALS (10 sets, daily range): BP systolic 93–117; BP diastolic 61–78; PULSE 62–82; RESP 15–24; TEMP 36.1–36.6; O2SAT 94–100; BMI 23.7
--- NOTE | 2024-02-24 15:22 | DI.RAD.S_ITS ---
PROCEDURE: XR HIP W PEL IF DONE LT 2V INDICATIONS: fall with pain TECHNIQUE: AP pelvis with lateral view(s) of the left hip(s). COMPARISON: None. FINDINGS: Bones: There is a mildly displaced left intertrochanteric, comminuted fracture with impaction. No dislocation at the glenohumeral joint space. Right hip demonstrates minimal arthritic change. Soft tissues: The visualized bowel gas pattern is normal. No suspicious soft tissue calcifications. IMPRESSION: Mildly displaced left intertrochanteric fracture. Dictated by: Liyah Solitario M.D. on 02/24/2024 at 16:29 Approved by: Liyah Solitario M.D. on 02/24/2024 at 16:29
[2024-02-24] MEDS: MORPHINE 2 MG/ML INJ IV (15:53)
[2024-02-24] MEDS: SODIUM CHLORIDE 0.9% 1,000 ML 1000 ML IV (15:53)
[2024-02-24 15:54] LABS: Add Manual Diff / Slide Review NO; Basophils Absolute Auto 0 /uL (0-100); Basophils Percent Auto 0.8 % (0-2); Eosinophils Absolute Auto 100 /uL (0-450); Eosinophils Percent Auto 1.5 % (2-4); Hematocrit 34.4 % (41-53); Hemoglobin 11.4 g/dL (13.5-17.5); Lymphocytes Absolute Auto 1600 /uL (1100-4500); Lymphocytes Percent Auto 28.5 % (25-40); Mean Corpuscular HGB Conc 33.3 % (30-36); Mean Corpuscular Hemoglobin 29.4 PG (26-34); Mean Corpuscular Volume 88.5 fL (80-100); Monocytes Absolute Auto 600 /uL (0-900); Monocytes Percent Auto 10.1 % (3-14); Neutrophils Absolute Auto 3200 /uL (1500-7000); Neutrophils Percent Auto 59.1 % (50-75); Platelet Count 292 X10^3/uL (150-400); Red Blood Cell Count 3.88 X10^6/uL (4.5-5.9); Red Cell Distribution Width 13.4 % (11.6-14.8); White Blood Cell Count 5.5 X10^3/uL (4.5-11.0)
--- NOTE | 2024-02-24 15:56 | PC.NURSE ---
patient offered urinal or kwok cath. He chose urinal
--- NOTE | 2024-02-24 16:02 | ED.FALL ---
HPI - Fall General Chief Complaint: Fall Stated Complaint: GLF, L Hip pain Time Seen by Provider: 02/24/24 15:31 Source: EMS Mode of arrival: EMS History of Present Illness HPI Narrative: Patient is a 58-year-old male history of polysubstance abuse but in recovery presenting today with ground level fall and left hip pain. 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 He is pain that radiates into his pelvis. Denies any head injury or neck pain. No chest pain or shortness of breath. He is noted to be slightly hypotensive he reports that his blood pressure is generally low, however previous records report pressure is about 120/80. He was given fentanyl and ketamine for pain. Related Data Previous Rx's Medication Instructions Recorded ibuprofen 600 mg tablet 600 mg PO QID PRN pain #20 tabs 04/27/19 acetaminophen 325 mg tablet 650 mg (2 x 325 mg) PO Q6HR PRN 10/10/20 Fever/Mild Pain (1-3) #30 tabs cephalexin 500 mg capsule (Keflex) 500 mg PO QID #20 caps 10/10/20 cephalexin 500 mg capsule 500 mg PO QID #28 caps 09/09/21 ibuprofen 600 mg tablet 600 mg PO Q6H PRN fever or pain 09/09/21 #24 tabs Allergies Allergy/AdvReac Type Severity Reaction Status Date / Time No Known Drug Allergies Allergy Verified 03/09/23 16:33 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 Surgical History History of ankle surgery Social History marital status: unmarried,single household members: friend(s) occupational status: employed Smoking Status: Current every day smoker alcohol intake: former substance use type: does not use and former substance user Smoking Status: Current every day smoker alcohol intake frequency: holidays/special occasions only Substance Use Type: does not use and former substance user Exam Initial Vital Signs Initial Vital Signs: Vital Signs Temperature 97.3 F L 02/24/24 15:08 Pulse Rate 80 02/24/24 15:08 Respiratory Rate 16 02/24/24 15:08 Blood Pressure 115/78 02/24/24 15:08 Pulse Oximetry 94 02/24/24 15:08 Oxygen Delivery Method Room Air 02/24/24 15:08 GENERAL: Alert 58-year-old male appears uncomfortable and in no acute distress. HEENT: Head atraumatic,EOMI, pupils reactive, face symmetric, moist mucous membranes CARDIOVASCULAR: Regular rate and rhythm without murmurs, rubs or gallops. RESPIRATORY: Breath sounds equal bilaterally, no wheezes rales or rhonchi. EXTREMITIES: Normal range of motion, no clubbing or edema. Neurovascularly intact Left hip pain legs are of equal length distal pedal pulse intact NEUROLOGICAL: Alert and oriented x4. SKIN: Warm, dry, no laceration, no petechiae, no rashes or lesions. Course Orders Ordered: ED Orders 02/24/24 15:22 XR hip w pel if done LT 2V Stat 02/24/24 15:45 CBC Auto Diff [Complete Blood Count AUTO DIFF] Stat CMP [Comprehensive Metabolic Panel] Stat 02/24/24 16:36 Urine Drug Screen, Rapid Stat Acetaminophen (Acetaminophen 325 Mg Tablet) 650 mg PO Q6H PRN PRN Reason: Fever/Mild Pain (1-3) Last Admin: 02/24/24 18:13 Dose: 650 mg Documented By: BT Cyclobenzaprine HCl (Cyclobenzaprine 10 Mg Tablet) 10 mg PO Q8HR PRN PRN Reason: Spasms Last Admin: 02/24/24 18:12 Dose: 10 mg Documented By: BT Heparin Sodium (Porcine) (Heparin 5,000 Unit/Ml Vial) 5,000 unit SUBCUT BID SAMEERA Hydromorphone HCl (Hydromorphone 0.5 Mg Inj) 0.5 mg IV Q2H PRN PRN Reason: Pain, Severe (7-10) Last Admin: 02/24/24 17:50 Dose: 0.5 mg Documented By: BT Dextrose/Sodium Chloride (Dextrose 5%-0.9% Ns) 1,000 mls @ 100 mls/hr IV CONT SAMEERA Last Admin: 02/24/24 17:52 Dose: 100 mls/hr Documented By: BT Lorazepam (Lorazepam 2 Mg/Ml Inj) 1 mg IV Q4HR PRN PRN Reason: Anxiety or spasm Naloxone HCl (Naloxone 0.4 Mg/Ml Vial) 0.2 mg IV Q2MIN PRN PRN Reason: Opiate Reversal Oxycodone HCl (Oxycodone Ir 5 Mg Tablet) 5 mg PO Q3H PRN PRN Reason: Pain, Moderate (4-6) Last Admin: 02/24/24 18:12 Dose: 5 mg Documented By: TYSON Sennosides (Sennosides 8.6 Mg Tablet) 17.2 mg PO BEDTIME SAMEERA Discontinued Medications Sodium Chloride (Normal Saline 0.9%) 1,000 mls @ 1,000 mls/hr IV BOLUS ONE Stop: 02/24/24 16:52 Last Infusion: 02/24/24 17:22 Dose: Infused Documented By: Admin: 02/24/24 15:53 Dose: 1,000 mls/hr Documented By: KURTIS Morphine Sulfate (Morphine 2 Mg/Ml Inj) 2 mg IV NOW ONE Stop: 02/24/24 15:32 Last Admin: 02/24/24 15:53 Dose: 2 mg Documented By: KURTIS Vital Signs Vital signs: Vital Signs - 8 hr 02/24/24 15:08 02/24/24 15:11 02/24/24 15:30 Temperature 97.3 F L Pulse Rate 80 82 74 Respiratory Rate 16 15 17 Blood Pressure 115/78 Pulse Oximetry 94 94 97 Oxygen Delivery Method Room Air 02/24/24 15:36 02/24/24 15:36 02/24/24 15:58 Temperature Pulse Rate 81 75 Respiratory Rate 24 18 Blood Pressure 93/61 Pulse Oximetry 97 98 Oxygen Delivery Method 02/24/24 15:58 02/24/24 16:00 02/24/24 16:00 Temperature Pulse Rate 78 Respiratory Rate 16 Blood Pressure 104/63 105/65 Pulse Oximetry 97 Oxygen Delivery Method 02/24/24 16:30 02/24/24 16:30 Temperature Pulse Rate 72 Respiratory Rate 16 Blood Pressure 113/77 Pulse Oximetry 100 Oxygen Delivery Method MDM - Fall Lab Data 02/24/24 15:45 02/24/24 15:45 Labs: Lab Results 02/24/24 Range/Units 15:45 WBC 5.5 (4.5-11.0) X10^3/uL RBC 3.88 L (4.5-5.9) X10^6/uL Hgb 11.4 L (13.5-17.5) g/dL Hct 34.4 L (41-53) % MCV 88.5 (80-100) fL MCH 29.4 (26-34) PG MCHC 33.3 (30-36) % RDW 13.4 (11.6-14.8) % Plt Count 292 (150-400) X10^3/uL Neut % (Auto) 59.1 (50-75) % Lymph % (Auto) 28.5 (25-40) % [place] % (Auto) 10.1 (3-14) % Eos % (Auto) 1.5 L (2-4) % Baso % (Auto) 0.8 (0-2) % Neut # (Auto) 3200 (5903-3632) /uL Lymph # (Auto) 1600 (0463-7258) /uL [place] # (Auto) 600 (0-900) /uL Eos # (Auto) 100 (0-450) /uL Baso # (Auto) 0 (0-100) /uL Sodium 138 (137-145) mmol/L Potassium 3.5 (3.4-5.1) mmol/L Chloride 107 (98-107) mmol/L Carbon Dioxide 26 (22-32) mmol/L BUN 30 H (9-20) mg/dL Creatinine 0.71 (0.66-1.25) mg/dL Estimated GFR > 60 (>60) mL/min BUN/Creatinine Ratio 42.3 H (6-22) Glucose 103 H (70-100) mg/dL Calcium 8.1 L (8.4-10.2) mg/dL Total Bilirubin 0.4 (0.2-1.3) mg/dL AST 28 (17-59) IU/L ALT 22 (<50) IU/L Alkaline Phosphatase 74 (38-126) U/L Total Protein 6.2 L (6.3-8.2) g/dL Albumin 3.5 (3.5-5.0) g/dL Globulin 2.7 (1.7-4.1) g/dL Albumin/Globulin Ratio 1.3 (1.0-2.8) Imaging Data Extremity x-ray #1: Radiologist's Impression: PROCEDURE: XR HIP W PEL IF DONE LT 2V INDICATIONS: fall with pain TECHNIQUE: AP pelvis with lateral view(s) of the left hip(s). COMPARISON: None. FINDINGS: Bones: There is a mildly displaced left intertrochanteric, comminuted fracture with impaction. No dislocation at the glenohumeral joint space. Right hip demonstrates minimal arthritic change. Soft tissues: The visualized bowel gas pattern is normal. No suspicious soft tissue calcifications. IMPRESSION: Mildly displaced left intertrochanteric fracture. Dictated by: Liyah Solitario M.D. on 02/24/2024 at 16:29 MDM Narrative Medical decision making narrative: Patient 58-year-old male with remote history of polysubstance abuse presenting today after ground level bulb. He is reporting some severe left hip pain that radiates into his groin. No head injury. X-ray does confirm an left intertrochanteric fracture. Blood work has been reviewed any clinical significant abnormalities Blood pressure is noted to be slightly low he received fentanyl and ketamine in the field for pain. Is responding to 2 L of IV fluids. He also received morphine 2 mg IV for pain. Dr. Villanueva updated patient's symptoms test results. Patient had 2 cheeseburgers a couple of hours ago patient will likely go to or tomorrow Dr. Pabon accepts patient Discharge Plan Departure Patient Disposition: Admitted As Inpatient Clinical Impression: Closed left hip fracture Admit Date/Time: 02/24/24 16:42 Admit Provider: Mansoor Pabon
[2024-02-24 16:27] LABS: Alanine Aminotransferase 22 IU/L (<50); Albumin 3.5 g/dL (3.5-5.0); Albumin Globulin Ratio 1.3 (1.0-2.8); Alkaline Phosphatase 74 U/L (38-126); Aspartate Aminotransferase 28 IU/L (17-59); BUN Creatinine Ratio 42.3 (6-22); Bilirubin Total 0.4 mg/dL (0.2-1.3); Blood Urea Nitrogen 30 mg/dL (9-20); Calcium 8.1 mg/dL (8.4-10.2); Carbon Dioxide 26 mmol/L (22-32); Chloride 107 mmol/L (98-107); Estimated Glomerular Filt Rate > 60 mL/min (>60); Globulin 2.7 g/dL (1.7-4.1); Glucose 103 mg/dL (70-100); HEMOLYSIS 15 (0-50); Potassium 3.5 mmol/L (3.4-5.1); Sodium 138 mmol/L (137-145); Total Protein 6.2 g/dL (6.3-8.2)
--- NOTE | 2024-02-24 17:27 | P.HP_ITS ---
History of Present Illness History of Present Illness Date Patient Seen: 02/24/24 Time Patient Seen: 17:00 Chief complaint: GLF, L Hip pain Narrative: The patient was a 58-year-old male with a history of polysubstance abuse. He is currently not using alcohol and is still using methamphetamines. He previously used cocaine but is not using this currently. Today he was in the parking lot and tripped while trying to get back to his truck and essentially broke his left hip. He is unable to weight bear had to call for help. He denies any other injuries. Specifically no trauma to the head and he denies any neck or extremity pain other than the left hip. He denies a known history of osteoporosis. He denies any cardiac disease. He has been using methamphetamines for many years. In the emergency department a left intertrochanteric hip fracture was identified in the patient was treated for pain and orthopedics was consulted. He did eat at 2:30 a.m. today and therefore will be NPO overnight for operative repair tomorrow. 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 Surgical History History of ankle surgery Social History marital status: unmarried,single household members: friend(s) occupational status: employed Smoking Status: Current every day smoker alcohol intake: former substance use type: does not use and former substance user Meds Home Medications and Allergies Home Medications Medication Instructions Recorded Confirmed Type ibuprofen 600 mg tablet 600 mg PO QID PRN pain #20 tabs 04/27/19 10/08/20 Rx acetaminophen 325 mg tablet 650 mg (2 x 325 mg) PO Q6HR PRN 10/10/20 Rx Fever/Mild Pain (1-3) #30 tabs cephalexin 500 mg capsule (Keflex) 500 mg PO QID #20 caps 10/10/20 Rx cephalexin 500 mg capsule 500 mg PO QID #28 caps 09/09/21 Rx ibuprofen 600 mg tablet 600 mg PO Q6H PRN fever or pain 09/09/21 Rx #24 tabs Allergies Allergy/AdvReac Type Severity Reaction Status Date / Time No Known Drug Allergies Allergy Verified 03/09/23 16:33 Review of Systems Review of Systems Narrative: All else reviewed and otherwise unremarkable except as noted in the history and physical. Exam Vital Signs (past 8 hours): - 02/24/24 15:08 02/24/24 15:11 02/24/24 15:30 Temperature 97.3 F L Pulse Rate 80 82 74 Respiratory Rate 16 15 17 Blood Pressure 115/78 Pulse Oximetry 94 94 97 Oxygen Delivery Method Room Air Oxygen Delivery Method Room Air Narrative Exam Narrative: NAD, alert and oriented, fluent speech, calm. Normocephalic skull, EOMI, anicteric sclera, symmetric pupils. Oropharynx unremarkable, no droop. Neck supple, midline trachea, no adenopathy. Lungs clear, normal rate and effort. Heart regular, no murmur gallop or rub. Abdomen is soft, non distended and non tender. Extremities are free of edema. Skin is free of rash or lesions. Joints are not swollen or deformed. Judgment appears to be normal. He does have pain and grimaces with any movement of the left lower extremity. He is good pedal pulses. Objective Labs 02/24/24 15:45 02/24/24 15:45 Labs: Laboratory Results - last 24 hr 02/24/24 15:45 WBC 5.5 RBC 3.88 L Hgb 11.4 L Hct 34.4 L MCV 88.5 MCH 29.4 MCHC 33.3 RDW 13.4 Plt Count 292 Neut % (Auto) 59.1 Lymph % (Auto) 28.5 [place] % (Auto) 10.1 Eos % (Auto) 1.5 L Baso % (Auto) 0.8 Neut # (Auto) 3200 Lymph # (Auto) 1600 [place]irt # (Auto) 600 Eos # (Auto) 100 Baso # (Auto) 0 Sodium 138 Potassium 3.5 Chloride 107 Carbon Dioxide 26 BUN 30 H Creatinine 0.71 Estimated GFR > 60 BUN/Creatinine Ratio 42.3 H Glucose 103 H Calcium 8.1 L Total Bilirubin 0.4 AST 28 ALT 22 Alkaline Phosphatase 74 Total Protein 6.2 L Albumin 3.5 Globulin 2.7 Albumin/Globulin Ratio 1.3 Assessment & Plan Assessment & Plan narrative: 1. Left hip fracture, present on admission and active. 2. Methamphetamine abuse, present on admission and active. Plan: -pain management tonight with oral and IV analgesia. NPO at midnight for operative repair tomorrow. Orthopedics is involved, Dr. Villanueva. He is full resuscitation, confirmed. No proxy decision maker. He will require 2 midnights of medical care, he was admitted to inpatient status. Time Spent With Patient Time with patient: 30 to 49 minutes with 50% spent counseling/coordinating care Quality MIPS - Admit I confirm the patient?s Advance Care Plan is present, Code status is documented, Surrogate decision maker is in patient?s record [If Yes, STOP here]: Yes [facility] - Meds 'Current medications' to include all prescriptions, [id number] products, herbals, cannabis/cannabidiol products, and vitamin/mineral/dietary (nutritional) supplements. I have utilized all available resources to obtain, update, or review the patient?s current medications. [If Yes, STOP here]: Yes
--- NOTE | 2024-02-24 17:43 | PC.NURSE ---
Pt reports that he is sitting comfortably in bed. Describes pain as 4/10 throbbing pain after having 2mg of morphin and fentanyl and ketamine in the field. Pt is a&ox4.
[2024-02-24] MEDS: HYDROMORPHONE 0.5 MG INJ IV ×2 (17:50→22:30)
[2024-02-24] MEDS: DEXTROSE 5%-0.9% NS 1,000 ML 100 ML IV (17:52)
[2024-02-24] MEDS: OXYCODONE IR 5 MG TABLET PO (18:12)
[2024-02-24] MEDS: CYCLOBENZAPRINE 10 MG TABLET PO (18:12)
[2024-02-24] MEDS: ACETAMINOPHEN 325 MG TABLET 650 MG PO (18:13)
[2024-02-24] MEDS: SENNOSIDES 8.6 MG TABLET 17.2 MG PO (20:34)
[2024-02-24] MEDS: HEPARIN 5,000 UNIT/ML VIAL 5000 UNIT SUBCUT (20:34)
[2024-02-24] MEDS: LIDOCAINE 2% (GLYDO) 6 ML GEL TOP (22:56)
[2024-02-24 23:10] LABS: Ur Creatinine Normal (Normal); Ur Specific Gravity Normal (Normal); Urine Amphetamines Positive (Negative); Urine Cocaine Negative (Negative); Urine Opiates Positive (Negative); Urine THC Negative (Negative); Urine pH Normal (Normal)
[2024-02-24 23:12] LABS: Urine Barbiturates Negative (Negative); Urine Benzodiazepines Negative (Negative); Urine Methamphetamines Positive (Negative); Urine Phencyclidine Negative (Negative)
[2024-02-24 23:13] LABS: Urine Oxycodone Positive (Negative)
[2024-02-24 23:14] LABS: Urine MDMA Negative (Negative); Urine Tricyclic Antidepressant Negative (Negative)
[2024-02-24 23:15] LABS: Urine Methadone Negative (Negative)
[2024-02-25] VITALS (14 sets, daily range): BP systolic 105–137; BP diastolic 69–94; PULSE 71–114; RESP 12–20; TEMP 36–37; O2SAT 93–100; BMI 23.7
--- NOTE | 2024-02-25 | DI.RAD.S_ITS ---
PROCEDURE: XR HIP W PEL IF DONE LT 2V INDICATIONS: INTRA NAILING TECHNIQUE: Left hip intraoperative images x4. COMPARISON: [facility], CR, XR HIP W PEL IF DONE LT 2V, 02/24/2024, 15:42. FINDINGS: Right intramedullary edna with screw fixation. The hardware projects in the expected location. Decreased conspicuity of the intertrochanteric fracture. IMPRESSION: Intraoperative guidance provided. Dictated by: Darrell Dunaway M.D. on 02/25/2024 at 20:51 Approved by: Darrell Dunaway M.D. on 02/25/2024 at 20:52
[2024-02-25] MEDS: DEXTROSE 5%-0.9% NS 1,000 ML 100 ML IV ×3 (03:54→21:18)
[2024-02-25] MEDS: HYDROMORPHONE 0.5 MG INJ IV ×2 (04:18→13:51)
[2024-02-25 06:41] LABS: Add Manual Diff / Slide Review NO; Basophils Absolute Auto 0 /uL (0-100); Basophils Percent Auto 0.5 % (0-2); Eosinophils Absolute Auto 100 /uL (0-450); Eosinophils Percent Auto 0.9 % (2-4); Hematocrit 33.3 % (41-53); Lymphocytes Absolute Auto 1300 /uL (1100-4500); Lymphocytes Percent Auto 16.6 % (25-40); Mean Corpuscular HGB Conc 33.1 % (30-36); Mean Corpuscular Hemoglobin 29.3 PG (26-34); Mean Corpuscular Volume 88.6 fL (80-100); Monocytes Absolute Auto 1000 /uL (0-900); Monocytes Percent Auto 12.6 % (3-14); Neutrophils Absolute Auto 5400 /uL (1500-7000); Neutrophils Percent Auto 69.4 % (50-75); Platelet Count 286 X10^3/uL (150-400); Red Blood Cell Count 3.76 X10^6/uL (4.5-5.9); Red Cell Distribution Width 13.4 % (11.6-14.8); White Blood Cell Count 7.8 X10^3/uL (4.5-11.0)
[2024-02-25] MEDS: HEPARIN 5,000 UNIT/ML VIAL 5000 UNIT SUBCUT ×2 (08:07→21:14)
[2024-02-25] MEDS: CYCLOBENZAPRINE 10 MG TABLET PO (08:07)
[2024-02-25] MEDS: OXYCODONE IR 5 MG TABLET PO (08:07)
[2024-02-25] MEDS: ACETAMINOPHEN 325 MG TABLET 650 MG PO (08:07)
--- NOTE | 2024-02-25 09:12 | CM.DANOTE ---
Initial DCP Assessment Visit Reviewed EMR and team rounds for pt's medical status and initial anticipated d/c needs. Went to meet with pt at bedside, however he was found to be sleeping. Pt resides independently at baseline in his own apartment with a friend. He will likely be discharged with a plan for OP PT, this WIG DRESSER will meet with him tomorrow to determine what his preferences are for OP resource needs, as well as who will be available to transport him back home once he's medically cleared. Payor: [employer] Attending: Dr. Gaines/Hospitalist, no PCP indicated Pt is a 58 year-old M who presented to the ED last evening following a GLF he incurred in a parking lot earlier in the day. He had fallen on his L-hip, and was unable to bear weight, required assistance to get up and get to the hospital by friends. He was started on IV fluids and pain meds in the ED, CT imaging showed a mild L-hip fracture. Ortho was consulted and a plan was made to admit pt NPO with a plan for surgery today. WIG DRESSER will continue to follow and assist with evolving recommendations from PT/OT evaluations postoperatively. Discharge Planning/Care Management CM Discharge Assessment Start: 02/25/24 09:09 Freq: Status: Active Protocol: Document 02/25/24 09:09 DPL (Rec: 02/25/24 09:12 DPL [id number]) Discharge Planning Assessment Assigned Drilling Fluids Specialist HEENA Vance Advance Directives? No History Provided By Medical Record Expected Length of Stay 2 Has Patient been admitted in last 30 No days? Prior Living Arrangements Apartment/Condo Household Members friend(s) Type of transporation used prior to Drives own vehicle admit Independent with ADL's Yes Is patient alert and oriented? Yes Comment N/A Caregiver for Another No Comment N/A Patient/Family Preference OP PT Therapy Barriers to Discharge No Discharge Plan Home Referrals Initiated None needed,Other Review Status In Process Please Provide Date Initial DC 02/25/24 Assessment Was Performed
[2024-02-25 12:57] LABS: BUN Creatinine Ratio 41.4 (6-22); Blood Urea Nitrogen 24 mg/dL (9-20); Calcium 8.1 mg/dL (8.4-10.2); Carbon Dioxide 26 mmol/L (22-32); Chloride 107 mmol/L (98-107); Estimated Glomerular Filt Rate > 60 mL/min (>60); Glucose 99 mg/dL (70-100); HEMOLYSIS < 15 (0-50); Potassium 3.5 mmol/L (3.4-5.1); Sodium 137 mmol/L (137-145)
--- NOTE | 2024-02-25 15:14 | P.PN_ITS ---
Subjective Subjective Interval history: 58 M admitted with a left hip fracture, awaiting operative repair planned for today. Exam Vital Signs (past 8 hours): - 02/25/24 08:19 Temperature 97.5 F L Pulse Rate 80 Blood Pressure 114/79 Pulse Oximetry 96 Oxygen Flow Rate 0 Oxygen Delivery Method Room Air Oxygen Flow Rate 0 Narrative Exam Narrative: NAD Extremities are free of edema. Objective Labs 02/25/24 05:20 02/25/24 05:20 Labs: Laboratory Results - last 24 hr 02/24/24 02/24/24 02/25/24 15:45 22:45 05:20 WBC 5.5 7.8 RBC 3.88 L 3.76 L Hgb 11.4 L 11.0 L Hct 34.4 L 33.3 L MCV 88.5 88.6 MCH 29.4 29.3 MCHC 33.3 33.1 RDW 13.4 13.4 Plt Count 292 286 Neut % (Auto) 59.1 69.4 Lymph % (Auto) 28.5 16.6 L Dale % (Auto) 10.1 12.6 Eos % (Auto) 1.5 L 0.9 L Baso % (Auto) 0.8 0.5 Neut # (Auto) 3200 5400 Lymph # (Auto) 1600 1300 [place] # (Auto) 600 1000 H Eos # (Auto) 100 100 Baso # (Auto) 0 0 Sodium 138 137 Potassium 3.5 3.5 Chloride 107 107 Carbon Dioxide 26 26 BUN 30 H 24 H Creatinine 0.71 0.58 L Estimated GFR > 60 > 60 BUN/Creatinine Ratio 42.3 H 41.4 H Glucose 103 H 99 Calcium 8.1 L 8.1 L Total Bilirubin 0.4 AST 28 ALT 22 Alkaline Phosphatase 74 Total Protein 6.2 L Albumin 3.5 Globulin 2.7 Albumin/Globulin Ratio 1.3 U Opiates 300ng/mL cut Positive H Ur Oxycodone Screen Positive H Urine Methadone Screen Negative Ur Barbiturates Screen Negative U Tricyclic Antidepress Negative Ur Phencyclidine Scrn Negative Ur Amphetamines Screen Positive H U Methamphetamines Scrn Positive H Ur MDMA Scrn (Ecstasy) Negative U Benzodiazepines Scrn Negative Urine Cocaine Screen Negative U Marijuana (THC) Screen Negative Urine pH Normal Urine Specific [place] Normal Ur Creatinine Normal PFSH Medical History History of cocaine abuse 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 Left hip fracture, present on admission and active. 2. Methamphetamine abuse, present on admission and active. Plan: -pain management tonight with oral and IV analgesia. OR planned for today. PT/OT afterward. He is full resuscitation, confirmed. No proxy decision selected after discussion. He will require 2 midnights of medical care, he was admitted to inpatient status. Time Spent With Patient Time with patient: 30 to 49 minutes with 50% spent counseling/coordinating care
[2024-02-25] MEDS: LACTATED RINGERS 1,000 ML 42 ML IV (17:22)
[2024-02-25] MEDS: CEFAZOLIN 2 GM/100 ML PREMIX 100 ML IV (18:42)
--- NOTE | 2024-02-25 18:59 | P.HP_ITS ---
History of Present Illness History of Present Illness Date Patient Seen: 02/25/24 Date of Onset of Symptoms: 02/24/24 Chief complaint: GLF, L Hip pain Narrative: Patient seen in preoperative holding area in preparation for surgery today. He says that he ?tripped over my own feet? and sustained this injury. He has an intertrochanteric left femur fracture. He came on while my partner was on-call who requested that I take care of him this evening following the conclusion of my elective cases. The patient reports pain in his left hip. It is worsened by any movement and partially alleviated by rest. It has been present since the time of injury. It does not radiate. His past medical history is most significant for polysubstance abuse with recent methamphetamine use. 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 Surgical History History of ankle surgery Social History marital status: unmarried,single household members: friend(s) occupational status: employed Smoking Status: Current every day smoker alcohol intake: former substance use type: does not use and former substance user Meds Home Medications and Allergies Home Medications Medication Instructions Recorded Confirmed Type Adults Multivitamin 02/25/24 02/25/24 History Allergies Allergy/AdvReac Type Severity Reaction Status Date / Time No Known Drug Allergies Allergy Verified 03/09/23 16:33 Review of Systems Review of Systems ROS: Yes All systems reviewed with the patient and are negative except as otherwise documented Exam Vital Signs (past 8 hours): - 02/25/24 17:14 Temperature 98.1 F Pulse Rate 88 Respiratory Rate 16 Blood Pressure 122/71 Pulse Oximetry 96 Oxygen Delivery Method Room Air Oxygen Delivery Method Room Air Oxygen Flow Rate 0 Narrative Exam Narrative: Left lower extremity examination: Swelling present in the thigh. Sensory motor function intact distally in the foot. Palpable DP pulse. Palpable PT pulse. Range of motion examination deferred given known injury Const General: cooperative Orientation: alert and awake [facility] Head: normal to inspection Ears: hearing grossly normal bilaterally Eyes General: appearance normal, both eyes and all related structures Neck Neck: normal visual inspection Resp Effort & Inspection: normal respiratory effort and able to speak in complete sentences Cardio Pulses: other (peripheral pulses present) Skin Lesions: no lesions Rashes: no rashes Neuro General: patient alert, patient awake and moves all extremities Psych Appearance: grossly normal Objective Imaging Left hip x-ray: My impression: Minimally displaced intertrochanteric left femur fracture Labs 02/25/24 05:20 02/25/24 05:20 Labs: Laboratory Results - last 24 hr 02/24/24 02/25/24 22:45 05:20 WBC 7.8 RBC 3.76 L Hgb 11.0 L Hct 33.3 L MCV 88.6 MCH 29.3 MCHC 33.1 RDW 13.4 Plt Count 286 Neut % (Auto) 69.4 Lymph % (Auto) 16.6 L [place] % (Auto) 12.6 Eos % (Auto) 0.9 L Baso % (Auto) 0.5 Neut # (Auto) 5400 Lymph # (Auto) 1300 [place] # (Auto) 1000 H Eos # (Auto) 100 Baso # (Auto) 0 Sodium 137 Potassium 3.5 Chloride 107 Carbon Dioxide 26 BUN 24 H Creatinine 0.58 L Estimated GFR > 60 BUN/Creatinine Ratio 41.4 H Glucose 99 Calcium 8.1 L U Opiates 300ng/mL cut Positive H Ur Oxycodone Screen Positive H Urine Methadone Screen Negative Ur Barbiturates Screen Negative U Tricyclic Antidepress Negative Ur Phencyclidine Scrn Negative Ur Amphetamines Screen Positive H U Methamphetamines Scrn Positive H Ur MDMA Scrn (Ecstasy) Negative U Benzodiazepines Scrn Negative Urine Cocaine Screen Negative U Marijuana (THC) Screen Negative Urine pH Normal Urine Specific [place] Normal Ur Creatinine Normal Assessment & Plan Assessment and plan (1) Closed left hip fracture: Status: Acute Plan Plan to proceed with intramedullary nailing of the left hip today. Informed consent was signed. Operative site has been marked. Discussed risks and benefits of surgery with the patient at length. Specific risks which I addressed with him included damage to surrounding structures, need for blood transfusion, need for additional surgery, malunion, nonunion. We will plan for him to be weight-bearing as tolerated postoperatively. We will proceed with surgery today. Anesthesia has evaluated him and deemed him appropriate to proceed with the procedure. Anesthesia is aware of his recent methamphetamine use and feels that it is appropriate to proceed with surgery today.
--- NOTE | 2024-02-25 19:16 | SUR.OPER ---
Supine on padded [place] table with bilateral legs secured in padded positioning boots and suspended in positioning spars, operative leg in traction per surgeon. Head on one pillow. Arm on non-operative side secured on padded armboard <90 degrees abduction. Arm on operative side padded and resting across chest then secured with tape over sheet. Padded perineal post in place per surgeon. CONFIRMED BY DR. HERRERA
[2024-02-25] MEDS: BUPIVACAINE 0.25% (PF) 30 ML, EPINEPHrine 0.15 MG INJ (19:25)
--- NOTE | 2024-02-25 20:02 | P.OP_ITS ---
Operative Date/Time/Diagnoses Date of procedure: 02/25/24 Pre-op diagnosis: Intertrochanteric left femur fracture Post-op diagnosis: same Procedure & Clinicians Procedure: Intramedullary nailing of left intertrochanteric femur fracture Same procedure as scheduled: Yes Surgeon: Roberto Sosa Click Yes if Unassisted: Yes Anesthesia Type: General and Local Operative Notes Estimated Blood Loss (mL): 250 Procedure in detail: Left Hip Intramedullary Nailing for Intertrochanteric Femur Fracture Implants: * [employer] 10 mm x 20 cm InterTAN nail * 100 mm proximal lag screw * 95 mm proximal compression screw * 37.5 mm distal interlocking screw Procedure in detail: This patient presented to the hospital for hip pain and was found to have an intertrochanteric femur fracture on radiographic evaluation in the emergency department. The on-call orthopedic surgeon asked if I could take care of the patient's procedure following my elective cases today.. ?The patient was admitted to the medicine service here at [facility] and received a preoperative evaluation to ensure that no optimization measures would be necessary to minimize the patient's risk for complications around surgery prior to proceeding with intramedullary nailing. ?After assessment from the paperboard boxes estimator as well as anesthesia the patient was deemed optimized for surgery. He has a history of polysubstance abuse most notably methamphetamine and anesthesia felt it was appropriate to proceed with the procedure. ?Risks and benefits were discussed. ?All questions were answered. ?Informed consent was obtained. ?The operative site was marked. ?The patient was taken to the operating room and transferred onto a Alta table. ?All bony prominences were padded. ?A time-out procedure was performed verifying the correct patient identity, operative site, medical comorbidities, ASA score, and medication allergies. ?Injury radiographs displaying the injured hip were displayed in the room. ?Ancef and tranexamic ac id were administered. Prior to incision fluoroscopy was utilized to manipulate the fracture into an appropriate reduction. ?This involved traction and 0 degrees of internal rotation. ?Once satisfied with the radiographic appearance of the fracture on an AP hip radiograph as well as a lateral hip radiograph the patient was prepped and draped in the usual sterile fashion. ?I mapped out the start points fluoroscopically with the guidewire. ?I obtained a start point at the tip of the greater trochanter on the AP view aiming towards the lesser trochanter and centered in the greater trochanter aiming down the femoral shaft on the lateral view. ?The guidewire was inserted and an opening Reamer was utilized to gain access to the canal. ?The InterTAN nail was introduced and passed down to an appropriate depth where the interlocking screws would aim towards the center of the femur on an AP view. ?On a lateral fluoroscopic view the rotation of the C- arm was adjusted until the nail was centered in the femoral head. ?The jig was then rotated so that it would line with the nail and the femoral head in order to set the rotation of the nail. ?A guidewire was passed and evaluated to ensure appropriate center center position on both the AP and lateral fluoroscopic images to minimize tip apex distance. ?Once satisfied with the guidewire position I used the drills for the lag and compression screws for the InterTAN nail and measured the length of those. ?The compression screw utilized was 5 mm shorter than the lag screw. ?These were both inserted and correct positioning was verified fluoroscopically. ?The distal interlocking screw was inserted through the jig. ?The threaded capsular was removed proximally and final fluoroscopic images were obtained evaluating fracture reduction and implant positioning on AP and lateral views throughout the entire construct. ?I was satisfied with these radiographs. The wound was copiously irrigated. ?Local anesthesia was infiltrated throughout the wound. ?The wound was closed and a soft dressing was applied. ?The patient was transferred off of the Alta table and brought to the PACU. Postoperative plan: * Weightbearing as tolerated * Aspirin 81 mg twice per day for DVT prophylaxis * Recommend multimodal pain regimen * Physical therapy to evaluate patient mobility, home set up, and availability of assistance at home to determine appropriateness for discharge home versus subacute rehab * Follow up in 2 weeks at [facility]
[2024-02-25] MEDS: SENNOSIDES 8.6 MG TABLET 17.2 MG PO (21:14)
[2024-02-26] VITALS (9 sets, daily range): BP systolic 96–117; BP diastolic 62–77; PULSE 93–107; RESP 16–20; TEMP 36.1–36.9; O2SAT 90–97
[2024-02-26] MEDS: CEFAZOLIN VIAL 1 GM in SODIUM CHLORIDE 0.9% 100 ML IV ×2 (02:35→11:01)
[2024-02-26] MEDS: HYDROMORPHONE 0.5 MG INJ IV ×2 (04:30→09:28)
[2024-02-26] MEDS: OXYCODONE IR 5 MG TABLET PO ×4 (04:30→22:46)
[2024-02-26 06:04] LABS: Add Manual Diff / Slide Review NO; Basophils Absolute Auto 0 /uL (0-100); Basophils Percent Auto 0.1 % (0-2); Eosinophils Absolute Auto 0 /uL (0-450); Hematocrit 28.8 % (41-53); Hemoglobin 9.7 g/dL (13.5-17.5); Lymphocytes Absolute Auto 700 /uL (1100-4500); Lymphocytes Percent Auto 6.2 % (25-40); Mean Corpuscular HGB Conc 33.6 % (30-36); Mean Corpuscular Hemoglobin 29.5 PG (26-34); Mean Corpuscular Volume 87.9 fL (80-100); Monocytes Absolute Auto 1500 /uL (0-900); Monocytes Percent Auto 13.7 % (3-14); Neutrophils Absolute Auto 8500 /uL (1500-7000); Platelet Count 242 X10^3/uL (150-400); Red Blood Cell Count 3.28 X10^6/uL (4.5-5.9); Red Cell Distribution Width 13.4 % (11.6-14.8); White Blood Cell Count 10.6 X10^3/uL (4.5-11.0)
[2024-02-26 06:29] LABS: BUN Creatinine Ratio 28.2 (6-22); Blood Urea Nitrogen 20 mg/dL (9-20); Calcium 7.5 mg/dL (8.4-10.2); Carbon Dioxide 27 mmol/L (22-32); Chloride 104 mmol/L (98-107); Estimated Glomerular Filt Rate > 60 mL/min (>60); Glucose 154 mg/dL (70-100); HEMOLYSIS < 15 (0-50); Sodium 135 mmol/L (137-145)
--- NOTE | 2024-02-26 09:15 | PT.IIE ---
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 pt stated that he lives at a motel: 1 step curb to enter Home Environment Standard Height Toilet,Walk in Shower Home Equipment Hand Held Shower M2 PT-IP Current Condition Start: 02/26/24 13:14 Freq: NEEDED Status: Active Protocol: Document 02/26/24 09:15 AB (Rec: 02/26/24 13:29 AB [id number]) Physical Therapy Current Condition Current Condition Evaluation Date 02/26/24 Treatment Diagnosis L hip fx s/p IM nailing; difficulty in walking Onset Date 02/24/24 M3 PT-IP Subjective Start: 02/26/24 13:14 Freq: NEEDED Status: Active Protocol: Document 02/26/24 09:15 AB (Rec: 02/26/24 13:29 AB [id number]) Subjective Physical Therapy Visit Type Type Initial Evaluation Visit Start Time 09:15 Visit Stop Time 10:06 Number of HI LO DRIVER Visits 0 Physical Therapy Visit Comments Patient Comments agreeable to do PT Therapy Pain Assessment Pain When Pain Assessed At Rest Pain Present Pain Present Pain Reported Location Left Hip Intensity 6 Scale Used Numeric (0 - 10) Pain Behaviors Facial Grimacing,Guarding, Holding Area,Wincing Pain Management Techniques Apply Cold,Distraction, Elevation,Modification of Treatment,Re-positioning, Timing of Activity with Medications M4 PT-IP Mobility and Gait Start: 02/26/24 13:14 Freq: NEEDED Status: Active Protocol: Document 02/26/24 09:15 AB (Rec: 02/26/24 13:29 AB [id number]) PT-Bed Mobility Assessment Supine to Sit Supine to Sit Maximum Assistance,1 Person Assistance,2 Person Assistance ,Head of Bed Elevated,Bedrails PT-Transfer Assessment Sit to and From Stand Sit to and from Stand Maximum Assistance,2 Person Assistance,Use of Upper Extremities Equipment Transfer Assistive Device Gait Belt,Front Wheeled Walker Orthotic/Prosthetic Devices or Brace: No Comments Mobility Comments pt supine in bed and agreeable to do PT. c/o increase L hip pain. obtained PLOF and home set up from pt. BP in supine: 109/62. post-op folder provided to pt. pt completed supine to sit max A x 1-2 and max cues with HOB elevated and use of rail. c/ o increase hip pain. BP in sittin/60. pt required max A x 2 to scoot to EOB. pt sat for a few more minutes on EOB. BP checked: 100/67. pt completed sit to stand max A x 2 and max cues x 2 attempts to stand. pt with c/o lightheadedness and assisted to sit back on EOB. BP checked: 69/44. assisted pt back to bed. max A x 2 and max cues. nurse in room to assist . positioned pt in bed. BP : 73/49. positioned pt in slight trendelenburg position. BP rechecked: 120/76. repositioned pt in bed. call light and table placed within reach. Gait Assessment Comments Gait Comments unable at this time PT-Balance Assessment Sitting Balance and Reactions Static Sitting Balance Ability Fair Dynamic Sitting Balance Ability Fair Standing Balance and Reactions Static Standing Balance Ability Poor Dynamic Standing Balance Ability Poor Device Used FWW M5 PT-IP Objective Assessments Start: 02/26/24 13:14 Freq: NEEDED Status: Active Protocol: Document 02/26/24 09:15 AB (Rec: 02/26/24 13:29 AB [id number]) Orientation Orientation/Cognition Level of Alertness Alert Orientation Name,Place,Situation Safety Awareness Decreased Safety Awareness Gross Range of Motion Lower Extremity ROM Assessment Within Functional Limits Impairments increase L hip guarding with movement Strength Lower Extremity Strength Assessment Left Impaired Hip 2+/5 Knee 3+/5 Sensation Assessment Sensation Gross Sensation WNL Muscle Tone Muscle Tone WNL Yes M6 PT-IP Treatment Start: 02/26/24 13:14 Freq: NEEDED Status: Active Protocol: Document 02/26/24 09:15 AB (Rec: 02/26/24 13:29 AB [id number]) Physical Therapy Treatment Exercises Exercises Heel Slides Education Education Provided Precautions,Weight Bearing Status,Post-Op Packet,Safety M7 PT-IP Assessment and Plan Start: 02/26/24 13:14 Freq: NEEDED Status: Active Protocol: Document 02/26/24 09:15 AB (Rec: 02/26/24 13:29 AB [id number]) PT Summary Assessment and Plan Potential Rehabilitation Potential Fair Status of Condition at Evaluation Unstable Summary Impairments Pain,ROM,Strength,Balance, Coordination,Sensation,Tone, Cognition,Bed Mobility, Transfers,Gait,Activity Tolerance Assessment Summary pt is a 58 y/o M who had a fall and sustain a L intertrochanteric hip fx. pt underwent L hip IM nailling . pt is WBAT on LLE. pt requiring max A x 1 to max A x 2 for bed mobility and max A x 2 for sit to stand. pt unable to tolerate much activity with decrease in BP after standing to 69/44. pt will require 24/7 assist needing 2 person max A and will benefit from SNF rehab. will continue to assess progress. Goals Bed Mobility Goal Minimal Assistance Transfer Goal Minimal Assistance,Front Wheeled Walker Gait Goal Minimal Assistance,Front Wheel Walker Gait Distance 25 Other Goals improve bed mobility, transfers, ambulation using FWW ~ 150 ft mod I up/down 1 step using FWW mod I Days to Meet Goals 5 Frequency of Treatment Frequency Of Treatment Twice a Day Treatment Plan Physical Therapy Treatment Plan Bed Mobility Training,Transfer Training,Gait Training, Therapeutic Exercise,Balance Retraining,Post Op Education, Discharge Planning,Hot or Cold Pack,Neuromuscular Re-ed, Coordination Retraining,Manual Therapy Weight Bearing Status Weight Bearing Status Weight Bear as Tolerated Allowed Weight Bearing Amount (enter % LLE WBAT or #) (%) Recommendations To Nursing Amount of Assist Needed Mechanical Lift Discharge Recommendations PT Discharge Recommendations SNF Rehab Transportation Needs at Discharge Wheelchair/Cabulance,Stretcher /Ambulance
--- NOTE | 2024-02-26 10:18 | P.PN_ITS ---
Subjective Subjective Interval history: Kaleb is a 58 year old male who is POD#1 s/p Intramedullary nailing of left intertrochanteric femur fracture by Dr. Sosa. Patient reports he fell crossing a parking lot to get to his truck on 02/24/24, he was seen in the ED where radiographs were taken demonstrating a left intertrochanteric femur fracture. He has a history of polysubstance abuse with recent methamphetamine use. He reports his pain is mild to moderate but tolerable. He was seen by PT this morning but was unable to fully stand out of bed at that time. PT plans to return to the patient this afternoon and try mobilization again. MAR states patient refused ASA dose last night, patient denies recollection of this. He is on Heparin from hospitalist as well. Lives alone but does state he lives in a single-level home with only 1 step up to the front door. Denies fever, chills, chest pain, shortness breath, nausea, vomiting. Exam Vital Signs (past 8 hours): - 02/26/24 03:00 02/26/24 08:00 Temperature 98.0 F 97 F L Pulse Rate 103 H 104 H Respiratory Rate 20 18 Blood Pressure 107/77 115/74 Pulse Oximetry 95 95 Oxygen Flow Rate 3 1.5 Fraction of Inspired Oxygen 28 SaO2/FiO2 Ratio 332 Oxygen Delivery Method Nasal Cannula Oxygen Flow Rate 1.5 Narrative Exam Narrative: Lying in bed comfortably during our interview today, patient is very lethargic when I spoke with him this morning. His eyes drift from open to closed throughout our conversation. Resp Effort & Inspection: normal respiratory effort and able to speak in complete sentences Cardio Other: Brisk capillary refill Extrem Other: Two left hip/leg surgical dressings intact, distal dressing is saturated with blood, proximal dressing is clean and dry without drainage. Gross sensation intact throughout the LLE. Calves soft and non-tender bilaterally. SCDs on and functioning. Ice packs in place on the left hip. Objective Labs 02/26/24 05:21 02/26/24 05:21 Labs: Laboratory Results - last 24 hr 02/25/24 02/26/24 05:20 05:21 WBC 10.6 RBC 3.28 L Hgb 9.7 L Hct 28.8 L MCV 87.9 MCH 29.5 MCHC 33.6 RDW 13.4 Plt Count 242 Neut % (Auto) 80.0 H Lymph % (Auto) 6.2 L [place] % (Auto) 13.7 Eos % (Auto) 0.0 L Baso % (Auto) 0.1 Neut # (Auto) 8500 H Lymph # (Auto) 700 L [place] # (Auto) 1500 H Eos # (Auto) 0 Baso # (Auto) 0 Sodium 137 135 L Potassium 3.5 4.0 Chloride 107 104 Carbon Dioxide 26 27 BUN 24 H 20 Creatinine 0.58 L 0.71 Estimated GFR > 60 > 60 BUN/Creatinine Ratio 41.4 H 28.2 H Glucose 99 154 H Calcium 8.1 L 7.5 L PFSH Medical History History of cocaine abuse 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 Surgical History History of ankle surgery Social History marital status: unmarried,single household members: friend(s) occupational status: employed Smoking Status: Current every day smoker alcohol intake: former substance use type: does not use and former substance user Assessment & Plan Post-op Postoperative Procedures: Procedures Operation Date: 02/25/24 19:45 Actual Procedure Side Surgeon p Intramedullary Nailing Femur Left Roberto Sosa MD Postoperative day: 1 Postoperative plan narrative: 1) Plan to work with PT again later today, will re-asses his mobility at that time and likely d/c to home vs SNF pending his mobility status tomorrow. Weight bearing as tolerated. 2) Plan to d/c IV Dilaudid and transition to 10mg PO Oxycodone for 7-10 pain and 5mg for 4-6 pain due to patients significant lethargy. 3) Will continue heparin for now but transition to ASA 81mg BID for DVT prophylaxis for 4 weeks upon discharge. 4) We will keep the surgical dressings intact for now. Plan to change distal dressing with sterile dressing prior to discharge. Then dressings are to remain in place for 2 weeks. 5) Follow up at [facility] in 2 weeks for wound check and dressing change.
[2024-02-26] MEDS: polyethylene glycoL 3350 17 GM POWD.PACK PO (11:01)
[2024-02-26] MEDS: HEPARIN 5,000 UNIT/ML VIAL 5000 UNIT SUBCUT ×2 (11:02→20:10)
[2024-02-26] MEDS: DOCUSATE 100 MG CAPSULE PO ×2 (11:02→20:10)
[2024-02-26] MEDS: ASPIRIN EC 81 MG TABLET PO ×2 (11:02→20:09)
[2024-02-26] MEDS: ACETAMINOPHEN 325 MG TABLET 650 MG PO (11:13)
--- NOTE | 2024-02-26 14:12 | PM.PN.1 ---
Subjective Subjective Interval history: 58 M admitted with a left hip fracture and is POD #1 today from orthopedic repair. He felt dizzy this morning when attempting to get up and was orthostatic with low BP at that time. Improved this afternoon with dizziness but has not gotten up. He feels a bit bloated as well, no vomiting. Last bowel movement was approx 3-4 days ago. Exam Vital Signs (past 8 hours): - 02/26/24 08:00 02/26/24 11:50 Temperature 97 F L 97.8 F Pulse Rate 104 H 93 H Respiratory Rate 18 16 Blood Pressure 115/74 113/72 Pulse Oximetry 95 97 Oxygen Flow Rate 1.5 0 Fraction of Inspired Oxygen 28 SaO2/FiO2 Ratio 332 Oxygen Delivery Method Nasal Cannula Oxygen Flow Rate 0 Narrative Exam Narrative: NAD RRR no m/r/g pulm CTA B/l Abd: S NT mild distension Extremities are free of edema. 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 Left hip fracture, present on admission and active. 2. Methamphetamine abuse, present on admission and active. 3. constipation 4. orthostatic hypotension 5. acute blood loss anemia from surgical procedure. Plan: -pain management, PT/OT to continue -orthostasis likely due to blood loss, anesthesia, pain medications. no indication for transfusion -work on constipation with laxitives ordered and as needed bisacodyl suppository. He is full resuscitation, confirmed. No proxy decision selected after discussion. He will require 2 midnights of medical care, he was admitted to inpatient status. Dispo: pending therapy evaluations to determine if need for home or SNF. Time Spent With Patient Time with patient: 30 to 49 minutes with 50% spent counseling/coordinating care
--- NOTE | 2024-02-26 14:24 | PT.IPTN ---
Current Diagnoses Fracture of unspecified part of neck of left femur, initial encounter for closed fracture (02/24/24) Displaced intertrochanteric fracture of left femur, initial encounter for closed fracture (02/24/24) Surgery Performed Operation Date: 02/25/24 19:45 Actual Procedures p Intramedullary Nailing Femur(Left) - Roberto Sosa MD Physical Therapy Treatment Note M2 PT-IP Current Condition Start: 02/26/24 13:14 Freq: NEEDED Status: Active Protocol: Document 02/26/24 09:15 AB (Rec: 02/26/24 13:29 AB [id number]) Physical Therapy Current Condition Current Condition Evaluation Date 02/26/24 Treatment Diagnosis L hip fx s/p IM nailing; difficulty in walking Onset Date 02/24/24 M3 PT-IP Subjective Start: 02/26/24 13:14 Freq: NEEDED Status: Active Protocol: Document 02/26/24 14:39 TS (Rec: 02/26/24 14:46 TS [id number]) Subjective Physical Therapy Visit Type Type Treatment Note Visit Start Time 14:24 Visit Stop Time 14:39 Number of DIRT SHOVELER Visits 1 Physical Therapy Visit Comments Patient Comments Pt found asleep, alert when awakened, is agreeable to PT. M4 PT-IP Mobility and Gait Start: 02/26/24 13:14 Freq: NEEDED Status: Active Protocol: Document 02/26/24 14:39 TS (Rec: 02/26/24 14:46 TS [id number]) PT-Bed Mobility Assessment Supine to Sit Supine to Sit Minimal Assistance,1 Person Assistance Sit to Supine Sit to Supine Moderate Assistance,1 Person Assistance Scooting Scooting to Edge of Bed Contact Guard Assistance Scooting Up and Down in Bed Standby Assistance PT-Transfer Assessment Comments Mobility Comments Bp in supine 113/75. Supine to sit ModA for LLE assist and uprighting trunk. Pt sat EOB for ~10secs, became lightheaded and requested back to bed. Sit to supine ModA for LE's into bed. BP in supine 124/74. Pt was left in bed, alarm on, all needs met, RN ntoified. Gait Assessment Comments Gait Comments unable at this time PT-Balance Assessment Sitting Balance and Reactions Static Sitting Balance Ability Fair Dynamic Sitting Balance Ability Fair M5 PT-IP Objective Assessments Start: 05/18/24 13:14 Freq: NEEDED Status: Active Protocol: Document 02/26/24 09:15 AB (Rec: 02/26/24 13:29 AB [id number]) Orientation Orientation/Cognition Level of Alertness Alert Orientation Name,Place,Situation Safety Awareness Decreased Safety Awareness Gross Range of Motion Lower Extremity ROM Assessment Within Functional Limits Impairments increase L hip guarding with movement Strength Lower Extremity Strength Assessment Left Impaired Hip 2+/5 Knee 3+/5 Sensation Assessment Sensation Gross Sensation WNL Muscle Tone Muscle Tone WNL Yes M6 PT-IP Treatment Start: 02/26/24 13:14 Freq: NEEDED Status: Active Protocol: Document 02/26/24 14:39 TS (Rec: 02/26/24 14:46 TS [id number]) Physical Therapy Treatment Education Education Provided Precautions,Weight Bearing Status,Post-Op Packet,Safety M7 PT-IP Assessment and Plan Start: 02/26/24 13:14 Freq: NEEDED Status: Active Protocol: Document 02/26/24 14:39 TS (Rec: 02/26/24 14:46 TS [id number]) PT Summary Assessment and Plan Potential Rehabilitation Potential Fair Summary Impairments Pain,ROM,Strength,Balance, Coordination,Sensation,Tone, Cognition,Bed Mobility, Transfers,Gait,Activity Tolerance Progress Towards Goals Slow Progress due to Pain,Slow Progress due to Medical Issues Assessment Summary Kaleb is making slow progress with his mobility. He is Sathya for supine to sit, requires some assistance with LLE. He quickly becomes lightheaded in sitting, pt sat upright for ~10secs and required back to bed. PT at this time will continue to recommend SNF. Pt is agreeable to SNF if he needs to. Goals Bed Mobility Goal Minimal Assistance Transfer Goal Minimal Assistance,Front Wheeled Walker Gait Goal Minimal Assistance,Front Wheel Walker Gait Distance 25 Other Goals improve bed mobility, transfers, ambulation using FWW ~ 150 ft mod I up/down 1 step using FWW mod I Days to Meet Goals 5 Frequency of Treatment Frequency Of Treatment Twice a Day Treatment Plan Physical Therapy Treatment Plan Bed Mobility Training,Transfer Training,Gait Training, Therapeutic Exercise,Balance Retraining,Post Op Education, Discharge Planning,Hot or Cold Pack,Neuromuscular Re-ed, Coordination Retraining,Manual Therapy Weight Bearing Status Weight Bearing Status Weight Bear as Tolerated Allowed Weight Bearing Amount (enter % LLE WBAT or #) (%) Recommendations To Nursing Amount of Assist Needed 2 Person Assist Discharge Recommendations PT Discharge Recommendations SNF Rehab Transportation Needs at Discharge Wheelchair/Cabulance,Stretcher /Ambulance
[2024-02-26] MEDS: BISACODYL 5 MG TABLET PO (16:02)
[2024-02-26] MEDS: BISACODYL 10 MG SUPP PR (17:51)
[2024-02-26] MEDS: FLEETS ENEMA 1 EACH PR (19:53)
[2024-02-26] MEDS: SENNOSIDES 8.6 MG TABLET 17.2 MG PO (20:10)
[2024-02-26] MEDS: LORazepam 2 MG/ML INJ 1 MG IV (22:46)
[2024-02-26] MEDS: KETOROLAC 30 MG/ML VIAL 15 MG IV (23:32)
[2024-02-27 04:40] VITALS: BP 98/61; PULSE 86; RESP 16; TEMP 36.6; O2SAT 96
--- NOTE | 2024-02-27 04:40 | PC.NURSE ---
at 0440, vital signs were taken, this nurse tried to check on pt and see if he had a bm since he had an enema tonight. pt stated I just want to sleep. pt bed tilted to the left slightly and bed alarm in place.
[2024-02-27 08:00] VITALS: BP 101/65; PULSE 84; RESP 16; TEMP 37.1; O2SAT 96
--- NOTE | 2024-02-27 09:53 | PM.PN.1 ---
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 Patient complains of constipation and feeling bloated. On exam, his abdomen is soft and non-tender. His BLE is well perfused and neurovascularly intact. He has bruising in his left thigh consistent with post op status. His dressing is intact and clean and dry. Will continue medical management and facilitate him having BM. PT today for mobility training. Will plan for discharge after PT/OT clearance and medically optimized. Per last PT note, patient is likely going to need rehab placement due to slow progression with mobility. Will re-assess after PT/OT today and discharge per their recommendation. Continue WBAT to LLE.
[2024-02-27] MEDS: DOCUSATE 100 MG CAPSULE PO ×2 (10:44→21:14)
[2024-02-27] MEDS: polyethylene glycoL 3350 17 GM POWD.PACK PO (10:44)
[2024-02-27] MEDS: BISACODYL 10 MG SUPP PR (10:44)
[2024-02-27] MEDS: OXYCODONE IR 5 MG TABLET PO (10:44)
[2024-02-27] MEDS: ASPIRIN EC 81 MG TABLET PO ×2 (10:44→21:13)
[2024-02-27] MEDS: HEPARIN 5,000 UNIT/ML VIAL 5000 UNIT SUBCUT (10:44)
[2024-02-27] MEDS: ACETAMINOPHEN 325 MG TABLET 650 MG PO ×2 (10:45→23:25)
--- NOTE | 2024-02-27 10:47 | CM.DPC ---
Addendum entered by HEENA Graham 02/27/24 15:15: ADD: SW met bedside with pt and updated him that PT will attempt to work with him again soon and pt states he is too bloated and SW informed him that ambulation can help and also insurance will need to see that he can participate to auth SNF and pt acknowledges understanding. Pt confirms he is not established with PCP which could be a barrier to HH unless [facility] program through [facility] if they accept his insurance. BF Addendum entered by HEENA Graham 02/27/24 14:04: ADD: Per Leila at [facility], their facility is currently full but she can review for [facility]. ABIGAIL secure emailed pt's referral to Leila to review. BF Addendum entered by HEENA Graham 02/27/24 12:38: ADD: SW left msgs for following SNFs to determine if they might accept [employer] insurance for SNF: [facility]- msg via email [facility]- msg via email [facility]- voicemail [facility]- voicemail [facility]- not contracted, not accepting right now unless contracted facilities deny they might review to determine if they might submit for one time auth but unlikely. Pt unable to work with PT this morning due to abdominal pain and will attempt again this afternoon. BF Original Note: DCP SNF vs HH Per MD, pt still quite orthostatic and hopeful once pt's vitals normal then he will be able to work more with PT/OT. Per PT, yesterday due to pt's bp issues recommendation was SNF. ABIGAIL met bedside with pt and explained role and he confirms he lives at [facility] alone but does have some local friends. ABIGAIL explained the barriers to SNF with his [employer] insurance and hopeful pt can progress with PT/OT [facility]. Pt confirms no local family support as most of his family is . SW will need to confirm if pt established with PCP in case pt can d/c with HH and then will need to confirm which HH agencies are contracted with [employer]. Plan: SW to follow closely in the AM with calling SNFs to confirm they are not contracted/willing to accept [employer]. SW to follow closely for pt progress with PT/OT once bp issues resolved. HEENA Graham
--- NOTE | 2024-02-27 11:08 | DI.RAD.S_ITS ---
PROCEDURE: XR ABDOMEN 1V INDICATIONS: abdominal distension TECHNIQUE: One view of the abdomen acquired. COMPARISON: None. FINDINGS: Surgical changes and devices: None. Bowel: Air-filled loops of small and large bowel with air seen extending to the rectum. Soft tissues: No suspicious abdominal calcifications. Visualized solid organ contours appear normal in size. Bones: No suspicious bony lesions. IMPRESSION: Dilated air-filled loops of small and large bowel with air extending to the rectum. Cannot exclude partial obstruction. Dictated by: Ger Diggs M.D. on 02/27/2024 at 10:32 Approved by: Ger Diggs M.D. on 02/27/2024 at 10:36
--- NOTE | 2024-02-27 11:35 | DI.CT.S_ITS ---
PROCEDURE: CT ABDOMEN PELVIS W CON INDICATIONS: marked colonic distension on radiograph TECHNIQUE: After the administration of intravenous contrast, axial sections acquired from the lung bases to the pubic symphysis. Coronal and sagittal reformats were performed. For radiation dose reduction, the following was used: automated exposure control, adjustment of mA and/or kV according to patient size. COMPARISON: None. FINDINGS: Image quality: Diagnostic. Lower Chest: No significant findings. ABDOMEN: Liver: No solid mass. Gallbladder: No radiopaque gallstones or wall thickening. Biliary ducts: No biliary dilation. Pancreas: No ductal dilation. Spleen: Size is within normal limits. Adrenal Glands: No adrenal nodules. Kidneys and Ureters: No hydronephrosis. No solid mass. No complex renal cystic lesion which requires follow up. Stomach and Bowel: Extensive air throughout the visualized bowel with a few loops of small bowel containing air-fluid levels and liquid stool within the ascending colon. Air is seen to the level of the rectal vault without mass identified. No transition point. Peritoneum: No abnormal intraperitoneal fluid. No free air. Ventral Wall: No significant ventral hernia. Abdominal Nodes: No retroperitoneal or mesenteric adenopathy by size criteria. Vessels: Aorta and inferior vena cava are normal in size. PELVIS: Pelvic Organs: Unremarkable. Bladder: No bladder wall thickening, accounting for underdistention. Pelvic Nodes: No enlarged lymph nodes. Miscellaneous: Small left fat containing inguinal hernia.. Bones: No aggressive osseous abnormality. Spondylolisthesis of S1 on S2 with bilateral pars defects. Postsurgical changes of left total hip prosthesis with persistent soft tissue emphysema. Within the left gluteal muscles there is some active extravasation of contrast and blood products with adjacent 6 x 11 centimeter fluid collection along the surgical tract. The extravasated blood products measures 1.4 centimeters in diameter. Area of active extravasation is best seen on coronal image 44 IMPRESSION: 1. Diffuse dilation of small and large bowel with air-fluid levels to level of the rectum. Correlate with physical exam for rectal stenosis. 2. Transitional lumbosacral anatomy may be a source of pain. 3. Postsurgical changes of left hip prosthesis with 6 centimeter superficial hematoma with small foci of extravasation within the right gluteal muscles Dictated by: Ger Diggs M.D. on 02/27/2024 at 11:55 Approved by: Ger Diggs M.D. on 02/27/2024 at 12:09
--- NOTE | 2024-02-27 11:38 | PT-IP ANOTE ---
Pt reports having severe abdominal pain due to constipation this morning. He reports feeling too full to even sit up. Will continue to follow for Physical Therapy treatment as he can tolerate it
--- NOTE | 2024-02-27 12:37 | PM.PN.1 ---
Subjective Subjective Interval history: 58 M admitted with a left hip fracture s/p orthopedic repair. He has had worsening lower abdominal pain since yesterday. XR showed marked colon and small bowel distension. CT ordered for further evaluation which showed dilated colon and small bowel, no obstruction or volvulus. Rectal exam with no impacted stool, very little stool in the vault. Enema yesterday. Will attempt enema, relistor, and discuss with surgery. Exam Vital Signs (past 8 hours): - 02/27/24 04:40 02/27/24 08:00 02/27/24 09:45 Temperature 97.8 F 98.8 F Pulse Rate 86 84 Respiratory Rate 16 16 Blood Pressure 98/61 101/65 Pulse Oximetry 96 96 Oxygen Delivery Method Room Air Oxygen Flow Rate 0 Fraction of Inspired Oxygen 28 SaO2/FiO2 Ratio 332 Oxygen Delivery Method Room Air Oxygen Flow Rate 0 Narrative Exam Narrative: NAD RRR no m/r/g pulm CTA B/l Abd: S b/l lower quadrant tenderness, stable mild distension from yesterday. 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 Left hip fracture, present on admission and active. 2. Methamphetamine abuse, present on admission and active. 3. dilated large and small bowel. 4. orthostatic hypotension 5. acute blood loss anemia from surgical procedure and post operative hematoma. Plan: -pain management, PT/OT to continue -orthostasis likely due to blood loss, anesthesia, pain medications. no indication for transfusion. -XR today with dilated small and large bowel. CT no obstruction or volvulus, incidental left hip hematoma from surgical procedure. -no additional management, transfuse for Hg <7 for left hip hematoma. -continue enema for constipation, attempt relistor to see if resumption of bowel function possibly opiate related. Discussed with surgery, if continues to be refractory can consider neostigmine as well. He is full resuscitation, confirmed. No proxy decision selected after discussion. He will require 2 midnights of medical care, he was admitted to inpatient status. Dispo: pending therapy evaluations to determine if need for home or SNF. Time Spent With Patient Time with patient: 30 to 49 minutes with 50% spent counseling/coordinating care
[2024-02-27 13:45] LABS: Add Manual Diff / Slide Review NO; Basophils Absolute Auto 100 /uL (0-100); Basophils Percent Auto 0.6 % (0-2); Eosinophils Absolute Auto 200 /uL (0-450); Eosinophils Percent Auto 1.6 % (2-4); Hematocrit 22.8 % (41-53); Hemoglobin 7.6 g/dL (13.5-17.5); Lymphocytes Absolute Auto 1400 /uL (1100-4500); Lymphocytes Percent Auto 13.8 % (25-40); Mean Corpuscular HGB Conc 33.4 % (30-36); Mean Corpuscular Hemoglobin 29.4 PG (26-34); Monocytes Absolute Auto 1200 /uL (0-900); Monocytes Percent Auto 11.9 % (3-14); Neutrophils Absolute Auto 7300 /uL (1500-7000); Neutrophils Percent Auto 72.1 % (50-75); Platelet Count 220 X10^3/uL (150-400); Red Blood Cell Count 2.58 X10^6/uL (4.5-5.9); Red Cell Distribution Width 13.5 % (11.6-14.8); White Blood Cell Count 10.2 X10^3/uL (4.5-11.0)
[2024-02-27 13:55] LABS: BUN Creatinine Ratio 38.9 (6-22); Blood Urea Nitrogen 28 mg/dL (9-20); Carbon Dioxide 28 mmol/L (22-32); Chloride 102 mmol/L (98-107); Estimated Glomerular Filt Rate > 60 mL/min (>60); Glucose 106 mg/dL (70-100); HEMOLYSIS < 15 (0-50); Magnesium 2.1 mg/dL (1.6-2.3); Potassium 3.9 mmol/L (3.4-5.1); Sodium 133 mmol/L (137-145)
[2024-02-27 14:00] VITALS: BP 135/86; PULSE 100; RESP 16; TEMP 37.1; O2SAT 98
[2024-02-27] MEDS: LORazepam 2 MG/ML INJ 1 MG IV ×2 (14:34→21:12)
[2024-02-27] MEDS: METHYLNALTREXONE 12 MG/0.6 ML VIAL 8 MG SUBCUT (14:39)
[2024-02-27] MEDS: FLEETS ENEMA 1 EACH PR (15:20)
--- NOTE | 2024-02-27 15:22 | PT.IPTN ---
Current Diagnoses Fracture of unspecified part of neck of left femur, initial encounter for closed fracture (02/24/24) Displaced intertrochanteric fracture of left femur, initial encounter for closed fracture (02/24/24) Surgery Performed Operation Date: 02/25/24 19:45 Actual Procedures p Intramedullary Nailing Femur(Left) - Roberto Sosa MD Physical Therapy Treatment Note M2 PT-IP Current Condition Start: 02/26/24 13:14 Freq: NEEDED Status: Active Protocol: Document 02/26/24 09:15 AB (Rec: 02/26/24 13:29 AB [id number]) Physical Therapy Current Condition Current Condition Evaluation Date 02/26/24 Treatment Diagnosis L hip fx s/p IM nailing; difficulty in walking Onset Date 02/24/24 M3 PT-IP Subjective Start: 02/26/24 13:14 Freq: NEEDED Status: Active Protocol: Document 02/27/24 15:23 DLM (Rec: 02/27/24 15:37 DLM [id number]) Subjective Physical Therapy Visit Type Type Treatment Note Visit Start Time 14:50 Visit Stop Time 15:23 Notes 33 minutes 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 He wants to get up. Patient Goals get better and go be able to work Therapy Pain Assessment Pain When Pain Assessed At Rest Pain Present Pain Present Pain Reported Location abdomen Intensity 7 Scale Used Numeric (0 - 10) Description Aching,Cramping,Pressure Pain Behaviors Holding Area,Restlessness, Wincing Pain Management Techniques Re-positioning Left Hip Intensity 6 Scale Used Numeric (0 - 10) Description Aching,Tender,With Movement Pain Behaviors Facial Grimacing,Guarding, Wincing Pain Management Techniques Apply Cold,Modification of Treatment,Re-positioning, Timing of Activity with Medications M4 PT-IP Mobility and Gait Start: 02/26/24 13:14 Freq: NEEDED Status: Active Protocol: Document 02/27/24 15:23 DLM (Rec: 02/27/24 15:37 DL [id number]) PT-Bed Mobility Assessment Supine to Sit Supine to Sit Minimal Assistance Sit to Supine Sit to Supine Minimal Assistance,Moderate Assistance Scooting Scooting to Edge of Bed Standby Assistance Scooting Up and Down in Bed Independent PT-Transfer Assessment Sit to and From Stand Sit to and from Stand Minimal Assistance,1 Person Assistance,Use of Upper Extremities Equipment Transfer Assistive Device Gait Belt,Front Wheeled Walker Transfers Transfer Destination Chair Transfer Technique Stand Step Pivot Transfer Ability Level of Assist Minimal Assistance,Use of Upper Extremities Comments Mobility Comments Pt wanting to get up today. He transferred up to recliner. No light-headedness. He got short of breath. Vital signs noted O2 sats greater than 90% but HR is elevated 116-123 bpm. Elevated HR continued even while sitting in recliner . Pt decided to return to bed. This treatment coordinated with his nurse for pt safety. Gait Assessment Gait Gait Assistance Required: Minimum Assistance,1 Person Assist Distance (Feet) 2 Able to Maintain Weight Bearing Status Yes During Gait Assistive Devices Assistive Device Gait Belt,Front Wheeled Walker Gait Deviations General Gait Pattern Antalgic,Decreased Stride Length,Flexed Trunk,Step-to Gait Factors Limiting Gait Function Factors Limiting Gait Function Decreased Activity Tolerance, Decreased Strength,Limited Range of Motion,Pain,Poor Balance Comments Gait Comments pt able to take a few steps with FWW, he reports pain with weight bearing on left LE, educated pt to use UE support on FWW to manage his pain PT-Balance Assessment Sitting Balance and Reactions Static Sitting Balance Ability Good Dynamic Sitting Balance Ability Good Standing Balance and Reactions Static Standing Balance Ability Fair Dynamic Standing Balance Ability Fair Device Used fWW M5 PT-IP Objective Assessments Start: 02/26/24 13:14 Freq: NEEDED Status: Active Protocol: Document 02/26/24 09:15 AB (Rec: 02/26/24 13:29 AB [id number]) Orientation Orientation/Cognition Level of Alertness Alert Orientation Name,Place,Situation Safety Awareness Decreased Safety Awareness Gross Range of Motion Lower Extremity ROM Assessment Within Functional Limits Impairments increase L hip guarding with movement Strength Lower Extremity Strength Assessment Left Impaired Hip 2+/5 Knee 3+/5 Sensation Assessment Sensation Gross Sensation WNL Muscle Tone Muscle Tone WNL Yes M6 PT-IP Treatment Start: 02/26/24 13:14 Freq: NEEDED Status: Active Protocol: Document 02/27/24 15:23 DLM (Rec: 02/27/24 15:37 DLM [id number]) Physical Therapy Treatment Exercises Exercises Ankle Pumps,Gluteal Sets,Quad Sets,Heel Slides,Supine Hip Abduction,Short Arc Quads Education Education Provided Precautions,Weight Bearing Status,Safety Other Treatments Other Treatment Performed he needs physical assistance to complete his exercises M7 PT-IP Assessment and Plan Start: 02/26/24 13:14 Freq: NEEDED Status: Active Protocol: Document 02/27/24 15:23 DLM (Rec: 02/27/24 15:37 DLM [id number]) PT Summary Assessment and Plan Summary Impairments Pain,ROM,Strength,Balance, Coordination,Sensation,Tone, Cognition,Bed Mobility, Transfers,Gait,Activity Tolerance Progress Towards Goals Slow Progress due to Medical Issues,Slow Progress due to Activity Tolerance Assessment Summary Suman is alert and resting in bed. He intermittently mumbles making it difficult to understand what he is saying sometimes. He is impulsive and needs safety cues to slow down to decrease his fall risks. He was able to get up to the recliner this visit without light-headedness. His heart rate is elevated with activity today up to 123 bpm. He got short of breath getting up to the chair which resolved with a sitting rest break. Pt returned to bed per his request this visit. Ice place on incisional area for pain management after his exercises. Pt is not safe to return to his motel room alone at this time. Continue to recommend SNF rehab at discharge. Goals Bed Mobility Goal Minimal Assistance Transfer Goal Minimal Assistance,Front Wheeled Walker Gait Goal Minimal Assistance,Front Wheel Walker Gait Distance 25 Other Goals improve bed mobility, transfers, ambulation using FWW ~ 150 ft mod I up/down 1 step using FWW mod I Days to Meet Goals 5 Frequency of Treatment Frequency Of Treatment Twice a Day Treatment Plan Physical Therapy Treatment Plan Bed Mobility Training,Transfer Training,Gait Training, Therapeutic Exercise,Balance Retraining,Post Op Education, Discharge Planning,Hot or Cold Pack,Neuromuscular Re-ed Precautions Other Precautions hip ORIF, monitor for orthostatic hypotension, monitor HR with activity, constipation problems post-op Weight Bearing Status Weight Bearing Status Weight Bear as Tolerated Allowed Weight Bearing Amount (enter % left LE with DME or #) (%) Recommendations To Nursing Amount of Assist Needed 1 Person Assist Discharge Recommendations PT Discharge Recommendations SNF Rehab Transportation Needs at Discharge Private Vehicle,Wheelchair/ Cabulance
[2024-02-27 17:00] VITALS: BP 121/78; PULSE 102; RESP 16; TEMP 37.3; O2SAT 99
[2024-02-27] MEDS: MAGNESIUM CITRATE 300 ML SOLUTION 150 ML PO ×2 (18:08→21:13)
[2024-02-27 19:33] VITALS: BP 112/73; PULSE 104; RESP 18; TEMP 36.9; O2SAT 95
[2024-02-27] MEDS: SENNOSIDES 8.6 MG TABLET 17.2 MG PO (21:13)
[2024-02-27] MEDS: OXYCODONE IR 10 MG TABLET PO (23:24)
[2024-02-27 23:30] VITALS: BP 120/77; PULSE 98; RESP 17; TEMP 37.1; O2SAT 93
[2024-02-28] MEDS: LORazepam 2 MG/ML INJ 1 MG IV ×3 (00:09→03:53)
[2024-02-28] MEDS: HALOPERIDOL 5 MG/ML VIAL 2 MG IV (01:46)
[2024-02-28] MEDS: diphenhydrAMINE 50 MG/ML VIAL IV (02:06)
[2024-02-28 03:52] VITALS: BP 131/80; PULSE 94; RESP 19; TEMP 36.6; O2SAT 94
[2024-02-28] MEDS: CYCLOBENZAPRINE 10 MG TABLET PO ×2 (03:53→16:21)
[2024-02-28] MEDS: SODIUM CHLORIDE 0.9% FLUSH 10 ML IV ×3 (03:53→20:38)
--- NOTE | 2024-02-28 03:53 | PC.NURSE ---
Pt was alert and oriented at the beginning of the shift. Conversing with this nurse. Pt received all his night medications along with 1 mg of ativan IVP. Pt terrie't had a BM since he has been here in the hospital. Pt had some mucous like stool on 02/27/24 after enema given. Pt has had mulitple medications to help him have a BM, abdomen is firm, BT are hypoactive, denies flatus. Pt at times c/o anxiety, yelling out let me outside, I need to get some sun, I hurt, I hurt give me something for pain. pt has gotten po pain medications. Tonight he was started on haldol IVP. pt had a dose of ativan IVP WITH Benadryl at the same time. Which help pt sleep for about 2 hours or so. Pt has a new order for restoril to help him have a BM but at the moment the medication isn't available. Pt still has kwok catheter in due to his anxiety, his low H/H and not ambulating frequently our out of bed. Pt will have lab work this am to continue to monitor his blood count. pt care transfer to JACEY Horvath at 0345 this am.
[2024-02-28 06:01] LABS: Add Manual Diff / Slide Review NO; Basophils Absolute Auto 0 /uL (0-100); Basophils Percent Auto 0.5 % (0-2); Eosinophils Absolute Auto 200 /uL (0-450); Eosinophils Percent Auto 1.9 % (2-4); Hematocrit 23.4 % (41-53); Hemoglobin 7.9 g/dL (13.5-17.5); Lymphocytes Absolute Auto 1800 /uL (1100-4500); Lymphocytes Percent Auto 20.3 % (25-40); Mean Corpuscular HGB Conc 33.9 % (30-36); Mean Corpuscular Hemoglobin 29.6 PG (26-34); Mean Corpuscular Volume 87.3 fL (80-100); Monocytes Absolute Auto 1200 /uL (0-900); Monocytes Percent Auto 13.1 % (3-14); Neutrophils Absolute Auto 5800 /uL (1500-7000); Neutrophils Percent Auto 64.2 % (50-75); Platelet Count 257 X10^3/uL (150-400); Red Blood Cell Count 2.68 X10^6/uL (4.5-5.9); Red Cell Distribution Width 13.4 % (11.6-14.8)
[2024-02-28 06:34] LABS: BUN Creatinine Ratio 35.6 (6-22); Blood Urea Nitrogen 26 mg/dL (9-20); Carbon Dioxide 32 mmol/L (22-32); Chloride 97 mmol/L (98-107); Estimated Glomerular Filt Rate > 60 mL/min (>60); Glucose 118 mg/dL (70-100); HEMOLYSIS < 15 (0-50); Magnesium 2.5 mg/dL (1.6-2.3); Potassium 3.7 mmol/L (3.4-5.1); Sodium 134 mmol/L (137-145)
[2024-02-28 07:00] VITALS: RESP 19
--- NOTE | 2024-02-28 07:44 | P.PN_ITS ---
Subjective Subjective Interval history: Patient agitated overnight so received multiple doses of ativan. He is groggy but able to communicate this morning. Still hasn't had a BM. Lactulose ordered. Exam Vital Signs (past 8 hours): - 02/28/24 03:52 Temperature 97.9 F Pulse Rate 94 H Respiratory Rate 19 Blood Pressure 131/80 Pulse Oximetry 94 Oxygen Flow Rate 0 Fraction of Inspired Oxygen 28 SaO2/FiO2 Ratio 332 Oxygen Delivery Method Room Air Oxygen Flow Rate 0 Narrative Exam Narrative: NAD RRR no m/r/g pulm CTA B/l Abd: S b/l lower quadrant tenderness, stable mild distension. Ext: no edema Objective Labs 02/28/24 05:43 02/28/24 05:43 Labs: Laboratory Results - last 24 hr 02/27/24 02/28/24 13:35 05:43 WBC 10.2 9.0 RBC 2.58 L 2.68 L Hgb 7.6 L 7.9 L Hct 22.8 L 23.4 L MCV 88.0 87.3 MCH 29.4 29.6 MCHC 33.4 33.9 RDW 13.5 13.4 Plt Count 220 257 Neut % (Auto) 72.1 64.2 Lymph % (Auto) 13.[address] [place] % (Auto) 11.9 13.1 Eos % (Auto) 1.6 L 1.9 L Baso % (Auto) 0.6 0.5 Neut # (Auto) 7300 H 5800 Lymph # (Auto) 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 Left hip fracture, present on admission and active. 2. Methamphetamine abuse, present on admission and active. 3. dilated large and small bowel. 4. orthostatic hypotension 5. acute blood loss anemia from surgical procedure and post operative hematoma. 6. Agitation, will use haldol PRN and avoid ativan if possible Plan: -pain management, PT/OT, qshift orthostatics -orthostasis likely due to blood loss, anesthesia, pain medications. no indication for transfusion. -abd XR with dilated small and large bowel. CT no obstruction or volvulus, incidental left hip hematoma from surgical procedure. -no additional management, transfuse for Hg <7 for left hip hematoma and monitor while on BID aspirin for DVT proph -continue enema for constipation, gave relistor to see if resumption of bowel function possibly opiate related. Discussed with surgery, if continues to be refractory can consider neostigmine as well. -trial lactulose He is full resuscitation, confirmed. No proxy decision selected after discussion. 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 2 days to improve constipation and work with theparies. Time Spent With Patient Time with patient: 30 to 49 minutes with 50% spent counseling/coordinating care
--- NOTE | 2024-02-28 09:08 | OT.IP.EVAL ---
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 Surgical History (Last Reviewed 02/24/24 @ 17:28 by Mansoor Pabon MD) History of ankle surgery Occupational Therapy Inpatient Evaluation/Re-Eval M1 PT/OT-IP Prior Functional Status Start: 02/26/24 13:14 Freq: NEEDED Status: Active Protocol: Document 02/28/24 10:17 CGR (Rec: 02/28/24 10:31 CGR [id number]) Medical Review Prior Functional Status Medical History Reviewed Yes Communication able to make needs known; unclear speech Mobility and Gait pt stated that he was independent with all mobilities and ambulation without AD Social History Household Members none Living Arrangements Other Number of Floors (Floors) One Floor Number of Stairs To Enter/Railing? pt stated that he lives at a motel: 1 step curb to enter Home Environment Standard Height Toilet,Walk in Shower Home Equipment Hand Held Shower M2 OT-IP Current Condition Start: 02/28/24 10:17 Freq: Status: Active Protocol: Document 02/28/24 10:17 CGR (Rec: 02/28/24 10:31 CGR [id number]) Occupational Therapy Current Condition Current Condition Evaluation Date 02/28/24 Treatment Diagnosis GLF, L hip fx s/p IM nailing now with small bowel distention Diagnosis Onset Date 02/24/24 Weight Bearing Status Weight Bearing Status Weight Bear as Tolerated M3 OT- IP Subjective and Pain Start: 02/28/24 10:17 Freq: Status: Active Protocol: Document 02/28/24 10:17 CGR (Rec: 02/28/24 10:31 CGR [id number]) OT- Subjective Occupational Therapy Visit Type Type Initial Evaluation Visit Start Time 08:44 Visit Stop Time 09:08 Notes Pt is sleeping soundly when OT entered. Per nursing, pt recieved 5mg of ativan throughout the night and appears to still be under the influence. OT Pain Assessment Pain When Pain Assessed During Mobility Pain Present Pain Present Pain Reported Location abdomen Scale Used did not rate Pain Behaviors Facial Grimacing,Moaning Management Techniques Modification of Treatment,Re- positioning Left Hip Scale Used did not rate Pain Behaviors Facial Grimacing,Guarding, Moaning Management Techniques Modification of Treatment,Re- positioning M4 OT- IP ADL's Start: 02/28/24 10:17 Freq: Status: Active Protocol: Document 02/28/24 10:17 CGR (Rec: 02/28/24 10:31 CGR [id number]) OT [id number] Comments OT Self-Feeding Comments not meal time OT ADL-Grooming General Evaluation Grooming Ability Standby Assistance Areas Needing Assistance Face Washing Comments OT Grooming Comments with set up in the chair OT ADL-Oral Care General Eval Oral Care Ability Moderate Assistance Areas of Assistance Managing Dentures Comments Oral Care Comments Pt needed help getting his dentures out of the container but then was able to place them in his mouth. Only top dentures seen in todays session. OT ADL-Dressing General Eval Upper Body Dressing Ability Moderate Assistance Lower Body Dressing Ability Total Assistance Areas Needing Assistance Socks Comments OT Dressing Comments Pt was without gown when OT entered. Pt was participatory in getting gown back on but with assist. OT ADL-Toileting General Evaluation Toileting Ability Total Assistance Comments OT Toileting Comments Pt with kwok OT ADL-Bathing Comments OT Bathing Comments not performed M5 OT- IP IADL's Start: 02/28/24 10:17 Freq: Status: Active Protocol: Document 02/28/24 10:17 CGR (Rec: 02/28/24 10:31 CGR [id number]) OT-Instrumental Activities of Daily Living Deficits IADL Deficits Identified Deficits Home Safety Awareness Awareness of Need for Assistance at Home Decreased Awareness Ability to Problem Solve Emergency Unable to Problem Solve Situations Medication Management Medication Management Comments concerns regarding pt's ability to perform safely at this time Money Management Money Management Comments concerns regarding pt's ability to perform safely at this time Meal Preparation Meal Preparation Comments concerns regarding pt's ability to perform safely at this time Commercial Lending Vice President Commercial Lending Vice President Comments concerns regarding pt's ability to perform safely at this time Driving Driving Comments concerns regarding pt's ability to perform safely at this time M6 OT- IP Functional Cognition Start: 02/28/24 10:17 Freq: Status: Active Protocol: Document 02/28/24 10:17 CGR (Rec: 02/28/24 10:31 CGR [id number]) Cognitive Factors Limiting Selfcare Function Cognitive Ability Level of Alertness Confusional State Patient Orientation Name,Place Attention Span Ability Unable to Focus,Unable to Sustain Attention Cognitive Comments Cognitive Assessment Comments Pt was difficulty to understand with slurred speech and had difficulty following simple commands, however, pt was calm and appropriate throughout session. OT- Vision and Hearing OT- Hearing Assessment OT- Hearing Assessment WFL OT- Vision Assessment Vision Assessment Comments pt was unable to particpate in vision screening. M7 OT- IP Mobility and Balance Start: 02/28/24 10:17 Freq: Status: Active Protocol: Document 02/28/24 10:17 CGR (Rec: 02/28/24 10:31 CGR [id number]) OT- Bed Mobility Assessment Supine to Sit Supine to Sit Assist Moderate Assistance Scooting Scooting to Edge of Bed Contact Guard Assistance OT-Transfer Assessment Sit to and From Stand Sit to and from Stand Moderate Assistance Transfers Transfer Ability Moderate Assistance Technique Transfer Destination Bed,Chair Transfer Technique Stand Step Pivot Devices Transfer Assistive Devices Gait Belt,Front Wheeled Walker Comments Mobility Comments Pt stood from bed and took side steps at bedside then sat for a rest break before standing again to transfer to the chair. Pt states he feels weak. OT- Gait Assessment Comments Gait Ability Comments did not perform OT- Balance Assessment Sitting Balance and Reactions Static Sitting Balance Ability Fair Dynamic Sitting Balance Ability Fair M8 OT- IP Objective Assessments Start: 02/28/24 10:17 Freq: Status: Active Protocol: Document 02/28/24 10:17 CGR (Rec: 02/28/24 10:31 CGR [id number]) OT Gross Range of Motion Upper Extremity Range of Motion Assessment Within Functional Limits OT Strength Upper Extremity Strength Assessment Within Functional Limits Comments Strength Comments grossly 5-/5 OT- Coordination Assessment Upper Extremity Finger to Nose Test Bilateral UE Impaired Finger Tapping Test Bilateral UE Impaired Comments Coordination Comments pt not able to perform simple coordination tasks on this date. OT-Muscle Tone Assessment Muscle Tone WNL Yes OT Sensation Assessment Edema Edema Present Edema Comments L hip area M9 OT- IP Assessment and Plan Start: 02/28/24 10:17 Freq: Status: Active Protocol: Document 02/28/24 10:17 CGR (Rec: 02/28/24 10:31 CGR [id number]) OT Summary Assessment and Plan Potential Rehabilitation Potential Good Analytic Complexity at Evaluation High Summary OT Impairments Pain,Balance,Coordination, Functional Cognition, Functional Mobility,Self- Feeding,Grooming,Dressing, Toileting,Bathing,Toilet Transfers,Shower Transfers, Activity Tolerance Progress Towards Goals Progressing Toward Goals Assessment Summary Pt presents as a high complexity evaluation s/p admit for fall with L hip fx. Pt now with small bowel distention. Per nursing, pt was heavily medicated overnight. Pt appears heavily medicated in todays session likely impacting the results of this assessment, however, pt was pleasant and agreeable to all activities. Recommend SNF at this time given pt's ability to care for himself and mobilize. Goals Self-Feeding Goal Independent Grooming Goal Independent Dressing Goal Independent Toileting Goal Independent Bathing Goal Independent Toilet Transfer Goal Independent Shower Transfer Goal Independent Days to Meet Goals 15 Frequency of Treatment Frequency Of Treatment Once a Day Treatment Plan OT Treatment Plan ADL Training,Functional Cognition Training,Functional Mobility,Patient/Family Education,Discharge Planning Other Treatment Recommendations and Next ADLs seated vs standing, Treatment Focus coordination assessment when less medicated Discharge Recommendations OT Discharge Recommendations SNF Rehab Transportation Needs at Discharge Wheelchair/Cabulance
[2024-02-28] MEDS: LACTULOSE 20 GM/30 ML SOLUTION PO (09:52)
[2024-02-28] MEDS: ASPIRIN EC 81 MG TABLET PO ×2 (09:52→20:37)
[2024-02-28] MEDS: polyethylene glycoL 3350 17 GM POWD.PACK PO (09:53)
[2024-02-28] MEDS: OXYCODONE IR 5 MG TABLET PO ×2 (09:54→16:21)
--- NOTE | 2024-02-28 10:56 | PT.IPTN ---
Current Diagnoses Fracture of unspecified part of neck of left femur, initial encounter for closed fracture (02/24/24) Displaced intertrochanteric fracture of left femur, initial encounter for closed fracture (02/24/24) Surgery Performed Operation Date: 02/25/24 19:45 Actual Procedures p Intramedullary Nailing Femur(Left) - Roberto Sosa MD Physical Therapy Treatment Note M2 PT-IP Current Condition Start: 02/26/24 13:14 Freq: NEEDED Status: Active Protocol: Document 02/26/24 09:15 AB (Rec: 02/26/24 13:29 AB [id number]) Physical Therapy Current Condition Current Condition Evaluation Date 02/26/24 Treatment Diagnosis L hip fx s/p IM nailing; difficulty in walking Onset Date 02/24/24 M3 PT-IP Subjective Start: 02/26/24 13:14 Freq: NEEDED Status: Active Protocol: Document 02/28/24 11:24 ZF (Rec: 02/28/24 11:34 ZF [id number]) Subjective Physical Therapy Visit Type Type Treatment Note Visit Start Time 10:56 Visit Stop Time 11:06 Notes 10 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 Pt mumbling unintelligibly. Did clearly state at one point, My stomach feels like it's going to explode. Therapy Pain Assessment Pain When Pain Assessed At Rest Pain Present Pain Present Pain Reported Location abdomen Scale Used did not rate Description Aching,Burning,Pressure, Throbbing Pain Behaviors Facial Grimacing,Holding Area, Moaning,Restlessness,Wincing Pain Management Techniques Modification of Treatment,Re- positioning M4 PT-IP Mobility and Gait Start: 02/26/24 13:14 Freq: NEEDED Status: Active Protocol: Document 02/28/24 11:24 ZF (Rec: 02/28/24 11:34 ZF [id number]) PT-Bed Mobility Assessment Supine to Sit Supine to Sit Minimal Assistance,Moderate Assistance,1 Person Assistance Sit to Supine Sit to Supine Minimal Assistance,Moderate Assistance,1 Person Assistance Scooting Scooting to Edge of Bed Minimal Assistance Scooting Up and Down in Bed Minimal Assistance PT-Transfer Assessment Comments Mobility Comments Pt writhing in bed. Moaning and mumbling mostly unintelligbly about pain, holding stomach, at one point states, I feel like my stomach is going to explode. Pt sits EOB, with Sathya/ModA. Tolerates less than a min of sitting, before states that he wants to lie back down. Pt requires ModA for sitting EOB> supine, and scooting in bed. Reported pt's high level of pain and inability to participate with therapy to nursing, who is aware. M5 PT-IP Objective Assessments Start: 02/26/24 13:14 Freq: NEEDED Status: Active Protocol: Document 02/26/24 09:15 AB (Rec: 02/26/24 13:29 AB [id number]) Orientation Orientation/Cognition Level of Alertness Alert Orientation Name,Place,Situation Safety Awareness Decreased Safety Awareness Gross Range of Motion Lower Extremity ROM Assessment Within Functional Limits Impairments increase L hip guarding with movement Strength Lower Extremity Strength Assessment Left Impaired Hip 2+/5 Knee 3+/5 Sensation Assessment Sensation Gross Sensation WNL Muscle Tone Muscle Tone WNL Yes M6 PT-IP Treatment Start: 02/26/24 13:14 Freq: NEEDED Status: Active Protocol: Document 02/27/24 15:23 DLM (Rec: 02/27/24 15:37 DLM [id number]) Physical Therapy Treatment Exercises Exercises Ankle Pumps,Gluteal Sets,Quad Sets,Heel Slides,Supine Hip Abduction,Short Arc Quads Education Education Provided Precautions,Weight Bearing Status,Safety Other Treatments Other Treatment Performed he needs physical assistance to complete his exercises M7 PT-IP Assessment and Plan Start: 02/26/24 13:14 Freq: NEEDED Status: Active Protocol: Document 02/28/24 11:24 DENNY (Rec: 02/28/24 11:34 ZF [id number]) PT Summary Assessment and Plan Summary Impairments Pain,ROM,Strength,Balance, Coordination,Sensation,Tone, Cognition,Bed Mobility, Transfers,Gait,Activity Tolerance Progress Towards Goals Slow Progress due to Medical Issues,Slow Progress due to Activity Tolerance Assessment Summary Pt is distracted by significant abdominal pain today. Sits EOB briefly with Min/ModA, but needs to lie back down due to pain. Pt left w/call light on, pillow under L LE, bed alarm turned on. Goals Bed Mobility Goal Minimal Assistance Transfer Goal Minimal Assistance,Front Wheeled Walker Gait Goal Minimal Assistance,Front Wheel Walker Gait Distance 25 Other Goals improve bed mobility, transfers, ambulation using FWW ~ 150 ft mod I up/down 1 step using FWW mod I Days to Meet Goals 5 Frequency of Treatment Frequency Of Treatment Twice a Day Treatment Plan Physical Therapy Treatment Plan Bed Mobility Training,Transfer Training,Gait Training, Therapeutic Exercise,Balance Retraining,Post Op Education, Discharge Planning,Hot or Cold Pack,Neuromuscular Re-ed Precautions Other Precautions hip ORIF, monitor for orthostatic hypotension, monitor HR with activity, constipation problems post-op Weight Bearing Status Weight Bearing Status Weight Bear as Tolerated Recommendations To Nursing Amount of Assist Needed 1 Person Assist Discharge Recommendations PT Discharge Recommendations SNF Rehab Transportation Needs at Discharge Private Vehicle,Wheelchair/ Cabulance
[2024-02-28 12:00] VITALS: BP 122/74; PULSE 95; RESP 20; TEMP 36.4; O2SAT 95
--- NOTE | 2024-02-28 13:25 | PT-IP ANOTE ---
Pt declines therapy in PT, he is resting comfortably and asks to be left alone.
--- NOTE | 2024-02-28 14:43 | CM.DPC ---
DCP Cont: Per MD, pt continues to have abd pain from constipation even after multiple bowel regimens and to work more with PT/OT today. Pt had multiple doses of Ativan overnight and somewhat groggy today. Per PT/OT, pt made some progress today and sat in bedside chair and took a couple steps. Currently still recommending SNF as not safe to d/c to [facility] at this time. SW attempted the following discharge plans: [facility]- unlikely, but since denied at other SNFs they will review to determine if they would be willing to attempt one time [facility] auth. [facility]- full [facility]- declines [facility]- not contracted [facility]- no [facility]- has a few open beds and willing to review. Faxed referral to [phone] [facility]- has open bed and will review but if their census is high then they will only accept internal referrals. Faxed referral to [phone]. [facility]- cannot accept [facility] and also due to pt having no PCP [facility]-at capacity for [facility] and also due to pt having no PCP [facility]- no due to no PCP established. Plan: SW to follow closely for above [facility] and [facility] to review to determine if any can accept. Otherwise pt will need to progress with PT/OT for discharge back to [facility] with outpt services. Martina Graham
[2024-02-28 16:00] VITALS: RESP 20; TEMP 36.9; O2SAT 99
[2024-02-28 16:56] VITALS: BP 121/81; BP 86/58; PULSE 101; PULSE 116
[2024-02-28 17:18] LABS: Hemoglobin 7.7 g/dL (13.5-17.5)
--- NOTE | 2024-02-28 18:43 | PM.PNPO.1 ---
Subjective Subjective Interval history: Kaleb is a 58 year old male who is POD#3 s/p Intramedullary nailing of left intertrochanteric femur fracture by Dr. Sosa. Patient reports he fell crossing a parking lot to get to his truck on 02/24/24, he was seen in the ED where radiographs were taken demonstrating a left intertrochanteric femur fracture. He has a history of polysubstance abuse with recent methamphetamine use. This evening he reports he is miserable and that his left hip is very sore. He declined PT 1x today and states that his other PT session was not successful because he was in pain. He has had episodes of orthostatic hypotension, suspect d/t acute blood loss s/p orthopedic surgery. Most recent H&H was 7.9 and 23.4. He is on Aspirin for DVT prophylaxis. He has a urinary catheter in place. Lives alone but does state he lives in a single-level home with only 1 step up to the front door. Denies fever, chills, chest pain, shortness breath, nausea, vomiting. He complains of decreased appetite. Exam Vital Signs (past 8 hours): - 02/28/24 12:00 02/28/24 16:00 02/28/24 16:56 Temperature 97.5 F L 98.5 F Pulse Rate 95 H Pulse Rate [Orthostatic Lying] 101 H Pulse Rate [Orthostatic Sitting] 116 H Respiratory Rate 20 20 Blood Pressure 122/74 Blood Pressure [Orthostatic Lying] 121/81 Blood Pressure [Orthostatic Sitting] 86/58 L Pulse Oximetry 95 99 Oxygen Flow Rate 0 0 Fraction of Inspired Oxygen 28 SaO2/FiO2 Ratio 332 Oxygen Delivery Method Room Air Oxygen Flow Rate 0 Narrative Exam Narrative: Lying in bed during our interview today, no acute distress. Patient is very lethargic when I spoke with him this evening. His eyes drift from open to closed throughout our conversation. Not all words are understandable/audible. Resp Effort & Inspection: normal respiratory effort Cardio Other: Brisk capillary refill Extrem Other: Two left hip/leg surgical dressings intact, clean and dry without drainage. Gross sensation intact throughout the LLE. Calves soft and non-tender bilaterally. SCDs on and functioning. Ice packs in place on the left hip. 5/5 strength with DF, PF, EHL bialterally. Objective Labs 02/28/24 17:10 02/28/24 05:43 Labs: Laboratory Results - last 24 hr 02/28/24 02/28/24 05:43 17:10 WBC 9.0 RBC 2.68 L Hgb 7.9 L 7.7 L Hct 23.4 L MCV 87.3 MCH 29.6 MCHC 33.9 RDW 13.4 Plt Count 257 Neut % (Auto) 64.2 Lymph % (Auto) 20.3 L [place] % (Auto) 13.1 Eos % (Auto) 1.9 L Baso % (Auto) 0.5 Neut # (Auto) 5800 Lymph # (Auto) 1800 [place] # (Auto) 1200 H Eos # (Auto) 200 Baso # (Auto) 0 Sodium 134 L Potassium 3.7 Chloride 97 L Carbon Dioxide 32 BUN 26 H Creatinine 0.73 Estimated GFR > 60 BUN/Creatinine Ratio 35.6 H Glucose 118 H Calcium 8.0 L Magnesium 2.5 H PFSH Medical History History of cocaine abuse 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 May need d/c to SNF due to lack of support at home and poor mobilization post-operatively. 2) continue multimodal pain management with ice to the hip for additional pain control. 3) Continue ASA 81mg BID for DVT prophylaxis for 4 weeks. 4) Keep dressing intact, clean and dry until 2 week post-op appointment. No soaking the incision site in pools or tubs. No topical ointments or creams to the incision site. 5) Follow up at [facility] in 2 weeks for wound check and dressing change.
[2024-02-28 20:15] VITALS: BP 106/75; PULSE 110; RESP 18; TEMP 37.2; O2SAT 92
[2024-02-28] MEDS: SENNOSIDES 8.6 MG TABLET 17.2 MG PO (20:37)
[2024-02-28] MEDS: OXYCODONE IR 10 MG TABLET PO (22:19)
[2024-02-29] VITALS (13 sets, daily range): BP systolic 93–128; BP diastolic 57–83; PULSE 79–105; RESP 14–18; TEMP 36.2–36.9; O2SAT 94–97
--- NOTE | 2024-02-29 | DI.CT.S_ITS ---
PROCEDURE: CT HIP LEFT WITHOUT CON INDICATIONS: Pain TECHNIQUE: Noncontrast 3 mm axial sections acquired through the bony pelvis. Additional 3 mm axial sections acquired through the symptomatic hip joint, with coronal and sagittal reformats. COMPARISON: [facility], CR, XR HIP W PEL IF DONE LT 2V, 02/24/2024, 15:42. [facility], CR, XR HIP W PEL IF DONE LT 2V, 02/25/2024, 19:03. FINDINGS: Image quality: Excellent. Bones: Patient is status post internal fixation of left femoral shaft with intramedullary edna and surgical screws in place. Comminuted intertrochanteric fracture of proximal femur is again seen. No gross hardware loosening or failure is noted. No new fracture or dislocation is seen. Bilateral hip joint osteoarthritic changes are noted. No evidence of avascular necrosis of femoral head. Soft tissues: There is asymmetrically enlarged left gluteus medius muscle with suggestion of large intramuscular hematoma and surrounding edema measures up to 4.3 x 4.4 x 6.8 cm in size series 7, image 36. There is also a large hematoma in soft tissue over lateral aspect of pelvis over D gluteus medius muscle and measures up to 6.8 x 4.4 cm in AP and transverse dimensions series 7, image 26. Intramuscular hematoma and pockets of air is seen in lateral upper thigh muscles best seen on series 7 images 82 through 90. Haro catheter is seen in a partially distended urinary bladder. Fluid distended bowel loops throughout visualized portion of lower abdomen and pelvis is seen concerning for ileus. No gross peritoneal free air. IMPRESSION: 1. Patient is status post ORIF of left proximal femur with surgical hardware in place. No new fracture or dislocation. No gross hardware loosening or failure. 2. Large intramuscular hematoma in lateral gluteus medius muscle and in lateral thigh soft tissue as described above likely represent postsurgical changes. 3. Additional intramuscular hematoma and pockets of air within lateral upper thigh muscles at the level of surgical hardware likely represent postsurgical changes. 4. No peritoneal free fluid or free air. Air distended bowel loops with multiple air-fluid levels concerning for ileus suggest clinical correlation. Dictated by: Alf Villanueva M.D. on 02/29/2024 at 15:55 Approved by: Alf Villanueva M.D. on 02/29/2024 at 16:06
[2024-02-29] MEDS: BISACODYL 10 MG SUPP PR (01:14)
--- NOTE | 2024-02-29 08:29 | P.PN_ITS ---
Subjective Subjective Date Patient Seen: 02/29/24 Time Patient Seen: 08:29 Interval history: Patient is found lying in bed. States that he has little pain. Denies any numbness or tingling down his lower extremities. Denies any shortness of breath. Exam Vital Signs (past 8 hours): - 02/29/24 00:45 02/29/24 00:50 02/29/24 04:25 Temperature 98.3 F 98.2 F Pulse Rate 97 H 96 H Pulse Rate [Orthostatic Lying] 82 Pulse Rate [Orthostatic Sitting] 105 H Respiratory Rate 18 18 Blood Pressure 119/74 105/65 Blood Pressure [Orthostatic Lying] 119/74 Blood Pressure [Orthostatic Sitting] 128/83 Pulse Oximetry 94 94 Oxygen Flow Rate 0 0 Fraction of Inspired Oxygen 28 SaO2/FiO2 Ratio 332 Oxygen Delivery Method Room Air Oxygen Flow Rate 0 Narrative Exam Narrative: SCDs found off the patient. They were reapplied to the calves bilaterally after examination. Patient mumbles throughout his examination but responds to questions. Notable ecchymosis bordering the incision site over the greater trochanter. Mild tenderness to palpation. Pain elected with limited internal and external rotation of the hip. Blood is seeping through the dressing. Objective Labs 02/29/24 08:17 02/29/24 08:17 Labs: Laboratory Results - last 24 hr 02/28/24 17:10 Hgb 7.7 L PFSH Medical History History of cocaine abuse 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 Assessment & Plan Post-op Postoperative Procedures: Procedures Operation Date: 02/25/24 19:45 Actual Procedure Side Surgeon p Intramedullary Nailing Femur Left Roberto Sosa MD Postoperative day: 4 Postoperative status: anemia Postoperative plan narrative: Hgb is 7.7 this morning compared to 7.9 yesterday and after 1 unit of blood. With the Hgb not correcting and the notable amount of ecchymosis over the wound site, ordering a CT of the left hip. Weight bearing as tolerated, continue to work with PT to improve strength and mobility. May need d/c to SNF due to lack of support at home and poor mobilization post-operatively. Continue multimodal pain management with ice to the hip for additional pain control. SCDs on calves bilaterally while patient is in bed. Continue ASA 81mg BID for DVT prophylaxis for 6 weeks. Change dressing today. Keep dressing intact, clean and dry until 2 week post-op appointment. No soaking the incision site in pools or tubs. No topical ointments or creams to the incision site. Follow up at [facility] in 2 weeks for wound check and dressing change.
[2024-02-29 08:34] LABS: Add Manual Diff / Slide Review NO; Basophils Absolute Auto 100 /uL (0-100); Basophils Percent Auto 0.6 % (0-2); Eosinophils Absolute Auto 300 /uL (0-450); Eosinophils Percent Auto 3.1 % (2-4); Lymphocytes Absolute Auto 1000 /uL (1100-4500); Lymphocytes Percent Auto 12.4 % (25-40); Mean Corpuscular HGB Conc 33.9 % (30-36); Mean Corpuscular Volume 88.7 fL (80-100); Monocytes Absolute Auto 1200 /uL (0-900); Monocytes Percent Auto 14.4 % (3-14); Neutrophils Absolute Auto 5800 /uL (1500-7000); Neutrophils Percent Auto 69.5 % (50-75); Platelet Count 253 X10^3/uL (150-400); Red Blood Cell Count 2.06 X10^6/uL (4.5-5.9); Red Cell Distribution Width 13.3 % (11.6-14.8); White Blood Cell Count 8.3 X10^3/uL (4.5-11.0)
[2024-02-29 08:40] LABS: Hematocrit 18.2 % (41-53); Hemoglobin 6.2 g/dL (13.5-17.5)
[2024-02-29 08:44] LABS: BUN Creatinine Ratio 35.3 (6-22); Blood Urea Nitrogen 24 mg/dL (9-20); Calcium 7.5 mg/dL (8.4-10.2); Carbon Dioxide 30 mmol/L (22-32); Chloride 101 mmol/L (98-107); Estimated Glomerular Filt Rate > 60 mL/min (>60); Glucose 106 mg/dL (70-100); HEMOLYSIS < 15 (0-50); Sodium 132 mmol/L (137-145)
[2024-02-29] MEDS: LACTULOSE 20 GM/30 ML SOLUTION PO (08:58)
[2024-02-29] MEDS: SODIUM CHLORIDE 0.9% FLUSH 10 ML IV ×2 (08:58→20:21)
[2024-02-29] MEDS: polyethylene glycoL 3350 17 GM POWD.PACK PO (08:58)
[2024-02-29 09:28] LABS: INR 1.1 (0.9-1.3); Prothrombin Time 12.7 SECONDS (9.4-12.5)
--- NOTE | 2024-02-29 11:24 | DIET.CONS2 ---
Dietary Inpatient Consultation Note Admission Date: 02/24/2024 16:42 58 y M presented after ground level fall. Surgery performed 02/24 for left femur fracture. Nutrition screened for LOS day 5. Chart reviewed. Pt's diet was advanced to general for lunch today. No nutrition intervention needed at this time, but will monitor po intakes and f/u if intakes are inadequate. Diet: 02/29/24 Lunch General (Regular) Diet Diet Modifications: Food Texture: Level 7 - Regular Liquid Consistency: Level 0 - Thin Nutrition Percent Meal Consumed 0% 02/28/24 18:41 Percent Meal Consumed 0% 02/28/24 17:00 Percent Meal Consumed pt ref lunch 02/27/24 12:00 Electronically Signed by: Tamika Post 02/29/24 11:24 Clinical Dietitian [address] [id number]
--- NOTE | 2024-02-29 11:47 | OT.IPNOTE ---
Pt having low HH and receiving blood, hold from OT.
--- NOTE | 2024-02-29 12:47 | CM.DPC ---
DCP Cont. Reviewed EMR and team rounds for status updates. Pt required 2-more units of blood today, will likely be ready for d/c by tomorrow or the next day. Derrek declines his referral, AMANUEL is reviewing and has submitted an auth. Monitoring for response.
--- NOTE | 2024-02-29 13:34 | P.PN_ITS ---
Subjective Subjective Interval history: Hgb dropped to 6.2 overnight from 7.7. Presumed due to hematoma in L hip. Ortho ordering CT of left hip. 2 units PRBC ordered and aspirin held. Patient still hasn't had a BM, but says he feels better today and abd pain is gone. He wants to have a regular diet. Exam Vital Signs (past 8 hours): - 02/29/24 08:00 02/29/24 10:07 02/29/24 10:26 Temperature 98.0 F 98.2 F 97.9 F Pulse Rate 80 83 79 Respiratory Rate 16 14 14 Blood Pressure 99/62 110/70 100/59 L Pulse Oximetry 96 Oxygen Flow Rate 0 02/29/24 11:47 02/29/24 12:41 02/29/24 12:57 Temperature 97.8 F 98.4 F 98.2 F Pulse Rate 95 H 81 86 Respiratory Rate 16 14 14 Blood Pressure 120/70 93/57 L 96/62 Pulse Oximetry 97 Oxygen Flow Rate 0 02/29/24 13:16 Temperature 98.0 F Pulse Rate 84 Respiratory Rate 14 Blood Pressure 101/60 Pulse Oximetry Oxygen Flow Rate Fraction of Inspired Oxygen 28 SaO2/FiO2 Ratio 332 Oxygen Delivery Method Room Air Oxygen Flow Rate 0 Narrative Exam Narrative: NAD RRR no m/r/g pulm CTA B/l Abd: S b/l lower quadrant tenderness, stable mild distension. Ext: no edema, L hip with swelling and bruising Objective Labs 02/29/24 08:17 02/29/24 08:17 Labs: Laboratory Results - last 24 hr 02/28/24 02/29/24 02/29/24 17:10 08:17 08:52 WBC 8.3 RBC 2.06 L Hgb 7.7 L 6.2 L* Hct 18.2 L* MCV 88.7 MCH 30.0 MCHC 33.9 RDW 13.3 Plt Count 253 Neut % (Auto) 69.5 Lymph % (Auto) 12.4 L [place] % (Auto) 14.4 H Eos % (Auto) 3.1 Baso % (Auto) 0.6 Neut # (Auto) 5800 Lymph # (Auto) 1000 L [place] # (Auto) 1200 H Eos # (Auto) 300 Baso # (Auto) 100 PT 12.7 H INR 1.1 Sodium 132 L Potassium 4.0 Chloride 101 Carbon Dioxide 30 BUN 24 H Creatinine 0.68 Estimated GFR > 60 BUN/Creatinine Ratio 35.3 H Glucose 106 H Calcium 7.5 L Blood Type AB Positive Antibody Screen Negative Crossmatch See Detail PFSH Medical History History of cocaine abuse 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 Left hip fracture, present on admission and active. 2. Methamphetamine abuse, present on admission and active. 3. dilated large and small bowel 4. orthostatic hypotension, improving 5. acute blood loss anemia from surgical procedure and post operative hematoma. 6. Agitation, will use haldol PRN and avoid ativan if possible Plan: -f/up CT left hip, 2 units PRBC ordered, aspirin held due to drop in Hgb, recheck Hgb at 1700 -pain management, PT/OT, qshift orthostatics -orthostasis likely due to blood loss anemia, anesthesia -abd XR with dilated small and large bowel. CT no obstruction or volvulus, incidental left hip hematoma from surgical procedure. -no additional management, transfuse for Hg <7 for left hip hematoma and monitor while on BID aspirin for DVT proph -continue enema for constipation, gave relistor to see if resumption of bowel function possibly opiate related. Discussed with surgery, if continues to be refractory can consider neostigmine as well. -trial lactulose, advance diet to regular He is full resuscitation, confirmed. No proxy decision selected after discussion. 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 2 days to stabilize Hgb and work with therapies. Time Spent With Patient Time with patient: 30 to 49 minutes with 50% spent counseling/coordinating care
--- NOTE | 2024-02-29 13:59 | PT-IP ANOTE ---
Pt is not appropriate for PT at this time. Pt is receiving blood transfusion and is currently in imaging. PT will check on pt tomorrow.
[2024-02-29] MEDS: ACETAMINOPHEN 325 MG TABLET 650 MG PO (14:14)
[2024-02-29] MEDS: OXYCODONE IR 5 MG TABLET PO (14:15)
[2024-02-29 17:58] LABS: Hemoglobin 7.8 g/dL (13.5-17.5)
[2024-02-29] MEDS: SENNOSIDES 8.6 MG TABLET 17.2 MG PO (20:20)
[2024-02-29] MEDS: TRAMADOL 50 MG TABLET PO (20:20)
[2024-03-01] VITALS (7 sets, daily range): BP systolic 94–138; BP diastolic 49–83; PULSE 65–106; RESP 16–17; TEMP 36.1–37.1; O2SAT 94–99
[2024-03-01] MEDS: CYCLOBENZAPRINE 10 MG TABLET PO ×2 (01:25→20:39)
[2024-03-01] MEDS: TRAMADOL 50 MG TABLET PO ×4 (03:07→21:03)
[2024-03-01 06:17] LABS: Add Manual Diff / Slide Review NO; Basophils Absolute Auto 0 /uL (0-100); Basophils Percent Auto 0.5 % (0-2); Eosinophils Absolute Auto 300 /uL (0-450); Eosinophils Percent Auto 3.2 % (2-4); Hemoglobin 7.7 g/dL (13.5-17.5); Lymphocytes Absolute Auto 1200 /uL (1100-4500); Lymphocytes Percent Auto 13.9 % (25-40); Mean Corpuscular HGB Conc 33.5 % (30-36); Mean Corpuscular Hemoglobin 29.3 PG (26-34); Mean Corpuscular Volume 87.4 fL (80-100); Monocytes Absolute Auto 1100 /uL (0-900); Monocytes Percent Auto 13.2 % (3-14); Neutrophils Absolute Auto 5800 /uL (1500-7000); Neutrophils Percent Auto 69.2 % (50-75); Platelet Count 289 X10^3/uL (150-400); Red Blood Cell Count 2.63 X10^6/uL (4.5-5.9); Red Cell Distribution Width 13.8 % (11.6-14.8); White Blood Cell Count 8.4 X10^3/uL (4.5-11.0)
[2024-03-01 06:25] LABS: BUN Creatinine Ratio 26.5 (6-22); Blood Urea Nitrogen 18 mg/dL (9-20); Calcium 7.8 mg/dL (8.4-10.2); Carbon Dioxide 29 mmol/L (22-32); Chloride 100 mmol/L (98-107); Estimated Glomerular Filt Rate > 60 mL/min (>60); Glucose 105 mg/dL (70-100); HEMOLYSIS < 15 (0-50); Potassium 4.1 mmol/L (3.4-5.1); Sodium 132 mmol/L (137-145)
--- NOTE | 2024-03-01 06:31 | PM.PNPO.1 ---
Subjective Subjective Date Patient Seen: 03/01/24 Time Patient Seen: 06:31 Interval history: Pt lying in bed, awake on my visit this morning, says he feels 'terrible' due to gas pain and bloating. Has not had a BM yet, but feels he will soon. Has been working w/ PT; per CM notes, it appears they are working on SNF placement. H/H responded appropriately to [address] Review of CT of the hip demonstrates expected hematoma formation. Exam Vital Signs (past 8 hours): - 03/01/24 00:00 03/01/24 04:55 Temperature 98.7 F Pulse Rate 92 H Pulse Rate [Orthostatic Lying] 102 H Pulse Rate [Orthostatic Sitting] 90 Pulse Rate [Orthostatic Standing] 106 H Respiratory Rate 17 Blood Pressure 110/70 Blood Pressure [Orthostatic Lying] 118/72 Blood Pressure [Orthostatic Sitting] 108/64 Blood Pressure [Orthostatic Standing] 109/62 Pulse Oximetry 94 Oxygen Flow Rate 0 Fraction of Inspired Oxygen 28 SaO2/FiO2 Ratio 332 Oxygen Delivery Method Room Air Oxygen Flow Rate 0 Narrative Exam Narrative: 5/5 strength in hip flexors, quadriceps, hamstrings, DF, PF, EHL on left. Sensation to light touch intact throughout LLE. Calf soft, compressible, nontender. Dressings have been changed since surgery and are currently CDI. Objective Labs 03/01/24 05:31 03/01/24 05:31 Labs: Laboratory Results - last 24 hr 02/29/24 02/29/24 02/29/24 08:17 08:52 17:43 WBC 8.3 RBC 2.06 L Hgb 6.2 L* 7.8 L Hct 18.2 L* MCV 88.7 MCH 30.0 MCHC 33.9 RDW 13.3 Plt Count 253 Neut % (Auto) 69.5 Lymph % (Auto) 12.4 L [place] % (Auto) 14.4 H Eos % (Auto) 3.1 Baso % (Auto) 0.6 Neut # (Auto) 5800 Lymph # (Auto) 1000 L [place] # (Auto) 1200 H Eos # (Auto) 300 Baso # (Auto) 100 PT 12.7 H INR 1.1 Sodium 132 L Potassium 4.0 Chloride 101 Carbon Dioxide 30 BUN 24 H Creatinine 0.68 Estimated GFR > 60 BUN/Creatinine Ratio 35.3 H Glucose 106 H Calcium 7.5 L Blood Type AB Positive Antibody Screen Negative Crossmatch See Detail 03/01/24 05:31 WBC 8.4 RBC 2.63 L Hgb 7.7 L Hct 23.0 L MCV 87.4 MCH 29.3 MCHC 33.5 RDW 13.8 Plt Count 289 Neut % (Auto) 69.2 Lymph % (Auto) 13.9 L [place] % (Auto) 13.2 Eos % (Auto) 3.2 Baso % (Auto) 0.5 Neut # (Auto) 5800 Lymph # (Auto) 1200 [place] # (Auto) 1100 H Eos # (Auto) 300 Baso # (Auto) 0 PT INR Sodium 132 L Potassium 4.1 Chloride 100 Carbon Dioxide 29 BUN 18 Creatinine 0.68 Estimated GFR > 60 BUN/Creatinine Ratio 26.5 H Glucose 105 H Calcium 7.8 L Blood Type Antibody Screen Crossmatch [facility] Medical History History of cocaine abuse 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 2) Continue work w/ PT, WBAT to LLE. F/u in ortho in 2 weeks for wound check, in 6 weeks w/ Dr Sosa for repeat imaging. 3) Disposition, pain management per hospitalist service. Postoperative Procedures: Procedures Operation Date: 02/25/24 19:45 Actual Procedure Side Surgeon p Intramedullary Nailing Femur Left Roberto Sosa MD Postoperative day: 5
[2024-03-01] MEDS: polyethylene glycoL 3350 17 GM POWD.PACK PO (08:44)
[2024-03-01] MEDS: SODIUM CHLORIDE 0.9% FLUSH 10 ML IV (08:44)
[2024-03-01] MEDS: LACTULOSE 20 GM/30 ML SOLUTION PO (08:44)
[2024-03-01] MEDS: ACETAMINOPHEN 325 MG TABLET 650 MG PO ×2 (08:45→14:22)
--- NOTE | 2024-03-01 10:01 | PT.IPTN ---
Current Diagnoses Fracture of unspecified part of neck of left femur, initial encounter for closed fracture (02/24/24) Displaced intertrochanteric fracture of left femur, initial encounter for closed fracture (02/24/24) Surgery Performed Operation Date: 02/25/24 19:45 Actual Procedures p Intramedullary Nailing Femur(Left) - Roberto Sosa MD Physical Therapy Treatment Note M2 PT-IP Current Condition Start: 02/26/24 13:14 Freq: NEEDED Status: Active Protocol: Document 02/26/24 09:15 AB (Rec: 02/26/24 13:29 AB [id number]) Physical Therapy Current Condition Current Condition Evaluation Date 02/26/24 Treatment Diagnosis L hip fx s/p IM nailing; difficulty in walking Onset Date 02/24/24 M3 PT-IP Subjective Start: 02/26/24 13:14 Freq: NEEDED Status: Active Protocol: Document 03/01/24 10:30 TS (Rec: 03/01/24 10:44 TS [id number]) Subjective Physical Therapy Visit Type Type Treatment Note Visit Start Time 10:01 Visit Stop Time 10:27 Notes Vitals: BP 138/81 sitting, 122 /64 & 98/49 standing, 129/78 sitting. Number of ORTHOTIST/PROSTHETIST Visits 2 Physical Therapy Visit Comments Patient Comments Pt found on commode, is agreeable to PT. Therapy Pain Assessment Pain When Pain Assessed During Mobility Pain Present Pain Present Pain Reported Location Left Hip Intensity 7 Scale Used Numeric (0 - 10) Description Aching Pain Behaviors Facial Grimacing Pain Management Techniques Apply Cold,Modification of Treatment,Re-positioning, Timing of Activity with Medications M4 PT-IP Mobility and Gait Start: 02/26/24 13:14 Freq: NEEDED Status: Active Protocol: Document 03/01/24 10:30 TS (Rec: 03/01/24 10:44 TS [id number]) PT-Transfer Assessment Sit to and From Stand Sit to and from Stand Contact Guard Assistance,1 Person Assistance,Use of Upper Extremities Equipment Transfer Assistive Device Gait Belt,Front Wheeled Walker Orthotic/Prosthetic Devices or Brace: No Comments Mobility Comments STS from commode CGA with cues for pushing form arms of commode, OT assisting pt with pericare. pt ambulated to chair, sat down for vitals check. BP in sitting 138/81. STS from chair CGA with BUE support pushing from arms of chair. BP in standing 122/64, pt reports a small amount of lightheadedness. He ambulated in room ~30'CGA/CGA, BP check again in standing 98/49, pt continues to report some lightheadedness. Pt was left with OT in room, all needs met . Gait Assessment Gait Gait Assistance Required: Standby Assistance,Contact Guard Assist Distance (Feet) 40 Able to Maintain Weight Bearing Status Yes During Gait Assistive Devices Assistive Device Gait Belt,Front Wheeled Walker Orthotic/Prosthetic Devices or Brace: No Gait Deviations General Gait Pattern Antalgic,Decreased Stride Length,Flexed Trunk,Step-to Gait Factors Limiting Gait Function Factors Limiting Gait Function Decreased Activity Tolerance, Decreased Strength,Limited Range of Motion,Pain,Poor Balance Comments Gait Comments See mobility comments PT-Balance Assessment Sitting Balance and Reactions Static Sitting Balance Ability Good Dynamic Sitting Balance Ability Good Standing Balance and Reactions Static Standing Balance Ability Fair Dynamic Standing Balance Ability Fair Device Used FWW M5 PT-IP Objective Assessments Start: 02/26/24 13:14 Freq: NEEDED Status: Active Protocol: Document 02/26/24 09:15 AB (Rec: 02/26/24 13:29 AB [id number]) Orientation Orientation/Cognition Level of Alertness Alert Orientation Name,Place,Situation Safety Awareness Decreased Safety Awareness Gross Range of Motion Lower Extremity ROM Assessment Within Functional Limits Impairments increase L hip guarding with movement Strength Lower Extremity Strength Assessment Left Impaired Hip 2+/5 Knee 3+/5 Sensation Assessment Sensation Gross Sensation WNL Muscle Tone Muscle Tone WNL Yes M6 PT-IP Treatment Start: 02/26/24 13:14 Freq: NEEDED Status: Active Protocol: Document 03/01/24 10:30 TS (Rec: 03/01/24 10:44 TS [id number]) Physical Therapy Treatment Education Education Provided Precautions,Weight Bearing Status,Safety M7 PT-IP Assessment and Plan Start: 02/26/24 13:14 Freq: NEEDED Status: Active Protocol: Document 03/01/24 10:30 TS (Rec: 03/01/24 10:44 TS [id number]) PT Summary Assessment and Plan Summary Impairments Pain,ROM,Strength,Balance, Coordination,Sensation,Tone, Cognition,Bed Mobility, Transfers,Gait,Activity Tolerance Progress Towards Goals Progressing Toward Goals Assessment Summary Suman is making some progress with his mobility this session . He is CGA for STS x2 with use of FWW. He requires cues for proper STS technique. He progressed his gait to ~40CGA/ SBA with FWW. His BP continues to drop, see vitals above. He reports a small amount of lightheadedness with mobility. PT will continue to recommend SNF for improving activity tolerance, strength and functional mobility. Goals Bed Mobility Goal Minimal Assistance Transfer Goal Minimal Assistance,Front Wheeled Walker Gait Goal Minimal Assistance,Front Wheel Walker Gait Distance 25 Other Goals improve bed mobility, transfers, ambulation using FWW ~ 150 ft mod I up/down 1 step using FWW mod I Days to Meet Goals 5 Frequency of Treatment Frequency Of Treatment Twice a Day Treatment Plan Physical Therapy Treatment Plan Bed Mobility Training,Transfer Training,Gait Training, Therapeutic Exercise,Balance Retraining,Post Op Education, Discharge Planning,Hot or Cold Pack,Neuromuscular Re-ed Weight Bearing Status Weight Bearing Status Weight Bear as Tolerated Recommendations To Nursing Amount of Assist Needed 1 Person Assist Discharge Recommendations PT Discharge Recommendations SNF Rehab Transportation Needs at Discharge Private Vehicle,Wheelchair/ Cabulance
--- NOTE | 2024-03-01 11:13 | OT.IP.TRT ---
Current Diagnoses Fracture of unspecified part of neck of left femur, initial encounter for closed fracture (02/24/24) Displaced intertrochanteric fracture of left femur, initial encounter for closed fracture (02/24/24) Surgery Performed Operation Date: 02/25/24 19:45 Actual Procedures p Intramedullary Nailing Femur(Left) - Roberto Sosa MD Occupational Therapy Treatment Note M2 OT-IP Current Condition Start: 02/28/24 10:17 Freq: Status: Active Protocol: Document 02/28/24 10:17 CGR (Rec: 02/28/24 10:31 CGR [id number]) Occupational Therapy Current Condition Current Condition Evaluation Date 02/28/24 Treatment Diagnosis GLF, L hip fx s/p IM nailing now with small bowel distention Diagnosis Onset Date 02/24/24 Weight Bearing Status Weight Bearing Status Weight Bear as Tolerated M3 OT- IP Subjective and Pain Start: 02/28/24 10:17 Freq: Status: Active Protocol: Document 03/01/24 11:01 [facility] (Rec: 03/01/24 11:13 [facility] [id number]) OT- Subjective Occupational Therapy Visit Type Type Treatment Note Visit Start Time 10:01 Visit Stop Time 10:40 Occupational Therapy Visit Comments Patient Comments Pt on the BSC when OT came to work with the pt. Patient/Caregiver Goals TO get better. OT Pain Assessment Pain When Pain Assessed During Mobility Pain Present Pain Present Pain Reported Location Left Hip Intensity 8 M4 OT- IP ADL's Start: 02/28/24 10:17 Freq: Status: Active Protocol: Document 03/01/24 11:01 [facility] (Rec: 03/01/24 11:13 [facility] [id number]) OT [id number] Comments OT Self-Feeding Comments not meal time OT ADL-Grooming General Evaluation Grooming Ability Standby Assistance Comments OT Grooming Comments Able to do while standing the sink with FWW. OT ADL-Oral Care General Eval Oral Care Ability Standby Assistance Comments Oral Care Comments Able to do while standng at the sink with FWW. OT ADL-Dressing General Eval Lower Body Dressing Ability Minimal Assistance,Maximum Assistance Areas Needing Assistance Underpants/Brief,Socks Comments OT Dressing Comments Able to practice use of sock aid and restaurant service manager so able to be more independent with LB dressing needs. Pt still having difficulty to raise his LLE up and needing assist. Suggested pt have someone go to [employer] to gather equipment needs for him. OT ADL-Toileting General Evaluation Toileting Ability Moderate Assistance Areas Needing Assistance Manage Clothing,Perform Perineal Hygiene Comments OT Toileting Comments Assist to get his brief over his feet and assist for completeness of hygiene. BSC will be beneficial to pt to obtain. OT ADL-Bathing Comments OT Bathing Comments not performed M6 OT- IP Functional Cognition Start: 02/28/24 10:17 Freq: Status: Active Protocol: Document 03/01/24 11:01 [facility] (Rec: 03/01/24 11:13 [facility] [id number]) Cognitive Factors Limiting Selfcare Function Cognitive Ability Level of Alertness Alert Patient Orientation Name,Place,Situation Attention Span Ability Capable of Focused Attention, Capable of Sustained Attention Ability to Follow Commands Able to Follow One Step Commands Cognitive Comments Cognitive Assessment Comments Pt able to follow commands for ADL and mobility needs. M7 OT- IP Mobility and Balance Start: 02/28/24 10:17 Freq: Status: Active Protocol: Document 03/01/24 11:01 [facility] (Rec: 03/01/24 11:13 [facility] [id number]) OT-Transfer Assessment Sit to and From Stand Sit to and from Stand Contact Guard Assistance, Minimal Assistance,Moderate Assistance Transfers Transfer Ability Contact Guard Assistance Technique Transfer Destination Bedside Commode,Chair Transfer Technique Stand Step Pivot Devices Transfer Assistive Devices Gait Belt,Front Wheeled Walker Comments Mobility Comments Pending of height of surfaces and pt needing CGA to MODA to stand. Once on his feet with the FWW is CGA. Pt will benefit from a tall FWW to use at home. OT- Balance Assessment Sitting Balance and Reactions Static Sitting Balance Ability Good Dynamic Sitting Balance Ability Good Standing Balance and Reactions Static Standing Balance Ability Fair Dynamic Standing Balance Ability Fair M8 OT- IP Objective Assessments Start: 02/28/24 10:17 Freq: Status: Active Protocol: Document 02/28/24 10:17 CGR (Rec: 02/28/24 10:31 [facility] [id number]) OT Gross Range of Motion Upper Extremity Range of Motion Assessment Within Functional Limits OT Strength Upper Extremity Strength Assessment Within Functional Limits Comments Strength Comments grossly 5-/5 OT- Coordination Assessment Upper Extremity Finger to Nose Test Bilateral UE Impaired Finger Tapping Test Bilateral UE Impaired Comments Coordination Comments pt not able to perform simple coordination tasks on this date. OT-Muscle Tone Assessment Muscle Tone WNL Yes OT Sensation Assessment Edema Edema Present Edema Comments L hip area M9 OT- IP Assessment and Plan Start: 02/28/24 10:17 Freq: Status: Active Protocol: Document 03/01/24 11:01 [facility] (Rec: 03/01/24 11:13 [facility] [id number]) OT Summary Assessment and Plan Potential Rehabilitation Potential Good Analytic Complexity at Evaluation High Summary OT Impairments Pain,Balance,Coordination, Functional Cognition, Functional Mobility,Self- Feeding,Grooming,Dressing, Toileting,Bathing,Toilet Transfers,Shower Transfers, Activity Tolerance Progress Towards Goals Progressing Toward Goals Assessment Summary Pt doing much better however still HH numbers running low 7 .7 and 23.0, even after blood transfusion. Pt complaining of being dizzy during transition and BP dropped. BP sitting 138/81, standing 122/64 and after walking in the room 98/ 49, and back in sitting 129/78 . Pt will greatly benefit from skilled rehab to improve his independence with mobility and ADL needs. Goals Self-Feeding Goal Independent Grooming Goal Independent Dressing Goal Independent Toileting Goal Independent Bathing Goal Independent Toilet Transfer Goal Independent Shower Transfer Goal Independent Days to Meet Goals 14 Frequency of Treatment Frequency Of Treatment Once a Day Treatment Plan OT Treatment Plan ADL Training,Functional Cognition Training,Functional Mobility,Patient/Family Education,Discharge Planning Other Treatment Recommendations and Next shower Treatment Focus Discharge Recommendations OT Discharge Recommendations SNF Rehab Home Equipment Needs BSC, LB dresing equipment, tall FWW Transportation Needs at Discharge Wheelchair/Cabulance
[2024-03-01] MEDS: SODIUM CHLORIDE 0.9% 1,000 ML 100 ML IV ×2 (11:52→21:47)
--- NOTE | 2024-03-01 12:36 | PT.IPTN ---
Current Diagnoses Fracture of unspecified part of neck of left femur, initial encounter for closed fracture (02/24/24) Displaced intertrochanteric fracture of left femur, initial encounter for closed fracture (02/24/24) Surgery Performed Operation Date: 02/25/24 19:45 Actual Procedures p Intramedullary Nailing Femur(Left) - Roberto Sosa MD Physical Therapy Treatment Note M2 PT-IP Current Condition Start: 02/26/24 13:14 Freq: NEEDED Status: Active Protocol: Document 02/26/24 09:15 AB (Rec: 02/26/24 13:29 AB [id number]) Physical Therapy Current Condition Current Condition Evaluation Date 02/26/24 Treatment Diagnosis L hip fx s/p IM nailing; difficulty in walking Onset Date 02/24/24 M3 PT-IP Subjective Start: 02/26/24 13:14 Freq: NEEDED Status: Active Protocol: Document 03/01/24 14:08 TS (Rec: 03/01/24 14:18 TS [id number]) Subjective Physical Therapy Visit Type Type Treatment Note Visit Start Time 12:36 Visit Stop Time 13:00 Number of CEMENT LOADER Visits 3 Physical Therapy Visit Comments Patient Comments Pt was found in chair, agreeable to PT. Therapy Pain Assessment Pain When Pain Assessed During Mobility Pain Present Pain Present Pain Reported M4 PT-IP Mobility and Gait Start: 02/26/24 13:14 Freq: NEEDED Status: Active Protocol: Document 03/01/24 14:08 TS (Rec: 03/01/24 14:18 TS [id number]) PT-Transfer Assessment Sit to and From Stand Sit to and from Stand Contact Guard Assistance,1 Person Assistance Equipment Transfer Assistive Device Gait Belt,Front Wheeled Walker Orthotic/Prosthetic Devices or Brace: No Comments Mobility Comments Pt recline din chair, BP 107/ 68. Pt sat up at edge of chair BP in sitting 116/72. STS from chair CGA with FWW, pt demonstrates good STS technique. BP standing 126/66, pt denied lightheadedness. Pt ambulated ~10'SBA with FWW with antalgic step to gait, pt reports higher pain this afternoon and requested back to chair. Pt performed quad sets, glute sets, heel slides and ankle pumps. PT was left in chair, all needs met. Gait Assessment Gait Gait Assistance Required: Standby Assistance,Contact Guard Assist Distance (Feet) 10 Able to Maintain Weight Bearing Status Yes During Gait Assistive Devices Assistive Device Gait Belt,Front Wheeled Walker Orthotic/Prosthetic Devices or Brace: No Gait Deviations General Gait Pattern Antalgic,Decreased Stride Length,Flexed Trunk,Step-to Gait Factors Limiting Gait Function Factors Limiting Gait Function Decreased Activity Tolerance, Decreased Strength,Limited Range of Motion,Pain,Poor Balance Comments Gait Comments See mobility comments PT-Balance Assessment Sitting Balance and Reactions Static Sitting Balance Ability Good Dynamic Sitting Balance Ability Good Standing Balance and Reactions Static Standing Balance Ability Fair Dynamic Standing Balance Ability Fair Device Used FWW M5 PT-IP Objective Assessments Start: 02/26/24 13:14 Freq: NEEDED Status: Active Protocol: Document 02/26/24 09:15 AB (Rec: 02/26/24 13:29 AB [id number]) Orientation Orientation/Cognition Level of Alertness Alert Orientation Name,Place,Situation Safety Awareness Decreased Safety Awareness Gross Range of Motion Lower Extremity ROM Assessment Within Functional Limits Impairments increase L hip guarding with movement Strength Lower Extremity Strength Assessment Left Impaired Hip 2+/5 Knee 3+/5 Sensation Assessment Sensation Gross Sensation WNL Muscle Tone Muscle Tone WNL Yes M6 PT-IP Treatment Start: 02/26/24 13:14 Freq: NEEDED Status: Active Protocol: Document 03/01/24 14:08 TS (Rec: 03/01/24 14:18 [id number]) Physical Therapy Treatment Exercises Exercises Ankle Pumps,Gluteal Sets,Quad Sets,Heel Slides Education Education Provided Precautions,Weight Bearing Status,Safety M7 PT-IP Assessment and Plan Start: 02/26/24 13:14 Freq: NEEDED Status: Active Protocol: Document 03/01/24 14:08 TS (Rec: 03/01/24 14:18 [id number]) PT Summary Assessment and Plan Potential Rehabilitation Potential Fair Summary Impairments Pain,ROM,Strength,Balance, Coordination,Sensation,Tone, Cognition,Bed Mobility, Transfers,Gait,Activity Tolerance Progress Towards Goals Slow Progress due to Pain Assessment Summary Pt is having more limited mobility this session due to pain. He is CGA for STS with FWW and demonstrates good STS technique. Pt ambulated a short distance in room this sesion due to increase in pain . Pt did deny any lightheadedness this session while mobilizing. PT continues to recommend SNF. Goals Bed Mobility Goal Minimal Assistance Transfer Goal Minimal Assistance,Front Wheeled Walker Gait Goal Minimal Assistance,Front Wheel Walker Gait Distance 25 Other Goals improve bed mobility, transfers, ambulation using FWW ~ 150 ft mod I up/down 1 step using FWW mod I Days to Meet Goals 5 Frequency of Treatment Frequency Of Treatment Twice a Day Treatment Plan Physical Therapy Treatment Plan Bed Mobility Training,Transfer Training,Gait Training, Therapeutic Exercise,Balance Retraining,Post Op Education, Discharge Planning,Hot or Cold Pack,Neuromuscular Re-ed Weight Bearing Status Weight Bearing Status Weight Bear as Tolerated Recommendations To Nursing Amount of Assist Needed 1 Person Assist Discharge Recommendations PT Discharge Recommendations SNF Rehab Transportation Needs at Discharge Private Vehicle,Wheelchair/ Cabulance
[2024-03-01 12:44] LABS: Hemoglobin 7.4 g/dL (13.5-17.5)
--- NOTE | 2024-03-01 13:00 | CM.DPC ---
DCP Cont. Reviewed EMR and team rounds for status updates. Pt has been declined by every SNF and swing bed, CM was unable to secure a rehab placement for him primarily due to his [employer] insurance. Discussed with Dr. Morgan, pt will be medically cleared by tomorrow, disposition will be back to his hotel. Will continue to monitor for any further needs prior to d/c.
--- NOTE | 2024-03-01 13:05 | PM.PN.1 ---
Subjective Subjective Interval history: Patient seen this afternoon. He has had persistent anemia postoperatively. A CT scan was obtained which shows a large hematoma in the area of the entry reamer for the intramedullary nail extending down the thigh. There are no signs of active arterial bleeding on that image. The reduction, nail insertion point and tip-apex distance are appropriate. His distal screw has good bicortical fixation. He has ecchymosis and swelling throughout that area with a dressing that remains clean and dry. Superficially he has significant ecchymosis extending up his ipsilateral flank to his paravertebral musculature. He has intact sensorimotor function distally in the thigh. Overall the CT findings are consistent with the instrumentation used during his surgery and the swelling in his thigh is consistent with venous bleeding into a closed compartment. The hematoma in his flank is certainly impressive but does not have significant associated swelling and may represent either tracking of his bleeding from his surgical site up fascial planes along the hip abductors into his flank, or trauma from his fall as he reports having hit that area on a rock during the fall which resulted in his fracture. Patient is otherwise doing well, reporting improving pain and ongoing progress with PT. Recommend he receive standard DVT prophylaxis and daily CBC with pRBC transfusion as needed for postoperative anemia. Exam Vital Signs (past 8 hours): - 03/01/24 08:00 03/01/24 11:00 03/01/24 12:00 Temperature 98.4 F 98.6 F Pulse Rate 90 91 H Pulse Rate [Orthostatic Lying] 65 Pulse Rate [Orthostatic Sitting] 68 Pulse Rate [Orthostatic Standing] 95 H Respiratory Rate 16 16 Blood Pressure 111/69 115/71 Blood Pressure [Orthostatic Lying] 129/78 Blood Pressure [Orthostatic Sitting] 138/81 Blood Pressure [Orthostatic Standing] 98/49 L Pulse Oximetry 98 99 Fraction of Inspired Oxygen 28 SaO2/FiO2 Ratio 332 Oxygen Delivery Method Room Air Oxygen Flow Rate 0 Objective Labs 03/01/24 12:35 03/01/24 05:31 Labs: Laboratory Results - last 24 hr 02/29/24 02/29/24 03/01/24 08:52 17:43 05:31 WBC 8.4 RBC 2.63 L Hgb 7.8 L 7.7 L Hct 23.0 L MCV 87.4 MCH 29.3 MCHC 33.5 RDW 13.8 Plt Count 289 Neut % (Auto) 69.2 Lymph % (Auto) 13.9 L [place] % (Auto) 13.2 Eos % (Auto) 3.2 Baso % (Auto) 0.5 Neut # (Auto) 5800 Lymph # (Auto) 1200 [place] # (Auto) 1100 H Eos # (Auto) 300 Baso # (Auto) 0 Sodium 132 L Potassium 4.1 Chloride 100 Carbon Dioxide 29 BUN 18 Creatinine 0.68 Estimated GFR > 60 BUN/Creatinine Ratio 26.5 H Glucose 105 H Calcium 7.8 L Crossmatch See Detail 03/01/24 12:35 WBC RBC Hgb 7.4 L Hct MCV MCH MCHC RDW Plt Count Neut % (Auto) Lymph % (Auto) [place] % (Auto) Eos % (Auto) Baso % (Auto) Neut # (Auto) Lymph # (Auto) [place] # (Auto) Eos # (Auto) Baso # (Auto) Sodium Potassium Chloride Carbon Dioxide BUN Creatinine Estimated GFR BUN/Creatinine Ratio Glucose Calcium Crossmatch [facility] Medical History History of cocaine abuse 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
--- NOTE | 2024-03-01 14:22 | PM.PN.1 ---
Subjective Subjective Interval history: Patient feeling better today. Still hasn't had BM but passing lots of gas. Orthostatic with PT today. Hgb 7.4 and previously 7.7. Exam Vital Signs (past 8 hours): - 03/01/24 08:00 03/01/24 11:00 03/01/24 12:00 Temperature 98.4 F 98.6 F Pulse Rate 90 91 H Pulse Rate [Orthostatic Lying] 65 Pulse Rate [Orthostatic Sitting] 68 Pulse Rate [Orthostatic Standing] 95 H Respiratory Rate 16 16 Blood Pressure 111/69 115/71 Blood Pressure [Orthostatic Lying] 129/78 Blood Pressure [Orthostatic Sitting] 138/81 Blood Pressure [Orthostatic Standing] 98/49 L Pulse Oximetry 98 99 Fraction of Inspired Oxygen 28 SaO2/FiO2 Ratio 332 Oxygen Delivery Method Room Air Oxygen Flow Rate 0 Narrative Exam Narrative: NAD RRR no m/r/g pulm CTA B/l Abd: S b/l lower quadrant tenderness, stable mild distension. Ext: no edema, L hip with swelling and dark bruising extending around to back and flank Objective Labs 03/01/24 12:35 03/01/24 05:31 Labs: Laboratory Results - last 24 hr 02/29/24 02/29/24 03/01/24 08:52 17:43 05:31 WBC 8.4 RBC 2.63 L Hgb 7.8 L 7.7 L Hct 23.0 L MCV 87.4 MCH 29.3 MCHC 33.5 RDW 13.8 Plt Count 289 Neut % (Auto) 69.2 Lymph % (Auto) 13.9 L [place] % (Auto) 13.2 Eos % (Auto) 3.2 Baso % (Auto) 0.5 Neut # (Auto) 5800 Lymph # (Auto) 1200 [place] # (Auto) 1100 H Eos # (Auto) 300 Baso # (Auto) 0 Sodium 132 L Potassium 4.1 Chloride 100 Carbon Dioxide 29 BUN 18 Creatinine 0.68 Estimated GFR > 60 BUN/Creatinine Ratio 26.5 H Glucose 105 H Calcium 7.8 L Crossmatch See Detail 03/01/24 12:35 WBC RBC Hgb 7.4 L Hct MCV MCH MCHC RDW Plt Count Neut % (Auto) Lymph % (Auto) [place] % (Auto) Eos % (Auto) Baso % (Auto) Neut # (Auto) Lymph # (Auto) [place] # (Auto) Eos # (Auto) Baso # (Auto) Sodium Potassium Chloride Carbon Dioxide BUN Creatinine Estimated GFR BUN/Creatinine Ratio Glucose Calcium Crossmatch [facility] Medical History History of cocaine abuse 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 Left hip fracture, present on admission and active. 2. Methamphetamine abuse, present on admission and active. 3. dilated large and small bowel from likely ileus 4. orthostatic hypotension 5. acute blood loss anemia from surgical procedure and post operative hematoma. 6. Agitation, resolved Plan: -ortho ok with restarting aspirin, says bruising is expected -start IVF for orthostatics, consider midodrine if still not improving -pain management, PT/OT, qshift orthostatics -orthostasis likely due to blood loss anemia, anesthesia -abd XR with dilated small and large bowel. CT no obstruction or volvulus, incidental left hip hematoma from surgical procedure. -transfuse for Hg <7 for left hip hematoma and monitor while on BID aspirin for DVT proph -continue enema for constipation, gave relistor to see if resumption of bowel function possibly opiate related. Discussed with surgery, if continues to be refractory can consider neostigmine as well. -trial lactulose, advanced diet to regular He is full resuscitation, confirmed. No proxy decision selected after discussion. Dispo: Likely back to [facility] once has BM and Hgb stabilizes. No SNF will accept and has no PCP for HH. Time Spent With Patient Time with patient: 30 to 49 minutes with 50% spent counseling/coordinating care
[2024-03-01] MEDS: ASPIRIN EC 81 MG TABLET PO (20:18)
[2024-03-01] MEDS: SENNOSIDES 8.6 MG TABLET 17.2 MG PO (20:18)
[2024-03-01] MEDS: diphenhydrAMINE 25 MG TABLET 50 MG PO (23:43)
[2024-03-02] VITALS (8 sets, daily range): BP systolic 82–129; BP diastolic 56–82; PULSE 83–100; RESP 16–20; TEMP 36.4–37.1; O2SAT 92–99
[2024-03-02] MEDS: OXYCODONE IR 5 MG TABLET PO ×4 (04:21→21:37)
[2024-03-02 05:13] LABS: Add Manual Diff / Slide Review NO; Basophils Absolute Auto 0 /uL (0-100); Basophils Percent Auto 0.6 % (0-2); Eosinophils Absolute Auto 200 /uL (0-450); Hematocrit 22.1 % (41-53); Hemoglobin 7.5 g/dL (13.5-17.5); Lymphocytes Absolute Auto 1100 /uL (1100-4500); Lymphocytes Percent Auto 13.9 % (25-40); Mean Corpuscular HGB Conc 34.2 % (30-36); Mean Corpuscular Hemoglobin 29.8 PG (26-34); Mean Corpuscular Volume 87.1 fL (80-100); Monocytes Absolute Auto 1100 /uL (0-900); Monocytes Percent Auto 13.8 % (3-14); Neutrophils Absolute Auto 5600 /uL (1500-7000); Neutrophils Percent Auto 68.7 % (50-75); Platelet Count 317 X10^3/uL (150-400); Red Blood Cell Count 2.54 X10^6/uL (4.5-5.9); Red Cell Distribution Width 13.9 % (11.6-14.8); White Blood Cell Count 8.1 X10^3/uL (4.5-11.0)
[2024-03-02 05:23] LABS: BUN Creatinine Ratio 20.6 (6-22); Blood Urea Nitrogen 14 mg/dL (9-20); Carbon Dioxide 28 mmol/L (22-32); Chloride 101 mmol/L (98-107); Estimated Glomerular Filt Rate > 60 mL/min (>60); Glucose 130 mg/dL (70-100); HEMOLYSIS < 15 (0-50); Potassium 4.5 mmol/L (3.4-5.1); Sodium 134 mmol/L (137-145)
[2024-03-02] MEDS: ASPIRIN EC 81 MG TABLET PO ×2 (08:25→21:37)
[2024-03-02] MEDS: ACETAMINOPHEN 325 MG TABLET 650 MG PO ×2 (08:26→14:28)
[2024-03-02] MEDS: polyethylene glycoL 3350 17 GM POWD.PACK PO (08:27)
[2024-03-02] MEDS: LACTULOSE 20 GM/30 ML SOLUTION PO (08:28)
[2024-03-02] MEDS: SODIUM CHLORIDE 0.9% FLUSH 10 ML IV ×2 (09:00→21:38)
--- NOTE | 2024-03-02 11:21 | PT.IPTN ---
Current Diagnoses Fracture of unspecified part of neck of left femur, initial encounter for closed fracture (02/24/24) Displaced intertrochanteric fracture of left femur, initial encounter for closed fracture (02/24/24) Surgery Performed Operation Date: 02/25/24 19:45 Actual Procedures p Intramedullary Nailing Femur(Left) - Roberto Sosa MD Physical Therapy Treatment Note M2 PT-IP Current Condition Start: 02/26/24 13:14 Freq: NEEDED Status: Active Protocol: Document 02/26/24 09:15 AB (Rec: 02/26/24 13:29 AB [id number]) Physical Therapy Current Condition Current Condition Evaluation Date 02/26/24 Treatment Diagnosis L hip fx s/p IM nailing; difficulty in walking Onset Date 02/24/24 M3 PT-IP Subjective Start: 02/26/24 13:14 Freq: NEEDED Status: Active Protocol: Document 03/02/24 11:51 TS (Rec: 03/02/24 12:06 TS [id number]) Subjective Physical Therapy Visit Type Type Treatment Note Visit Start Time 11:21 Visit Stop Time 11:47 Number of VINYL WELDER AND FABRICATOR Visits 4 Physical Therapy Visit Comments Patient Comments Pt is worried about his phone who he gave to a friend to make phone calls for him. He has not heard from her since. Pt is also concered about his breathalyzer in his truck being deactivated and is concerned about the swelling in his leg and not improving in his mobility. Therapy Pain Assessment Pain When Pain Assessed At Rest Pain Present Pain Present Pain Reported M4 PT-IP Mobility and Gait Start: 02/26/24 13:14 Freq: NEEDED Status: Active Protocol: Document 03/02/24 11:51 TS (Rec: 03/02/24 12:06 TS [id number]) PT-Transfer Assessment Sit to and From Stand Sit to and from Stand Standby Assistance Equipment Transfer Assistive Device Gait Belt,Front Wheeled Walker Orthotic/Prosthetic Devices or Brace: No Comments Mobility Comments Pt performed ankle pumps, quad sets, glute sets and heel slides prior to mobility. STS from chair SBA with FWW. Pt ambulated ~10'CGA with FWW, pt reports having too much pain and requested to sit back in chair. Therapist provided pt with customer service numbers for his breathalyzer and phone company, pt was appreciative. Pt was left in chair, all needs met. Gait Assessment Gait Gait Assistance Required: Contact Guard Assist Distance (Feet) 10 Able to Maintain Weight Bearing Status Yes During Gait Assistive Devices Assistive Device Gait Belt,Front Wheeled Walker Orthotic/Prosthetic Devices or Brace: No Gait Deviations General Gait Pattern Antalgic,Decreased Stride Length,Flexed Trunk,Step-to Gait Factors Limiting Gait Function Factors Limiting Gait Function Decreased Activity Tolerance, Decreased Strength,Limited Range of Motion,Pain,Poor Balance Comments Gait Comments See mobility comments PT-Balance Assessment Sitting Balance and Reactions Static Sitting Balance Ability Good Dynamic Sitting Balance Ability Good Standing Balance and Reactions Static Standing Balance Ability Fair Dynamic Standing Balance Ability Fair Device Used FWW M5 PT-IP Objective Assessments Start: 02/26/24 13:14 Freq: NEEDED Status: Active Protocol: Document 02/26/24 09:15 AB (Rec: 02/26/24 13:29 AB [id number]) Orientation Orientation/Cognition Level of Alertness Alert Orientation Name,Place,Situation Safety Awareness Decreased Safety Awareness Gross Range of Motion Lower Extremity ROM Assessment Within Functional Limits Impairments increase L hip guarding with movement Strength Lower Extremity Strength Assessment Left Impaired Hip 2+/5 Knee 3+/5 Sensation Assessment Sensation Gross Sensation WNL Muscle Tone Muscle Tone WNL Yes M6 PT-IP Treatment Start: 02/26/24 13:14 Freq: NEEDED Status: Active Protocol: Document 03/02/24 11:51 TS (Rec: 03/02/24 12:06 [id number]) Physical Therapy Treatment Exercises Exercises Ankle Pumps,Gluteal Sets,Quad Sets,Heel Slides Education Education Provided Precautions,Weight Bearing Status,Safety M7 PT-IP Assessment and Plan Start: 02/26/24 13:14 Freq: NEEDED Status: Active Protocol: Document 03/02/24 11:51 TS (Rec: 03/02/24 12:06 [id number]) PT Summary Assessment and Plan Potential Rehabilitation Potential Fair Summary Impairments Pain,ROM,Strength,Balance, Coordination,Sensation,Tone, Cognition,Bed Mobility, Transfers,Gait,Activity Tolerance Progress Towards Goals Slow Progress due to Pain Assessment Summary Suman is making slow progress with his mobility. He performed STS with FWW SBA, he demonstrated good carryover of STS technique. He continues to ambulate a short distance in room with FWW ~10'. Pt expresses more pain and swelling in his LLE. SW was notified of pt concerned a friend of his has his phone and is worried about what she maybe accessing. PT continues to recommend SNF. Goals Bed Mobility Goal Minimal Assistance Transfer Goal Minimal Assistance,Front Wheeled Walker Gait Goal Minimal Assistance,Front Wheel Walker Gait Distance 25 Other Goals improve bed mobility, transfers, ambulation using FWW ~ 150 ft mod I up/down 1 step using FWW mod I Days to Meet Goals 5 Frequency of Treatment Frequency Of Treatment Twice a Day Treatment Plan Physical Therapy Treatment Plan Bed Mobility Training,Transfer Training,Gait Training, Therapeutic Exercise,Balance Retraining,Post Op Education, Discharge Planning,Hot or Cold Pack,Neuromuscular Re-ed Weight Bearing Status Weight Bearing Status Weight Bear as Tolerated Recommendations To Nursing Amount of Assist Needed 1 Person Assist Discharge Recommendations PT Discharge Recommendations SNF Rehab Transportation Needs at Discharge Private Vehicle,Wheelchair/ Cabulance
--- NOTE | 2024-03-02 11:40 | CM.DPC ---
DCP Cont. Reviewed EMR and team rounds for status updates. Per Hospitalist, pt has several post-surgical complications, and will likely be inpt for several more days. BIOTECHNICIAN will continue to monitor and assist with any final d/c needs/recommendations.
--- NOTE | 2024-03-02 14:59 | OT.IP.TRT ---
Current Diagnoses Fracture of unspecified part of neck of left femur, initial encounter for closed fracture (02/24/24) Displaced intertrochanteric fracture of left femur, initial encounter for closed fracture (02/24/24) Surgery Performed Operation Date: 02/25/24 19:45 Actual Procedures p Intramedullary Nailing Femur(Left) - Roberto Sosa MD Occupational Therapy Treatment Note M2 OT-IP Current Condition Start: 02/28/24 10:17 Freq: Status: Active Protocol: Document 02/28/24 10:17 CGR (Rec: 02/28/24 10:31 CGR [id number]) Occupational Therapy Current Condition Current Condition Evaluation Date 02/28/24 Treatment Diagnosis GLF, L hip fx s/p IM nailing now with small bowel distention Diagnosis Onset Date 02/24/24 Weight Bearing Status Weight Bearing Status Weight Bear as Tolerated M3 OT- IP Subjective and Pain Start: 02/28/24 10:17 Freq: Status: Active Protocol: Document 03/02/24 14:15 [facility] (Rec: 03/02/24 15:15 [facility] [id number]) OT- Subjective Occupational Therapy Visit Type Type Treatment Note Visit Start Time 14:15 Visit Stop Time 14:59 Occupational Therapy Visit Comments Patient Comments Asked about options for pt after hospital stay and pt got offensive and states, You are kicking me out of the hospital and I am gotta latanya the hospital if I get an infection. Patient/Caregiver Goals To get better. OT Pain Assessment Pain When Pain Assessed During Mobility Pain Present Pain Present Pain Reported Location Left Hip Intensity 7 Scale Used Numeric (0 - 10) M4 OT- IP ADL's Start: 02/28/24 10:17 Freq: Status: Active Protocol: Document 03/01/24 11:01 [facility] (Rec: 03/01/24 11:13 [facility] [id number]) OT [id number] Comments OT Self-Feeding Comments not meal time OT ADL-Grooming General Evaluation Grooming Ability Standby Assistance Comments OT Grooming Comments Able to do while standing the sink with FWW. OT ADL-Oral Care General Eval Oral Care Ability Standby Assistance Comments Oral Care Comments Able to do while standng at the sink with FWW. OT ADL-Dressing General Eval Lower Body Dressing Ability Minimal Assistance,Maximum Assistance Areas Needing Assistance Underpants/Brief,Socks Comments OT Dressing Comments Able to practice use of sock aid and tailings man so able to be more independent with LB dressing needs. Pt still having difficulty to raise his LLE up and needing assist. Suggested pt have someone go to [facility] to gather equipment needs for him. OT ADL-Toileting General Evaluation Toileting Ability Moderate Assistance Areas Needing Assistance Manage Clothing,Perform Perineal Hygiene Comments OT Toileting Comments Assist to get his brief over his feet and assist for completeness of hygiene. BSC will be beneficial to pt to obtain. OT ADL-Bathing Comments OT Bathing Comments not performed M5 OT- IP IADL's Start: 02/28/24 10:17 Freq: Status: Active Protocol: Document 02/28/24 10:17 CGR (Rec: 02/28/24 10:31 CGR [id number]) OT-Instrumental Activities of Daily Living Deficits IADL Deficits Identified Deficits Home Safety Awareness Awareness of Need for Assistance at Home Decreased Awareness Ability to Problem Solve Emergency Unable to Problem Solve Situations Medication Management Medication Management Comments concerns regarding pt's ability to perform safely at this time Money Management Money Management Comments concerns regarding pt's ability to perform safely at this time Meal Preparation Meal Preparation Comments concerns regarding pt's ability to perform safely at this time Roll Panner Roll Panner Comments concerns regarding pt's ability to perform safely at this time Driving Driving Comments concerns regarding pt's ability to perform safely at this time M6 OT- IP Functional Cognition Start: 02/28/24 10:17 Freq: Status: Active Protocol: Document 03/02/24 14:15 [facility] (Rec: 03/02/24 15:15 [facility] [id number]) Cognitive Factors Limiting Selfcare Function Cognitive Ability Level of Alertness Alert Patient Orientation Name,Place,Situation Attention Span Ability Capable of Focused Attention, Unable to Sustain Attention Ability to Follow Commands Able to Follow One Step Commands Cognitive Comments Cognitive Assessment Comments Pt has difficulty to stay on track for conversations. Asked if he could call anyone to be able to assist him. Pt states he lend out his phone to [employer] but has not gotten his phone back to him yet. Pt states he stays at [facility], in exchange for maintenance services. Pt states Lynne the manager budget at [employer] would probably be able to assist him . However when asked if he could call Lynne to help pickers material handlers equipment needs for him, pt states , I do not think she would be able to pickers material handlers equipment for me at [facility]. Pt agreed to obtain a FWW and requested an order from case management for a FWW for the pt. Pt HH still running lower and pt states been feeling tired. Pt may benefit from a formal cognitive assessment. M7 OT- IP Mobility and Balance Start: 02/28/24 10:17 Freq: Status: Active Protocol: Document 03/02/24 14:15 [facility] (Rec: 03/02/24 15:15 [facility] [id number]) OT-Transfer Assessment Sit to and From Stand Sit to and from Stand Standby Assistance Comments Mobility Comments Pt able to come to stand with SBA with the FWW. OT- Balance Assessment Sitting Balance and Reactions Static Sitting Balance Ability Normal Dynamic Sitting Balance Ability Good Standing Balance and Reactions Static Standing Balance Ability Fair M8 OT- IP Objective Assessments Start: 02/28/24 10:17 Freq: Status: Active Protocol: Document 02/28/24 10:17 CGR (Rec: 02/28/24 10:31 CGR [id number]) OT Gross Range of Motion Upper Extremity Range of Motion Assessment Within Functional Limits OT Strength Upper Extremity Strength Assessment Within Functional Limits Comments Strength Comments grossly 5-/5 OT- Coordination Assessment Upper Extremity Finger to Nose Test Bilateral UE Impaired Finger Tapping Test Bilateral UE Impaired Comments Coordination Comments pt not able to perform simple coordination tasks on this date. OT-Muscle Tone Assessment Muscle Tone WNL Yes OT Sensation Assessment Edema Edema Present Edema Comments L hip area M9 OT- IP Assessment and Plan Start: 02/28/24 10:17 Freq: Status: Active Protocol: Document 03/02/24 14:15 [facility] (Rec: 03/02/24 15:15 [facility] [id number]) OT Summary Assessment and Plan Potential Rehabilitation Potential Good Analytic Complexity at Evaluation High Summary OT Impairments Pain,Balance,Coordination, Functional Cognition, Functional Mobility,Self- Feeding,Grooming,Dressing, Toileting,Bathing,Toilet Transfers,Shower Transfers, Activity Tolerance Progress Towards Goals Progressing Toward Goals Assessment Summary Encouraged pt to be proactive of his care and to look at getting equipment for when he has to go home as currently declined by SNF and swing beds at this time. Pt admits to giving his phone to a friend, Francy but has not received it back. Pt would benefit from SNF at this time but if having to go home will benefit from assist and home health. Goals Self-Feeding Goal Independent Grooming Goal Independent Dressing Goal Independent Toileting Goal Independent Bathing Goal Independent Toilet Transfer Goal Independent Shower Transfer Goal Independent Days to Meet Goals 13 Frequency of Treatment Frequency Of Treatment Once a Day Treatment Plan OT Treatment Plan ADL Training,Functional Cognition Training,Functional Mobility,Patient/Family Education,Discharge Planning Other Treatment Recommendations and Next shower Treatment Focus Discharge Recommendations OT Discharge Recommendations Home with 24/7 Assist Available,Home Health,SNF Rehab Home Equipment Needs BSC, LB dresing equipment, tall FWW Transportation Needs at Discharge Private Vehicle,Wheelchair/ Cabulance
--- NOTE | 2024-03-02 15:39 | PM.PNPO.1 ---
Subjective Subjective Interval history: Kaleb is a pleasant 58 year old male who is POD#6 s/p Intramedullary nailing of left intertrochanteric femur fracture by Dr. Sosa. This morning patient reports his hip pain is tolerable although he reports the pain/pressure in his low back is worse today than yesterday. Denies any sharp shooting pains radiating down either leg. Had BM this morning finally and his lower abdominal pain has improved some since then. Denies dizziness or feelings of lightheadedness while at rest but does report feeling dizzy any time he stands up including this morning to use the restroom. He has had persistent anemia post-operatively. Most recent H&H is 7.5 & 22.[address]. Hip CT was obtained 02/29/[address] Sosa which shows a large hematoma but is not suggestive of an arterial bleed. We will continue monitor. Lives alone but does state he lives in a single-level home with only 1 step up to the front door. Denies chest pain, SOB, nausea, vomiting. + light headed, + dizzy, + diaphoresis. VSS. Exam Vital Signs (past 8 hours): - 03/02/24 08:00 03/02/24 12:00 Temperature 97.6 F 98.2 F Pulse Rate 92 H 97 H Respiratory Rate 16 16 Blood Pressure 129/82 117/70 Pulse Oximetry 99 98 Fraction of Inspired Oxygen 28 SaO2/FiO2 Ratio 332 Oxygen Delivery Method Room Air Oxygen Flow Rate 0 Narrative Exam Narrative: Sitting up comfortably in bedside chair during the interview today. SCDs are on and functioning. Patient is diaphoretic, skin is warm moist. Dressings have been changed since surgery and new surgical dressings are intact without drainage. There is left hip moderate swelling and significant ecchymosis extending from the left hip around to left flank, mild-moderate left flank swelling. 5/5 strength with DF, PF, EHL bilaterally. Adequate AROM of bilateral knee flexion and extension. Gross sensation intact throughout bilateral lower extremities. Resp Effort & Inspection: normal respiratory effort and able to speak in complete sentences Cardio Rate: regular rate Other: Brisk capillary refill. Neuro General: patient alert, patient awake and patient oriented x3 Speech: speech normal Objective Labs 03/02/24 05:05 03/02/24 05:05 Labs: Laboratory Results - last 24 hr 03/02/24 05:05 WBC 8.1 RBC 2.54 L Hgb 7.5 L Hct 22.1 L MCV 87.1 MCH 29.8 MCHC 34.2 RDW 13.9 Plt Count 317 Neut % (Auto) 68.7 Lymph % (Auto) 13.9 L [place] % (Auto) 13.8 Eos % (Auto) 3.0 Baso % (Auto) 0.6 Neut # (Auto) 5600 Lymph # (Auto) 1100 [place] # (Auto) 1100 H Eos # (Auto) 200 Baso # (Auto) 0 Sodium 134 L Potassium 4.5 Chloride 101 Carbon Dioxide 28 BUN 14 Creatinine 0.68 Estimated GFR > 60 BUN/Creatinine Ratio 20.6 Glucose 130 H Calcium 8.0 L PFSH Medical History History of cocaine abuse 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 Continue IVF for orthostatic support. 2) Continue ASA 81mg BID for DVT prophylaxis. Continue multimodal pain control, ice to the hip for additional pain control. 3) Continue to work on mobility with PT as tolerated. 4) Continue daily CBC with pRBC transfusion as needed for postoperative anemia, symptomatic hypotension. 5) Keep dressing intact, clean and dry. Will likely discharge back to home once orthostatic hypotension and mobilization has stabilized. (insurance does not cover SNF) Call our office if any questions or concerns arise.
--- NOTE | 2024-03-02 15:50 | PT.IPTN ---
Current Diagnoses Fracture of unspecified part of neck of left femur, initial encounter for closed fracture (02/24/24) Displaced intertrochanteric fracture of left femur, initial encounter for closed fracture (02/24/24) Surgery Performed Operation Date: 02/25/24 19:45 Actual Procedures p Intramedullary Nailing Femur(Left) - Roberto Sosa MD Physical Therapy Treatment Note M2 PT-IP Current Condition Start: 02/26/24 13:14 Freq: NEEDED Status: Active Protocol: Document 02/26/24 09:15 AB (Rec: 02/26/24 13:29 AB [id number]) Physical Therapy Current Condition Current Condition Evaluation Date 02/26/24 Treatment Diagnosis L hip fx s/p IM nailing; difficulty in walking Onset Date 02/24/24 M3 PT-IP Subjective Start: 02/26/24 13:14 Freq: NEEDED Status: Active Protocol: Document 03/02/24 16:06 TS (Rec: 03/02/24 16:14 TS [id number]) Subjective Physical Therapy Visit Type Type Treatment Note Visit Start Time 15:50 Visit Stop Time 16:05 Number of NATUROPATHIC PHYSICIAN Visits 5 Physical Therapy Visit Comments Patient Comments Pt found resting in chair, needs to use toilet, is agreeable to PT. Therapy Pain Assessment Pain When Pain Assessed During Mobility Pain Present Pain Present Pain Reported M4 PT-IP Mobility and Gait Start: 02/26/24 13:14 Freq: NEEDED Status: Active Protocol: Document 03/02/24 16:06 TS (Rec: 03/02/24 16:14 TS [id number]) PT-Transfer Assessment Sit to and From Stand Sit to and from Stand Standby Assistance Equipment Transfer Assistive Device Gait Belt,Front Wheeled Walker Orthotic/Prosthetic Devices or Brace: No Comments Mobility Comments STS from chair SBA with BUE support. Pt ambulated in to restroom SBA with FWW ~15'. STS from toilet SBA with FWW. Pt ambulated back to chair. Pt performed ankle pumps, quad sets, glute sets and heel slidse x5. Nursing in room to check orthostatics. Pt was left in room, all needs met. Gait Assessment Gait Gait Assistance Required: Standby Assistance Distance (Feet) 15 Able to Maintain Weight Bearing Status Yes During Gait Assistive Devices Assistive Device Gait Belt,Front Wheeled Walker Orthotic/Prosthetic Devices or Brace: No Gait Deviations General Gait Pattern Antalgic,Decreased Stride Length,Flexed Trunk,Step-to Gait Factors Limiting Gait Function Factors Limiting Gait Function Decreased Activity Tolerance, Decreased Strength,Limited Range of Motion,Pain,Poor Balance,Poor Safety Awareness Comments Gait Comments See mobility comments PT-Balance Assessment Sitting Balance and Reactions Static Sitting Balance Ability Normal Dynamic Sitting Balance Ability Good Standing Balance and Reactions Static Standing Balance Ability Fair Dynamic Standing Balance Ability Fair Device Used FWW M5 PT-IP Objective Assessments Start: 02/26/24 13:14 Freq: NEEDED Status: Active Protocol: Document 02/26/24 09:15 AB (Rec: 02/26/24 13:29 AB [id number]) Orientation Orientation/Cognition Level of Alertness Alert Orientation Name,Place,Situation Safety Awareness Decreased Safety Awareness Gross Range of Motion Lower Extremity ROM Assessment Within Functional Limits Impairments increase L hip guarding with movement Strength Lower Extremity Strength Assessment Left Impaired Hip 2+/5 Knee 3+/5 Sensation Assessment Sensation Gross Sensation WNL Muscle Tone Muscle Tone WNL Yes M6 PT-IP Treatment Start: 02/26/24 13:14 Freq: NEEDED Status: Active Protocol: Document 03/02/24 16:06 TS (Rec: 03/02/24 16:14 TS [id number]) Physical Therapy Treatment Exercises Exercises Ankle Pumps,Gluteal Sets,Quad Sets,Heel Slides Education Education Provided Precautions,Weight Bearing Status,Safety M7 PT-IP Assessment and Plan Start: 02/26/24 13:14 Freq: NEEDED Status: Active Protocol: Document 03/02/24 16:06 TS (Rec: 03/02/24 16:14 [id number]) PT Summary Assessment and Plan Potential Rehabilitation Potential Fair Summary Impairments Pain,ROM,Strength,Balance, Coordination,Sensation,Tone, Cognition,Bed Mobility, Transfers,Gait,Activity Tolerance Progress Towards Goals Slow Progress due to Pain Assessment Summary Suman continues to make slow progress with his mobility. He performs STS x2 SBA with FWW. He continues to ambulate a short distance in room due to pain. He continues to express concern over his swelling in his leg and bruising. PT will continue to recommend SNF at this time to progress activity tolerance and functional mobility. Goals Bed Mobility Goal Minimal Assistance Transfer Goal Minimal Assistance,Front Wheeled Walker Gait Goal Minimal Assistance,Front Wheel Walker Gait Distance 25 Other Goals improve bed mobility, transfers, ambulation using FWW ~ 150 ft mod I up/down 1 step using FWW mod I Days to Meet Goals 5 Frequency of Treatment Frequency Of Treatment Twice a Day Treatment Plan Physical Therapy Treatment Plan Bed Mobility Training,Transfer Training,Gait Training, Therapeutic Exercise,Balance Retraining,Post Op Education, Discharge Planning,Hot or Cold Pack,Neuromuscular Re-ed Weight Bearing Status Weight Bearing Status Weight Bear as Tolerated Recommendations To Nursing Amount of Assist Needed 1 Person Assist Discharge Recommendations PT Discharge Recommendations SNF Rehab Transportation Needs at Discharge Private Vehicle,Wheelchair/ Cabulance
--- NOTE | 2024-03-02 16:51 | PM.PN.1 ---
Subjective Subjective Interval history: Still hasn't had BM but passing lots of gas. Orthostatic again today. Complains of pain in his back primarily. Exam Vital Signs (past 8 hours): - 03/02/24 12:00 Temperature 98.2 F Pulse Rate 97 H Respiratory Rate 16 Blood Pressure 117/70 Pulse Oximetry 98 Fraction of Inspired Oxygen 28 SaO2/FiO2 Ratio 332 Oxygen Delivery Method Room Air Oxygen Flow Rate 0 Narrative Exam Narrative: NAD RRR no m/r/g pulm CTA B/l Abd: S b/l lower quadrant tenderness, stable mild distension. Ext: no edema, L hip with swelling and dark bruising extending around to back and flank Objective Labs 03/02/24 05:05 03/02/24 05:05 Labs: Laboratory Results - last 24 hr 03/02/24 05:05 WBC 8.1 RBC 2.54 L Hgb 7.5 L Hct 22.1 L MCV 87.1 MCH 29.8 MCHC 34.2 RDW 13.9 Plt Count 317 Neut % (Auto) 68.7 Lymph % (Auto) 13.9 L [place] % (Auto) 13.8 Eos % (Auto) 3.0 Baso % (Auto) 0.6 Neut # (Auto) 5600 Lymph # (Auto) 1100 [place] # (Auto) 1100 H Eos # (Auto) 200 Baso # (Auto) 0 Sodium 134 L Potassium 4.5 Chloride 101 Carbon Dioxide 28 BUN 14 Creatinine 0.68 Estimated GFR > 60 BUN/Creatinine Ratio 20.6 Glucose 130 H Calcium 8.0 L PFSH Medical History History of cocaine abuse 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 Left hip fracture, present on admission and active. 2. Methamphetamine abuse, present on admission and active. 3. dilated large and small bowel from likely ileus 4. orthostatic hypotension 5. acute blood loss anemia from surgical procedure and post operative hematoma. 6. Agitation, resolved Plan: -ortho ok with restarting aspirin, says bruising is expected -will start 2.5 mg midodrine TID after no improvement with IV fluids -pain management, PT/OT, qshift orthostatics -orthostasis likely due to blood loss anemia -abd XR with dilated small and large bowel. CT no obstruction or volvulus, incidental left hip hematoma from surgical procedure. -transfuse for Hg <7 for left hip hematoma and monitor while on BID aspirin for DVT proph -trial lactulose in addition to multiple medications, advanced diet to regular He is full resuscitation, confirmed. No proxy decision selected after discussion. Dispo: Likely back to [facility] once has BM and Hgb stabilizes. No SNF will accept and has no PCP for HH. Time Spent With Patient Time with patient: 30 to 49 minutes with 50% spent counseling/coordinating care
[2024-03-02] MEDS: MIDODRINE HCL 5 MG TABLET 2.5 MG PO (17:43)
[2024-03-02] MEDS: GABAPENTIN 300 MG CAPSULE PO (21:37)
[2024-03-02] MEDS: SENNOSIDES 8.6 MG TABLET 17.2 MG PO (21:38)
[2024-03-03 00:14] VITALS: BP 105/63; PULSE 84; RESP 18; TEMP 36.6; O2SAT 95
[2024-03-03 05:23] VITALS: BP 99/60; PULSE 83; RESP 12; TEMP 36.8; O2SAT 95
[2024-03-03] MEDS: MIDODRINE HCL 5 MG TABLET 2.5 MG PO ×2 (06:10→15:08)
[2024-03-03] MEDS: OXYCODONE IR 5 MG TABLET PO (06:12)
[2024-03-03 06:26] LABS: Add Manual Diff / Slide Review NO; Basophils Absolute Auto 100 /uL (0-100); Basophils Percent Auto 0.7 % (0-2); Eosinophils Absolute Auto 400 /uL (0-450); Eosinophils Percent Auto 4.5 % (2-4); Hematocrit 23.2 % (41-53); Hemoglobin 7.8 g/dL (13.5-17.5); Lymphocytes Absolute Auto 1400 /uL (1100-4500); Lymphocytes Percent Auto 16.8 % (25-40); Mean Corpuscular HGB Conc 33.6 % (30-36); Mean Corpuscular Hemoglobin 29.5 PG (26-34); Mean Corpuscular Volume 87.8 fL (80-100); Monocytes Absolute Auto 1300 /uL (0-900); Monocytes Percent Auto 16.4 % (3-14); Neutrophils Absolute Auto 5000 /uL (1500-7000); Neutrophils Percent Auto 61.6 % (50-75); Platelet Count 426 X10^3/uL (150-400); Red Blood Cell Count 2.65 X10^6/uL (4.5-5.9); White Blood Cell Count 8.1 X10^3/uL (4.5-11.0)
[2024-03-03 06:46] LABS: BUN Creatinine Ratio 25.7 (6-22); Blood Urea Nitrogen 18 mg/dL (9-20); Calcium 8.1 mg/dL (8.4-10.2); Carbon Dioxide 30 mmol/L (22-32); Chloride 102 mmol/L (98-107); Estimated Glomerular Filt Rate > 60 mL/min (>60); Glucose 104 mg/dL (70-100); HEMOLYSIS < 15 (0-50); Potassium 4.2 mmol/L (3.4-5.1); Sodium 136 mmol/L (137-145)
--- NOTE | 2024-03-03 07:48 | P.PN_ITS ---
Subjective Subjective Date Patient Seen: 03/03/24 Time Patient Seen: 07:49 Interval history: Pt sitting up in bed, says he is feeling much better today, feels like he can probably discharge. Has moved his bowels, having minimal pain. Says he is ambulating with a walker. Exam Vital Signs (past 8 hours): - 03/03/24 00:14 03/03/24 05:23 Temperature 97.8 F 98.3 F Pulse Rate 84 83 Respiratory Rate 18 12 Blood Pressure 105/63 99/60 Pulse Oximetry 95 95 Fraction of Inspired Oxygen 28 SaO2/FiO2 Ratio 332 Oxygen Delivery Method Room Air Oxygen Flow Rate 0 Narrative Exam Narrative: 5/5 strength in hip flexors, quadriceps, hamstrings, DF, PF, EHL on left. Sensation to light touch intact throughout LLE, calf soft and compressible. SCDs on but not functioning. Dressings to left hip CDI. Large area of ecchymosis indicative of post-op hematoma is resolving and nontender to touch. 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 ASA 81mg BID x 4 weeks for VTE prophylaxis. F/u in ortho clinic in 1 week for wound check, in 5 weeks for re-imaging. Disposition, pain meds per hospitalist service. Postoperative Procedures: Procedures Operation Date: 02/25/24 19:45 Actual Procedure Side Surgeon p Intramedullary Nailing Femur Left Roberto Sosa MD Postoperative day: 7
--- NOTE | 2024-03-03 08:53 | PT.IPTN ---
Current Diagnoses Fracture of unspecified part of neck of left femur, initial encounter for closed fracture (02/24/24) Displaced intertrochanteric fracture of left femur, initial encounter for closed fracture (02/24/24) Surgery Performed Operation Date: 02/25/24 19:45 Actual Procedures p Intramedullary Nailing Femur(Left) - Roberto Sosa MD Physical Therapy Treatment Note M2 PT-IP Current Condition Start: 02/26/24 13:14 Freq: NEEDED Status: Active Protocol: Document 02/26/24 09:15 AB (Rec: 02/26/24 13:29 AB [id number]) Physical Therapy Current Condition Current Condition Evaluation Date 02/26/24 Treatment Diagnosis L hip fx s/p IM nailing; difficulty in walking Onset Date 02/24/24 M3 PT-IP Subjective Start: 02/26/24 13:14 Freq: NEEDED Status: Active Protocol: Document 03/03/24 09:18 TS (Rec: 03/03/24 09:30 TS [id number]) Subjective Physical Therapy Visit Type Type Treatment Note Visit Start Time 08:53 Visit Stop Time 09:17 Number of ELECTRICIAN CRANE MAINTENANCE Visits 6 Physical Therapy Visit Comments Patient Comments Pt found resting in bed, reports he felt better this morning but is not feeling as good now. Pt is agreeable to PT. Therapy Pain Assessment Pain When Pain Assessed During Mobility Pain Present Pain Present Pain Reported M4 PT-IP Mobility and Gait Start: 02/26/24 13:14 Freq: NEEDED Status: Active Protocol: Document 03/03/24 09:18 TS (Rec: 03/03/24 09:30 TS [id number]) PT-Bed Mobility Assessment Supine to Sit Supine to Sit Standby Assistance Sit to Supine Sit to Supine Minimal Assistance,1 Person Assistance Scooting Scooting to Edge of Bed Standby Assistance PT-Transfer Assessment Sit to and From Stand Sit to and from Stand Standby Assistance Equipment Transfer Assistive Device Gait Belt,Front Wheeled Walker Orthotic/Prosthetic Devices or Brace: No Comments Mobility Comments BP in supine 109/67. Supine to sit SBA with HOB flat, pt had some difficulty completing. Pt instrcuted in use of gait belt to assist LLE to EOB. Pt sat EOB, reported increased pain and that he can feel the edna. BP in sitting 117/73. STS SBA with FWW. BP in standing 90/63, pt denied dizziness but reported an increase in pain and requested to lay back in bed. BP in supine 128/52. Pt was left in bed, all needs met. PT-Balance Assessment Sitting Balance and Reactions Static Sitting Balance Ability Good Dynamic Sitting Balance Ability Good Standing Balance and Reactions Static Standing Balance Ability Fair Dynamic Standing Balance Ability Fair Device Used FWW M5 PT-IP Objective Assessments Start: 02/26/24 13:14 Freq: NEEDED Status: Active Protocol: Document 02/26/24 09:15 AB (Rec: 02/26/24 13:29 AB [id number]) Orientation Orientation/Cognition Level of Alertness Alert Orientation Name,Place,Situation Safety Awareness Decreased Safety Awareness Gross Range of Motion Lower Extremity ROM Assessment Within Functional Limits Impairments increase L hip guarding with movement Strength Lower Extremity Strength Assessment Left Impaired Hip 2+/5 Knee 3+/5 Sensation Assessment Sensation Gross Sensation WNL Muscle Tone Muscle Tone WNL Yes M6 PT-IP Treatment Start: 02/26/24 13:14 Freq: NEEDED Status: Active Protocol: Document 03/03/24 09:18 TS (Rec: 03/03/24 09:30 TS [id number]) Physical Therapy Treatment Education Education Provided Precautions,Weight Bearing Status,Safety M7 PT-IP Assessment and Plan Start: 02/26/24 13:14 Freq: NEEDED Status: Active Protocol: Document 03/03/24 09:18 TS (Rec: 03/03/24 09:30 TS [id number]) PT Summary Assessment and Plan Potential Rehabilitation Potential Fair Summary Impairments Pain,ROM,Strength,Balance, Coordination,Sensation,Tone, Cognition,Bed Mobility, Transfers,Gait,Activity Tolerance Progress Towards Goals Slow Progress due to Pain Assessment Summary Suman continues to make slow progress with his mobility. He has some difficulty coming up to sitting EOB this morning due to an increase in pain. He was instructed in use of gait belt strap to assist LLE to EOB. He continues to perform STS from bed SBA with FWW. He did not ambulate this session due to too much pain. PT will continue to recommend SNF. Goals Bed Mobility Goal Minimal Assistance Transfer Goal Minimal Assistance,Front Wheeled Walker Gait Goal Minimal Assistance,Front Wheel Walker Gait Distance 25 Other Goals improve bed mobility, transfers, ambulation using FWW ~ 150 ft mod I up/down 1 step using FWW mod I Days to Meet Goals 5 Frequency of Treatment Frequency Of Treatment Twice a Day Treatment Plan Physical Therapy Treatment Plan Bed Mobility Training,Transfer Training,Gait Training, Therapeutic Exercise,Balance Retraining,Post Op Education, Discharge Planning,Hot or Cold Pack,Neuromuscular Re-ed Weight Bearing Status Weight Bearing Status Weight Bear as Tolerated Recommendations To Nursing Amount of Assist Needed 1 Person Assist Discharge Recommendations PT Discharge Recommendations SNF Rehab Transportation Needs at Discharge Private Vehicle,Wheelchair/ Cabulance
[2024-03-03 09:00] VITALS: BP 103/63; BP 109/67; BP 117/73; BP 90/63; PULSE 101; PULSE 111; PULSE 87; PULSE 91; RESP 16; TEMP 36.6; O2SAT 99
[2024-03-03] MEDS: ACETAMINOPHEN 325 MG TABLET 650 MG PO ×2 (09:34→15:08)
[2024-03-03] MEDS: LACTULOSE 20 GM/30 ML SOLUTION PO (09:34)
[2024-03-03] MEDS: polyethylene glycoL 3350 17 GM POWD.PACK PO (09:34)
[2024-03-03] MEDS: ASPIRIN EC 81 MG TABLET PO (09:35)
[2024-03-03] MEDS: TRAMADOL 50 MG TABLET PO (09:35)
[2024-03-03] MEDS: GABAPENTIN 300 MG CAPSULE PO ×2 (09:35→15:08)
[2024-03-03] MEDS: SODIUM CHLORIDE 0.9% FLUSH 10 ML IV (09:36)
--- NOTE | 2024-03-03 09:45 | OT.IP.TRT ---
Current Diagnoses Fracture of unspecified part of neck of left femur, initial encounter for closed fracture (02/24/24) Displaced intertrochanteric fracture of left femur, initial encounter for closed fracture (02/24/24) Surgery Performed Operation Date: 02/25/24 19:45 Actual Procedures p Intramedullary Nailing Femur(Left) - Roberto Sosa MD Occupational Therapy Treatment Note M2 OT-IP Current Condition Start: 02/28/24 10:17 Freq: Status: Active Protocol: Document 02/28/24 10:17 CGR (Rec: 02/28/24 10:31 CGR [id number]) Occupational Therapy Current Condition Current Condition Evaluation Date 02/28/24 Treatment Diagnosis GLF, L hip fx s/p IM nailing now with small bowel distention Diagnosis Onset Date 02/24/24 Weight Bearing Status Weight Bearing Status Weight Bear as Tolerated M3 OT- IP Subjective and Pain Start: 02/28/24 10:17 Freq: Status: Active Protocol: Document 03/03/24 12:06 [facility] (Rec: 03/03/24 12:13 [facility] [id number]) OT- Subjective Occupational Therapy Visit Type Type Treatment Note Visit Start Time 09:45 Visit Stop Time 09:55 Occupational Therapy Visit Comments Patient Comments Pt agreed to do cognitive assessment. Patient/Caregiver Goals TO go home. OT Pain Assessment Pain When Pain Assessed At Rest Pain Present Pain Present Pain Reported Location Left Hip Intensity 7 Scale Used Numeric (0 - 10) M6 OT- IP Functional Cognition Start: 02/28/24 10:17 Freq: Status: Active Protocol: Document 03/03/24 12:06 [facility] (Rec: 03/03/24 12:13 [facility] [id number]) Cognitive Factors Limiting Selfcare Function Cognitive Ability Level of Alertness Alert Patient Orientation Name,Age,Birthday,Month,Date, Year,Day of Week,Place, Situation Attention Span Ability Capable of Focused Attention, Capable of Sustained Attention Ability to Follow Commands Able to Follow One Step Commands Memory Description Short Term Impaired Cognitive Tests SLUMS Pt scored 24/30 which implies mild cognitive disorder, pt able to recall 3/5 object after time passes and able to answer 2/4 questions right after paragraph read. Cognitive Comments Cognitive Assessment Comments Pt states able to get a friend to gather equipment for him, but still requesting to get a FWW, orders already requested. M7 OT- IP Mobility and Balance Start: 02/28/24 10:17 Freq: Status: Active Protocol: Document 03/02/24 14:15 [facility] (Rec: 03/02/24 15:15 [facility] [id number]) OT-Transfer Assessment Sit to and From Stand Sit to and from Stand Standby Assistance Comments Mobility Comments Pt able to come to stand with SBA with the FWW. OT- Balance Assessment Sitting Balance and Reactions Static Sitting Balance Ability Normal Dynamic Sitting Balance Ability Good Standing Balance and Reactions Static Standing Balance Ability Fair M8 OT- IP Objective Assessments Start: 02/28/24 10:17 Freq: Status: Active Protocol: Document 02/28/24 10:17 CGR (Rec: 02/28/24 10:31 CGR [id number]) OT Gross Range of Motion Upper Extremity Range of Motion Assessment Within Functional Limits OT Strength Upper Extremity Strength Assessment Within Functional Limits Comments Strength Comments grossly 5-/5 OT- Coordination Assessment Upper Extremity Finger to Nose Test Bilateral UE Impaired Finger Tapping Test Bilateral UE Impaired Comments Coordination Comments pt not able to perform simple coordination tasks on this date. OT-Muscle Tone Assessment Muscle Tone WNL Yes OT Sensation Assessment Edema Edema Present Edema Comments L hip area M9 OT- IP Assessment and Plan Start: 02/28/24 10:17 Freq: Status: Active Protocol: Document 03/03/24 12:06 [facility] (Rec: 03/03/24 12:13 [facility] [id number]) OT Summary Assessment and Plan Potential Rehabilitation Potential Good Analytic Complexity at Evaluation High Summary OT Impairments Pain,Balance,Coordination, Functional Cognition, Functional Mobility,Self- Feeding,Grooming,Dressing, Toileting,Bathing,Toilet Transfers,Shower Transfers, Activity Tolerance Progress Towards Goals Progressing Toward Goals Assessment Summary Pt looking to go home today and states will be able to havve his friends assist. Pt states is needed could stay with Michi, a friend of his, but preferring to just go home. Goals Self-Feeding Goal Independent Grooming Goal Independent Dressing Goal Independent Toileting Goal Independent Bathing Goal Independent Toilet Transfer Goal Independent Shower Transfer Goal Independent Days to Meet Goals 7 Frequency of Treatment Frequency Of Treatment Once a Day Treatment Plan OT Treatment Plan ADL Training,Functional Cognition Training,Functional Mobility,Patient/Family Education,Discharge Planning Discharge Recommendations OT Discharge Recommendations Home with 03/05 Assist Available,Home Health,SNF Rehab Home Equipment Needs BSC, LB dresing equipment, tall FWW, wc Transportation Needs at Discharge Private Vehicle
--- NOTE | 2024-03-03 11:55 | P.DS_ITS ---
History of Present Illness History of Present Illness Date Patient Seen: 03/03/24 Time Patient Seen: 11:55 Date of Onset of Symptoms: 02/24/24 Chief complaint: GLF, L Hip pain Narrative: Patient seen in preoperative holding area in preparation for surgery today. He says that he ?tripped over my own feet? and sustained this injury. He has an intertrochanteric left femur fracture. He came on while my partner was on-call who requested that I take care of him this evening following the conclusion of my elective cases. The patient reports pain in his left hip. It is worsened by any movement and partially alleviated by rest. It has been present since the time of injury. It does not radiate. His past medical history is most significant for polysubstance abuse with recent methamphetamine use. Discharge Providers Provider Date of admission: 02/24/24 16:42 Discharge Date: 03/03/24 Primary care physician: Doctor Matt MD Consults: 02/24/24 19:41 Consult to Orthopedic Surgery Routine Comment: Consulting Provider: Jazlyn Gaines Reason for consultation: Hip fracture Has provider been notified: Yes 02/25/24 20:53 Consult to Discharge Planning Routine Comment: Consult to Physical Therapy Evaluate & Treat Comment: Physician Instructions: Evaluate and Treat 02/27/24 14:08 Consult to Occupational Therapy Evaluate & Treat Comment: Physician Instructions: Evaluate and treat 03/03/24 07:23 Consult to Occupational Therapy Evaluate & Treat Comment: safe home mobility Physician Instructions: Front Wheeled Walker Discharge provider: Jhonny Zaragoza DO Summary Hospital Course Discharge Diagnosis: 1. Left hip fracture, present on admission and active. 2. Methamphetamine abuse, present on admission and active. 3. dilated large and small bowel from likely ileus 4. orthostatic hypotension 5. acute blood loss anemia from surgical procedure and post operative hematoma. 6. Agitation, resolved Hospital Course: This is a 58 year old male with no significant PMH except for methampehatmine use who was admitted after a fall with a left hip fracture. He underwent surgical repair. His course was complicated by a post operative hematoma at the site of his surgery, and an acute blood loss anemia requiring transfusion. This was discovered after he was noted to have increasing abdominal pain. CT imaging showed no obstruction and this is presumed secondary to an ileus. He did have bowel movements with lactulose prior to discharge. Course was also complicated by orthostatic hypotension limiting mobility, though this did improve with midodrine started the day before discharge. Orthostasis was likely secondary to his acute anemia. He was recommended for SNF, but was not accepted by any with his past drug history, and has no PCP established for home health. He was instructed on midodrine use and cessation if hypertensive. He was also prescribed lactulose and advised to stop if developing diarrhea. He was discharged back to his previous living situation after extensive case management evaluation. Time Spent with Patient Time spent: Greater than 30 minutes Exam Vital Signs (past 8 hours): - 03/03/24 05:23 03/03/24 09:00 03/03/24 09:00 Temperature 98.3 F 97.8 F Pulse Rate 83 91 H Pulse Rate [Orthostatic Lying] 87 Pulse Rate [Orthostatic Sitting] 101 H Pulse Rate [Orthostatic Standing] 111 H Respiratory Rate 12 16 Blood Pressure 99/60 103/63 Blood Pressure [Orthostatic Lying] 109/67 Blood Pressure [Orthostatic Sitting] 117/73 Blood Pressure [Orthostatic Standing] 90/63 Pulse Oximetry 95 99 Fraction of Inspired Oxygen 28 SaO2/FiO2 Ratio 332 Oxygen Delivery Method Room Air Oxygen Flow Rate 0 Narrative Exam Narrative: NAD RRR no m/r/g pulm CTA B/l Abd: S nt nd Ext: no edema, L hip with swelling and dark bruising extending around to back and flank Objective Labs 03/03/24 05:45 03/03/24 05:45 Labs: Laboratory Results - last 24 hr 03/03/24 05:45 WBC 8.1 RBC 2.65 L Hgb 7.8 L Hct 23.2 L MCV 87.8 MCH 29.5 MCHC 33.6 RDW 14.0 Plt Count 426 H Neut % (Auto) 61.6 Lymph % (Auto) 16.8 L [place] % (Auto) 16.4 H Eos % (Auto) 4.5 H Baso % (Auto) 0.7 Neut # (Auto) 5000 Lymph # (Auto) 1400 [place] # (Auto) 1300 H Eos # (Auto) 400 Baso # (Auto) 100 Sodium 136 L Potassium 4.2 Chloride 102 Carbon Dioxide 30 BUN 18 Creatinine 0.70 Estimated GFR > 60 BUN/Creatinine Ratio 25.7 H Glucose 104 H Calcium 8.1 L PFSH Medical History History of cocaine abuse 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 Course complicated by hematoma. Continue midodrine only if you remain dizzy when moving around after discharge, you can stop taking this. Discharge orders & Medications Prescriptions: New aspirin 81 mg Tablet,Delayed Release (Dr/Ec) 81 mg PO BID 42 Days Qty: 84 0RF acetaminophen 325 mg Tablet 650 mg PO Q6H PRN (Reason: Fever/Mild Pain (1-3)) Qty: 6 0RF gabapentin 300 mg Capsule 300 mg PO TID 30 Days Qty: 90 0RF lactulose 10 gram/15 mL Solution 20 g PO DAILY 14 Days Qty: 473 0RF midodrine 2.5 mg tablet 2.5 mg PO 0600,1200,1800 30 Days Qty: 90 0RF tramadol 50 mg Tablet 50 mg PO QID PRN (Reason: Pain, Moderate (4-6)) 7 Days Qty: 20 0RF oxycodone 5 mg Tablet 5 mg PO Q4HR PRN (Reason: Pain, Moderate (4-6)) 7 Days Qty: 35 0RF Continued Adults Multivitamin tablet Follow up/Referrals: Miscellaneous,MD Jasvir [Primary Care Provider] - Roberto Sosa MD [Physician] - 1 Week (Follow up in ortho office in 1 week w/ JAYSHREE or Dr Sosa for wound check. F/u in 5 weeks w/ Dr Sosa for repeat imaging.) Diet/Activity/Treatments Diet: Diet as Tolerated Activity: Weightbearing as tolerated. Cold/Heat Therapy: Ice to the hip for additional pain control. Skin/Wound/Dressing Care Report to your healthcare provider any signs of infection, such as:: chills, fever, night sweats, unusual drainage and unusual redness Dressing: Keep dressing intact, clean and dry until post-op appointment. No soaking the incision site in pools or tubs. No topical ointments or creams to the incision site. Visit Report/Discharge Packet Stand Alone Forms: Patient Portal/API, Stroke Signs & Symptoms Discharge Data Primary Care Provider: Miscellaneous,Doctor
[2024-03-03 13:00] VITALS: BP 99/72; PULSE 95; RESP 16; TEMP 37.5; O2SAT 99
--- NOTE | 2024-03-03 13:05 | CM.DPC ---
DCP Cont. Reviewed EMR and team rounds for status updates. Pt's pain has improved, he's able to mobilize safely, according to him, in order to return back to his hotel room. He has friends that will pick him up and take him back to his car, as well as help him with errands on his way home. Called [facility] and asked for them to call him re: setting up OP PT. No further DCP needs are identified at this time.
--- NOTE | 2024-03-03 13:39 | PT.IPTN ---
Current Diagnoses Fracture of unspecified part of neck of left femur, initial encounter for closed fracture (02/24/24) Displaced intertrochanteric fracture of left femur, initial encounter for closed fracture (02/24/24) Surgery Performed Operation Date: 02/25/24 19:45 Actual Procedures p Intramedullary Nailing Femur(Left) - Roberto Sosa MD Physical Therapy Treatment Note M2 PT-IP Current Condition Start: 02/26/24 13:14 Freq: NEEDED Status: Active Protocol: Document 02/26/24 09:15 AB (Rec: 02/26/24 13:29 AB [id number]) Physical Therapy Current Condition Current Condition Evaluation Date 02/26/24 Treatment Diagnosis L hip fx s/p IM nailing; difficulty in walking Onset Date 02/24/24 M3 PT-IP Subjective Start: 02/26/24 13:14 Freq: NEEDED Status: Active Protocol: Document 03/03/24 14:15 TS (Rec: 03/03/24 14:26 TS [id number]) Subjective Physical Therapy Visit Type Type Treatment Note Visit Start Time 13:39 Visit Stop Time 14:02 Number of CASH MANAGER Visits 7 Physical Therapy Visit Comments Patient Comments Pt found resting in bed, is to d/c home this afternoon, pt is agreeable to PT. Therapy Pain Assessment Pain When Pain Assessed At Rest Pain Present Pain Present Pain Reported M4 PT-IP Mobility and Gait Start: 02/26/24 13:14 Freq: NEEDED Status: Active Protocol: Document 03/03/24 14:15 TS (Rec: 03/03/24 14:26 TS [id number]) PT-Bed Mobility Assessment Supine to Sit Supine to Sit Standby Assistance Scooting Scooting to Edge of Bed Standby Assistance PT-Transfer Assessment Sit to and From Stand Sit to and from Stand Standby Assistance Equipment Transfer Assistive Device Gait Belt,Front Wheeled Walker Orthotic/Prosthetic Devices or Brace: No Comments Mobility Comments Supine to sit SBA with HOB elevated. Pt requires extra time to bring LLE to EOB with UE support. STS from bed SBA with use of FWW. Pt ambulated to restroom with a slow unsteady gait. Pt TTWBers on LLE with gait due to pain. Pt had BM and ambulated back to chair. Pt is attempting to call friend Michi but does not remember phone number or can' t get a hold of him to pick him up. Nursing and SW was notified. Pt requested to use toilet again. Pt was notified to call nursing when done. Gait Assessment Gait Gait Assistance Required: Standby Assistance Distance (Feet) 25 Able to Maintain Weight Bearing Status Yes During Gait Assistive Devices Assistive Device Gait Belt,Front Wheeled Walker Orthotic/Prosthetic Devices or Brace: No Gait Deviations General Gait Pattern Antalgic,Decreased Stride Length,Flexed Trunk,Step-to Gait Factors Limiting Gait Function Factors Limiting Gait Function Decreased Activity Tolerance, Decreased Strength,Limited Range of Motion,Pain,Poor Balance,Poor Safety Awareness Comments Gait Comments See mobility comments PT-Balance Assessment Sitting Balance and Reactions Static Sitting Balance Ability Good Dynamic Sitting Balance Ability Good Standing Balance and Reactions Static Standing Balance Ability Fair Dynamic Standing Balance Ability Fair Device Used FWW M5 PT-IP Objective Assessments Start: 02/26/24 13:14 Freq: NEEDED Status: Active Protocol: Document 02/26/24 09:15 AB (Rec: 02/26/24 13:29 AB [id number]) Orientation Orientation/Cognition Level of Alertness Alert Orientation Name,Place,Situation Safety Awareness Decreased Safety Awareness Gross Range of Motion Lower Extremity ROM Assessment Within Functional Limits Impairments increase L hip guarding with movement Strength Lower Extremity Strength Assessment Left Impaired Hip 2+/5 Knee 3+/5 Sensation Assessment Sensation Gross Sensation WNL Muscle Tone Muscle Tone WNL Yes M6 PT-IP Treatment Start: 02/26/24 13:14 Freq: NEEDED Status: Active Protocol: Document 03/03/24 14:15 TS (Rec: 03/03/24 14:26 TS [id number]) Physical Therapy Treatment Education Education Provided Precautions,Weight Bearing Status,Safety M7 PT-IP Assessment and Plan Start: 02/26/24 13:14 Freq: NEEDED Status: Active Protocol: Document 03/03/24 14:15 TS (Rec: 03/03/24 14:26 TS [id number]) PT Summary Assessment and Plan Potential Rehabilitation Potential Fair Summary Impairments Pain,ROM,Strength,Balance, Coordination,Sensation,Tone, Cognition,Bed Mobility, Transfers,Gait,Activity Tolerance Progress Towards Goals Progressing Toward Goals Assessment Summary Suman is making some progress with his mobility but does remain limited by pain. He is SBA for all bed mobility with HOB elevated. He continues to ambulate short distances in the room due to pain. He is unsteady at times and tends to no weight bear much through LLE. He does demonstrate poor safety awareness with his mobility and can be impulsive with his movements. Pt remains a high falls risk. PT will continue to recommend SNF at this time. Goals Bed Mobility Goal Minimal Assistance Transfer Goal Minimal Assistance,Front Wheeled Walker Gait Goal Minimal Assistance,Front Wheel Walker Gait Distance 25 Other Goals improve bed mobility, transfers, ambulation using FWW ~ 150 ft mod I up/down 1 step using FWW mod I Days to Meet Goals 5 Frequency of Treatment Frequency Of Treatment Twice a Day Treatment Plan Physical Therapy Treatment Plan Bed Mobility Training,Transfer Training,Gait Training, Therapeutic Exercise,Balance Retraining,Post Op Education, Discharge Planning,Hot or Cold Pack,Neuromuscular Re-ed Weight Bearing Status Weight Bearing Status Weight Bear as Tolerated Recommendations To Nursing Amount of Assist Needed 1 Person Assist Discharge Recommendations PT Discharge Recommendations SNF Rehab Transportation Needs at Discharge Private Vehicle,Wheelchair/ Cabulance
--- NOTE | 2024-03-03 15:54 | PC.NURSE ---
Pt discharged at 1525, escorted off floor in wheelchair accompanied by hospital staff. IV removed, discharge teaching completed including wound care, follow up appointments and medication changes. Medication schedule extensively reviewed with patient. Questions and concerns addressed. Patient left the floor with all belongings.
== END 2024-03-03 16:05 | disposition home or self-care (01) | DRG 308 ==
LOC: ED 16:19 → AC 16:43
PROVIDERS: Orthopaedic Surgery Adult Reconstructive Orthopaedic Surgery; Student in an Organized Health Care Education/Training Program; Admitting Provider Hospitalist; Emergency Provider Emergency Medicine; Family Provider Internal Medicine; Referring Provider Emergency Medicine; Visit Provider Hospitalist
PROC: 0QS706Z Reposition Left Upper Femur with Intramedullary Internal Fixation Device, Open Approach (ICD-10-PCS; CPT 27245; principal; 2024-02-25 19:45)
DX: S72.142A Displaced intertrochanteric fracture of left femur, initial encounter for closed fracture (principal); D62 Acute posthemorrhagic anemia; F17.200 Nicotine dependence, unspecified, uncomplicated; F15.10 Other stimulant abuse, uncomplicated; I95.81 Postprocedural hypotension; M96.840 Postprocedural hematoma of a musculoskeletal structure following a musculoskeletal system procedure; R45.1 Restlessness and agitation; K91.89 Other postprocedural complications and disorders of digestive system; K56.7 Ileus, unspecified; W01.0XXA Fall on same level from slipping, tripping and stumbling without subsequent striking against object, initial encounter; Y92.481 Parking lot as the place of occurrence of the external cause
CPT/HCPCS: 36415; 36430; 73502; 73700; 74018; 74177; 76000; 80048; 80053; 80305; 83735; 85018; 85025; 85610; 86850; 86900; 86901; 94762; 96374; 97110; 97116; 97129; 97163; 97167; 97530; 97535; 99283; 99284; P9016; J0171; J0330; J0690; J1100; J1170; J1200; J1630; J1644; J1885; J2060; J2250; J2270; J2405; J2704; J3010; J3490; Q9967

== ENCOUNTER 2024-03-07 18:44 | Emergency (ER) | payer OTHER, MEDICAID, SELFPAY ==
[2024-02-24 18:07] VITALS: BMI 23.7
[2024-03-07 18:51] VITALS: BP 139/80; PULSE 91; RESP 16; TEMP 37.3; O2SAT 98; BMI 25.0
== END 2024-03-07 19:36 | disposition left against medical advice (07) ==
PROVIDERS: Emergency Provider Emergency Medicine; Family Provider Internal Medicine
DX: R52 Pain, unspecified (principal)
CPT/HCPCS: 99281

== ENCOUNTER 2024-03-09 17:40 | Emergency (ER) | payer OTHER, MEDICAID, SELFPAY ==
[2024-02-24 18:07] VITALS: BMI 23.7
[2024-03-09] VITALS (9 sets, daily range): BP systolic 115–147; BP diastolic 65–87; PULSE 78–97; RESP 18; TEMP 37.2; O2SAT 92–98; BMI 23.7
--- NOTE | 2024-03-09 17:51 | DI.US.S_ITS ---
PROCEDURE: US PERIPH VENOUS LOW EXTREM LT INDICATIONS: pain, recent surgery TECHNIQUE: Real-time imaging, as well as color and pulse Doppler interrogation, were performed of the lower extremity deep veins from the inguinal ligament to the popliteal fossa, with documentation of the visualized calf veins. COMPARISON: None. FINDINGS: The common femoral, femoral, popliteal, and the visualized calf veins are normally compressible, and free of intraluminal thrombus. Color and pulse Doppler demonstrate normal phasic intraluminal flow. There is normal augmentation response to distal compression maneuver. Abnormal dilated vessel in the popliteal region. This measures approximately 1.7 x 1.2 x 0.9 cm in diameter. Suspected adjacent popliteal artery with possible diminished peak systolic velocity. This may communicate with the abnormally dilated vessel. There is turbulent blood flow. IMPRESSION: 1. No left lower extremity DVT. 2. Abnormal dilated vessel in the region of the popliteal fossa. Differential diagnosis includes varix, pseudoaneurysm in the setting of recent surgery, or arterial venous fistula. CT angiogram could be considered for further evaluation. Dictated by: Darrell Dunaway M.D. on 03/09/2024 at 19:59 Approved by: Darrell Dunaway M.D. on 03/09/2024 at 20:05
[2024-03-09 19:52] LABS: Add Manual Diff / Slide Review NO; Basophils Absolute Auto 100 /uL (0-100); Eosinophils Absolute Auto 300 /uL (0-450); Eosinophils Percent Auto 3.2 % (2-4); Hematocrit 23.4 % (41-53); Hemoglobin 7.8 g/dL (13.5-17.5); Lymphocytes Absolute Auto 2100 /uL (1100-4500); Lymphocytes Percent Auto 20.6 % (25-40); Mean Corpuscular HGB Conc 33.2 % (30-36); Mean Corpuscular Hemoglobin 29.6 PG (26-34); Mean Corpuscular Volume 88.9 fL (80-100); Monocytes Absolute Auto 1000 /uL (0-900); Monocytes Percent Auto 9.4 % (3-14); Neutrophils Absolute Auto 6700 /uL (1500-7000); Neutrophils Percent Auto 65.8 % (50-75); Platelet Count 761 X10^3/uL (150-400); Red Blood Cell Count 2.64 X10^6/uL (4.5-5.9); Red Cell Distribution Width 14.9 % (11.6-14.8); White Blood Cell Count 10.2 X10^3/uL (4.5-11.0)
[2024-03-09 20:01] LABS: Prothrombin Time 11.1 SECONDS (9.4-12.5)
[2024-03-09 20:03] LABS: RBC Morphology Normal Morphology
[2024-03-09 20:09] LABS: Alanine Aminotransferase 30 IU/L (<50); Albumin 3.4 g/dL (3.5-5.0); Albumin Globulin Ratio 1.2 (1.0-2.8); Alkaline Phosphatase 153 U/L (38-126); Aspartate Aminotransferase 56 IU/L (17-59); BUN Creatinine Ratio 39.7 (6-22); Bilirubin Total 0.7 mg/dL (0.2-1.3); Blood Urea Nitrogen 23 mg/dL (9-20); Calcium 8.3 mg/dL (8.4-10.2); Carbon Dioxide 28 mmol/L (22-32); Chloride 107 mmol/L (98-107); Estimated Glomerular Filt Rate > 60 mL/min (>60); Globulin 2.9 g/dL (1.7-4.1); Glucose 129 mg/dL (70-100); HEMOLYSIS < 15 (0-50); Sodium 138 mmol/L (137-145); Total Protein 6.3 g/dL (6.3-8.2)
--- NOTE | 2024-03-09 20:13 | ED.EXTPRO ---
HPI - Extremity Problem <Mireya Wiseman MD - Last Filed: 03/11/24 01:30> General Chief complaint: Extremity Problem,Nontraumatic Stated complaint: leg px sent by clinic for possible blood clot Time Seen by Provider: 03/09/24 19:35 Source: patient Mode of arrival: Ambulatory History of Present Illness HPI Narrative: 58-year-old male with history of recent left intertrochanteric fracture status post intramedullary nailing on 02/24 presents by private vehicle for left lower extremity pain. Patient went to the ER several days ago for lower extremity pain but due to the weight left before being seen by any provider. Today he was at the orthopedics office. The physician assistant account manager evaluated the leg and sent him in for evaluation for possible DVT. Patient is able to ambulate with minimal difficulty. Related Data Home Medications Medication Instructions Recorded Confirmed Adults Multivitamin 02/25/24 02/25/24 Previous Rx's Medication Instructions Recorded acetaminophen 325 mg tablet 650 mg (2 x 325 mg) PO Q6H PRN 03/03/24 Fever/Mild Pain (1-3) #6 tabs aspirin 81 mg tablet,delayed 81 mg PO BID 6 weeks #84 tabs 03/03/24 release gabapentin 300 mg capsule 300 mg PO TID 30 days #90 caps 03/03/24 lactulose 10 gram/15 mL oral 20 g (30 mL) PO DAILY 14 days #473 03/03/24 solution mL midodrine 2.5 mg tablet 2.5 mg PO 0600,1200,1800 30 days 03/03/24 #90 tabs Allergies Allergy/AdvReac Type Severity Reaction Status Date / Time No Known Drug Allergies Allergy Verified 03/07/24 18:54 Review of Systems <Mireya Wiseman MD - Last Filed: 03/11/24 01:30> Review of Systems Narrative: See HPI Patient History <Mireya Wiseman MD - Last Filed: 03/11/24 01:30> Medical History History of cocaine abuse 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 Smoking Status: Current every day smoker alcohol intake frequency: holidays/special occasions only Substance Use Type: does not use and former substance user Exam <Mireya Wiseman MD - Last Filed: 03/11/24 01:30> Initial Vital Signs Initial Vital Signs: Vital Signs Temperature 98.9 F 03/09/24 17:45 Pulse Rate 97 H 03/09/24 17:45 Respiratory Rate 18 03/09/24 17:45 Blood Pressure 134/71 03/09/24 17:45 Pulse Oximetry 97 03/09/24 17:45 Oxygen Delivery Method Room Air 03/09/24 17:45 Const: Awake, alert, appears older than stated age Cardiac: regular rate, regular rhythm RESP: unlabored, clear bilaterally, no wheezing MSK: Mild swelling left lower extremity compared to right lower extremity, full range of motion, no deformity Skin: Surgical site with intact shiva, appear to be well healed, no excessive bruising, no excessive warmth or fluctuance, no erythema Neuro: AO x3, CN II-XII grossly intact, moves all extremities <Cassandra Becker DO - Last Filed: 03/10/24 09:12> Initial Vital Signs Initial Vital Signs: Vital Signs Temperature 98.9 F 03/09/24 17:45 Pulse Rate 97 H 03/09/24 17:45 Respiratory Rate 18 03/09/24 17:45 Blood Pressure 134/71 03/09/24 17:45 Pulse Oximetry 97 03/09/24 17:45 Oxygen Delivery Method Room Air 03/09/24 17:45 Course <Mireya Wiseman MD - Last Filed: 03/11/24 01:30> Orders Ordered: ED Orders 03/09/24 17:51 US periph venous low extrem lt Stat 03/09/24 19:45 CBC Auto Diff [Complete Blood Count AUTO DIFF] Stat CMP [Comprehensive Metabolic Panel] Stat PT [Prothrombin Time INR] Stat 03/09/24 20:30 CT angio LE LT Stat Vital Signs Vital signs: Vital Signs - 8 hr 03/09/24 17:45 Temperature 98.9 F Pulse Rate 97 H Respiratory Rate 18 Blood Pressure 134/71 Pulse Oximetry 97 Oxygen Delivery Method Room Air <Cassandra Becker DO - Last Filed: 03/10/24 09:12> Orders Ordered: ED Orders 03/09/24 17:51 US periph venous low extrem lt Stat 03/09/24 19:45 CBC Auto Diff [Complete Blood Count AUTO DIFF] Stat CMP [Comprehensive Metabolic Panel] Stat PT [Prothrombin Time INR] Stat 03/09/24 20:30 CT angio LE LT Stat Vital Signs Vital signs: Vital Signs - 8 hr 03/09/24 17:45 Temperature 98.9 F Pulse Rate 97 H Respiratory Rate 18 Blood Pressure 134/71 Pulse Oximetry 97 Oxygen Delivery Method Room Air MDM - Extremity (Nontraumatic) <Mireya Wiseman MD - Last Filed: 03/11/24 01:30> Differential Diagnosis Differential diagnosis: Likely herpes zoster, superficial thrombophlebitis, lower extremity edema and deep vein thrombosis of lower extremity Lab Data 03/09/24 19:45 03/09/24 19:45 Labs: Lab Results 03/09/24 Range/Units 19:45 WBC 10.2 (4.5-11.0) X10^3/uL RBC 2.64 L (4.5-5.9) X10^6/uL Hgb 7.8 L (13.5-17.5) g/dL Hct 23.4 L (41-53) % MCV 88.9 (80-100) fL MCH 29.6 (26-34) PG MCHC 33.2 (30-36) % RDW 14.9 H (11.6-14.8) % Plt Count 761 H (150-400) X10^3/uL Neut % (Auto) 65.8 (50-75) % Lymph % (Auto) 20.6 L (25-40) % [place] % (Auto) 9.4 (3-14) % Eos % (Auto) 3.2 (2-4) % Baso % (Auto) 1.0 (0-2) % Neut # (Auto) 6700 (3057-0699) /uL Lymph # (Auto) 2100 (9157-9259) /uL [place] # (Auto) 1000 H (0-900) /uL Eos # (Auto) 300 (0-450) /uL Baso # (Auto) 100 (0-100) /uL RBC Morphology Normal morphology PT 11.1 (9.4-12.5) SECONDS INR 1.0 (0.9-1.3) Sodium 138 (137-145) mmol/L Potassium 4.0 (3.4-5.1) mmol/L Chloride 107 (98-107) mmol/L Carbon Dioxide 28 (22-32) mmol/L BUN 23 H (9-20) mg/dL Creatinine 0.58 L (0.66-1.25) mg/dL Estimated GFR > 60 (>60) mL/min BUN/Creatinine Ratio 39.7 H (6-22) Glucose 129 H (70-100) mg/dL Calcium 8.3 L (8.4-10.2) mg/dL Total Bilirubin 0.7 (0.2-1.3) mg/dL AST 56 (17-59) IU/L ALT 30 (<50) IU/L Alkaline Phosphatase 153 H (38-126) U/L Total Protein 6.3 (6.3-8.2) g/dL Albumin 3.4 L (3.5-5.0) g/dL Globulin 2.9 (1.7-4.1) g/dL Albumin/Globulin Ratio 1.2 (1.0-2.8) Imaging Data US - DVT: Radiologist's Impression: PROCEDURE: US PERIPH VENOUS LOW EXTREM LT INDICATIONS: pain, recent surgery TECHNIQUE: Real-time imaging, as well as color and pulse Doppler interrogation, were performed of the lower extremity deep veins from the inguinal ligament to the popliteal fossa, with documentation of the visualized calf veins. COMPARISON: None. FINDINGS: The common femoral, femoral, popliteal, and the visualized calf veins are normally compressible, and free of intraluminal thrombus. Color and pulse Doppler demonstrate normal phasic intraluminal flow. There is normal augmentation response to distal compression maneuver. Abnormal dilated vessel in the popliteal region. This measures approximately 1.7 x 1.2 x 0.9 cm in diameter. Suspected adjacent popliteal artery with possible diminished peak systolic velocity. This may communicate with the abnormally dilated vessel. There is turbulent blood flow. IMPRESSION: 1. No left lower extremity DVT. 2. Abnormal dilated vessel in the region of the popliteal fossa. Differential diagnosis includes varix, pseudoaneurysm in the setting of recent surgery, or arterial venous fistula. CT angiogram could be considered for further evaluation. Dictated by: Darrell Dunaway M.D. on 03/09/2024 at 19:59 Approved by: Darrell Dunaway M.D. on 03/09/2024 at 20:05 CT - cervical spine: Radiologist's Impression: PROCEDURE: CT ANGIO LE LT INDICATIONS: POSS FISTULA/PSEUDOANEURYSM LLE ON US TECHNIQUE: After the administration of intravenous contrast, 2.5 mm sections acquired from T12 to the feet, with optional delayed image acquisition from the knees to the feet. 3-dimensional maximum intensity projection (MIP) coronal and sagittal reformats, and/or 3-dimensional volume rendering reformatting was then performed. For radiation dose reduction, the following was used: automated exposure control. COMPARISON: [facility], US, US PERIPH VENOUS LOW EXTREM LT, 03/09/2024, 19:23. [facility], CT, CT HIP LEFT WITHOUT CON, 02/29/2024, 13:47. FINDINGS: Image Quality: Diagnostic. Abdominal aorta: Included portion of abdominal aorta show no aortic aneurysm or dissection. Mild atherosclerotic calcifications are seen. Right lower extremity: Normal contrast opacification of left iliac arteries and femoral arteries without aneurysm or contrast extravasation. No signs of pseudoaneurysm. Normal contrast opacification of popliteal artery is seen without evidence of pseudoaneurysm or aneurysm. No hemodynamically significant stenosis. Normal 3 vessel runoff to left ankle is seen. PELVIS: Pelvic Organs: Unremarkable. Bladder: Unremarkable. Pelvic Nodes: No enlarged lymph nodes. Miscellaneous: No inguinal hernias are seen. Large intramuscular hematoma involving lateral aspect of left gluteus medius muscle is again seen. Moderate size intramuscular hematoma involving lateral portion of left vastus lateralis muscle and vastus intermedius muscle is seen. Large soft tissue hematoma is also noted in lateral left upper thigh decreased in size compared to previous study. Subcutaneous soft tissue edema along lateral periphery of left thigh is seen extending to anterior and lateral aspect of left knee and is seen throughout left lower leg extending to left ankle and foot. No discrete peripherally enhancing drainable fluid collection is noted. Bones: No aggressive osseous abnormality. Postsurgical changes are again seen from internal fixation of left proximal femur. IMPRESSION: 1. No aneurysm or pseudoaneurysm is seen in left inguinal region or left popliteal fossa. No hemodynamically significant stenosis or signs of acute arterial injury is seen in visualized left lower extremity arteries. 2. Suggestion of extensive cellulitis in lateral aspect of left thigh extending to anterior and lateral aspect of left knee and throughout left lower leg extending to ankle and foot. No discrete drainable abscess collection. 3. Intramuscular hematoma involving lateral portion of left gluteus muscles as well as lateral portion of left thigh muscles. Interval decrease in size of patient's known soft tissue hematoma in lateral aspect of left hip. Post ORIF changes again seen in left femur. Dictated by: Alf Villanueva M.D. on 03/09/2024 at 22:03 Approved by: Alf Villanueva M.D. on 03/09/2024 at 22:09 [facility] Narrative Medical decision making narrative: Dr. Becker-received call from Dr. Dunaway radiology who is reviewing patient's CT. There is concern for possible anterior tibial vein thrombosis that is approximately 3 cm. It may also be a varicose vein. He recommends outpatient follow-up with an ultrasound. I have called and left a voicemail for the patient to call back. Dr. Wiseman -sent in by [facility] to rule out DVT. Physical exam is relatively benign, he has well healing sutures, there was no reproducible tenderness to light or deep palpation, no extensive bruising. Patient was ambulatory without difficulty in the emergency department. Laboratory work and ultrasound imaging obtained. Received a call from Radiology stating that there was abnormal appearing blood flow in the lower extremity that could possibly be of concern for fistula. Physical exam findings discussed with the Radiology, who stated that in absence of excessive bruising or palpable thrill this is less likely, however there is no obvious other explanation for the radiographic findings. CT angio with runoff ordered. CT angio negative for fistula. There are intramuscular hematomas present, which is expected after surgery. Note was made of possible extensive cellulitic changes in the lower extremity, however there is no excessive warmth, erythema, or fluctuance noted anywhere along the patient's lower extremity from his thigh to his foot. I do not suspect cellulitis at this time, particularly in the absence of leukocytosis on blood work. Patient informed of lab and imaging findings, counseled orthopedic follow up. <Cassandra Becker, DO - Last Filed: 03/10/24 09:12> Lab Data Labs: Lab Results 03/09/24 Range/Units 19:45 WBC 10.2 (4.5-11.0) X10^3/uL RBC 2.64 L (4.5-5.9) X10^6/uL Hgb 7.8 L (13.5-17.5) g/dL Hct 23.4 L (41-53) % MCV 88.9 (80-100) fL MCH 29.6 (26-34) PG MCHC 33.2 (30-36) % RDW 14.9 H (11.6-14.8) % Plt Count 761 H (150-400) X10^3/uL Neut % (Auto) 65.8 (50-75) % Lymph % (Auto) 20.6 L (25-40) % Laporte % (Auto) 9.4 (3-14) % Eos % (Auto) 3.2 (2-4) % Baso % (Auto) 1.0 (0-2) % Neut # (Auto) 6700 (0079-5423) /uL Lymph # (Auto) 2100 (9154-9486) /uL [place] # (Auto) 1000 H (0-900) /uL Eos # (Auto) 300 (0-450) /uL Baso # (Auto) 100 (0-100) /uL RBC Morphology Normal morphology PT 11.1 (9.4-12.5) SECONDS INR 1.0 (0.9-1.3) Sodium 138 (137-145) mmol/L Potassium 4.0 (3.4-5.1) mmol/L Chloride 107 (98-107) mmol/L Carbon Dioxide 28 (22-32) mmol/L BUN 23 H (9-20) mg/dL Creatinine 0.58 L (0.66-1.25) mg/dL Estimated GFR > 60 (>60) mL/min BUN/Creatinine Ratio 39.7 H (6-22) Glucose 129 H (70-100) mg/dL Calcium 8.3 L (8.4-10.2) mg/dL Total Bilirubin 0.7 (0.2-1.3) mg/dL AST 56 (17-59) IU/L ALT 30 (<50) IU/L Alkaline Phosphatase 153 H (38-126) U/L Total Protein 6.3 (6.3-8.2) g/dL Albumin 3.4 L (3.5-5.0) g/dL Globulin 2.9 (1.7-4.1) g/dL Albumin/Globulin Ratio 1.2 (1.0-2.8) MDM Narrative Medical decision making narrative: Dr. Becker-received call from Dr. Dunaway radiology who is reviewing patient's CT. There is concern for possible anterior tibial vein thrombosis that is approximately 3 cm. It may also be a varicose vein. He recommends outpatient follow-up with an ultrasound. I have called and left a voicemail for the patient to call back. Discharge Plan Departure Patient Disposition: Home Clinical Impression: Acute leg pain, Anemia Instructions: DI for Leg Pain Activity Restrictions/Additional Instructions: Your laboratory work today showed anemia, which appears to be chronic for you. Your ultrasound and CT did not show any blood clots or other abnormalities. You have a, likely from your surgery. Please continue to follow up with your orthopedic team. Prescriptions: No Action Adults Multivitamin tablet aspirin 81 mg Tablet,Delayed Release (Dr/Ec) 81 mg PO BID 42 Days Qty: 84 0RF acetaminophen 325 mg Tablet 650 mg PO Q6H PRN (Reason: Fever/Mild Pain (1-3)) Qty: 6 0RF gabapentin 300 mg Capsule 300 mg PO TID 30 Days Qty: 90 0RF lactulose 10 gram/15 mL Solution 20 g PO DAILY 14 Days Qty: 473 0RF midodrine 2.5 mg tablet 2.5 mg PO 0600,1200,1800 30 Days Qty: 90 0RF Referrals: Miscellaneous,Doctor, MD [Primary Care Provider] - Stand Alone Forms: Patient Portal/API
--- NOTE | 2024-03-09 20:30 | DI.CT.S_ITS ---
PROCEDURE: CT ANGIO LE LT INDICATIONS: POSS FISTULA/PSEUDOANEURYSM LLE ON US TECHNIQUE: After the administration of intravenous contrast, 2.5 mm sections acquired from T12 to the feet, with optional delayed image acquisition from the knees to the feet. 3-dimensional maximum intensity projection (MIP) coronal and sagittal reformats, and/or 3-dimensional volume rendering reformatting was then performed. For radiation dose reduction, the following was used: automated exposure control. COMPARISON: [facility], US, US PERIPH VENOUS LOW EXTREM LT, 03/09/2024, 19:23. [facility], CT, CT HIP LEFT WITHOUT CON, 02/29/2024, 13:47. FINDINGS: Image Quality: Diagnostic. Abdominal aorta: Included portion of abdominal aorta show no aortic aneurysm or dissection. Mild atherosclerotic calcifications are seen. Right lower extremity: Normal contrast opacification of left iliac arteries and femoral arteries without aneurysm or contrast extravasation. No signs of pseudoaneurysm. Normal contrast opacification of popliteal artery is seen without evidence of pseudoaneurysm or aneurysm. No hemodynamically significant stenosis. Normal 3 vessel runoff to left ankle is seen. PELVIS: Pelvic Organs: Unremarkable. Bladder: Unremarkable. Pelvic Nodes: No enlarged lymph nodes. Miscellaneous: No inguinal hernias are seen. Large intramuscular hematoma involving lateral aspect of left gluteus medius muscle is again seen. Moderate size intramuscular hematoma involving lateral portion of left vastus lateralis muscle and vastus intermedius muscle is seen. Large soft tissue hematoma is also noted in lateral left upper thigh decreased in size compared to previous study. Subcutaneous soft tissue edema along lateral periphery of left thigh is seen extending to anterior and lateral aspect of left knee and is seen throughout left lower leg extending to left ankle and foot. No discrete peripherally enhancing drainable fluid collection is noted. Bones: No aggressive osseous abnormality. Postsurgical changes are again seen from internal fixation of left proximal femur. IMPRESSION: 1. No aneurysm or pseudoaneurysm is seen in left inguinal region or left popliteal fossa. No hemodynamically significant stenosis or signs of acute arterial injury is seen in visualized left lower extremity arteries. 2. Suggestion of extensive cellulitis in lateral aspect of left thigh extending to anterior and lateral aspect of left knee and throughout left lower leg extending to ankle and foot. No discrete drainable abscess collection. 3. Intramuscular hematoma involving lateral portion of left gluteus muscles as well as lateral portion of left thigh muscles. Interval decrease in size of patient's known soft tissue hematoma in lateral aspect of left hip. Post ORIF changes again seen in left femur. Dictated by: Alf Villanueva M.D. on 03/09/2024 at 22:03 Approved by: Alf Villanueva M.D. on 03/09/2024 at 22:09
== END 2024-03-09 22:42 | disposition home or self-care (01) ==
PROVIDERS: Emergency Provider Emergency Medicine; Family Provider Internal Medicine
DX: M79.605 Pain in left leg (principal); D64.9 Anemia, unspecified
CPT/HCPCS: 36415; 73706; 80053; 85025; 85610; 93971; 99283; 99284; Q9967

== ENCOUNTER → 2024-03-16 09:01 | Outpatient (CLI) | payer OTHER, MEDICAID, SELFPAY ==
[2024-02-24 18:07] VITALS: BMI 23.7
--- NOTE | 2024-03-16 09:02 | DI.US.S_ITS ---
PROCEDURE: US [facility] VENOUS LOW EXTREM LT INDICATIONS: LEFT CALF PAIN FOLLOWING FEMUR SURGERY TECHNIQUE: Real-time imaging, as well as color and pulse Doppler interrogation, were performed of the lower extremity deep veins from the inguinal ligament to the popliteal fossa, with documentation of the visualized calf veins. COMPARISON: [facility], [facility] VENOUS LOW EXTREM LT, 03/09/2024, 19:23. FINDINGS: The common femoral, femoral, popliteal, and the visualized calf veins are normally compressible, and free of intraluminal thrombus. Color and pulse Doppler demonstrate normal phasic intraluminal flow. There is normal augmentation response to distal compression maneuver. Subcutaneous edema in the calf. IMPRESSION: No findings of lower extremity deep venous thrombosis. Dictated by: Rajeev Ruiz M.D. on 03/16/2024 at 15:40 Approved by: Rajeev Ruiz M.D. on 03/16/2024 at 15:41
== END ==
PROVIDERS: Family Provider Internal Medicine; Referring Provider Orthopaedic Surgery Adult Reconstructive Orthopaedic Surgery; Visit Provider Orthopaedic Surgery Adult Reconstructive Orthopaedic Surgery
DX: S72.142S Displaced intertrochanteric fracture of left femur, sequela (principal); G89.18 Other acute postprocedural pain; M79.662 Pain in left lower leg; R60.0 Localized edema
CPT/HCPCS: 93971

== ENCOUNTER 2024-08-30 18:14 | Emergency (ER) | payer OTHER, MEDICAID, SELFPAY ==
[2024-02-24 18:07] VITALS: BMI 23.7
[2024-08-30 18:22] VITALS: BP 151/90; PULSE 90; RESP 18; TEMP 36.6; O2SAT 100; BMI 23.7
--- NOTE | 2024-08-30 20:21 | PC.NURSE ---
Pt left [facility]. Multiple attempt made to locate pt by radiology and automobile body repairer helper
== END 2024-08-30 20:25 | disposition left against medical advice (07) ==
PROVIDERS: Emergency Provider Emergency Medicine; Family Provider Internal Medicine
CPT/HCPCS: 99281

== ENCOUNTER 2024-10-09 16:08 | Emergency (ER) | payer OTHER, SELFPAY ==
[2024-02-24 18:07] VITALS: BMI 23.7
[2024-10-09 16:25] VITALS: BP 110/73; PULSE 98; RESP 16; TEMP 37.1; O2SAT 99; BMI 24.3
--- NOTE | 2024-10-09 16:47 | DI.RAD.S_ITS ---
PROCEDURE: XR KNEE RT 3V INDICATIONS: pain, swelling, no known injury TECHNIQUE: 3 views of the knee were acquired. COMPARISON: [facility], CR, XR KNEE LT 3V, 10/08/2020, 11:13. FINDINGS: Bones: No acute fractures or dislocations. No suspicious bony lesions. Soft tissues: No joint effusion. No suspicious soft tissue calcifications. Moderate prepatellar soft tissue swelling. IMPRESSION: No acute bony abnormality or significant effusion. Mild tricompartmental degenerative changes of the right knee. Moderate prepatellar soft tissue swelling likely representing prepatellar bursitis. Dictated by: Cirilo Bell M.D. on 10/09/2024 at 17:40 Approved by: Cirilo Bell M.D. on 10/09/2024 at 17:41
[2024-10-09 18:25] VITALS: BP 106/64; PULSE 96; RESP 16; O2SAT 98
--- NOTE | 2024-10-10 12:41 | ED.SKABFB ---
HPI - Skin/Abscess/Foreign Bdy <Marietta Chacon PA-C - Last Filed: 10/10/24 15:06> General Chief complaint: Skin/Abscess/Foreign Body Stated complaint: swollen knee Time Seen by Provider: 10/09/24 17:00 Source: patient Mode of arrival: Family Vehicle Limitations: no limitations History of Present Illness HPI narrative: 59-year-old male presents to the ED with 2 days of right knee swelling, discomfort, redness. Patient states that he noticed 2 scabs on his knee which he picked on, following which his symptoms started. No fever, chills. No numbness, tingling, weakness. Patient is able to range the knee completely. Able to bear weight and walk. Denies trauma. Related Data Home Medications Medication Instructions Recorded Confirmed Adults Multivitamin 02/25/24 02/25/24 Previous Rx's Medication Instructions Recorded acetaminophen 325 mg tablet 650 mg (2 x 325 mg) PO Q6H PRN 03/03/24 Fever/Mild Pain (1-3) #6 tabs cephalexin 500 mg capsule 500 mg PO TID 5 days #15 caps 10/09/24 sulfamethoxazole 800 2 tab PO BID 14 days #56 tabs 10/09/24 mg-trimethoprim 160 mg tablet (Bactrim DS) Allergies Allergy/AdvReac Type Severity Reaction Status Date / Time No Known Drug Allergies Allergy Verified 08/30/24 18:26 Review of Systems <Marietta Chacon PA-C - Last Filed: 10/10/24 15:06> Constitutional Constitutional: Denies chills, Denies fatigue, Denies fever(s), Denies frequent falls, Denies lethargy and Denies weakness Eyes Eyes: Denies change in vision, Denies eye discharge, Denies irritation and Denies loss of vision ENT Ears, Nose, Mouth, and Throat: Denies change in voice, Denies dizziness, Denies neck pain, Denies sore throat and Denies throat swelling Cardiovascular Cardiovascular: Denies chest pain, Denies irregular heart rhythm, Denies lightheadedness, Denies palpitations, Denies dyspnea, Denies dyspnea on exertion and Denies orthopnea Respiratory Respiratory: Denies cough, Denies dyspnea, Denies dyspnea on exertion and Denies wheezing Gastrointestinal Gastrointestinal: Denies abdominal pain, Denies change in bowel habits, Denies diarrhea, Denies nausea and Denies vomiting Musculoskeletal Musculoskeletal: Denies neck pain and Denies numbness Comments: Right knee swelling, redness, pain Integumentary/Breasts Skin/Breast: Denies pruritus, Denies erythema, Denies rash and Denies wounds Neurologic Neurologic: Denies behavioral changes, Denies confusion, Denies dizziness, Denies frequent falls, Denies loss of vision, Denies numbness and Denies weakness Psychiatric Psychiatric: Denies anxiety, Denies behavioral changes, Denies confusion, Denies depression, Denies homicidal ideation and Denies suicidal ideation Endocrine Endocrine: Denies fatigue, Denies flushing and Denies palpitations Hematologic/Lymphatic Hematologic/Lymphatic: Denies easy bruising Allergic/Immunologic Allergic/Immunologic: Denies urticaria, Denies throat swelling and Denies wheezing Patient History <Marietta Chacon PA-C - Last Filed: 10/10/24 15:06> Medical History History of cocaine abuse 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 Smoking Status: Current every day smoker tobacco type: cigarettes alcohol intake frequency: holidays/special occasions only Exam <Marietta Chacon PA-C - Last Filed: 10/10/24 15:06> Narrative Exam Narrative: Const General:?cooperative, healthy appearing and comfortable [facility] Head:?normal to inspection Ears:?hearing grossly normal bilaterally Nose:?external nose normal Face and sinus:?normal facial exam and sinuses nontender Mouth:?oral mucosae normal Throat:?posterior oropharynx normal Eyes General:?appearance normal, both eyes and all related structures Neck Neck:?normal visual inspection and no lymphadenopathy noted Resp Effort & Inspection:?normal respiratory effort Auscultation:?clear to auscultation bilaterally Cardio Rate:?regular rate Rhythm:?regular rhythm Musculoskeletal/integumentary Anterior aspect of right knee appears erythematous, mildly swollen. There is full range of motion. Strength and sensation is intact. Patient is neurovascularly intact. Mild tenderness to palpation. Able to bear weight and walk. Neuro General:?patient alert, patient awake and patient oriented x3 Initial Vital Signs Initial Vital Signs: Vital Signs Temperature 98.8 F 10/09/24 16:25 Pulse Rate 98 H 10/09/24 16:25 Respiratory Rate 16 10/09/24 16:25 Blood Pressure 110/73 10/09/24 16:25 Pulse Oximetry 99 10/09/24 16:25 Oxygen Delivery Method Room Air 10/09/24 16:25 <Cassandra Becker DO - Last Filed: 10/10/24 15:45> Initial Vital Signs Initial Vital Signs: Vital Signs Temperature 98.8 F 10/09/24 16:25 Pulse Rate 98 H 10/09/24 16:25 Respiratory Rate 16 10/09/24 16:25 Blood Pressure 110/73 10/09/24 16:25 Pulse Oximetry 99 10/09/24 16:25 Oxygen Delivery Method Room Air 10/09/24 16:25 MDM - Skin/Abscess/Foreign Bdy <Marietta Chacon PA-C - Last Filed: 10/10/24 15:06> MDM Narrative Medical decision making narrative: 59-year-old male presents to the ED with 2 days of right knee swelling, discomfort, redness. An x-ray was obtained which shows moderate prepatellar soft tissue swelling likely representing prepatellar bursitis. No other abnormalities on x-ray. On physical exam, suspicion for cellulitis versus prepatellar bursitis. Unlikely septic joint, given patient is able to range his knee well, swelling is minimal, knee is not warm, no systemic signs. Prescribed antibiotics. ED return precautions discussed with patient. Patient verbalized understanding. Medical records reviewed: Yes Discharge Plan Departure Patient Disposition: Home Clinical Impression: Prepatellar bursitis Qualifiers: Laterality: right Qualified Code(s): M70.41 - Prepatellar bursitis, right knee Instructions: DI for Cellulitis -- Adult Activity Restrictions/Additional Instructions: You were evaluated in the ED today for a knee infection. You are being prescribed antibiotics. Please take them as prescribed. Please follow-up with your PCP as soon as possible. Return to the ED if you have worsening symptoms. Prescriptions: New sulfamethoxazole-trimethoprim [Bactrim DS] 800-160 mg tablet 2 tab PO BID 14 Days Qty: 56 0RF cephalexin 500 mg capsule 500 mg PO TID 5 Days Qty: 15 0RF No Action Adults Multivitamin tablet acetaminophen 325 mg Tablet 650 mg PO Q6H PRN (Reason: Fever/Mild Pain (1-3)) Qty: 6 0RF Referrals: Miscellaneous,Doctor, MD [Primary Care Provider] - Stand Alone Forms: Patient Portal/API/Survey ED Sign-out <Cassandra Becker DO - Last Filed: 10/10/24 15:45> Cosign ED Attending Cosignature Attestation: I was available for consultation.
== END 2024-10-09 18:25 | disposition home or self-care (01) ==
PROVIDERS: Emergency Provider Student in an Organized Health Care Education/Training Program; Family Provider Internal Medicine
DX: M70.41 Prepatellar bursitis, right knee (principal)
CPT/HCPCS: 73562; 99283

== ENCOUNTER → 2025-08-07 11:28 | Outpatient (CLI) | payer OTHER, SELFPAY ==
[2024-02-24 18:07] VITALS: BMI 23.7
--- NOTE | 2025-08-07 11:30 | DI.RAD.S_ITS ---
PROCEDURE: XR FOOT LT MIN 3V INDICATIONS: Wound and pain distal 5th plantar metatarsal area TECHNIQUE: 3 views of the foot were acquired. COMPARISON: [facility], CR, XR FOOT LT MIN 3V, 03/09/2023, 16:55. FINDINGS: Bones: Stable appearance of hardware within the medial malleolus without evidence of complication. No fractures or dislocations. No definite radiographic evidence of osteomyelitis. No suspicious bony lesions. Minimal plantar and retrocalcaneal enthesopathy. Soft tissues: No tibiotalar joint effusion. Moderate soft tissue swelling noted about the 5th ray. Achilles tendon appears normal. IMPRESSION: Moderate soft tissue swelling about the 5th ray without evidence of acute osseous abnormality or definite radiographic evidence of osteomyelitis. Dictated by: Aman Scott M.D. on 08/10/2025 at 8:06 Approved by: Aman Scott M.D. on 08/10/2025 at 8:08
== END ==
PROVIDERS: Family Provider Internal Medicine; Referring Provider Physician Assistant; Visit Provider Physician Assistant
DX: S91.302A Unspecified open wound, left foot, initial encounter (principal); M79.89 Other specified soft tissue disorders
CPT/HCPCS: 73630